=== PATIENT | female | born 1960 | race Caucasian/White ===

== ENCOUNTER 2017-04-29 20:01 | Emergency (ER) | payer OTHER ==
[~2017-04-29 20:01] MED LIST: GLYB5TAB3 PO; METO25 PO; TRIA37.512 PO
[2017-04-29 20:02] VITALS: BP 159/72; PULSE 79; RESP 16; TEMP 98.7; O2SAT 96
[2017-04-29] MEDS ORDERED: SODIUM CHLOR 0.9% 1000 ML INJ 1,000 ML IV SCH (20:25)
[2017-04-29] MEDS ORDERED: BRIM0.2S4 EACH EYE (20:26)
[2017-04-29] MEDS ORDERED: SODI650T PO (20:26)
[2017-04-29] MEDS ORDERED: METO25TA3 PO (20:26)
[2017-04-29] MEDS ORDERED: ATOR20TA15 PO (20:26)
[2017-04-29] MEDS ORDERED: ATRO1SOL11 SL (20:26)
[2017-04-29] MEDS ORDERED: PRED1SUS LEFT EYE (20:26)
[2017-04-29] MEDS ORDERED: AMLO5TAB2 PO (20:26)
[2017-04-29] MEDS ORDERED: GLYB2.5T3 PO (20:26)
[2017-04-29 20:27] VITALS: BP 139/67; PULSE 79; RESP 20; O2SAT 98
[2017-04-29] MEDS ORDERED: DEXTROSE 50% IN WATER 50 ML VIAL(D50) IV PRN (20:30)
[2017-04-29] MEDS ORDERED: SODIUM CHLORIDE 0.9% FLUSH 5 ML FLUSH IV FLUSH PRN (20:30)
--- NOTE | 2017-04-29 20:48 | PD ---
HPI Chief Complaint: Neuro Symptoms/ Deficits Time Seen by Provider: 20:16 Travel History International Travel<30 days: No Contact w/Intl Traveler<30days: No Traveled to known affect area: No History of Present Illness HPI The patient is a 57-year-old female, glyburide controlled diabetic, who complains of left-sided numbness today. Her blood sugar at home was 43 approximately 7 PM tonight and she was given sugar in the form of soda by mouth. The left-sided numbness resolved. Repeat blood sugar here on admission was 65. She states she does not have an appetite. She states she did eat today but has had a decreased appetite. There is been no nausea, vomiting or diarrhea. There's been no fever, dysuria, frequency or urgency. She denies any focal weakness, headache. She speaks only Ukrainian but her daughter interprets for her. She lives in [place] but states they do not take her insurance in [place] and has to come to [place]. The patient has chronic renal insufficiency and is being considered and being worked up for dialysis in [place]. [facility] Past Medical History Diabetes: Yes Hypertension: Yes Social History Alcohol Use: No Tobacco Use: No Substance Use: No Allergies-Medications (Allergen,Severity, Reaction): Coded Allergies: No Known Allergies (Unverified , 04/29/17) Reported Meds & Prescriptions Reported Meds & Active Scripts Active Reported Brimonidine Opth Drops (Brimonidine Tartrate) 0.2% Soln 1 Drop EACH EYE TID Pred Forte Opth 1% (Prednisolone Acetate Opth 1%) 1% Susp 1 Drop LEFT EYE QID Sodium Bicarbonate 650 Mg Tab 650 Mg PO BIDPC Atorvastatin (Atorvastatin Calcium) 20 Mg Tab 20 Mg PO HS Glyburide 2.5 Mg Tab 2.5 Mg PO DAILY Take with meals at the same time each day Amlodipine (Amlodipine Besylate) 5 Mg Tab 5 Mg PO DAILY Atropine Opth Drops 1% Soln 1 Drop SL TID PRN Metoprolol Tartrate 25 Mg Tab 25 Mg PO BID Review of Systems ROS Limitations: Language Barrier Except as stated in HPI: all other systems reviewed are Neg Physical Exam Narrative GENERAL: The patient is alert, oriented 3 and answers questions quickly and appropriately. Her vital signs show blood pressure 159/72 but are otherwise normal. SKIN: Focused skin assessment warm/dry. HEAD: Atraumatic. Normocephalic. EYES: Pupils equal and round. No scleral icterus. No injection or drainage. ENT: No nasal bleeding or discharge. Mucous membranes pink and moist. NECK: Trachea midline. No JVD. CARDIOVASCULAR: Regular rate and rhythm. No murmur appreciated. RESPIRATORY: No accessory muscle use. Clear to auscultation. Breath sounds equal bilaterally. GASTROINTESTINAL: Abdomen soft, non-tender, nondistended. Hepatic and splenic margins not palpable. No guarding or rebound is present. MUSCULOSKELETAL: No obvious deformities. No clubbing. No cyanosis. No edema. NEUROLOGICAL: Awake and alert. No obvious cranial nerve deficits. Motor grossly within normal limits. Normal speech. PSYCHIATRIC: Appropriate mood and affect; insight and judgment normal. Data Data Last Documented VS Vital Signs Date Time Temp Pulse Resp B/P Pulse Ox O2 Delivery O2 Flow Rate FiO2 04/29/17 22:50 82 18 160/85 98 Room Air 04/29/17 20:02 98.7 Orders Electrocardiogram (04/29/17 20:25) Complete Blood Count With Diff (04/29/17 20:25) Comprehensive Metabolic Panel (04/29/17 20:25) Thyroid Stimulating Hormone (04/29/17 20:25) Urinalysis - C+S If Indicated (04/29/17 20:25) Blood Glucose (04/29/17 20:25) Ecg Monitoring (04/29/17 20:25) Iv Access Insert/Monitor (04/29/17 20:25) Oximetry (04/29/17 20:25) Dextrose 50% In Rosa (Vial) Inj (D50w (Vi (04/29/17 20:30) Sodium Chloride 0.9% Flush (Ns Flush) (04/29/17 20:30) Sodium Chlor 0.9% 1000 Ml Inj (Ns 1000 M (04/29/17 20:25) Ct Brain W/O Iv Contrast(Rout) (04/29/17 20:27) Labs Laboratory Tests Test 04/29/17 20:30 White Blood Count 7.8 TH/MM3 Red Blood Count 3.54 MIL/MM3 Hemoglobin 9.9 GM/DL Hematocrit 30.2 % Mean Corpuscular Volume 85.4 FL Mean Corpuscular Hemoglobin 28.0 PG Mean Corpuscular Hemoglobin 32.8 % Concent Red Cell Distribution Width 14.7 % Platelet Count 206 TH/MM3 Mean Platelet Volume 10.0 FL Neutrophils (%) (Auto) 81.7 % Lymphocytes (%) (Auto) 12.1 % Monocytes (%) (Auto) 3.4 % Eosinophils (%) (Auto) 2.4 % Basophils (%) (Auto) 0.4 % Neutrophils # (Auto) 6.4 TH/MM3 Lymphocytes # (Auto) 1.0 TH/MM3 Monocytes # (Auto) 0.3 TH/MM3 Eosinophils # (Auto) 0.2 TH/MM3 Basophils # (Auto) 0.0 TH/MM3 CBC Comment DIFF FINAL Differential Comment Sodium Level 139 MEQ/L Potassium Level 4.2 MEQ/L Chloride Level 108 MEQ/L Carbon Dioxide Level 19.2 MEQ/L Anion Gap 12 MEQ/L Blood Urea Nitrogen 40 MG/DL Creatinine 3.68 MG/DL Estimat Glomerular Filtration 13 ML/MIN Rate Random Glucose 55 MG/DL Calcium Level 8.6 MG/DL Total Bilirubin 0.2 MG/DL Aspartate Amino Transf 20 U/L (AST/SGOT) Alanine Aminotransferase 16 U/L (ALT/SGPT) Alkaline Phosphatase 96 U/L Total Protein 7.7 GM/DL Albumin 2.8 GM/DL Thyroid Stimulating Hormone 4.990 uIU/ML [address] [place] [address] Medical Decision Making Medical Screen Exam Complete: Yes Emergency Medical Condition: Yes Medical Record Reviewed: Yes Interpretation(s) The CT brain shows no acute intracranial abnormality. Repeat Accu-Cheks were done at approximately 11 PM and 12 midnight and they show 141 and 185 respectively. The CBC is normal except for hemoglobin of 9.9 and hematocrit of 30.2. The complete metabolic profile with blood drawn at 8:30 shows bicarbonate of 19.2, BUN 40, creatinine 3.68 with GFR of 13 and glucose of 55 and TSH of 4,990. Differential Diagnosis Hypoglycemia, acute renal insufficiency, electrolyte disorder, other metabolic disorder, intracranial bleed Narrative Course The patient does have known renal insufficiency. She apparently does have hypothyroid according to the TSH. She is anemic but this is unlikely to cause her problem today. The patient appears to have had a hypoglycemic reaction. She had a similar reaction yesterday. This was treated completely with by mouth intake. Diagnosis Primary Impression: Hypoglycemia Additional Instructions: It is important that you follow-[place]. It is also important that she eat regular meals so that you do not get low blood sugar again. Med/Other Pt SpecificInfo: No Change to Meds Disposition: 01 DISCHARGE HOME Condition: Paul Beltran MD Apr 29, 2017 20:48
[2017-04-29 20:55] LABS: AUTOMATED NEUTROPHIL # 6.4 TH/MM3 (1.8-7.7); BASOPHIL % 0.4 % (0.0-2.0); EOSINOPHIL # 0.2 TH/MM3 (0-0.4); EOSINOPHIL % 2.4 % (0.0-4.0); HEMATOCRIT 30.2 % (35.0-46.0); HEMO FLAGS DIFF FINAL; LYMPH % 12.1 % (9.0-44.0); MEAN CELL VOLUME 85.4 FL (80.0-100.0); MEAN CORPUSCULAR HGB CONC 32.8 % (32.0-36.0); MONO % 3.4 % (0.0-8.0); NEUT % 81.7 % (16.0-70.0); PLATELET COUNT 206 TH/MM3 (150-450); RED BLOOD COUNT 3.54 MIL/MM3 (4.00-5.30); RED CELL DISTRIBUTION WIDTH 14.7 % (11.6-17.2); WHITE BLOOD COUNT 7.8 TH/MM3 (4.0-11.0)
[2017-04-29 21:11] LABS: ANION GAP 12 MEQ/L (5-15); AST (GOT) 20 U/L (15-37); BICARBONATE 19.2 MEQ/L (21.0-32.0); BLOOD UREA NITROGEN 40 MG/DL (7-18); CHLORIDE 108 MEQ/L (98-107); GLOMERULAR FILTRATION RATE 13 ML/MIN (>89); POTASSIUM 4.2 MEQ/L (3.5-5.1); SODIUM (NA) 139 MEQ/L (136-145)
[2017-04-29 21:12] LABS: ALT (GPT) 16 U/L (10-53)
[2017-04-29 21:22] LABS: ALKALINE PHOSPHATASE 96 U/L (45-117); TOTAL BILIRUBIN ADULT 0.2 MG/DL (0.2-1.0)
[2017-04-29 21:47] VITALS: BP 146/80; PULSE 77; RESP 18; O2SAT 99
[2017-04-29 22:50] VITALS: BP 160/85; PULSE 82; RESP 18; O2SAT 98
--- NOTE | 2017-04-29 22:56 | RADRPT ---
EXAM DATE/TIME: 04/29/2017 22:44 [facility] COMPARISON: No previous studies available for comparison. INDICATIONS : Altered mental status. RADIATION DOSE: 36.39 CTDIvol (mGy) MEDICAL HISTORY : Hypertension. Diabetes mellitus type 2. SURGICAL HISTORY : None. ENCOUNTER: Initial ACUITY: 1 day PAIN SCALE: 0/10 LOCATION: cranial TECHNIQUE: Multiple contiguous axial images were obtained of the head. Using automated exposure control and adj ustment of the mA and/or kV according to patient size, radiation dose was kept as low as reasonably a chievable to obtain optimal diagnostic quality images. FINDINGS: CEREBRUM: The ventricles are normal. No evidence of midline shift, mass lesion, hemorrhage or acute infarction . No extra-axial fluid collections are seen. POSTERIOR FOSSA: The cerebellum and brainstem demonstrate no acute finding. The 4th ventricle is midline. The cerebe llopontine angle is unremarkable. EXTRACRANIAL: Visualized sinuses are clear. SKULL: The calvaria is intact. No evidence of skull fracture. CONCLUSION: No acute intracranial abnormality is identified. Silvio Zee MD on April 29, 2017 at 22:53 Board Certified Radiologist. This report was verified electronically.
[2017-04-30 00:11] VITALS: BP 155/86
--- NOTE | 2017-04-30 14:25 | EKG ---
Date Performed: 04/29/2017 Time Performed: 20:41:29 PTAGE: 57 years EKG: Sinus rhythm Since previous tracing, no significant change noted NORMAL ECG PREVIOUS TRACING : 12/04/2014 10.22.56 DOCTOR: Boone Quinones Interpretating Date/Time 04/30/2017 14:21:12
== END 2017-04-30 00:42 | disposition home or self-care (01) ==
LOC: NEPC 20:01
DX: E11.649 Type 2 diabetes mellitus with hypoglycemia without coma (principal); N28.9 Disorder of kidney and ureter, unspecified; E03.9 Hypothyroidism, unspecified; D64.9 Anemia, unspecified; R20.0 Anesthesia of skin; I10 Essential (primary) hypertension; Z79.899 Other long term (current) drug therapy
CPT/HCPCS: 70450; 80053; 84443; 85025; 93005; 96374; 99285; J7030

== ENCOUNTER 2017-06-08 10:11 | Inpatient (IN) | payer OTHER ==
[~2017-06-08] VITALS: Ht 157.5 cm; Wt 71.7 kg
[2017-06-08] VITALS (8 sets, daily range): BP systolic 158–185; BP diastolic 79–90; PULSE 66–75; RESP 18–28; TEMP 96.1–98.5; O2SAT 81–93
[~2017-06-08 10:11] MED LIST changes: +AMLO5TAB2 PO; +ATOR20TA15 PO; +ATRO1SOL11 EACH EYE; +BRIM0.2S4 EACH EYE; +GLYB2.5T3 PO; -GLYB5TAB3 PO; -METO25 PO; +METO25TA3 PO; +PRED1SUS LEFT EYE; +SODI650T PO; -TRIA37.512 PO
[2017-06-08] MEDS ORDERED: SODIUM CHLORIDE 0.9% FLUSH 10 ML FLUSH IVF PRN (10:30)
[2017-06-08] MEDS ORDERED: FUROSEMIDE 40 MG/4 ML VIAL IVP ONE (10:30)
--- NOTE | 2017-06-08 10:35 | PD ---
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 This is a 57-year-old female with a history of diabetes mellitus, hypertension, hyperlipidemia, who presents here at the request of her primary care doctor for possible CHF exacerbation. The patient last 2 weeks has had progressive shortness of breath. She's also had lower extremity edema. She was seen by her primary care doctor 2 weeks ago and started on Lasix however she is still having symptoms of shortness of breath. Daughter states that she can only walk 20 feet before becoming winded. She denies any chest pain or chest pressure. She denies a previous history of congestive heart failure. The patient does have coronary artery disease daughter states that she was told that she almost had a heart attack. PFSH Past Medical History Cardiovascular Problems: Yes High Cholesterol: Yes Diabetes: Yes Patient Takes Glucophage: No Diminished Hearing: No Hypertension: Yes Menopausal: Yes : 6 Para: 6 Past Surgical History Eye Surgery: Yes Other Surgery: Yes (LEFT FOOT SURGERY) Social History Alcohol Use: No Tobacco Use: No Substance Use: No Allergies-Medications (Allergen,Severity, Reaction): Coded Allergies: No Known Allergies (Unverified , 06/08/17) Reported Meds & Prescriptions Reported Meds & Active Scripts Active Reported Furosemide 20 Mg Tab 20 Mg PO DAILY Pred Forte Opth 1% (Prednisolone Acetate Opth 1%) 1% Susp 1 Drop LEFT EYE QID Sodium Bicarbonate 650 Mg Tab 650 Mg PO BIDPC Atorvastatin (Atorvastatin Calcium) 20 Mg Tab 20 Mg PO HS Amlodipine (Amlodipine Besylate) 5 Mg Tab 5 Mg PO DAILY Atropine Opth Drops 1% Soln 1 Drop EACH EYE BID Metoprolol Tartrate 25 Mg Tab 25 Mg PO BID Review of Systems Except as stated in HPI: all other systems reviewed are Neg General / Constitutional: No: Fever, Chills HENT: No: Headaches, Lightheadedness Cardiovascular: No: Chest Pain or Discomfort, Palpitations, Irregular Rhythm Respiratory: Positive: Shortness of Breath, No: Cough Gastrointestinal: No: Nausea, Vomiting, Abdominal Pain Genitourinary: No: Dysuria, Decreased Urinary Output Musculoskeletal: Positive: Weakness, Edema (generalized worsening lower extremity edema), No: Pain Neurologic: Positive: Weakness, No: Syncope, Headache, Change in Mentation Endocrine: No: Polyuria, Polydipsia Physical Exam Narrative GENERAL: Well-developed well-nourished female in mild respiratory discomfort. SKIN: Focused skin assessment warm/dry. HEAD: Atraumatic. Normocephalic. EYES: No scleral icterus. No injection or drainage. Patient is legally blind secondary to her diabetes. ENT: No nasal bleeding or discharge. Mucous membranes pink and moist. NECK: Trachea midline. Supple. CARDIOVASCULAR: Regular rate and rhythm. No murmur appreciated. RESPIRATORY: No accessory muscle use. Bilateral Rales heard in all 4 lung ruiz. GASTROINTESTINAL: Abdomen soft, non-tender, nondistended. MUSCULOSKELETAL: No obvious deformities. No clubbing. No cyanosis. 2+ pretibial edema. NEUROLOGICAL: Awake and alert. No obvious cranial nerve deficits. Motor grossly within normal limits. Normal speech. Data Data Last Documented VS Vital Signs Date Time Temp Pulse Resp B/P Pulse Ox O2 Delivery O2 Flow Rate FiO2 06/08/17 12:00 68 28 185/88 93 Nasal Cannula 3.0 06/08/17 10:13 98.5 Orders Complete Blood Count With Diff (06/08/17 10:28) Comprehensive Metabolic Panel (06/08/17 10:28) B-Type Natriuretic Peptide (06/08/17 10:28) Act Partial Throm Time (Ptt) (06/08/17 10:28) Prothrombin Time / Inr (Pt) (06/08/17 10:28) Ckmb (Isoenzyme) Profile (06/08/17 10:28) Troponin I (06/08/17 10:28) Arterial Blood Gas (Abg) (06/08/17 10:28) Iv Access Insert/Monitor (06/08/17 10:28) Ecg Monitoring (06/08/17 10:28) Oximetry (06/08/17 10:28) Oxygen Administration (06/08/17 10:28) Chest, Single Ap (06/08/17 10:28) Sodium Chloride 0.9% Flush (Ns Flush) (06/08/17 10:30) Furosemide Inj (Lasix Inj) (06/08/17 10:30) Electrocardiogram (06/08/17 10:27) CKMB (06/08/17 10:35) CKMB% (06/08/17 10:35) Urinary Catheter Management REESE.Q8H (06/08/17 12:52) Admit To Inpatient (06/08/17 ) Vital Signs (Adult) Q4H (06/08/17 12:52) Activity Oob With Assistance (06/08/17 12:52) Associate Data Scientist / Telemetry .CONTINUOUS (06/08/17 12:52) Diet Heart Healthy (06/08/17 Lunch) Sodium Chloride 0.9% Flush (Ns Flush) (06/08/17 13:00) Sodium Chloride 0.9% Flush (Ns Flush) (06/08/17 21:00) Acetaminophen (Tylenol) (06/08/17 13:00) Ondansetron Inj (Zofran Inj) (06/08/17 13:00) Basic Metabolic Panel (Bmp) (06/09/17 06:00) Complete Blood Count With Diff (06/09/17 06:00) Creatine Kinase (Cpk) (06/08/17 16:30) Creatine Kinase (Cpk) (06/08/17 22:30) Troponin I (06/08/17 16:30) Troponin I (06/08/17 22:30) Electrocardiogram (06/08/17 16:30) Electrocardiogram (06/08/17 22:30) Resp Oxygen Kip C Titrat 1-4 L (06/08/17 ) Scd Bilateral/Knee High REESE.BID (06/08/17 12:52) Александр Bilateral/Knee High REESE.QSHIFT (06/08/17 12:52) Naloxone Inj (Narcan Inj) (06/08/17 13:00) Docusate Sodium-Senna (Aimee-Colace) (06/08/17 21:00) Magnesium Hydroxide Liq (Milk Of Magnesi (06/08/17 13:00) Sennosides (Senokot) (06/08/17 13:00) Bisacodyl Supp (Dulcolax Supp) (06/08/17 13:00) Lactulose Liq (Lactulose Liq) (06/08/17 13:00) Inpatient Certification (06/08/17 ) Bumetanide Inj (Bumex Inj) (06/08/17 18:00) Echo 2d Comp With Doppler (06/08/17 ) Bedside Glucose REESE.AC&HS (06/08/17 12:52) Blood Glucose Goal (Criteria) (06/08/17 12:52) Hypoglycemia 70 Mg/Dl Or < (06/08/17 12:52) Notify Dr: Other (06/08/17 12:52) Dextrose 50% In Rosa (Vial) Inj (D50w (Vi (06/08/17 13:00) Glucagon Inj (Glucagon Inj) (06/08/17 13:00) Insulin Aspart Supplemtl Scale (Novolog (06/08/17 16:00) Admit Order (Ed Use Only) (06/08/17 13:00) Labs Laboratory Tests Test 06/08/17 06/08/17 10:35 11:29 White Blood Count 7.2 TH/MM3 Red Blood Count 3.29 MIL/MM3 Hemoglobin 9.2 GM/DL Hematocrit 28.6 % Mean Corpuscular Volume 86.9 FL Mean Corpuscular Hemoglobin 27.9 PG Mean Corpuscular Hemoglobin 32.1 % Concent Red Cell Distribution Width 15.8 % Platelet Count 204 TH/MM3 Mean Platelet Volume 8.8 FL Neutrophils (%) (Auto) 74.4 % Lymphocytes (%) (Auto) 18.1 % Monocytes (%) (Auto) 3.7 % Eosinophils (%) (Auto) 3.4 % Basophils (%) (Auto) 0.4 % Neutrophils # (Auto) 5.4 TH/MM3 Lymphocytes # (Auto) 1.3 TH/MM3 Monocytes # (Auto) 0.3 TH/MM3 Eosinophils # (Auto) 0.2 TH/MM3 Basophils # (Auto) 0.0 TH/MM3 CBC Comment DIFF FINAL Differential Comment Prothrombin Time 10.6 SEC Prothromb Time International 1.0 RATIO Ratio Activated Partial 28.5 SEC Thromboplast Time Sodium Level 137 MEQ/L Potassium Level 4.7 MEQ/L Chloride Level 105 MEQ/L Carbon Dioxide Level 23.3 MEQ/L Anion Gap 9 MEQ/L Blood Urea Nitrogen 46 MG/DL Creatinine 4.37 MG/DL Estimat Glomerular Filtration 10 ML/MIN Rate Random Glucose 94 MG/DL Calcium Level 8.4 MG/DL Total Bilirubin 0.3 MG/DL Aspartate Amino Transf 16 U/L (AST/SGOT) Alanine Aminotransferase 17 U/L (ALT/SGPT) Alkaline Phosphatase 112 U/L Total Creatine Kinase 101 U/L Creatine Kinase MB 2.3 NG/ML Troponin I LESS THAN 0.02 NG/ML B-Type Natriuretic Peptide 437 PG/ML Total Protein 7.4 GM/DL Albumin 2.7 GM/DL Blood Gas Puncture Site LT BRACHIAL Blood Gas Patient Temperature 98.6 Blood Gas HCO3 22 mmol/L Blood Gas Base Excess -2.1 mmol/L Blood Gas Oxygen Saturation 90 % Arterial Blood pH 7.39 Arterial Blood Partial 37 mmHg Pressure CO2 Arterial Blood Partial 60 mmHG Pressure O2 Arterial Blood Oxygen Content 10.9 Vol % Arterial Blood 1.7 % Carboxyhemoglobin Arterial Blood Methemoglobin 0.5 % Blood Gas Hemoglobin 8.6 G/DL Oxygen Delivery Device NASAL CANNULA Blood Gas Liter Flow 3 L/M MDM Medical Decision Making Medical Screen Exam Complete: Yes Emergency Medical Condition: Yes Differential Diagnosis CHF versus ACS versus metabolic derangement versus pulmonary fibrosis Narrative Course 57-year-old female with history of hypertension, diabetes mellitus, hyperlipidemia, who presents at the request for doctor for evaluation for congestive heart failure. The patient's had progressive shortness of breath 2 weeks. She's also had progressive swelling of her lower extremity is. She was started on Lasix however the symptoms have progressed and have not gotten any better. She denies a chest pain with chest pressure. Chest x-ray shows congestive heart failure. The patient's renal function is also worse than previous. She has a creatinine above 4. Previously her creatinine were in the 3 range. She been given Lasix, 40 mg I V times one dose. Her O2 sat was in the 90s on 3 L via nasal cannula. The case was discussed with Dr. Abner Smyth, [facility], who is gracious enough to admit the patient to his service. Diagnosis Primary Impression: CHF exacerbation Additional Impressions: [id number] kidney injury Hypertension Diabetes mellitus Hyperlipidemia Admitting Information Admitting Physician Requests: Admit Danny Parr MD Jun 08, 2017 10:35
[2017-06-08] MEDS ORDERED: FURO20TA PO (10:36)
[2017-06-08 11:01] LABS: AUTOMATED NEUTROPHIL # 5.4 TH/MM3 (1.8-7.7); BASOPHIL % 0.4 % (0.0-2.0); EOSINOPHIL # 0.2 TH/MM3 (0-0.4); EOSINOPHIL % 3.4 % (0.0-4.0); HEMATOCRIT 28.6 % (35.0-46.0); HEMO FLAGS DIFF FINAL; LYMPH % 18.1 % (9.0-44.0); LYMPHOCYTE # 1.3 TH/MM3 (1.0-4.8); MEAN CELL VOLUME 86.9 FL (80.0-100.0); MEAN CORPUSCULAR HEMOGLOBIN 27.9 PG (27.0-34.0); MEAN CORPUSCULAR HGB CONC 32.1 % (32.0-36.0); MONO % 3.7 % (0.0-8.0); NEUT % 74.4 % (16.0-70.0); PLATELET COUNT 204 TH/MM3 (150-450); RED BLOOD COUNT 3.29 MIL/MM3 (4.00-5.30); RED CELL DISTRIBUTION WIDTH 15.8 % (11.6-17.2); WHITE BLOOD COUNT 7.2 TH/MM3 (4.0-11.0)
--- NOTE | 2017-06-08 11:03 | RADRPT ---
EXAM DATE/TIME: 06/08/2017 10:43 [facility] COMPARISON: No previous studies available for comparison. INDICATIONS : Shortness of breath. MEDICAL HISTORY : Hypertension. SURGICAL HISTORY : None. ENCOUNTER: Initial ACUITY: 1 week PAIN SCORE: Non-responsive. LOCATION: Bilateral chest FINDINGS: Moderate congestive failure is evident with cardiomegaly and bilateral pleural effusions. There is n o pneumothorax. The portion of the bony skeleton visualized is unremarkable. CONCLUSION: Moderate congestive failure with bilateral pleural effusions. Dangelo Merida MD FACR on June 08, 2017 at 11:01 Board Certified Radiologist. This report was verified electronically.
[2017-06-08 11:23] LABS: ALT (GPT) 17 U/L (10-53); ANION GAP 9 MEQ/L (5-15); APTT (PATIENT) 28.5 SEC (24.3-30.1); AST (GOT) 16 U/L (15-37); BICARBONATE 23.3 MEQ/L (21.0-32.0); BLOOD UREA NITROGEN 46 MG/DL (7-18); CHLORIDE 105 MEQ/L (98-107); GLOMERULAR FILTRATION RATE 10 ML/MIN (>89); POTASSIUM 4.7 MEQ/L (3.5-5.1); PROTHROMBIN TIME - PATIENT 10.6 SEC (9.8-11.6); SODIUM (NA) 137 MEQ/L (136-145)
[2017-06-08 11:27] LABS: ALKALINE PHOSPHATASE 112 U/L (45-117); CREATINE KINASE 101 U/L (26-192); TOTAL BILIRUBIN ADULT 0.3 MG/DL (0.2-1.0)
[2017-06-08 11:39] LABS: CKMB 2.3 NG/ML (0.5-3.6)
[2017-06-08 11:40] LABS: BLOOD GAS BASE EXCESS -2.1 mmol/L (-2-2); BLOOD GAS CARBOXYHEMOGLOBIN 1.7 % (0-4); BLOOD GAS HCO3 22 mmol/L (22-26); BLOOD GAS METHEMOGLOBIN 0.5 % (0-2); BLOOD GAS O2 HGB SATURATION 90 % (90-100); BLOOD GAS OXYGEN CONTENT 10.9 Vol % (12.0-20.0); BLOOD GAS PCO2 37 mmHg (38-42); BLOOD GAS PO2 60 mmHG (61-120); BLOOD GAS TOTAL HGB 8.6 G/DL (12.0-16.0); TEMP CORR TO 98.6
[2017-06-08 11:41] LABS: CRITICAL VALUE NO; DRAW SITE LT BRACHIAL; LITER FLOW 3 L/M; NUMBER OF ARTERIAL PUNCTURES 1; OXYGEN DEVICE NASAL CANNULA; STAT YES; ULNAR PULSE PRESENT
[2017-06-08] MEDS ORDERED: GLUCAGON 1 MG/ML VIAL OTHER PRN (13:00)
[2017-06-08] MEDS ORDERED: NALOXONE HCL 0.4 MG/ML AMP IV PRN (13:00)
[2017-06-08] MEDS ORDERED: ONDANSETRON HCL 4 MG/2 ML VIAL IVP PRN (13:00)
[2017-06-08] MEDS ORDERED: SODIUM CHLORIDE 0.9% FLUSH 10 ML FLUSH IV FLUSH PRN (13:00)
[2017-06-08] MEDS ORDERED: MAGNESIUM HYDROXIDE SUSP 30 ML CUP PO PRN (13:00)
[2017-06-08] MEDS ORDERED: DEXTROSE 50% IN WATER 50 ML VIAL(D50) IV PRN (13:00)
[2017-06-08] MEDS ORDERED: BISACODYL 10 MG SUPP RECTAL PRN (13:00)
[2017-06-08] MEDS ORDERED: SENNOSIDES 8.6 MG TAB PO PRN (13:00)
--- NOTE | 2017-06-08 13:14 | EKG ---
Date Performed: 06/08/2017 Time Performed: 10:27:23 PTAGE: 57 years EKG: Baseline artifact present Sinus rhythm probable NORMAL ECG NO PREVIOUS TRACING DOCTOR: Srikanth Edwards Interpretating Date/Time 06/08/2017 13:13:29
--- NOTE | 2017-06-08 13:44 | HHI.HP ---
[facility] Service [facility] Primary Care Physician Unknown Admission Diagnosis chf exacerbation, acute on chronic kidney injury, DM, HTN, Diagnoses: (1) Acute renal failure (2) Diabetes mellitus (3) Hyperlipidemia (4) Hypertension (5) Fluid overload Chief Complaint: Dyspnea Travel History International Travel<30 Days: No Contact w/Intl Traveler <30 Da: No Traveled to Known Affected Are: No History of Present Illness The patient is a 57-year-old Latvian-speaking female who presented to the emergency department with complaint of shortness of breath. She was offered a content curator, but requested that her daughter translate for her. She had an episode of chest pain coupled days ago, but none currently. Shortness of breath has been progressively worsening over the past week. She has had increasing lower extremity edema as well. She has been producing urine, but less than normal. She has been seeing a ophthalmology surgical technician in [place], and reportedly is being scheduled for a renal biopsy. Review of Systems Constitutional: DENIES: Fever, Chills, Night Sweats Eyes: DENIES: Blurred vision, Vision loss Ears, nose, mouth, throat: DENIES: Hearing loss Respiratory: COMPLAINS OF: Shortness of breath, DENIES: Cough, Wheezing, Sputum production Cardiovascular: COMPLAINS OF: Chest pain (as discussed in history of present illness), Lower Extremity Edema, DENIES: Palpitations, Dyspnea on Exertion Gastrointestinal: DENIES: Abdominal pain, Constipation, Diarrhea, Nausea, Vomiting Genitourinary: DENIES: Urinary frequency, Urinary incontinence, Urgency, Hematuria, Dysuria, Nocturia Musculoskeletal: DENIES: Joint pain, Muscle aches Integumentary: DENIES: Pruritus, Rash Hematologic/lymphatic: DENIES: Bruising Neurologic: DENIES: Headache Past Family Social History Past Medical History Diabetes mellitus Renal failure Hypertension Hyperlipidemia Past Surgical History Eye surgery Left foot surgery Reported Medications Furosemide 20 Mg Tab 20 Mg PO DAILY Pred Forte Opth 1% (Prednisolone Acetate Opth 1%) 1% Susp 1 Drop LEFT EYE QID Sodium Bicarbonate 650 Mg Tab 650 Mg PO BIDPC Atorvastatin (Atorvastatin Calcium) 20 Mg Tab 20 Mg PO HS Amlodipine (Amlodipine Besylate) 5 Mg Tab 5 Mg PO DAILY Atropine Opth Drops 1% Soln 1 Drop EACH EYE BID Metoprolol Tartrate 25 Mg Tab 25 Mg PO BID Allergies: Coded Allergies: No Known Allergies (Unverified , 06/08/17) Family History Father of a heart attack. Social History Denies alcohol, tobacco, or illicit drug use. Physical Exam Vital Signs Vital Signs Date Time Temp Pulse Resp B/P Pulse Ox O2 Delivery O2 Flow Rate FiO2 06/08/17 12:00 68 28 185/88 93 Nasal Cannula 3.0 06/08/17 11:00 66 26 184/84 93 Nasal Cannula 3.0 06/08/17 10:31 93 Nasal Cannula 2.0 06/08/17 10:31 Nasal Cannula 2.0 06/08/17 10:24 28 91 Nasal Cannula 2.0 06/08/17 10:19 69 28 185/87 83 06/08/17 10:13 98.5 69 24 178/86 81 Room Air Physical Exam GENERAL: Latvian-speaking female in no acute distress. HEENT: Normocephalic, atraumatic. Pupils equal, round and reactive. Extraocular movements intact. No scleral icterus. No injection or drainage. Oropharynx is clear. Mucous membranes are somewhat dry. CARDIOVASCULAR: Regular rate and rhythm without murmurs, gallops, or rubs. RESPIRATORY: Bilateral crackles, right greater than left. Breathing is non- labored. GASTROINTESTINAL: Abdomen soft, non-tender, nondistended. EXTREMITIES: 2+ bilateral lower extremity pitting edema. No calf tenderness. PSYCH: Alert and oriented x 3. Laboratory Laboratory Tests Test 06/08/17 06/08/17 10:35 11:29 White Blood Count 7.2 Red Blood Count 3.29 Hemoglobin 9.2 Hematocrit 28.6 Mean Corpuscular Volume 86.9 Mean Corpuscular Hemoglobin 27.9 Mean Corpuscular Hemoglobin 32.1 Concent Red Cell Distribution Width 15.8 Platelet Count 204 Mean Platelet Volume 8.8 Neutrophils (%) (Auto) 74.4 Lymphocytes (%) (Auto) 18.1 Monocytes (%) (Auto) 3.7 Eosinophils (%) (Auto) 3.4 Basophils (%) (Auto) 0.4 Neutrophils # (Auto) 5.4 Lymphocytes # (Auto) 1.3 Monocytes # (Auto) 0.3 Eosinophils # (Auto) 0.2 Basophils # (Auto) 0.0 CBC Comment DIFF FINAL Differential Comment Prothrombin Time 10.6 Prothromb Time International 1.0 Ratio Activated Partial 28.5 Thromboplast Time Sodium Level 137 Potassium Level 4.7 Chloride Level 105 Carbon Dioxide Level 23.3 Anion Gap 9 Blood Urea Nitrogen 46 Creatinine 4.37 Estimat Glomerular Filtration 10 Rate Random Glucose 94 Calcium Level 8.4 Total Bilirubin 0.3 Aspartate Amino Transf 16 (AST/SGOT) Alanine Aminotransferase 17 (ALT/SGPT) Alkaline Phosphatase 112 Total Creatine Kinase 101 Creatine Kinase MB 2.3 Troponin I LESS THAN 0.02 B-Type Natriuretic Peptide 437 Total Protein 7.4 Albumin 2.7 Blood Gas Puncture Site LT BRACHIAL Blood Gas Patient Temperature 98.6 Blood Gas HCO3 22 Blood Gas Base Excess -2.1 Blood Gas Oxygen Saturation 90 Arterial Blood pH 7.39 Arterial Blood Partial 37 Pressure CO2 Arterial Blood Partial 60 Pressure O2 Arterial Blood Oxygen Content 10.9 Arterial Blood 1.7 Carboxyhemoglobin Arterial Blood Methemoglobin 0.5 Blood Gas Hemoglobin 8.6 Oxygen Delivery Device NASAL CANNULA Blood Gas Liter Flow 3 Result Diagram: 06/08/17 1035 06/08/17 1035 Imaging Last Impressions Chest X-Ray 06/08/17 1028 Signed Impressions: Service Date/Time: Thursday, June 08, 2017 10:43 - CONCLUSION: Moderate congestive failure with bilateral pleural effusions. Dangelo Merida MD FACR Assessment and Plan Assessment and Plan 1. Acute renal failure: Patient's creatinine is increased compared to labs a few weeks ago. Apparently she has been evaluated by a ophthalmology surgical technician in [place] and reportedly had a normal renal ultrasound. Her daughter states that the patient is scheduled for a renal biopsy soon. Consult nephrology. Monitor labs. Check renal ultrasound. 2. Fluid overload: Suspect congestive heart failure, but patient without history of CHF diagnosis. Check 2-D echocardiogram. Continue diuresis with Bumex. 3. Hypertension: Stop amlodipine. Monitor blood pressure. 4. Hyperlipidemia: Continue statin. 5. DVT prophylaxis: RICK Brunner. Heparin. Abner Smyth MD Jun 08, 2017 13:44
--- NOTE | 2017-06-08 15:50 | RADRPT ---
EXAM DATE/TIME: 06/08/2017 14:10 [place] COMPARISON: No previous studies available for comparison. INDICATIONS : Increased BUN/Creatinine. MEDICAL HISTORY : Hypercholesterolemia. Hypertension. . Diabetes. Blindness. SURGICAL HISTORY : Left foot surgery. ENCOUNTER: Initial ACUITY: 1 day PAIN SCORE: 4/10 LOCATION: Bilateral flank MEASUREMENTS: RIGHT KIDNEY: 10.6 x 5.5 x 4.8 cm LEFT KIDNEY: 10.9 x 4.7 x 5.8 cm FINDINGS: RIGHT KIDNEY: Renal cortex is normal in thickness but mildly echogenic cortex.. No hydronephrosis, stone, or mass. LEFT KIDNEY: Renal cortex is normal in thickness with mild increased echotexture. No hydronephrosis, stone, or ma ss. BLADDER: Within normal limits given the degree of distension. Bilateral pleural effusions. CONCLUSION: Echogenic but normal-size kidneys Bilateral pleural effusions. Dangelo Merida MD FACR on June 08, 2017 at 15:47 Board Certified Radiologist. This report was verified electronically.
[2017-06-08] MEDS: INSULIN ASPART SUPPLEMENTAL SCALE SQ SCH ×2 (16:20→21:02)
--- NOTE | 2017-06-08 17:21 | MB ---
cc: ABRIL WATSON MD DATE OF CONSULTATION: 06/08/2017 REASON FOR CONSULTATION: Elevated BUN and creatinine for evaluation. HISTORY OF PRESENT ILLNESS This is a 57-year-old female with past medical history of hypertension, diabetes mellitus, chronic kidney disease, ischemic heart disease, congestive heart failure, came to the hospital with complaint of worsening shortness of breath. I was called to see the patient because of elevated BUN and creatinine patient has creatinine of 4.3 on admission and she had reviously creatinine of 3.6 last month the patient has known history of chronic kidney disease and she has been following by her epic radiant analyst in [place] and according to daughter she was told that she will need dialysis and also she was told that she possibly will need kidney biopsy. The patient has this worsening shortness of breath with cough and sputum. She has history of low grade fever, here she has T-max of 99.3. The patient was found to have fluid overload and she was given Lasix and currently she is on Bumex. The patient is also found to have bilateral pleural effusion. She does not have any chest pain. No palpitation. She has some nausea and vomiting last week but there is no nausea, vomiting now. PAST MEDICAL HISTORY Hypertension Diabetes mellitus Chronic kidney disease Hyperlipidemia Ischemic heart disease Possible congestive heart failure PAST SURGICAL HISTORY: prior surgical history, history of eye surgery left foot surgery. REVIEW OF SYSTEMS The patient has a history of low grade fever at home. There is no history of chest pain, palpitation. She has this worsening shortness of breath and cough which is mainly dry. Sometimes she has whitish sputum. She had some nausea or vomiting last week but it is improved now. Her appetite is also improving. There is no history of diarrhea. No dysuria, hematuria. Currently she has Godwin catheter. She has history of decreased vision and she is legally blind possibly related to diabetic retinopathy. SOCIAL HISTORY There is no history of smoking or alcoholism in family the patient lives in [place]. FAMILY HISTORY The patient her father of for heart disease. ALLERGIES NO KNOWN DRUG ALLERGIES. MEDICATIONS Currently he is on 1. Aimee-Colace 1 tablet b.i.d. 2. Bumex 1 mg IV b.i.d. 3. NovoLog Insulin sliding scale. 4. Narcan as needed. PHYSICAL EXAMINATION: IN GENERAL: The patient is awake, alert. She is not in acute distress. VITAL SIGNS: The last blood pressure is 158/90 temperature 96.5, oxygen saturation on 3 liters of 91%. HEAD, EYES, EARS, NOSE, AND THROAT: Pupil mid constricted. Nonicteric sclera, conjunctiva pale. NECK: Supple. JVD slightly elevated. LUNGS: The patient has bilateral decreased air entry with basilar rales and scattered wheezing. HEART: S1, S2, regular rhythm. ABDOMEN: Abdomen is distended, soft lax. There is no tenderness. EXTREMITIES: She has bilateral 2+ edema LABORATORY INVESTIGATION: WBC count is 7.2, hemoglobin 9.2, platelet count of 204, neutrophils 74.4%, sodium 137, potassium 4.7, chloride 105, bicarb 23.3, BUN 46, creatinine 4.37, AST, ALT normal, BNP is 437. Troponin-I less than 0.02, albumin is 2.7, total protein 7.4, INR is 1.0. IMAGING STUDIES The patient has chest x-ray done which shows bilateral pleural effusion with increased vascular marking. Ultrasound of the kidneys done which shows both kidneys are normal in size with echogenic and has bilateral pleural effusion. CT scan of the brain was done without IV contrast and it shows that there is no abnormalities. This was done last month. ASSESSMENT: 1. Chronic kidney disease, advanced renal failure 2. Fluid overload status with pleural effusion. 3. Hypertension 4. Diabetes mellitus 5. Anemia. PLAN: The patient has advanced renal disease on most likely this is because of diabetic nephropathy. She has been following with [facility] outside. And he has workup done and was told that she possibly will need kidney biopsy. I will not do more workup for the renal failure because she already has this done by her epic radiant analyst as outpatient at present we will continue the Bumex her blood pressure is elevated. I will put her on labetalol. She was on amlodipine which is on hold because of the edema in the legs. Follow the urine output and the BUN and creatinine. If her renal function gets worse or she becomes uremic she probably will need to start dialysis sooner then later about the kidney biopsy. I will defer this to her primary epic radiant analyst was seen into the workup including kidney biopsy. as outpatient if needed. Most likely she has all of renal failure is a hypertensive or diabetic nephropathy. Thank you for the consultation and I will follow the patient while she is in the hospital. MD LONNY Aguillon/jacque /4:21 PM /5:06 PM
[2017-06-08] MEDS: BUMETANIDE INJ 1 MG/4 ML VIAL IV PUSH SCH (17:39)
[2017-06-08 19:21] LABS: CREATINE KINASE 88 U/L (26-192)
[2017-06-08 19:36] LABS: BACTERIA, URINE MOD /hpf; BLOOD, URINE SMALL (NEG); COMMENT (UR) CULTURE INDICATED; CULTURE IF INDICATED CULTURE INDICATED; GLUCOSE,URINE 70 mg/dL (NEG); HYALINE CAST, URINE 6 /lpf (RARE); KETONE, URINE NEG (NEG); NITRITE,URINE NEG (NEG); TRANSITIONAL EPI CELLS, URINE 1 /hpf; URINE COLOR LIGHT-YELLOW (YELLW/STRAW)
[2017-06-08] MEDS: LABETALOL HCL 100 MG TAB PO SCH (21:04)
[2017-06-08] MEDS: DOCUSATE SODIUM 50 MG/SENNA 8.6 MG TAB PO SCH (21:04)
[2017-06-08] MEDS: HEPARIN SODIUM - SQ 10,000 UNITS/ML VIAL SQ SCH (21:05)
[2017-06-08] MEDS: SODIUM CHLORIDE 0.9% FLUSH 10 ML FLUSH IV FLUSH SCH (21:05)
--- NOTE | 2017-06-08 22:45 | ECHRPT ---
Indication: Heart failure, unspecified CONCLUSIONS Normal left ventricular size. Wall thickness is measured at the upper limits of normal. The left ventricular systolic function is normal with an estimated ejection fraction in the range of 55-60%. The left atrial size is upper limits of normal. Mitral annular calcification is present. Moderate mitral annular calcification. Mitral valve mean gradient is 6 mmHg. Restricted mobility of the posterior mitral valve leaflet. A moderate left sided pleural effusion is noted. There is a trivial pericardial effusion present. BP: / HR: Rhythm: Sinus MEASUREMENTS (Male / Female) Normal Values Technical Quality:Good 2D ECHO LV Diastolic Diameter PLAX 4.8 cm 4.2 - 5.9 / 3.9 - 5.3 cm LV Systolic Diameter PLAX 3.5 cm IVS Diastolic Thickness 1.2 cm 0.6 - 1.0 / 0.6 - 0.9 cm LVPW Diastolic Thickness 0.8 cm 0.6 - 1.0 / 0.6 - 0.9 cm LV Relative Wall Thickness 0.4 LA Systolic Diameter LX 3.6 cm 3.0 - 4.0 / 2.7 - 3.8 cm M-MODE Aortic Root Diameter MM 2.9 cm AV Cusp Separation MM 1.9 cm DOPPLER MV Peak Velocity 210.0 cm/s MV Peak Gradient 17.6 mmHg MV Mean Velocity 115.0 cm/s MV Mean Gradient 6.0 mmHg MV Area PHT 3.1 cm Mitral E Point Velocity 154.0 cm/s Mitral A Point Velocity 150.0 cm/s Mitral E to A Ratio 1.0 TR Peak Velocity 295.0 cm/s TR Peak Gradient 34.8 mmHg FINDINGS LEFT VENTRICLE Normal left ventricular size. Wall thickness is measured at the upper limits of normal. The left ventricular systolic function is normal with an estimated ejection fraction in the range of 55-60%. RIGHT VENTRICLE Normal right ventricular size and systolic function. LEFT ATRIUM The left atrial size is upper limits of normal. RIGHT ATRIUM The right atrial size is normal. ATRIAL SEPTUM Normal atrial septal thickness without atrial level shunting by limited color doppler interrogation. AORTA The aortic root and proximal ascending aorta are normal in size on limited imaging. MITRAL VALVE Mitral annular calcification is present. Moderate mitral annular calcification. Mitral valve mean gradient is 6 mmHg. Restricted mobility of the posterior mitral valve leaflet. AORTIC VALVE Trileaflet aortic valve. No aortic valve stenosis or regurgitation. TRICUSPID VALVE Structurally normal tricuspid valve. No tricuspid valve stenosis or regurgitation. PULMONARY VALVE The pulmonary valve is not well visualized. VESSELS The inferior vena cava is normal in size. PERICARDIUM A moderate left sided pleural effusion is noted. There is a trivial pericardial effusion present. Manolo Levin MD (Electronically Signed) Final Date:08 June 2017 22:44
[2017-06-09] VITALS (9 sets, daily range): BP systolic 144–167; BP diastolic 67–78; PULSE 65–75; RESP 19–20; TEMP 96.8–97.8; O2SAT 91–95
[2017-06-09 04:14] LABS: AUTOMATED NEUTROPHIL # 4.9 TH/MM3 (1.8-7.7); BASOPHIL % 0.6 % (0.0-2.0); EOSINOPHIL # 0.2 TH/MM3 (0-0.4); EOSINOPHIL % 3.1 % (0.0-4.0); HEMATOCRIT 26.2 % (35.0-46.0); HEMO FLAGS DIFF FINAL; LYMPH % 16.8 % (9.0-44.0); LYMPHOCYTE # 1.1 TH/MM3 (1.0-4.8); MEAN CELL VOLUME 85.9 FL (80.0-100.0); MEAN CORPUSCULAR HEMOGLOBIN 28.4 PG (27.0-34.0); MEAN CORPUSCULAR HGB CONC 33.1 % (32.0-36.0); MONO % 5.5 % (0.0-8.0); PLATELET COUNT 170 TH/MM3 (150-450); RED BLOOD COUNT 3.05 MIL/MM3 (4.00-5.30); WHITE BLOOD COUNT 6.7 TH/MM3 (4.0-11.0)
[2017-06-09 04:22] LABS: POTASSIUM 4.4 MEQ/L (3.5-5.1)
[2017-06-09 04:27] LABS: CREATINE KINASE 80 U/L (26-192)
[2017-06-09] MEDS: INSULIN ASPART SUPPLEMENTAL SCALE SQ SCH ×4 (06:30→21:00)
[2017-06-09] MEDS: BUMETANIDE INJ 1 MG/4 ML VIAL IV PUSH SCH ×2 (09:33→17:06)
[2017-06-09] MEDS: HEPARIN SODIUM - SQ 10,000 UNITS/ML VIAL SQ SCH ×2 (09:34→21:46)
[2017-06-09] MEDS: LABETALOL HCL 100 MG TAB PO SCH ×2 (09:34→21:46)
[2017-06-09] MEDS: DOCUSATE SODIUM 50 MG/SENNA 8.6 MG TAB PO SCH ×2 (09:34→21:00)
[2017-06-09] MEDS: SODIUM CHLORIDE 0.9% FLUSH 10 ML FLUSH IV FLUSH SCH ×2 (09:40→21:48)
[2017-06-09] MEDS ORDERED: PNEUMOCOCCAL POLYVALENT INJ 25 MCG/0.5 ML SYR IM ONE (10:00)
--- NOTE | 2017-06-09 10:16 | HHI.PR ---
Subjective Remarks Follow up renal failure, fluid overload. Patient requests that her daughter translate. She states that she feels better today. No pain. Dyspnea is improving. Objective Vitals Vital Signs Date Time Temp Pulse Resp B/P Pulse Ox O2 Delivery O2 Flow Rate FiO2 06/09/17 07:50 97.3 74 20 167/78 92 06/09/17 04:00 97.2 75 20 158/75 92 06/09/17 00:00 97.8 75 20 144/67 91 06/08/17 20:00 96.1 75 19 172/79 91 06/08/17 16:00 96.5 71 18 158/90 91 06/08/17 13:00 70 28 184/90 91 Nasal Cannula 3.0 06/08/17 12:00 68 28 185/88 93 Nasal Cannula 3.0 06/08/17 11:00 66 26 184/84 93 Nasal Cannula 3.0 06/08/17 10:31 93 Nasal Cannula 2.0 06/08/17 10:31 Nasal Cannula 2.0 06/08/17 10:24 28 91 Nasal Cannula 2.0 06/08/17 10:19 69 28 185/87 83 06/08/17 10:13 98.5 69 24 178/86 81 Room Air I/O 06/08/17 06/08/17 06/08/17 06/09/17 06/09/17 06/09/17 07:00 15:00 23:00 07:00 15:00 23:00 Intake Total 720 ml 240 ml Output Total 400 ml 850 ml 250 ml Balance -400 ml -130 ml -10 ml Intake Oral 720 ml 240 ml Output Urine Total 400 ml 850 ml 250 ml # Voids 0 # Bowel Movements 2 Result Diagram: 06/09/17 0349 06/09/17 0349 Imaging Last Impressions Chest X-Ray 06/08/17 1028 Signed Impressions: Service Date/Time: Thursday, June 08, 2017 10:43 - CONCLUSION: Moderate congestive failure with bilateral pleural effusions. Dangelo Merida MD FACR Renal Ultrasound 06/08/17 0000 Signed Impressions: Service Date/Time: Thursday, June 08, 2017 14:10 - CONCLUSION: Echogenic but normal-size kidneys Bilateral pleural effusions. Dangelo Merida MD FACR Objective Remarks General: No acute distress. Heart: Regular rate and rhythm. No murmur. Lungs: Decreased breath sounds in the bases, left greater than right. Breathing is nonlabored. Abdomen: Soft, nontender, nondistended. Extremities: 2+ bilateral lower extremity edema, slightly better than yesterday. Psych: Alert and oriented. Urinary Catheter: Yes Assessment to: Continue Godwin insert reason: Measure Accurate Output Vascular Central Line Catheter: No A/P Problem List: (1) Acute renal failure ICD Code: N17.9 Status: Acute (2) Diabetes mellitus ICD Code: E11.9 Status: Acute (3) Hyperlipidemia ICD Code: E78.5 Status: Acute (4) Hypertension ICD Code: I10 Status: Acute (5) Fluid overload ICD Code: E87.70 Status: Acute Assessment and Plan 1. Acute renal failure: Patient's creatinine is increased compared to labs a few weeks ago. Monitor labs. Renal ultrasound noted. Appreciate nephrology recommendations. Further workup deferred to patient's outpatient corporate trust officer unless there is acute worsening. 2. Fluid overload, pleural effusion: Likely secondary to renal failure. 2-D echocardiogram shows normal systolic function with ejection fraction of 55-60%. Continue diuresis with Bumex. 3. Hypertension: Stop amlodipine secondary to lower extremity edema. Monitor blood pressure. Labetalol added by nephrology. 4. Hyperlipidemia: Continue statin. 5. Diabetes mellitus: Monitor Accu-Cheks and cover with sliding scale insulin. 6. DVT prophylaxis: RICK Brunner. Heparin. Abner Smyth MD Jun 09, 2017 10:16
--- NOTE | 2017-06-09 13:47 | HHI.NPPN ---
Subjective History of Present Illness 57 year old with CKD Stage 5, Diabetic nephropathy Review of Systems General Constitutional: Fatigue Cardiovascular Cardiac: Edema, ISSA Objective Data Data 06/08/17 06/09/17 19:00 07:00 Intake Total 240 ml 720 ml Output Total 400 ml 1100 ml Balance -160 ml -380 ml Intake Oral 240 ml 720 ml Output Urine Total 400 ml 1100 ml # Voids 0 # Bowel Movements 2 Vital Signs Date Time Temp Pulse Resp B/P Pulse Ox O2 Delivery O2 Flow Rate FiO2 06/09/17 11:30 97.3 65 20 148/69 95 06/09/17 07:50 97.3 74 20 167/78 92 06/09/17 04:00 97.2 75 20 158/75 92 06/09/17 00:00 97.8 75 20 144/67 91 06/08/17 20:00 96.1 75 19 172/79 91 06/08/17 16:00 96.5 71 18 158/90 91 -: 06/09/17 0349 06/09/17 0349 Microbiology 06/08/17 Urine Culture, Received Pending Physical Exam General Appearance: Well Developed, Well Nourished Pulmonary Resp Exam: Breath Sounds Equal Cardiology CV Exam: Regular Gastrointestinal/Abdomen GI Exam: Soft, Non-Tender, Bowel Sounds Present Extremeties Extremities Exam: Moderate Edema Assessment/Plan Problem List: (1) Isxco-bt-[id number] kidney injury Plan: low GFR approaching ESRD Continue to observe Dr. Howell to follow (2) CHF exacerbation Plan: Bumex (3) Diabetes mellitus Davonte Singleton MD Jun 09, 2017 13:47
--- NOTE | 2017-06-09 16:27 | EKG ---
Date Performed: 06/08/2017 Time Performed: 17:37:34 PTAGE: 57 years EKG: Sinus rhythm NORMAL ECG PREVIOUS TRACING : 06/08/2017 10.27 Since previous tracing, no significant change. DOCTOR: Noel Mccarty Interpretating Date/Time 06/09/2017 16:25:46
--- NOTE | 2017-06-09 16:27 | EKG ---
Date Performed: 06/08/2017 Time Performed: 22:33:55 PTAGE: 57 years EKG: Sinus rhythm NORMAL ECG PREVIOUS TRACING : 06/08/2017 17.37 Since previous tracing, no significant change. DOCTOR: Noel Mccarty Interpretating Date/Time 06/09/2017 16:26:05
[2017-06-10] VITALS (11 sets, daily range): BP systolic 139–176; BP diastolic 65–80; PULSE 72–94; RESP 18–20; TEMP 96–97.7; O2SAT 92–98
[2017-06-10] MEDS: INSULIN ASPART SUPPLEMENTAL SCALE SQ SCH ×4 (05:52→20:06)
[2017-06-10] MEDS: DOCUSATE SODIUM 50 MG/SENNA 8.6 MG TAB PO SCH ×2 (09:00→19:54)
[2017-06-10] MEDS: BUMETANIDE INJ 1 MG/4 ML VIAL IV PUSH SCH ×2 (09:06→17:12)
[2017-06-10] MEDS: HEPARIN SODIUM - SQ 10,000 UNITS/ML VIAL SQ SCH ×2 (09:07→19:54)
[2017-06-10] MEDS: SODIUM CHLORIDE 0.9% FLUSH 10 ML FLUSH IV FLUSH SCH ×2 (09:07→19:57)
[2017-06-10] MEDS: LABETALOL HCL 100 MG TAB PO SCH ×2 (09:07→19:54)
[2017-06-10] MEDS ORDERED: METOPROLOL TARTRATE 25 MG TAB PO SCH (09:30)
--- NOTE | 2017-06-10 09:39 | HHI.PR ---
Subjective Remarks Follow-up renal failure, UTI. Patient's daughter is at bedside and translates at the patient's request. Patient reporting diarrhea. No other complaints at this time. Objective Vitals Vital Signs Date Time Temp Pulse Resp B/P Pulse Ox O2 Delivery O2 Flow Rate FiO2 06/10/17 07:55 96.0 81 20 145/72 92 06/10/17 04:00 97.2 94 18 139/65 92 06/10/17 00:00 97.3 73 18 176/79 95 06/09/17 21:54 3.00 06/09/17 20:00 97.1 69 19 160/73 93 06/09/17 20:00 69 06/09/17 17:15 94 Nasal Cannula 3.00 06/09/17 15:50 96.8 67 20 156/72 94 06/09/17 12:10 65 06/09/17 11:30 97.3 65 20 148/69 95 I/O 06/09/17 06/09/17 06/09/17 06/10/17 06/10/17 06/10/17 07:00 15:00 23:00 07:00 15:00 23:00 Intake Total 240 ml 240 ml 360 ml 100 ml Output Total 250 ml 400 ml 350 ml 350 ml Balance -10 ml -160 ml 10 ml -250 ml Intake Oral 240 ml 240 ml 360 ml 100 ml Output Urine Total 250 ml 400 ml 350 ml 350 ml # Bowel Movements 2 1 1 1 Result Diagram: 06/09/17 0349 06/09/17 0349 Imaging Last Impressions Chest X-Ray 06/08/17 1028 Signed Impressions: Service Date/Time: Thursday, June 08, 2017 10:43 - CONCLUSION: Moderate congestive failure with bilateral pleural effusions. Dangelo Merida MD FACR Renal Ultrasound 06/08/17 0000 Signed Impressions: Service Date/Time: Thursday, June 08, 2017 14:10 - CONCLUSION: Echogenic but normal-size kidneys Bilateral pleural effusions. Dangelo Merida MD FACR Objective Remarks General: No acute distress. Heart: Regular rate and rhythm. No murmur. Lungs: Decreased breath sounds in the bases, left greater than right. Breathing is nonlabored. Abdomen: Soft, nontender, nondistended. Extremities: 2+ bilateral lower extremity edema. Psych: Alert and oriented. Procedures None Urinary Catheter: Yes Assessment to: Continue Godwin insert reason: Measure Accurate Output Vascular Central Line Catheter: No A/P Problem List: (1) Acute renal failure ICD Code: N17.9 Status: Acute (2) Diabetes mellitus ICD Code: E11.9 Status: Chronic (3) Hyperlipidemia ICD Code: E78.5 Status: Chronic (4) Hypertension ICD Code: I10 Status: Chronic (5) Fluid overload ICD Code: E87.70 Status: Acute Assessment and Plan 1. Acute renal failure: Patient's creatinine is increased compared to labs a few weeks ago. Monitor labs. Renal ultrasound noted. Appreciate nephrology recommendations. Further workup deferred to patient's outpatient filter changing technician unless there is acute worsening. 2. Fluid overload, pleural effusion: Likely secondary to renal failure. 2-D echocardiogram shows normal systolic function with ejection fraction of 55-60%. Continue diuresis with Bumex. 3. Hypertension: Stop amlodipine secondary to lower extremity edema. Monitor blood pressure. Labetalol added by nephrology. 4. Hyperlipidemia: Continue statin. 5. Diabetes mellitus: Monitor Accu-Cheks and cover with sliding scale insulin. 6. UTI: Rocephin. Urine culture growing mixed 7. DVT prophylaxis: SCDsRICK. Heparin. Abner Smyth MD Jun 10, 2017 09:39
[2017-06-10] MEDS ORDERED: amLODIPine BESYLATE 5 MG TAB PO SCH (10:00)
[2017-06-10] MEDS ORDERED: ATROPINE SULFATE 1% OPHT SOLN 2 ML BTL EACH EYE SCH (10:00)
[2017-06-10 11:16] LABS: AUTOMATED NEUTROPHIL # 3.6 TH/MM3 (1.8-7.7); BASOPHIL % 0.7 % (0.0-2.0); EOSINOPHIL # 0.2 TH/MM3 (0-0.4); EOSINOPHIL % 4.8 % (0.0-4.0); HEMATOCRIT 25.3 % (35.0-46.0); HEMO FLAGS DIFF FINAL; LYMPH % 16.1 % (9.0-44.0); LYMPHOCYTE # 0.8 TH/MM3 (1.0-4.8); MEAN CELL VOLUME 87.2 FL (80.0-100.0); MEAN CORPUSCULAR HEMOGLOBIN 28.1 PG (27.0-34.0); MEAN CORPUSCULAR HGB CONC 32.2 % (32.0-36.0); MONO % 4.7 % (0.0-8.0); NEUT % 73.7 % (16.0-70.0); PLATELET COUNT 166 TH/MM3 (150-450); RED CELL DISTRIBUTION WIDTH 15.9 % (11.6-17.2); WHITE BLOOD COUNT 4.9 TH/MM3 (4.0-11.0)
[2017-06-10 11:42] LABS: BICARBONATE 23.4 MEQ/L (21.0-32.0); MAGNESIUM 2.8 MG/DL (1.5-2.5); POTASSIUM 4.2 MEQ/L (3.5-5.1)
[2017-06-10] MEDS: cefTRIAXone INJ 1,000 MG in SODIUM CHLORIDE 0.9% INJ 100 ML IV SCH (12:27)
[2017-06-10] MEDS: ATROPINE SULFATE 1% OPHT SOLN 5 ML BTL EACH EYE SCH ×2 (12:27→19:56)
[2017-06-10] MEDS: prednisoLONE ACETATE 1% OPHT SUSP 5 ML BTL LEFT EYE SCH ×3 (12:39→19:54)
--- NOTE | 2017-06-10 13:07 | HHI.NPPN ---
Subjective History of Present Illness 57 year old with CKD Stage 5, Diabetic nephropathy Review of Systems General Constitutional: Fatigue Cardiovascular Cardiac: Edema, ISSA Objective Data Data 06/09/17 06/10/17 19:00 07:00 Intake Total 240 ml 460 ml Output Total 400 ml 700 ml Balance -160 ml -240 ml Intake Oral 240 ml 460 ml Output Urine Total 400 ml 700 ml # Bowel Movements 1 2 Vital Signs Date Time Temp Pulse Resp B/P Pulse Ox O2 Delivery O2 Flow Rate FiO2 06/10/17 09:38 92 Nasal Cannula 4.00 06/10/17 08:36 93 Nasal Cannula 4.00 06/10/17 07:55 96.0 81 20 145/72 92 06/10/17 04:00 97.2 94 18 139/65 92 06/10/17 00:00 97.3 73 18 176/79 95 06/09/17 21:54 3.00 06/09/17 20:00 97.1 69 19 160/73 93 06/09/17 20:00 69 06/09/17 17:15 94 Nasal Cannula 3.00 06/09/17 15:50 96.8 67 20 156/72 94 -: 06/10/17 1053 06/10/17 1053 Physical Exam General Appearance: Well Developed, Well Nourished Pulmonary Resp Exam: Breath Sounds Equal Cardiology CV Exam: Regular Gastrointestinal/Abdomen GI Exam: Soft, Non-Tender, Bowel Sounds Present Extremeties Extremities Exam: Moderate Edema Assessment/Plan Problem List: (1) Cxius-lt-mkldaft kidney injury Plan: low GFR at 10 unchanged Cr worse approaching ESRD Continue to observe Dr. Howell to follow (2) CHF exacerbation Plan: Bumex (3) Diabetes mellitus Davonte Singleton MD Jun 10, 2017 13:07
[2017-06-10] MEDS: SODIUM BICARBONATE 650 MG TAB PO SCH (17:12)
[2017-06-10] MEDS: ATORVASTATIN 20 MG TAB PO SCH (19:54)
[2017-06-11] VITALS (10 sets, daily range): BP systolic 138–185; BP diastolic 63–85; PULSE 70–88; RESP 18–20; TEMP 96–98.9; O2SAT 92–95
[2017-06-11] MEDS: INSULIN ASPART SUPPLEMENTAL SCALE SQ SCH ×4 (06:11→20:40)
[2017-06-11 07:07] LABS: BASOPHIL % 0.7 % (0.0-2.0); EOSINOPHIL # 0.3 TH/MM3 (0-0.4); EOSINOPHIL % 5.6 % (0.0-4.0); HEMATOCRIT 24.5 % (35.0-46.0); HEMO FLAGS DIFF FINAL; LYMPH % 18.9 % (9.0-44.0); LYMPHOCYTE # 1.1 TH/MM3 (1.0-4.8); MEAN CELL VOLUME 86.6 FL (80.0-100.0); MEAN CORPUSCULAR HEMOGLOBIN 28.8 PG (27.0-34.0); MEAN CORPUSCULAR HGB CONC 33.2 % (32.0-36.0); MONO % 5.7 % (0.0-8.0); NEUT % 69.1 % (16.0-70.0); PLATELET COUNT 162 TH/MM3 (150-450); RED BLOOD COUNT 2.84 MIL/MM3 (4.00-5.30); RED CELL DISTRIBUTION WIDTH 16.4 % (11.6-17.2); WHITE BLOOD COUNT 5.7 TH/MM3 (4.0-11.0)
[2017-06-11 07:29] LABS: BICARBONATE 24.4 MEQ/L (21.0-32.0); POTASSIUM 4.4 MEQ/L (3.5-5.1)
[2017-06-11] MEDS: BUMETANIDE INJ 1 MG/4 ML VIAL IV PUSH SCH ×2 (09:20→18:50)
[2017-06-11] MEDS: HEPARIN SODIUM - SQ 10,000 UNITS/ML VIAL SQ SCH ×2 (09:20→20:40)
[2017-06-11] MEDS: LABETALOL HCL 100 MG TAB PO SCH ×2 (09:21→20:40)
[2017-06-11] MEDS: DOCUSATE SODIUM 50 MG/SENNA 8.6 MG TAB PO SCH ×2 (09:21→20:40)
[2017-06-11] MEDS: SODIUM BICARBONATE 650 MG TAB PO SCH ×2 (09:21→18:51)
[2017-06-11] MEDS: ATROPINE SULFATE 1% OPHT SOLN 5 ML BTL EACH EYE SCH ×2 (09:22→20:39)
[2017-06-11] MEDS: prednisoLONE ACETATE 1% OPHT SUSP 5 ML BTL LEFT EYE SCH ×4 (09:22→20:39)
[2017-06-11] MEDS: SODIUM CHLORIDE 0.9% FLUSH 10 ML FLUSH IV FLUSH SCH ×2 (09:23→20:47)
[2017-06-11] MEDS: cefTRIAXone INJ 1,000 MG in SODIUM CHLORIDE 0.9% INJ 100 ML IV SCH (09:45)
--- NOTE | 2017-06-11 12:13 | HHI.PR ---
Subjective Remarks Written by Brigette Yancey PA-C acting as scribe for Dr. Smyth on 06/11/17 at 12:00. Follow-up on patient with renal failure and UTI. Patient is Thai-speaking refuses translation services and is requesting instead use the patient's daughter as the feather separator. Patient states she feels good. Denies any complaints of pain. Denies any cough, shortness of breath or chest pain. Denies any nausea, vomiting or abdominal pain. Objective Vitals Vital Signs Date Time Temp Pulse Resp B/P Pulse Ox O2 Delivery O2 Flow Rate FiO2 06/11/17 10:00 91 Nasal Cannula 5.00 06/11/17 08:16 92 Nasal Cannula 5.00 06/11/17 08:00 96.1 73 20 149/70 92 06/11/17 04:00 96.4 75 19 165/75 93 06/11/17 04:00 75 06/11/17 00:00 73 06/11/17 00:00 96.0 74 20 142/69 94 06/10/17 22:17 92 Nasal Cannula 4.00 06/10/17 20:00 74 06/10/17 20:00 97.7 80 19 148/76 92 06/10/17 20:00 92 Nasal Cannula 4.00 06/10/17 16:04 77 06/10/17 15:45 97.0 77 20 147/80 97 06/10/17 12:27 72 I/O 06/10/17 06/10/17 06/10/17 06/11/17 06/11/17 06/11/17 06:59 14:59 22:59 06:59 14:59 22:59 Intake Total 100 ml 595 ml 240 ml Output Total 350 ml 350 ml 400 ml 300 ml Balance -250 ml -350 ml 195 ml -60 ml Intake Oral 100 ml 480 ml 240 ml IV Total 115 ml Output Urine Total 350 ml 350 ml 400 ml 300 ml # Bowel Movements 1 0 Result Diagram: 06/11/17 0647 06/11/17 0604 Imaging Last Impressions Chest X-Ray 06/08/17 1028 Signed Impressions: Service Date/Time: Thursday, June 08, 2017 10:43 - CONCLUSION: Moderate congestive failure with bilateral pleural effusions. Dangelo Merida MD FACR Renal Ultrasound 06/08/17 0000 Signed Impressions: Service Date/Time: Thursday, June 08, 2017 14:10 - CONCLUSION: Echogenic but normal-size kidneys Bilateral pleural effusions. Dangelo Merida MD FACR Objective Remarks GENERAL: Well-nourished, well-developed patient in NAD. Awake and alert. Lying in the hospital bed. Daughters at the bedside. SKIN: Warm and dry. No rash. HEAD: Normocephalic. Atraumatic. EYES: Pupils equal and round. No scleral icterus. No injection or drainage. ENT: No nasal bleeding or discharge. Mucous membranes pink and moist. NECK: Supple. Trachea midline. CARDIOVASCULAR: Regular rate and rhythm. S1, S2 noted. No murmur appreciated. RESPIRATORY: No accessory muscle use. Clear to auscultation. Breath sounds equal bilaterally. Decreased breath sounds in the bases left greater than right. GASTROINTESTINAL: Abdomen soft, non-tender, nondistended. Normoactive bowel sounds x4. MUSCULOSKELETAL: No obvious deformities. Extremities without clubbing or cyanosis. Trace edema noted in the LLE. NEUROLOGICAL: Awake and alert. Able to move all extremities. Normal speech. PSYCHIATRIC: Appropriate mood and affect; insight and judgment normal. Procedures None Medications and IVs Current Medications Medications (Trade) Dose Ordered Sig/Deena Route Start Time Stop Time Status Last Admin (NS Flush) 2 ml UNSCH PRN IV FLUSH 06/08/17 13:00 (NS Flush) 2 ml BID IV FLUSH 06/08/17 21:00 06/11/17 09:23 (Tylenol) 650 mg Q4H PRN PO 06/08/17 13:00 (Zofran Inj) 4 mg Q6H PRN IVP 06/08/17 13:00 (Narcan Inj) 0.4 mg UNSCH PRN IV 06/08/17 13:00 (Aimee-Colace) 1 tab BID PO 06/08/17 21:00 06/11/17 09:21 (Milk Of Magnesia Liq) 30 ml Q12H PRN PO 06/08/17 13:00 (Senokot) 17.2 mg Q12H PRN PO 06/08/17 13:00 (Dulcolax Supp) 10 mg DAILY PRN RECTAL 06/08/17 13:00 (Lactulose Liq) 30 ml DAILY PRN PO 06/08/17 13:00 (Bumex Inj) 1 mg BID@09,18 IV PUSH 06/08/17 18:00 06/11/17 09:20 (D50w (Vial) Inj) 50 ml UNSCH PRN IV 06/08/17 13:00 (Glucagon Inj) 1 mg UNSCH PRN OTHER 06/08/17 13:00 (Heparin Inj) 5,000 units Q12HR SQ 06/08/17 21:00 06/11/17 09:20 Labetalol HCl 100 mg 100 mg Q12HR PO 06/08/17 21:00 06/11/17 09:21 (Rocephin Inj/NS Inj) 100 ml @ 200 mls/hr Q24H IV 06/10/17 10:00 06/11/17 09:45 (Lipitor) 20 mg HS PO 06/10/17 21:00 06/10/17 19:54 (Pred Forte 1% Opth Susp) 1 drop QID LEFT EYE 06/10/17 13:00 06/11/17 09:22 (Sodium Bicarbonate) 650 mg BIDPC PO 06/10/17 18:00 06/11/17 09:21 (Isopto Atropine 1% Opth Soln) 1 drop BID EACH EYE 06/10/17 21:00 06/11/17 09:22 A/P Problem List: (1) Acute renal failure ICD Code: N17.9 Status: Acute (2) Diabetes mellitus ICD Code: E11.9 Status: Chronic (3) Hyperlipidemia ICD Code: E78.5 Status: Chronic (4) Hypertension ICD Code: I10 Status: Chronic (5) Fluid overload ICD Code: E87.70 Status: Acute Assessment and Plan 1. Acute on chronic, stage V renal failure: Patient's creatinine is increased compared to labs a few weeks ago. Continue to monitor labs, creatinine with modest improvement. Renal ultrasound noted. Appreciate nephrology recommendations. Per their note, approaching end-stage renal disease. Further workup deferred to patient's outpatient touch up painter hand unless there is acute worsening. 2. Fluid overload, pleural effusion: Improving. Likely secondary to renal failure. 2-D echocardiogram shows normal systolic function with ejection fraction of 55-60%. Continue diuresis with Bumex. Continue to monitor intake and output. DC larsen catheter. 3. Hypertension: Stop amlodipine secondary to lower extremity edema. Monitor blood pressure, fairly well controlled presently. Labetalol added by nephrology. 4. Hyperlipidemia: Continue statin. 5. Diabetes mellitus: Monitor Accu-Cheks and cover with sliding scale insulin. Blood sugars well controlled. 6. UTI: Urine culture growing mixed gram-positive griselda. Probable contaminants. D/C Rocephin. 7. Anemia, normocytic normochromic. Likely anemia of chronic disease. Appears stable. Monitor is indicated. 8. DVT prophylaxis: RICK [place]. Heparin. Discharge Planning Pending clinical course and nephrology clearance Attending Statement This note was transcribed by francine Yancey PA-C. I, Dr. Abner Smyth personally performed the history, physical exam, and medical decision making; and confirmed the accuracy of the information in the transcribed note. Authenticated by Dr. Abner Smyth on 06/11/17 at 13:02. Brigette Yancey Jun 11, 2017 12:13 Abner Smyth MD Jun 11, 2017 13:03
--- NOTE | 2017-06-11 18:33 | HHI.NPPN ---
Subjective History of Present Illness 57-year-old female with past medical history of hypertension, diabetes mellitus, chronic kidney disease, ischemic heart disease, congestive heart failure, came to the hospital with complaint of worsening shortness of breath. I was called to see the patient because of elevated BUN and creatinine patient has creatinine of 4.3 on admission and she had reviously creatinine of 3.6 last month the patient has known history of chronic kidney disease and she has been following by her insurance defense attorney in [place] and according to daughter she was told that she will need dialysis and also she was told that she possibly will need kidney biopsy. Additional Remarks Patient is alert, breathing is better, no Nausea, eating better. Review of Systems General Constitutional: Fatigue Cardiovascular Cardiac: Edema, ISSA Objective Data Data 06/10/17 06/11/17 18:59 06:59 Intake Total 115 ml 720 ml Output Total 350 ml 700 ml Balance -235 ml 20 ml Intake Oral 720 ml IV Total 115 ml Output Urine Total 350 ml 700 ml # Bowel Movements 0 Vital Signs Date Time Temp Pulse Resp B/P Pulse Ox O2 Delivery O2 Flow Rate FiO2 06/11/17 16:11 73 06/11/17 16:00 96.0 70 18 167/68 92 06/11/17 12:05 73 06/11/17 12:00 98.9 70 153/82 95 06/11/17 10:00 91 Nasal Cannula 5.00 06/11/17 08:16 92 Nasal Cannula 5.00 06/11/17 08:00 73 06/11/17 08:00 96.1 73 20 149/70 92 06/11/17 04:00 96.4 75 19 165/75 93 06/11/17 04:00 75 06/11/17 00:00 73 06/11/17 00:00 96.0 74 20 142/69 94 06/10/17 22:17 92 Nasal Cannula 4.00 06/10/17 20:00 74 06/10/17 20:00 97.7 80 19 148/76 92 06/10/17 20:00 92 Nasal Cannula 4.00 -: 06/11/17 0647 06/11/17 0604 Physical Exam General Appearance: Well Developed, Well Nourished, No Acute Distress, Comfortable Pulmonary Resp Exam: Breath Sounds Equal Cardiology CV Exam: Regular Gastrointestinal/Abdomen GI Exam: Soft, Non-Tender, Bowel Sounds Present Extremeties Extremities Exam: Moderate Edema, Pitting Edema Neurologic Neuro Exam: Alert, Awake, Oriented Psychiatric Psych Exam: Appropriate Responses Assessment/Plan Problem List: (1) Nxshd-[id number] kidney injury (2) CHF exacerbation Plan: Bumex (3) Diabetes mellitus Plan Patient has advance renal disease, now the GFR is 10 ml/min. Possibly has an element of some Acute kidney injury also. Not uremic. No urgent need for Dialysis. D/W the patient and son about possible HD in future. They want her to follow with her Ground Crew Lines Person and possible renal Biopsy. Will follow closely. Problem Qualifiers (1) Diabetes mellitus: José Howell MD Jun 11, 2017 18:33
[2017-06-11] MEDS: ATORVASTATIN 20 MG TAB PO SCH (20:40)
[2017-06-12] VITALS (14 sets, daily range): BP systolic 112–180; BP diastolic 65–84; PULSE 72–96; RESP 18–28; TEMP 96.3–98.3; O2SAT 92–100
[2017-06-12] MEDS: INSULIN ASPART SUPPLEMENTAL SCALE SQ SCH ×4 (06:04→20:35)
[2017-06-12] MEDS: prednisoLONE ACETATE 1% OPHT SUSP 5 ML BTL LEFT EYE SCH ×4 (08:54→20:21)
[2017-06-12] MEDS: ATROPINE SULFATE 1% OPHT SOLN 5 ML BTL EACH EYE SCH ×2 (08:54→20:21)
[2017-06-12] MEDS: LABETALOL HCL 100 MG TAB PO SCH ×2 (08:55→20:21)
[2017-06-12] MEDS: HEPARIN SODIUM - SQ 10,000 UNITS/ML VIAL SQ SCH ×2 (08:55→20:21)
[2017-06-12] MEDS: SODIUM BICARBONATE 650 MG TAB PO SCH ×2 (08:55→17:00)
[2017-06-12] MEDS: DOCUSATE SODIUM 50 MG/SENNA 8.6 MG TAB PO SCH ×2 (08:55→20:21)
[2017-06-12] MEDS: BUMETANIDE INJ 1 MG/4 ML VIAL IV PUSH SCH ×2 (08:55→17:00)
[2017-06-12] MEDS: SODIUM CHLORIDE 0.9% FLUSH 10 ML FLUSH IV FLUSH SCH ×2 (08:55→21:00)
[2017-06-12] MEDS ORDERED: RESP: ALBUTEROL 2.5 MG/3 ML NEB (PRN) NEB (09:15)
--- NOTE | 2017-06-12 09:21 | HHI.PR ---
Subjective Remarks Follow up renal failure. Daughter at bedside translates at the patient's request. Patient is more short of breath this morning. Denies chest pain. No nausea/vomiting. Objective Vitals Vital Signs Date Time Temp Pulse Resp B/P Pulse Ox O2 Delivery O2 Flow Rate FiO2 06/12/17 04:00 75 06/12/17 04:00 96.3 75 20 157/72 94 06/12/17 00:00 76 06/12/17 00:00 96.4 96 18 138/65 93 06/12/17 00:00 82 06/11/17 21:56 93 Nasal Cannula 5.00 06/11/17 20:33 93 Nasal Cannula 5.00 06/11/17 20:00 80 06/11/17 20:00 96.1 83 20 185/85 93 06/11/17 16:11 73 06/11/17 16:00 96.0 70 18 167/68 92 06/11/17 12:05 73 06/11/17 12:00 98.9 70 153/82 95 06/11/17 10:00 91 Nasal Cannula 5.00 I/O 06/11/17 06/11/17 06/11/17 06/12/17 06/12/17 06/12/17 06:59 14:59 22:59 06:59 14:59 22:59 Intake Total 240 ml 115 ml 720 ml 440 ml Output Total 300 ml 400 ml 0 ml 0 ml 560 ml Balance -60 ml -285 ml 720 ml 440 ml -560 ml Intake Oral 240 ml 720 ml 440 ml IV Total 115 ml Output Urine Total 300 ml 400 ml 0 ml 0 ml 560 ml Bladder Scan Volume Amount 291 ml 507 ml # Voids 0 # Bowel Movements 0 Result Diagram: 06/11/17 0647 06/11/17 0604 Imaging Last Impressions Chest X-Ray 06/08/17 1028 Signed Impressions: Service Date/Time: Thursday, June 08, 2017 10:43 - CONCLUSION: Moderate congestive failure with bilateral pleural effusions. Dangelo Merida MD FACR Renal Ultrasound 06/08/17 0000 Signed Impressions: Service Date/Time: Thursday, June 08, 2017 14:10 - CONCLUSION: Echogenic but normal-size kidneys Bilateral pleural effusions. Dangelo Merida MD FACR Objective Remarks General: No acute distress. Heart: Regular rate and rhythm. No murmur. Lungs: Decreased breath sounds in the bases, left greater than right. Breathing is somewhat labored. Abdomen: Soft, nontender, nondistended. Extremities: 1+ bilateral lower extremity edema. Psych: Alert and oriented. Procedures None Urinary Catheter: No Vascular Central Line Catheter: No A/P Problem List: (1) Acute renal failure ICD Code: N17.9 Status: Acute (2) Diabetes mellitus ICD Code: E11.9 Status: Chronic (3) Hyperlipidemia ICD Code: E78.5 Status: Chronic (4) Hypertension ICD Code: I10 Status: Chronic (5) Fluid overload ICD Code: E87.70 Status: Acute Assessment and Plan 1. Acute renal failure: Patient's creatinine is increased compared to labs a few weeks ago. Monitor labs. Renal ultrasound noted. Appreciate nephrology recommendations. Further workup deferred to patient's outpatient claims assistant unless there is acute worsening. Labs are pending today. 2. Fluid overload, pleural effusion: Likely secondary to renal failure. 2-D echocardiogram shows normal systolic function with ejection fraction of 55-60%. Continue diuresis with Bumex. 3. Hypertension: Amlodipine discontinued secondary to lower extremity edema. Monitor blood pressure. Labetalol added by nephrology. 4. Hyperlipidemia: Continue statin. 5. Diabetes mellitus: Monitor Accu-Cheks and cover with sliding scale insulin. 6. UTI: Rocephin. Urine culture growing mixed gram positive griselda. 7. DVT prophylaxis: SCDs, RICK hose. Heparin. 8. Dyspnea/hypoxia: Requiring increased supplemental oxygen. Check STAT CXR and ABG. Continue diuresis, antibiotics. Add bronchodilators. 9. Urinary retention: Patient has been requiring straight cath due to inability to void. Place Godwin catheter. Consult Urology. Problem Qualifiers (1) Diabetes mellitus: Abner Smyth MD Jun 12, 2017 09:21
--- NOTE | 2017-06-12 09:49 | RADRPT ---
EXAM DATE/TIME: 06/12/2017 09:16 [facility] COMPARISON: CHEST SINGLE AP, June 08, 2017, 10:43. INDICATIONS : Dyspnea. MEDICAL HISTORY : Hypertension. Diabetes mellitus type II. Hypercholesterolemia. Blindness. SURGICAL HISTORY : Left foot surgery. ENCOUNTER: Subsequent ACUITY: 4 - 6 days PAIN SCORE: 0/10 LOCATION: Bilateral chest FINDINGS: Low lung volumes with moderate bilateral pleural effusions and associated lower lobe airspace disease . Cardiomediastinal contours are stable. Remainder of the exam is unchanged. CONCLUSION: 1. Moderate bilateral pleural effusions with associated lower lobe compressive atelectasis. Azam Cruz MD on June 12, 2017 at 9:44 Board Certified Radiologist. This report was verified electronically.
[2017-06-12 09:51] LABS: BLOOD GAS BASE EXCESS -3.2 mmol/L (-2-2); BLOOD GAS CARBOXYHEMOGLOBIN 1.5 % (0-4); BLOOD GAS HCO3 22 mmol/L (22-26); BLOOD GAS O2 HGB SATURATION 90 % (90-100); BLOOD GAS OXYGEN CONTENT 10.3 Vol % (12.0-20.0); BLOOD GAS PCO2 41 mmHg (38-42); BLOOD GAS PO2 64 mmHg (61-120); BLOOD GAS TOTAL HGB 8.1 G/DL (12.0-16.0); CRITICAL VALUE NO; DRAW SITE RT RADIAL; LITER FLOW 5 L/M; NUMBER OF ARTERIAL PUNCTURES 1; OXYGEN DEVICE NASAL CANNULA; STAT YES; TEMP CORR TO 98.6; ULNAR PULSE PRESENT
[2017-06-12] MEDS: cefTRIAXone INJ 1,000 MG in SODIUM CHLORIDE 0.9% INJ 100 ML IV SCH (10:16)
[2017-06-12] MEDS: RESP: ALBUTEROL 2.5 MG/IPRATROPIUM 0.5 MG NEB (SCH) NEB ×3 (12:57→19:33)
[2017-06-12 13:37] LABS: AUTOMATED NEUTROPHIL # 3.9 TH/MM3 (1.8-7.7); BASOPHIL % 0.7 % (0.0-2.0); EOSINOPHIL # 0.2 TH/MM3 (0-0.4); HEMATOCRIT 24.5 % (35.0-46.0); HEMO FLAGS DIFF FINAL; LYMPH % 13.6 % (9.0-44.0); LYMPHOCYTE # 0.7 TH/MM3 (1.0-4.8); MEAN CORPUSCULAR HEMOGLOBIN 28.2 PG (27.0-34.0); MEAN CORPUSCULAR HGB CONC 32.4 % (32.0-36.0); MONO % 4.4 % (0.0-8.0); NEUT % 77.3 % (16.0-70.0); PLATELET COUNT 140 TH/MM3 (150-450); RED BLOOD COUNT 2.81 MIL/MM3 (4.00-5.30)
[2017-06-12 14:00] LABS: BICARBONATE 25.3 MEQ/L (21.0-32.0); POTASSIUM 4.7 MEQ/L (3.5-5.1)
--- NOTE | 2017-06-12 17:12 | PD.CONS ---
HPI Service Urology Consult Requested By Primary Care Physician Unknown Diagnosis: (1) Acute renal failure ICD Code: N17.9 (2) Diabetes mellitus ICD Code: E11.9 (3) Hyperlipidemia ICD Code: E78.5 (4) Hypertension ICD Code: I10 (5) Fluid overload ICD Code: E87.70 History of Present Illness Came by to see patient but patient was off floor and in transit to ICU. Will try again tomorrow In interim, Start Flomax and continue larsen catheter Past Family Social History Allergies: Coded Allergies: No Known Allergies (Unverified , 06/08/17) Physical Exam Vital Signs Date Time Temp Pulse Resp B/P Pulse Ox O2 Delivery O2 Flow Rate FiO2 06/12/17 17:04 164/75 06/12/17 15:30 96.4 75 28 180/81 97 06/12/17 13:07 94 Partial Rebreather 12.00 06/12/17 12:21 77 06/12/17 12:00 97.4 78 18 152/77 92 06/12/17 10:28 90 Nasal Cannula 5.00 06/12/17 08:00 76 06/12/17 08:00 97.6 77 18 165/84 92 06/12/17 04:00 75 06/12/17 04:00 96.3 75 20 157/72 94 06/12/17 00:00 76 06/12/17 00:00 96.4 96 18 138/65 93 06/12/17 00:00 82 06/11/17 21:56 93 Nasal Cannula 5.00 06/11/17 20:33 93 Nasal Cannula 5.00 06/11/17 20:00 80 06/11/17 20:00 96.1 83 20 185/85 93 Physical Exam GENERAL: This is a well-nourished, well-developed patient, in no apparent distress. SKIN: No rashes, ecchymoses or lesions. Cool and dry. HEAD: Atraumatic. Normocephalic. No temporal or scalp tenderness. EYES: Pupils equal round and reactive. Extraocular motions intact. No scleral icterus. No injection or drainage. ENT: Nose without bleeding, purulent drainage or septal hematoma. Throat without erythema, tonsillar hypertrophy or exudate. Uvula midline. Airway patent. NECK: Trachea midline. No JVD or lymphadenopathy. Supple, nontender, no meningeal signs. CARDIOVASCULAR: Regular rate and rhythm without murmurs, gallops, or rubs. RESPIRATORY: Clear to auscultation. Breath sounds equal bilaterally. No wheezes , rales, or rhonchi. GASTROINTESTINAL: Abdomen soft, non-tender, nondistended. No hepato-splenomegaly , or palpable masses. No guarding. GENITOURINARY: MUSCULOSKELETAL: Extremities without clubbing, cyanosis, or edema. No joint tenderness, effusion, or edema noted. No calf tenderness. Negative Homans sign bilaterally. NEUROLOGICAL: Awake and alert. Cranial nerves II through XII intact. Motor and sensory grossly within normal limits. Five out of 5 muscle strength in all muscle groups. Normal speech. Laboratory Tests Test 06/12/17 06/12/17 09:30 12:48 Blood Gas Puncture Site RT RADIAL Blood Gas Patient Temperature 98.6 Blood Gas HCO3 22 Blood Gas Base Excess -3.2 Blood Gas Oxygen Saturation 90 Arterial Blood pH 7.34 Arterial Blood Partial 41 Pressure CO2 Arterial Blood Partial 64 Pressure O2 Arterial Blood Oxygen Content 10.3 Arterial Blood 1.5 Carboxyhemoglobin Arterial Blood Methemoglobin 1.0 Blood Gas Hemoglobin 8.1 Oxygen Delivery Device NASAL CANNULA Blood Gas Liter Flow 5 White Blood Count 5.0 Red Blood Count 2.81 Hemoglobin 7.9 Hematocrit 24.5 Mean Corpuscular Volume 87.0 Mean Corpuscular Hemoglobin 28.2 Mean Corpuscular Hemoglobin 32.4 Concent Red Cell Distribution Width 16.0 Platelet Count 140 Mean Platelet Volume 9.3 Neutrophils (%) (Auto) 77.3 Lymphocytes (%) (Auto) 13.6 Monocytes (%) (Auto) 4.4 Eosinophils (%) (Auto) 4.0 Basophils (%) (Auto) 0.7 Neutrophils # (Auto) 3.9 Lymphocytes # (Auto) 0.7 Monocytes # (Auto) 0.2 Eosinophils # (Auto) 0.2 Basophils # (Auto) 0.0 CBC Comment DIFF FINAL Differential Comment Sodium Level 133 Potassium Level 4.7 Chloride Level 100 Carbon Dioxide Level 25.3 Anion Gap 8 Blood Urea Nitrogen 43 Creatinine 4.35 Estimat Glomerular Filtration 10 Rate Random Glucose 165 Calcium Level 8.1 Date/Time Procedure Status Source Growth 06/08/17 17:45 Urine Culture - Final Complete Urine Clean Catch 10-50,000 CFU/ML MIXED GRAM POSITIVE ... Result Diagram: 06/12/17 1248 06/12/17 1248 Imaging Last Impressions Chest X-Ray 06/12/17 0000 Signed Impressions: Service Date/Time: Monday, June 12, 2017 09:16 - CONCLUSION: 1. Moderate bilateral pleural effusions with associated lower lobe compressive atelectasis. Azam Cruz MD Renal Ultrasound 06/08/17 0000 Signed Impressions: Service Date/Time: Thursday, June 08, 2017 14:10 - CONCLUSION: Echogenic but normal-size kidneys Bilateral pleural effusions. Dangelo Merida MD FACR Problem Qualifiers (1) Diabetes mellitus: Jose Juan Jarquin MD Jun 12, 2017 17:12
[2017-06-12] MEDS: TAMSULOSIN HCL 0.4 MG CAP PO SCH (17:44)
--- NOTE | 2017-06-12 17:46 | MB ---
cc: INDIRA JACOBSON DATE OF CONSULTATION 06/12/17 REASON FOR CONSULTATION Respiratory failure, congestive heart failure. HISTORY OF PRESENT ILLNESS Mrs. Gómez is a 57-year-old [place] female who speaks only Kazakh. History obtained from her daughter at bedside and from her records. The patient was admitted with shortness of breath which has been becoming progressively worse over several days prior to her hospitalization, felt related to fluid overload due to underlying renal insufficiency. The patient does have history of hypertension and hyperlipidemia and she is legally blind. She denies history of fever, chills, cough, expectoration. Today had increasing shortness of breath, was given diuretic therapy, presently on nonrebreathing mask with improvement. The patient is on the process of transfer to intensive care at this time in view of her worsening respiratory distress. PAST MEDICAL HISTORY Diabetes mellitus, chronic renal insufficiency, hypertension, hyperlipidemia, previous cataract surgery as well as foot surgery, legally blind. MEDICATIONS Include: 1. Lasix. 2. Atorvastatin. 3. Amlodipine. 4. Atropine. 5. Metoprolol. ALLERGIES None known to medication. FAMILY HISTORY Positive for heart disease. SOCIAL HISTORY Does not smoke, does not drink. No TB or industrial exposure. REVIEW OF SYSTEMS 12-point review of systems as per HPI and past history, otherwise, negative. PHYSICAL EXAMINATION VITAL SIGNS: Temperature 96.5, pulse 86, respirations 18, blood pressure 150/70, oxygen saturation 94% on nonrebreathing mask. HEENT: Exam unremarkable. Eyes without icterus. NECK: Without adenopathy or thyroid enlargement. Central trachea. CHEST: Without dullness to percussion. Few rhonchi at bases. Decrease breath sounds at basis as well. CARDIAC EXAMINATION: PMI distant. S1-S2 audible. No murmur, no rub. ABDOMEN: Lax, bowel sounds audible. EXTREMITIES: No clubbing, cyanosis or edema. LABORATORY DATA White count 5000, hemoglobin 7.9, hematocrit 24, platelets at 140,000, sodium 133, potassium 4.7, BUN 43, creatinine 4.3, INR 1.0. Arterial blood gas pH 7.34, pCO2 41, pO2 64 on 5 liters O2 by nasal cannula. IMAGING STUDIES Chest x-ray with bilateral pleural effusions, associated atelectatic change. IMPRESSION 1. Respiratory failure. 2. Fluid overload. 3. Question congestive heart failure. 4. Diabetes mellitus. 5. Hypertension. 6. Hyperlipidemia. 7. Anemia. PLAN The patient is responding to diuretic therapy. She continues to need a higher inspired oxygen fraction, would place her on BiPap therapy as needed, intubation, mechanical ventilation should it become necessary. However, the patient seems responsive to current regimen. Echocardiogram to assess cardiac performance would be appropriate to assess component of cardiac decompensation if any. Her fluid overload seems related to underlying renal insufficiency. I do thank you for asking me to partake in Mrs. Gómez's care. Indira Jacobson MD WWW/CRESCENCIO /4:33 PM /5:26 PM
--- NOTE | 2017-06-12 18:26 | HHI.NPPN ---
Subjective History of Present Illness 57-year-old female with past medical history of hypertension, diabetes mellitus, chronic kidney disease, ischemic heart disease, congestive heart failure, came to the hospital with complaint of worsening shortness of breath. I was called to see the patient because of elevated BUN and creatinine patient has creatinine of 4.3 on admission and she had reviously creatinine of 3.6 last month the patient has known history of chronic kidney disease and she has been following by her vamp marker in [place] and according to daughter she was told that she will need dialysis and also she was told that she possibly will need kidney biopsy. Additional Remarks Patient is alert, transferred to [facility] [place] after SOB and now on NRM. Review of Systems General Constitutional: Fatigue Cardiovascular Cardiac: Edema, ISSA Objective Data Data 06/11/17 06/12/17 19:00 07:00 Intake Total 835 ml 440 ml Output Total 400 ml 560 ml Balance 435 ml -120 ml Intake Oral 720 ml 440 ml IV Total 115 ml Output Urine Total 400 ml 560 ml Bladder Scan Volume Amount 291 ml 507 ml # Voids 0 # Bowel Movements 0 Vital Signs Date Time Temp Pulse Resp B/P Pulse Ox O2 Delivery O2 Flow Rate FiO2 06/12/17 18:00 79 06/12/17 17:33 97 Partial Non-Rebreather 13.00 06/12/17 17:31 98.0 78 28 166/78 97 06/12/17 17:31 78 06/12/17 17:04 164/75 06/12/17 16:00 97.3 75 161/77 93 06/12/17 15:30 96.4 75 28 180/81 97 06/12/17 13:07 94 Partial Rebreather 12.00 06/12/17 12:21 77 06/12/17 12:00 97.4 78 18 152/77 92 06/12/17 10:28 90 Nasal Cannula 5.00 06/12/17 08:00 76 06/12/17 08:00 97.6 77 18 165/84 92 06/12/17 04:00 75 06/12/17 04:00 96.3 75 20 157/72 94 06/12/17 00:00 76 06/12/17 00:00 96.4 96 18 138/65 93 06/12/17 00:00 82 06/11/17 21:56 93 Nasal Cannula 5.00 06/11/17 20:33 93 Nasal Cannula 5.00 06/11/17 20:00 80 06/11/17 20:00 96.1 83 20 185/85 93 -: 06/12/17 1248 06/12/17 1248 Physical Exam General Appearance: No Acute Distress, Comfortable, Anxious Pulmonary Resp Exam: Breath Sounds Equal Cardiology CV Exam: Regular Gastrointestinal/Abdomen GI Exam: Soft, Non-Tender, Bowel Sounds Present Extremeties Extremities Exam: Moderate Edema, Pitting Edema, Dependent Edema Neurologic Neuro Exam: Alert, Awake, Oriented Psychiatric Psych Exam: Appropriate Responses Assessment/Plan Problem List: (1) Ditjy-sy-bpjvibf kidney injury (2) CHF exacerbation Plan: Bumex (3) Diabetes mellitus Plan Patient has advance renal disease, now the GFR is 10 ml/min. Patient has advance renal disease. Most likely has Diabetic or Hypertensive renal disease. Will need to start HD. D/W the son at bed side. Will get VasCath in AM. Continue Bumex for now. Problem Qualifiers (1) Nwtsb-to-ghnpazu kidney injury: (2) Diabetes mellitus: José Howell MD Jun 12, 2017 18:26
[2017-06-12] MEDS: cloNIDine HCL 0.1 MG TAB PO PRN (18:32)
[2017-06-12] MEDS: ATORVASTATIN 20 MG TAB PO SCH (20:21)
[2017-06-13] VITALS (23 sets, daily range): BP systolic 138–184; BP diastolic 66–84; PULSE 73–85; RESP 19–36; TEMP 97.6–99.6; O2SAT 89–100
[2017-06-13] MEDS: cloNIDine HCL 0.1 MG TAB PO PRN ×3 (02:20→16:17)
[2017-06-13 06:32] LABS: AUTOMATED NEUTROPHIL # 3.8 TH/MM3 (1.8-7.7); BASOPHIL % 0.6 % (0.0-2.0); EOSINOPHIL # 0.2 TH/MM3 (0-0.4); EOSINOPHIL % 4.4 % (0.0-4.0); HEMATOCRIT 24.5 % (35.0-46.0); HEMO FLAGS DIFF FINAL; LYMPH % 20.5 % (9.0-44.0); LYMPHOCYTE # 1.1 TH/MM3 (1.0-4.8); MEAN CELL VOLUME 87.4 FL (80.0-100.0); MEAN CORPUSCULAR HEMOGLOBIN 28.1 PG (27.0-34.0); MEAN CORPUSCULAR HGB CONC 32.2 % (32.0-36.0); MONO % 5.9 % (0.0-8.0); NEUT % 68.6 % (16.0-70.0); PLATELET COUNT 158 TH/MM3 (150-450); RED CELL DISTRIBUTION WIDTH 15.7 % (11.6-17.2); WHITE BLOOD COUNT 5.6 TH/MM3 (4.0-11.0)
[2017-06-13 06:53] LABS: POTASSIUM 4.8 MEQ/L (3.5-5.1)
[2017-06-13] MEDS: INSULIN ASPART SUPPLEMENTAL SCALE SQ SCH ×4 (07:00→21:00)
[2017-06-13] MEDS: TAMSULOSIN HCL 0.4 MG CAP PO SCH (07:48)
[2017-06-13] MEDS: prednisoLONE ACETATE 1% OPHT SUSP 5 ML BTL LEFT EYE SCH ×4 (07:48→20:44)
[2017-06-13] MEDS: ATROPINE SULFATE 1% OPHT SOLN 5 ML BTL EACH EYE SCH ×2 (07:48→20:44)
[2017-06-13] MEDS: BUMETANIDE INJ 1 MG/4 ML VIAL IV PUSH SCH ×2 (07:48→17:25)
[2017-06-13] MEDS: SODIUM CHLORIDE 0.9% FLUSH 10 ML FLUSH IV FLUSH SCH ×2 (07:48→20:43)
[2017-06-13] MEDS: LABETALOL HCL 100 MG TAB PO SCH (07:49)
[2017-06-13] MEDS: SODIUM BICARBONATE 650 MG TAB PO SCH ×2 (07:49→17:25)
[2017-06-13] MEDS: DOCUSATE SODIUM 50 MG/SENNA 8.6 MG TAB PO SCH ×2 (07:49→20:43)
[2017-06-13] MEDS ORDERED: HEPARIN-NS/PF INJ 500 ML ONE (08:40)
[2017-06-13] MEDS: HEPARIN SODIUM - SQ 10,000 UNITS/ML VIAL SQ SCH ×2 (09:00→20:43)
[2017-06-13] MEDS ORDERED: SODIUM CHLORIDE 0.9% FLUSH 10 ML FLUSH IVF PRN (09:45)
--- NOTE | 2017-06-13 09:45 | PD.RAD ---
Post Procedure Progress Note Pre Procedure Diagnosis: (1) Acute renal failure Post Procedure Diagnosis: (1) Acute renal failure Procedure Date: Jun 13, 2017 Supervising Radiologist: Azam Cruz Proceduralist/Assist: Jaylin Dozier RT(R), RT Rebecca(R)() Anesthesia: Local Plan of Activity Patient to Unit: Nursing Unit Patient Condition: Good Additional Comments: Placed right IJ temp HD cath See PACS Report for procedural detail/treatment Azam Cruz MD Jun 13, 2017 09:45
[2017-06-13] MEDS ORDERED: SODIUM CHLOR 0.9% 1000 ML INJ 1,000 ML IV PRN ×2 (10:23)
[2017-06-13] MEDS: RESP: ALBUTEROL 2.5 MG/IPRATROPIUM 0.5 MG NEB (SCH) NEB ×4 (10:24→19:56)
[2017-06-13] MEDS ORDERED: diphenhydrAMINE HCL 25 MG CAP PO PRN (10:30)
[2017-06-13] MEDS ORDERED: HEPARIN SODIUM - IV 10,000 UNITS/10 ML VIAL IVF PRN (10:30)
[2017-06-13] MEDS ORDERED: ACETAMINOPHEN 325 MG TAB PO PRN (10:30)
[2017-06-13] MEDS ORDERED: GELATIN 12 MM/7 MM FOAM TOP PRN (10:30)
[2017-06-13] MEDS ORDERED: NITROGLYCERIN 0.4 MG SL 25 TABS/BTL SL PRN (10:30)
[2017-06-13] MEDS ORDERED: MANNITOL 12.5 GM/50 ML VIAL IV PRN (10:30)
[2017-06-13] MEDS ORDERED: ALBUMIN HUMAN 25% 25 GM/100 ML BAGP IV PRN (10:30)
[2017-06-13] MEDS ORDERED: SODIUM CHLORIDE 0.9% FLUSH 10 ML FLUSH IV FLUSH PRN (10:30)
[2017-06-13] MEDS: cefTRIAXone INJ 1,000 MG in SODIUM CHLORIDE 0.9% INJ 100 ML IV SCH (10:32)
[2017-06-13] MEDS ORDERED: CHLORHEXIDINE GLUCONATE 2 % 1 PACK (2 CLOTHS)(extra cloths) TOPICAL PRN (11:00)
[2017-06-13] MEDS: GENTAMICIN SULFATE (DIALYSIS USE ONLY) 20 MG/2 ML VIAL IV PRN (14:44)
[2017-06-13] MEDS: SODIUM CHLOR 0.9% 1000 ML INJ 1,000 ML IV PRN (14:44)
[2017-06-13] MEDS: HEPARIN SODIUM - IV 10,000 UNITS/10 ML VIAL PRN (14:44)
--- NOTE | 2017-06-13 15:13 | HHI.PR ---
Subjective Remarks The patient is seen with her nurse. Follow-up renal failure, fluid overload, respiratory distress. Patient now requiring high flow oxygen. Currently receiving dialysis. She denies pain. States that she feels a little better today. Objective Vitals Vital Signs Date Time Temp Pulse Resp B/P Pulse Ox O2 Delivery O2 Flow Rate FiO2 06/13/17 14:00 74 06/13/17 12:00 78 06/13/17 12:00 98.2 78 23 169/76 96 06/13/17 11:00 80 20 148/72 94 06/13/17 10:15 94 Senior Credit Analyst 60 06/13/17 10:15 91 High Flow Nasal Cannula 25.00 60 06/13/17 10:00 79 06/13/17 10:00 79 31 138/66 89 06/13/17 09:27 79 26 157/72 93 06/13/17 08:00 80 06/13/17 08:00 98.2 80 26 174/81 95 06/13/17 07:00 78 22 164/79 99 06/13/17 07:00 95 Partial Non-Rebreather 8.00 06/13/17 06:00 77 06/13/17 04:00 97.6 73 36 163/77 99 06/13/17 04:00 73 06/13/17 02:00 75 06/13/17 00:00 75 06/13/17 00:00 98.1 79 22 178/80 100 06/12/17 22:00 72 06/12/17 20:12 100 Partial Rebreather 12.00 06/12/17 20:00 98.3 79 22 178/80 100 06/12/17 20:00 79 06/12/17 19:00 99 Partial Non-Rebreather 12.00 06/12/17 18:00 79 06/12/17 17:33 97 Partial Non-Rebreather 13.00 06/12/17 17:31 98.0 78 28 166/78 97 06/12/17 17:31 78 06/12/17 17:04 164/75 06/12/17 16:00 97.3 75 161/77 93 06/12/17 15:30 96.4 75 28 180/81 97 I/O 06/12/17 06/12/17 06/12/17 06/13/17 06/13/172/17 07:00 15:00 23:00 07:00 15:00 23:00 Intake Total 440 ml 120 ml 120 ml 988 ml Output Total 560 ml 600 ml 400 ml 600 ml Balance -120 ml -480 ml -280 ml 388 ml Intake Oral 440 ml 120 ml 120 ml 888 ml IV Total 100 ml Output Urine Total 560 ml 600 ml 400 ml 600 ml Stool Total 0 ml Bladder Scan Volume Amount 507 ml # Voids 0 # Bowel Movements 0 0 Result Diagram: 06/13/17 0602 06/13/17 0602 Imaging Last Impressions Chest X-Ray 06/12/17 0000 Signed Impressions: Service Date/Time: Monday, June 12, 2017 09:16 - CONCLUSION: 1. Moderate bilateral pleural effusions with associated lower lobe compressive atelectasis. Azam Cruz MD Renal Ultrasound 06/08/17 0000 Signed Impressions: Service Date/Time: Thursday, June 08, 2017 14:10 - CONCLUSION: Echogenic but normal-size kidneys Bilateral pleural effusions. Dangelo Merida MD FACR Objective Remarks General: No acute distress. Heart: Regular rate and rhythm. No murmur. Lungs: Decreased breath sounds in the bases, left greater than right. Breathing is nonlabored. Abdomen: Soft, nontender, nondistended. Extremities: 1+ bilateral lower extremity edema. Psych: Alert and oriented. Procedures 06/13/17 Vas-Cath placement Urinary Catheter: No Vascular Central Line Catheter: No A/P Problem List: (1) Acute renal failure ICD Code: N17.9 Status: Acute (2) Diabetes mellitus ICD Code: E11.9 Status: Chronic (3) Hyperlipidemia ICD Code: E78.5 Status: Chronic (4) Hypertension ICD Code: I10 Status: Chronic (5) Fluid overload ICD Code: E87.70 Status: Acute Assessment and Plan 1. Acute renal failure: Patient's creatinine is remaining elevated. Renal ultrasound noted. Appreciate nephrology recommendations. Patient receiving dialysis today. 2. Fluid overload, pleural effusion: Likely secondary to renal failure. 2-D echocardiogram shows normal systolic function with ejection fraction of 55-60%. Continue diuresis with Bumex. 3. Hypertension: Amlodipine discontinued secondary to lower extremity edema. Monitor blood pressure. Labetalol added by nephrology. 4. Hyperlipidemia: Continue statin. 5. Diabetes mellitus: Monitor Accu-Cheks and cover with sliding scale insulin. 6. UTI: Rocephin. Urine culture growing mixed gram positive griselda. 7. DVT prophylaxis: RICK Brunner. Heparin. 8. Dyspnea/hypoxia: Now on high flow oxygen. Appreciate pulmonology recommendations. Continue bronchodilators. 9. Urinary retention: Godwin catheter in place. Appreciate urology recommendations. Continue Flomax. Problem Qualifiers (1) Diabetes mellitus: Abner Smyth MD Jun 13, 2017 15:13
--- NOTE | 2017-06-13 17:05 | HHI.PR ---
Subjective Remarks ALERT NO SOB AT REST O2 SAT 95% 0.5 FIO2 Objective Vital Signs Date Time Temp Pulse Resp B/P Pulse Ox O2 Delivery O2 Flow Rate FiO2 06/13/17 16:24 95 High Flow Nasal Cannula 25.00 55 06/13/17 16:00 79 06/13/17 16:00 99.6 79 25 184/81 96 06/13/17 15:00 75 06/13/17 15:00 75 22 163/79 98 06/13/17 14:00 74 19 153/72 98 06/13/17 14:00 74 06/13/17 13:00 76 29 171/77 94 06/13/17 12:00 78 06/13/17 12:00 98.2 78 23 169/76 96 06/13/17 11:00 80 20 148/72 94 06/13/17 10:15 94 Facialist 60 06/13/17 10:15 91 High Flow Nasal Cannula 25.00 60 06/13/17 10:00 79 06/13/17 10:00 79 31 138/66 89 06/13/17 09:27 79 26 157/72 93 06/13/17 08:00 80 06/13/17 08:00 98.2 80 26 174/81 95 06/13/17 07:00 78 22 164/79 99 06/13/17 07:00 95 Partial Non-Rebreather 8.00 06/13/17 06:00 77 06/13/17 04:00 97.6 73 36 163/77 99 06/13/17 04:00 73 06/13/17 02:00 75 06/13/17 00:00 75 06/13/17 00:00 98.1 79 22 178/80 100 06/12/17 22:00 72 06/12/17 20:12 100 Partial Rebreather 12.00 06/12/17 20:00 98.3 79 22 178/80 100 06/12/17 20:00 79 06/12/17 19:00 99 Partial Non-Rebreather 12.00 06/12/17 18:00 79 06/12/17 17:33 97 Partial Non-Rebreather 13.00 06/12/17 17:31 98.0 78 28 166/78 97 06/12/17 17:31 78 06/12/17 17:04 164/75 I/O 06/12/17 06/12/17 06/12/17 06/13/17 06/13/17 06/13/17 07:00 15:00 23:00 07:00 15:00 23:00 Intake Total 440 ml 120 ml 120 ml 988 ml Output Total 560 ml 600 ml 400 ml 600 ml Balance -120 ml -480 ml -280 ml 388 ml Intake Oral 440 ml 120 ml 120 ml 888 ml IV Total 100 ml Output Urine Total 560 ml 600 ml 400 ml 600 ml Stool Total 0 ml Bladder Scan Volume Amount 507 ml # Voids 0 # Bowel Movements 0 0 Result Diagram: 06/13/17 0602 06/13/17 06 Objective Remarks GENERAL: SKIN: Warm and dry. HEAD: Atraumatic. Normocephalic. EYES: Pupils equal and round. No scleral icterus. No injection or drainage. ENT: No nasal bleeding or discharge. Mucous membranes pink and moist. NECK: Trachea midline. No JVD. CARDIOVASCULAR: Regular rate and rhythm. RESPIRATORY: No accessory muscle use. DECREASE BREATH SOUNDS AT BASIS. GASTROINTESTINAL: Abdomen soft, non-tender, nondistended. Hepatic and splenic margins not palpable. MUSCULOSKELETAL: Extremities without clubbing, cyanosis, or edema. No obvious deformities. NEUROLOGICAL: Awake and alert. No obvious cranial nerve deficits. Motor grossly within normal limits. Five out of 5 muscle strength in the arms and legs. Normal speech. PSYCHIATRIC: Appropriate mood and affect; insight and judgment normal. Assessment and Plan Assessment and Plan ASS: RESPIRATORY FAILURE FLUID OVERLOAD DUE TO RENAL FAILURE BILATERAL EFFUSIONS PLAN O2 NEEDED DIURESIS F/U CXRAY Indira Jacobson MD Jun 13, 2017 17:05
[2017-06-13] MEDS ORDERED: hydrALAZINE HCL 20 MG/ML VIAL IV PUSH ONE (17:30)
--- NOTE | 2017-06-13 17:37 | RADRPT ---
EXAM DATE/TIME: 06/13/2017 17:04 [facility] COMPARISON: CHEST SINGLE AP, June 12, 2017, 9:16. INDICATIONS : Shortness of breath MEDICAL HISTORY : Hypertension. Diabetes mellitus type II. Hypercholesterolemia. Blindness SURGICAL HISTORY : None. ENCOUNTER: Subsequent ACUITY: 1 week PAIN SCORE: Non-responsive. LOCATION: Bilateral chest FINDINGS: A single portable frontal view of the chest shows interval placement of a dialysis catheter on the ri ght. Tip is at the mid right atrial level. No pneumothorax. Low lung volumes. Small bilateral pleural effusions with bibasilar intra-alveolar infiltrates. Heart normal in size. Pulmonary vascular engorg ement. Degenerative thoracic spine. CONCLUSION: 1. Pulmonary vascular engorgement with bilateral pleural effusions and bibasilar intra-alveolar infil trates. Edgardo Elizabeth Jr., MD on June 13, 2017 at 17:34 Board Certified Radiologist. This report was verified electronically.
--- NOTE | 2017-06-13 18:29 | HHI.NPPN ---
Subjective History of Present Illness 57-year-old female with past medical history of hypertension, diabetes mellitus, chronic kidney disease, ischemic heart disease, congestive heart failure, came to the hospital with complaint of worsening shortness of breath. I was called to see the patient because of elevated BUN and creatinine patient has creatinine of 4.3 on admission and she had reviously creatinine of 3.6 last month the patient has known history of chronic kidney disease and she has been following by her data center architect in [place] and according to daughter she was told that she will need dialysis and also she was told that she possibly will need kidney biopsy. Additional Remarks Patient is alert, breathing is much better, with nasal cannula. Review of Systems General Constitutional: Fatigue Cardiovascular Cardiac: Edema, ISSA Objective Data Data 06/12/17 06/13/17 19:00 07:00 Intake Total 240 ml Output Total 1000 ml Balance -760 ml Intake Oral 240 ml Output Urine Total 1000 ml Vital Signs Date Time Temp Pulse Resp B/P Pulse Ox O2 Delivery O2 Flow Rate FiO2 06/13/17 18:00 85 06/13/17 16:24 95 High Flow Nasal Cannula 25.00 55 06/13/17 16:00 79 06/13/17 16:00 99.6 79 25 184/81 96 06/13/17 15:00 75 06/13/17 15:00 75 22 163/79 98 06/13/17 14:00 74 19 153/72 98 06/13/17 14:00 74 06/13/17 13:00 76 29 171/77 94 06/13/17 12:00 78 06/13/17 12:00 98.2 78 23 169/76 96 06/13/17 11:00 80 20 148/72 94 06/13/17 10:15 94 Rocket Test Fire Worker 60 06/13/17 10:15 91 High Flow Nasal Cannula 25.00 60 06/13/17 10:00 79 06/13/17 10:00 79 31 138/66 89 06/13/17 09:27 79 26 157/72 93 06/13/17 08:00 80 06/13/17 08:00 98.2 80 26 174/81 95 06/13/17 07:00 78 22 164/79 99 06/13/17 07:00 95 Partial Non-Rebreather 8.00 06/13/17 06:00 77 06/13/17 04:00 97.6 73 36 163/77 99 06/13/17 04:00 73 06/13/17 02:00 75 06/13/17 00:00 75 06/13/17 00:00 98.1 79 22 178/80 100 06/12/17 22:00 72 06/12/17 20:12 100 Partial Rebreather 12.00 06/12/17 20:00 98.3 79 22 178/80 100 06/12/17 20:00 79 06/12/17 19:00 99 Partial Non-Rebreather 12.00 -: 06/13/17 0602 06/13/17 0602 Physical Exam General Appearance: No Acute Distress, Comfortable, Anxious Pulmonary Resp Exam: Breath Sounds Equal Cardiology CV Exam: Regular Gastrointestinal/Abdomen GI Exam: Soft, Non-Tender, Bowel Sounds Present Extremeties Extremities Exam: Moderate Edema, Pitting Edema, Dependent Edema Neurologic Neuro Exam: Alert, Awake, Oriented Psychiatric Psych Exam: Appropriate Responses Assessment/Plan Problem List: (1) Wsvyu-ew-bxicxia kidney injury (2) CHF exacerbation Plan: Bumex (3) Diabetes mellitus Plan Patient has advance renal disease, now the GFR is 10 ml/min. Patient has advance renal disease. Most likely has Diabetic or Hypertensive renal disease. Started on HD and first treatment today. 2 Liters removed. D/W the son and daughter about HD and PD. Problem Qualifiers (1) Vpkbs-[id number] kidney injury: (2) Diabetes mellitus: José Howell MD Jun 13, 2017 18:29
[2017-06-13] MEDS: VITAMIN B CMPLX/VITC/FOLIC AC CAP PO SCH (18:48)
[2017-06-13] MEDS: LABETALOL HCL 200 MG TAB PO SCH (20:43)
[2017-06-13] MEDS: ATORVASTATIN 20 MG TAB PO SCH (20:43)
[2017-06-14] VITALS (16 sets, daily range): BP systolic 151–192; BP diastolic 69–86; PULSE 74–98; RESP 19–35; TEMP 97.8–99.2; O2SAT 93–99
[2017-06-14] MEDS: CHLORHEXIDINE GLUCONATE 2 % 1 PACK (2 CLOTHS)(taper/protocol) TOPICAL SCH (04:00)
[2017-06-14 04:19] LABS: TRANSFERRIN IRON PROFILE 165 MG/DL (200-360)
[2017-06-14 04:22] LABS: FERRITIN 83 NG/ML (8-252)
[2017-06-14] MEDS: INSULIN ASPART SUPPLEMENTAL SCALE SQ SCH ×4 (06:25→20:39)
[2017-06-14] MEDS: prednisoLONE ACETATE 1% OPHT SUSP 5 ML BTL LEFT EYE SCH ×4 (07:59→20:40)
[2017-06-14] MEDS: ATROPINE SULFATE 1% OPHT SOLN 5 ML BTL EACH EYE SCH ×2 (07:59→20:40)
[2017-06-14] MEDS: DOCUSATE SODIUM 50 MG/SENNA 8.6 MG TAB PO SCH ×2 (08:00→20:39)
[2017-06-14] MEDS: TAMSULOSIN HCL 0.4 MG CAP PO SCH (08:00)
[2017-06-14] MEDS: HEPARIN SODIUM - SQ 10,000 UNITS/ML VIAL SQ SCH ×2 (08:00→20:38)
[2017-06-14] MEDS: SODIUM BICARBONATE 650 MG TAB PO SCH ×2 (08:00→16:12)
[2017-06-14] MEDS: VITAMIN B CMPLX/VITC/FOLIC AC CAP PO SCH (08:00)
[2017-06-14] MEDS: SODIUM CHLORIDE 0.9% FLUSH 10 ML FLUSH IVF SCH (08:01)
[2017-06-14] MEDS: SODIUM CHLORIDE 0.9% FLUSH 10 ML FLUSH IV FLUSH SCH ×2 (08:02→20:39)
[2017-06-14] MEDS: RESP: ALBUTEROL 2.5 MG/IPRATROPIUM 0.5 MG NEB (SCH) NEB ×4 (08:14→21:01)
--- NOTE | 2017-06-14 11:24 | HHI.PR ---
Subjective Remarks Follow up renal failure, fluid overload. Patient having dialysis. Seen with ICU nurse, who provides translation. Patient states that she feels good today. Denies pain, dyspnea. Objective Vitals Vital Signs Date Time Temp Pulse Resp B/P Pulse Ox O2 Delivery O2 Flow Rate FiO2 06/14/17 10:00 74 06/14/17 08:16 96 High Flow Nasal Cannula 25.00 55 06/14/17 08:00 99.0 79 26 172/77 95 06/14/17 08:00 79 06/14/17 07:00 96 06/14/17 06:00 79 06/14/17 04:00 97.8 80 35 151/69 93 06/14/17 04:00 80 06/14/17 03:50 95 High Flow Nasal Cannula 25.00 06/14/17 02:00 80 06/14/17 00:00 98.1 82 34 159/69 94 06/14/17 00:00 98 06/13/17 23:36 95 High Flow Nasal Cannula 06/13/17 22:00 83 06/13/17 21:00 97.6 83 22 179/79 94 06/13/17 20:00 82 06/13/17 19:58 96 High Flow Nasal Cannula 25.00 06/13/17 19:00 95 Publisher Assistant 55 06/13/17 18:00 85 06/13/17 18:00 85 33 162/74 93 06/13/17 17:00 79 30 182/84 96 06/13/17 16:45 94 Publisher Assistant 55 06/13/17 16:24 95 High Flow Nasal Cannula 25.00 55 06/13/17 16:00 79 06/13/17 16:00 99.6 79 25 184/81 96 06/13/17 15:00 75 06/13/17 15:00 75 22 163/79 98 06/13/17 14:00 74 19 153/72 98 06/13/17 14:00 74 06/13/17 13:00 76 29 171/77 94 06/13/17 12:00 78 06/13/17 12:00 98.2 78 23 169/76 96 I/O 06/13/17 06/13/17 06/13/17 06/14/17 06/14/17 06/14/17 07:00 15:00 23:00 07:00 15:00 23:00 Intake Total 120 ml 988 ml 452 ml 120 ml Output Total 400 ml 600 ml 2700 ml 600 ml Balance -280 ml 388 ml -2248 ml -480 ml Intake Oral 120 ml 888 ml 240 ml 120 ml IV Total 100 ml 212 ml 0 ml Output Urine Total 400 ml 600 ml 700 ml 600 ml Stool Total 0 ml 0 ml 0 ml Hemodialysis 2000 ml # Bowel Movements 0 Result Diagram: 06/13/17 0602 06/13/17 0602 Imaging Last Impressions Chest X-Ray 06/13/17 0000 Signed Impressions: Service Date/Time: Tuesday, June 13, 2017 17:04 - CONCLUSION: 1. Pulmonary vascular engorgement with bilateral pleural effusions and bibasilar intra-alveolar infiltrates. Edgardo Elizabeth Jr., MD Renal Ultrasound 06/08/17 0000 Signed Impressions: Service Date/Time: Thursday, June 08, 2017 14:10 - CONCLUSION: Echogenic but normal-size kidneys Bilateral pleural effusions. Dangelo Merida MD FACR Objective Remarks General: No acute distress. Heart: Regular rate and rhythm. No murmur. Lungs: Decreased breath sounds in the bases, left greater than right. Breathing is nonlabored. Abdomen: Soft, nontender, nondistended. Extremities: 1+ bilateral lower extremity edema. Psych: Alert and oriented. Procedures 06/13/17 Vas-Cath placement Urinary Catheter: No Vascular Central Line Catheter: No A/P Problem List: (1) Acute renal failure ICD Code: N17.9 Status: Acute (2) Diabetes mellitus ICD Code: E11.9 Status: Chronic (3) Hyperlipidemia ICD Code: E78.5 Status: Chronic (4) Hypertension ICD Code: I10 Status: Chronic (5) Fluid overload ICD Code: E87.70 Status: Acute Assessment and Plan 1. Acute renal failure: Patient's creatinine is remaining elevated. Renal ultrasound noted. Appreciate nephrology recommendations. Patient receiving dialysis again today. May need long-term dialysis. 2. Fluid overload, pleural effusion: Likely secondary to renal failure. 2-D echocardiogram shows normal systolic function with ejection fraction of 55-60%. Continue diuresis with Bumex. 3. Hypertension: Amlodipine discontinued secondary to lower extremity edema. Monitor blood pressure. Labetalol added by nephrology. 4. Hyperlipidemia: Continue statin. 5. Diabetes mellitus: Monitor Accu-Cheks and cover with sliding scale insulin. 6. UTI: Rocephin. Urine culture growing mixed gram positive griselda. 7. DVT prophylaxis: SCDs, RICK sandy. Heparin. 8. Acute hypoxic respiratory failure: Now on high flow oxygen. Appreciate pulmonology recommendations. Continue bronchodilators. 9. Urinary retention: Godwin catheter in place. Appreciate urology recommendations. Continue Flomax. Problem Qualifiers (1) Diabetes mellitus: Abner Smyth MD Jun 14, 2017 11:24
[2017-06-14] MEDS: GENTAMICIN SULFATE (DIALYSIS USE ONLY) 20 MG/2 ML VIAL IV PRN (11:31)
[2017-06-14] MEDS: HEPARIN SODIUM - IV 10,000 UNITS/10 ML VIAL PRN (11:31)
[2017-06-14] MEDS: EPOETIN ALFA 10,000 UNITS/ML VIAL IV PRN (11:32)
[2017-06-14] MEDS: SODIUM CHLOR 0.9% 1000 ML INJ 1,000 ML IV PRN (11:32)
[2017-06-14 12:38] LABS: BICARBONATE 26.8 MEQ/L (21.0-32.0); POTASSIUM 4.4 MEQ/L (3.5-5.1)
--- NOTE | 2017-06-14 13:01 | HHI.NPPN ---
Subjective History of Present Illness 57-year-old female with past medical history of hypertension, diabetes mellitus, chronic kidney disease, ischemic heart disease, congestive heart failure, came to the hospital with complaint of worsening shortness of breath. I was called to see the patient because of elevated BUN and creatinine patient has creatinine of 4.3 on admission and she had reviously creatinine of 3.6 last month the patient has known history of chronic kidney disease and she has been following by her blood bank worker in [place] and according to daughter she was told that she will need dialysis and also she was told that she possibly will need kidney biopsy. Additional Remarks Patient is alert, breathing is better, no chest pain. Review of Systems General Constitutional: Fatigue Cardiovascular Cardiac: Edema, ISSA Objective Data Data 06/13/17 06/14/17 19:00 07:00 Intake Total 988 ml 572 ml Output Total 2600 ml 1300 ml Balance -1612 ml -728 ml Intake Oral 888 ml 360 ml IV Total 100 ml 212 ml Output Urine Total 600 ml 1300 ml Stool Total 0 ml 0 ml Hemodialysis 2000 ml # Bowel Movements 0 Vital Signs Date Time Temp Pulse Resp B/P Pulse Ox O2 Delivery O2 Flow Rate FiO2 06/14/17 12:00 98.9 74 19 163/79 99 06/14/17 12:00 74 06/14/17 10:00 74 06/14/17 08:16 96 High Flow Nasal Cannula 25.00 55 06/14/17 08:00 99.0 79 26 172/77 95 06/14/17 08:00 79 06/14/17 07:00 96 06/14/17 06:00 79 06/14/17 04:00 97.8 80 35 151/69 93 06/14/17 04:00 80 06/14/17 03:50 95 High Flow Nasal Cannula 25.00 06/14/17 02:00 80 06/14/17 00:00 98.1 82 34 159/69 94 06/14/17 00:00 98 06/13/17 23:36 95 High Flow Nasal Cannula 06/13/17 22:00 83 06/13/17 21:00 97.6 83 22 179/79 94 06/13/17 20:00 82 06/13/17 19:58 96 High Flow Nasal Cannula 25.00 06/13/17 19:00 95 Copy Technician 55 06/13/17 18:00 85 06/13/17 18:00 85 33 162/74 93 06/13/17 17:00 79 30 182/84 96 06/13/17 16:45 94 Copy Technician 55 06/13/17 16:24 95 High Flow Nasal Cannula 25.00 55 06/13/17 16:00 79 06/13/17 16:00 99.6 79 25 184/81 96 06/13/17 15:00 75 06/13/17 15:00 75 22 163/79 98 06/13/17 14:00 74 19 153/72 98 06/13/17 14:00 74 -: 06/13/17 0602 06/14/17 0332 Physical Exam General Appearance: No Acute Distress, Comfortable, Anxious Pulmonary Resp Exam: Breath Sounds Equal Cardiology CV Exam: Regular Gastrointestinal/Abdomen GI Exam: Soft, Non-Tender, Bowel Sounds Present Extremeties Extremities Exam: Moderate Edema, Pitting Edema, Dependent Edema Neurologic Neuro Exam: Alert, Awake, Oriented Psychiatric Psych Exam: Appropriate Responses Assessment/Plan Problem List: (1) Erzfq-oe-qidlsnw kidney injury (2) CHF exacerbation Plan: Bumex (3) Diabetes mellitus Plan Patient has advance renal disease, now the GFR is 10 ml/min. Patient has advance renal disease. Most likely has Diabetic or Hypertensive renal disease. Started on HD on treatment today, remove fluid as tolerated. D/W the daughter about marine oil terminal superintendent Dialysis, will need PermCath and AVF once stable. Problem Qualifiers (1) Nhcdj-bb-fbluykw kidney injury: (2) Diabetes mellitus: José Howell MD Jun 14, 2017 13:01
[2017-06-14] MEDS: cefTRIAXone INJ 1,000 MG in SODIUM CHLORIDE 0.9% INJ 100 ML IV SCH (13:12)
[2017-06-14] MEDS: LABETALOL HCL 200 MG TAB PO SCH ×2 (13:12→20:39)
[2017-06-14] MEDS: BUMETANIDE INJ 1 MG/4 ML VIAL IV PUSH SCH ×2 (13:13→16:12)
[2017-06-14] MEDS: cloNIDine HCL 0.1 MG TAB PO PRN ×2 (15:19→21:49)
[2017-06-14 16:28] LABS: AUTOMATED NEUTROPHIL # 5.6 TH/MM3 (1.8-7.7); BASOPHIL % 0.3 % (0.0-2.0); EOSINOPHIL # 0.2 TH/MM3 (0-0.4); EOSINOPHIL % 3.4 % (0.0-4.0); HEMATOCRIT 26.4 % (35.0-46.0); HEMO FLAGS DIFF FINAL; LYMPH % 10.3 % (9.0-44.0); LYMPHOCYTE # 0.7 TH/MM3 (1.0-4.8); MEAN CELL VOLUME 85.7 FL (80.0-100.0); MEAN CORPUSCULAR HEMOGLOBIN 28.5 PG (27.0-34.0); MEAN CORPUSCULAR HGB CONC 33.3 % (32.0-36.0); MONO % 5.8 % (0.0-8.0); NEUT % 80.2 % (16.0-70.0); PLATELET COUNT 153 TH/MM3 (150-450); RED BLOOD COUNT 3.09 MIL/MM3 (4.00-5.30); RED CELL DISTRIBUTION WIDTH 15.6 % (11.6-17.2)
--- NOTE | 2017-06-14 17:10 | HHI.PR ---
Subjective Remarks ALERT NO SOB AT REST O2 SAT 95% 0.5 FIO2 RECIEVED DIALYSIS TODAY Objective Vital Signs Date Time Temp Pulse Resp B/P Pulse Ox O2 Delivery O2 Flow Rate FiO2 06/14/17 16:00 83 06/14/17 16:00 99.2 83 22 172/81 95 06/14/17 14:00 81 06/14/17 12:00 98.9 74 19 163/79 99 06/14/17 12:00 74 06/14/17 10:00 74 06/14/17 08:16 96 High Flow Nasal Cannula 25.00 55 06/14/17 08:00 99.0 79 26 172/77 95 06/14/17 08:00 79 06/14/17 07:00 96 06/14/17 06:00 79 06/14/17 04:00 97.8 80 35 151/69 93 06/14/17 04:00 80 06/14/17 03:50 95 High Flow Nasal Cannula 25.00 06/14/17 02:00 80 06/14/17 00:00 98.1 82 34 159/69 94 06/14/17 00:00 98 06/13/17 23:36 95 High Flow Nasal Cannula 06/13/17 22:00 83 06/13/17 21:00 97.6 83 22 179/79 94 06/13/17 20:00 82 06/13/17 19:58 96 High Flow Nasal Cannula 25.00 06/13/17 19:00 95 Automobile Mechanic Helper 55 06/13/17 18:00 85 06/13/17 18:00 85 33 162/74 93 I/O 06/13/17 06/13/17 06/13/17 06/14/17 06/14/17 06/14/17 07:00 15:00 23:00 07:00 15:00 23:00 Intake Total 120 ml 988 ml 452 ml 120 ml 530 ml Output Total 400 ml 600 ml 2700 ml 600 ml 3375 ml Balance -280 ml 388 ml -2248 ml -480 ml -2845 ml Intake Oral 120 ml 888 ml 240 ml 120 ml 420 ml IV Total 100 ml 212 ml 0 ml 110 ml Output Urine Total 400 ml 600 ml 700 ml 600 ml 375 ml Stool Total 0 ml 0 ml 0 ml Hemodialysis 2000 ml 3000 ml # Bowel Movements 0 0 Result Diagram: 06/14/17 1350 06/14/17 0332 Objective Remarks GENERAL: SKIN: Warm and dry. HEAD: Atraumatic. Normocephalic. EYES: Pupils equal and round. No scleral icterus. No injection or drainage. ENT: No nasal bleeding or discharge. Mucous membranes pink and moist. NECK: Trachea midline. No JVD. CARDIOVASCULAR: Regular rate and rhythm. RESPIRATORY: No accessory muscle use. DECREASE BREATH SOUNDS AT BASIS. GASTROINTESTINAL: Abdomen soft, non-tender, nondistended. Hepatic and splenic margins not palpable. MUSCULOSKELETAL: Extremities without clubbing, cyanosis, or edema. No obvious deformities. NEUROLOGICAL: Awake and alert. No obvious cranial nerve deficits. Motor grossly within normal limits. Five out of 5 muscle strength in the arms and legs. Normal speech. PSYCHIATRIC: Appropriate mood and affect; insight and judgment normal. Assessment and Plan Assessment and Plan ASS: RESPIRATORY FAILURE FLUID OVERLOAD DUE TO RENAL FAILURE BILATERAL EFFUSIONS PLAN O2 NEEDED DIURESIS F/U CXRAY Indira Jacobson MD Jun 14, 2017 17:10
[2017-06-14] MEDS: ATORVASTATIN 20 MG TAB PO SCH (20:39)
[2017-06-15] VITALS (20 sets, daily range): BP systolic 145–185; BP diastolic 64–84; PULSE 73–85; RESP 20–30; TEMP 98.8–99.9; O2SAT 92–96
[2017-06-15] MEDS: CHLORHEXIDINE GLUCONATE 2 % 1 PACK (2 CLOTHS)(taper/protocol) TOPICAL SCH (02:48)
[2017-06-15] MEDS: INSULIN ASPART SUPPLEMENTAL SCALE SQ SCH ×4 (06:22→21:00)
[2017-06-15 07:02] LABS: AUTOMATED NEUTROPHIL # 5.2 TH/MM3 (1.8-7.7); BASOPHIL % 0.5 % (0.0-2.0); EOSINOPHIL # 0.3 TH/MM3 (0-0.4); EOSINOPHIL % 4.1 % (0.0-4.0); HEMATOCRIT 25.7 % (35.0-46.0); HEMO FLAGS DIFF FINAL; LYMPH % 16.7 % (9.0-44.0); LYMPHOCYTE # 1.2 TH/MM3 (1.0-4.8); MEAN CORPUSCULAR HEMOGLOBIN 28.7 PG (27.0-34.0); MEAN CORPUSCULAR HGB CONC 33.4 % (32.0-36.0); MONO % 7.4 % (0.0-8.0); NEUT % 71.3 % (16.0-70.0); PLATELET COUNT 145 TH/MM3 (150-450); RED BLOOD COUNT 2.98 MIL/MM3 (4.00-5.30); RED CELL DISTRIBUTION WIDTH 15.6 % (11.6-17.2); WHITE BLOOD COUNT 7.3 TH/MM3 (4.0-11.0)
[2017-06-15 07:20] LABS: BICARBONATE 31.9 MEQ/L (21.0-32.0)
[2017-06-15] MEDS: prednisoLONE ACETATE 1% OPHT SUSP 5 ML BTL LEFT EYE SCH ×4 (07:58→22:16)
[2017-06-15] MEDS: ATROPINE SULFATE 1% OPHT SOLN 5 ML BTL EACH EYE SCH ×2 (07:58→22:16)
[2017-06-15] MEDS: cefTRIAXone INJ 1,000 MG in SODIUM CHLORIDE 0.9% INJ 100 ML IV SCH (07:59)
[2017-06-15] MEDS: LABETALOL HCL 200 MG TAB PO SCH ×2 (08:00→22:15)
[2017-06-15] MEDS: TAMSULOSIN HCL 0.4 MG CAP PO SCH (08:00)
[2017-06-15] MEDS: VITAMIN B CMPLX/VITC/FOLIC AC CAP PO SCH (08:00)
[2017-06-15] MEDS: SODIUM BICARBONATE 650 MG TAB PO SCH ×2 (08:00→16:55)
[2017-06-15] MEDS: BUMETANIDE INJ 1 MG/4 ML VIAL IV PUSH SCH ×2 (08:00→16:58)
[2017-06-15] MEDS: HEPARIN SODIUM - SQ 10,000 UNITS/ML VIAL SQ SCH ×2 (08:00→22:16)
[2017-06-15] MEDS: DOCUSATE SODIUM 50 MG/SENNA 8.6 MG TAB PO SCH ×2 (08:00→22:15)
[2017-06-15] MEDS: SODIUM CHLORIDE 0.9% FLUSH 10 ML FLUSH IV FLUSH SCH ×2 (08:01→22:16)
[2017-06-15] MEDS: SODIUM CHLORIDE 0.9% FLUSH 10 ML FLUSH IVF SCH (08:01)
[2017-06-15] MEDS: RESP: ALBUTEROL 2.5 MG/IPRATROPIUM 0.5 MG NEB (SCH) NEB ×4 (08:56→20:08)
--- NOTE | 2017-06-15 09:00 | HHI.PR ---
Subjective Remarks ALERT NO SOB AT REST O2 SAT 95% 0.5 FIO2 Objective Vital Signs Date Time Temp Pulse Resp B/P Pulse Ox O2 Delivery O2 Flow Rate FiO2 06/15/17 06:00 80 06/15/17 06:00 80 29 145/64 94 06/15/17 05:00 80 22 178/78 94 06/15/17 04:59 96 High Flow Nasal Cannula 25.00 55 06/15/17 04:00 99.9 82 25 178/81 95 06/15/17 04:00 82 06/15/17 03:00 83 24 180/83 95 06/15/17 02:00 84 06/15/17 02:00 84 26 180/83 96 06/15/17 01:00 85 25 185/84 95 06/15/17 00:30 85 23 183/84 96 06/15/17 00:26 96 High Flow Nasal Cannula 25.00 55 06/15/17 00:00 84 06/15/17 00:00 99.1 84 22 179/83 94 06/14/17 22:00 84 06/14/17 22:00 97 Front Office Help 55 06/14/17 21:20 85 06/14/17 21:03 98 High Flow Nasal Cannula 25.00 55 06/14/17 20:00 99.0 83 26 192/86 96 06/14/17 20:00 83 06/14/17 18:00 85 06/14/17 16:00 83 06/14/17 16:00 99.2 83 22 172/81 95 06/14/17 14:00 81 06/14/17 12:00 98.9 74 19 163/79 99 06/14/17 12:00 74 06/14/17 10:00 74 I/O 06/14/17 06/14/17 06/14/17 06/15/17 06/15/17 06/15/17 07:00 15:00 23:00 07:00 15:00 23:00 Intake Total 120 ml 530 ml 120 ml 60 ml Output Total 600 ml 3375 ml 1000 ml 600 ml Balance -480 ml -2845 ml -880 ml -540 ml Intake Oral 120 ml 420 ml 120 ml 60 ml IV Total 0 ml 110 ml Output Urine Total 600 ml 375 ml 1000 ml 600 ml Stool Total 0 ml Hemodialysis 3000 ml # Bowel Movements 0 0 0 Result Diagram: 06/15/1751706/15/17517 Objective Remarks GENERAL: SKIN: Warm and dry. HEAD: Atraumatic. Normocephalic. EYES: Pupils equal and round. No scleral icterus. No injection or drainage. ENT: No nasal bleeding or discharge. Mucous membranes pink and moist. NECK: Trachea midline. No JVD. CARDIOVASCULAR: Regular rate and rhythm. RESPIRATORY: No accessory muscle use. DECREASE BREATH SOUNDS AT BASIS. GASTROINTESTINAL: Abdomen soft, non-tender, nondistended. Hepatic and splenic margins not palpable. MUSCULOSKELETAL: Extremities without clubbing, cyanosis, or edema. No obvious deformities. NEUROLOGICAL: Awake and alert. No obvious cranial nerve deficits. Motor grossly within normal limits. Five out of 5 muscle strength in the arms and legs. Normal speech. PSYCHIATRIC: Appropriate mood and affect; insight and judgment normal. Assessment and Plan Assessment and Plan ASS: RESPIRATORY FAILURE FLUID OVERLOAD DUE TO RENAL FAILURE BILATERAL EFFUSIONS PLAN O2 NEEDED DIURESIS F/U CXRAY Indira Jacobson MD Jun 15, 2017 09:00
--- NOTE | 2017-06-15 11:21 | HHI.NPPN ---
Subjective History of Present Illness 57-year-old female with past medical history of hypertension, diabetes mellitus, chronic kidney disease, ischemic heart disease, congestive heart failure, came to the hospital with complaint of worsening shortness of breath. I was called to see the patient because of elevated BUN and creatinine patient has creatinine of 4.3 on admission and she had reviously creatinine of 3.6 last month the patient has known history of chronic kidney disease and she has been following by her vocal performer in [place] and according to daughter she was told that she will need dialysis and also she was told that she possibly will need kidney biopsy. Additional Remarks Patient is alert, breathing is better, no chest pain, still with high flow O2. Review of Systems General Constitutional: Fatigue Cardiovascular Cardiac: Edema, ISSA Objective Data Data 06/14/17 06/15/17 19:00 07:00 Intake Total 530 ml 180 ml Output Total 3375 ml 1600 ml Balance -2845 ml -1420 ml Intake Oral 420 ml 180 ml IV Total 110 ml Output Urine Total 375 ml 1600 ml Hemodialysis 3000 ml # Bowel Movements 0 0 Vital Signs Date Time Temp Pulse Resp B/P Pulse Ox O2 Delivery O2 Flow Rate FiO2 06/15/17 08:56 93 High Flow Nasal Cannula 25.00 55 06/15/17 08:00 99.1 79 24 145/69 94 06/15/17 08:00 79 06/15/17 07:00 93 06/15/17 06:00 80 06/15/17 06:00 80 29 145/64 94 06/15/17 05:00 80 22 178/78 94 06/15/17 04:59 96 High Flow Nasal Cannula 25.00 55 06/15/17 04:00 99.9 82 25 178/81 95 06/15/17 04:00 82 06/15/17 03:00 83 24 180/83 95 06/15/17 02:00 84 06/15/17 02:00 84 26 180/83 96 06/15/17 01:00 85 25 185/84 95 06/15/17 00:30 85 23 183/84 96 06/15/17 00:26 96 High Flow Nasal Cannula 25.00 55 06/15/17 00:00 84 06/15/17 00:00 99.1 84 22 179/83 94 06/14/17 22:00 84 06/14/17 22:00 97 Lumber Tying Machine Operator 55 8/3/17 21:20 85 06/14/17 21:03 98 High Flow Nasal Cannula 25.00 55 06/14/17 20:00 99.0 83 26 192/86 96 06/14/17 20:00 83 06/14/17 18:00 85 06/14/17 16:00 83 06/14/17 16:00 99.2 83 22 172/81 95 06/14/17 14:00 81 06/14/17 12:00 98.9 74 19 163/79 99 06/14/17 12:00 74 -: 06/15/17 0518 06/15/17 0518 Physical Exam General Appearance: No Acute Distress, Comfortable, Anxious Pulmonary Resp Exam: Breath Sounds Equal Cardiology CV Exam: Regular Gastrointestinal/Abdomen GI Exam: Soft, Non-Tender, Bowel Sounds Present Extremeties Extremities Exam: Moderate Edema, Pitting Edema, Dependent Edema Neurologic Neuro Exam: Alert, Awake, Oriented Psychiatric Psych Exam: Appropriate Responses Assessment/Plan Problem List: (1) Eaenp-zy-eedowjg kidney injury (2) CHF exacerbation Plan: Bumex (3) Diabetes mellitus Plan Patient has advance renal disease, now the GFR is 10 ml/min. Patient has advance renal disease. Most likely has Diabetic or Hypertensive renal disease. Started on HD on 06/13. 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 will need PermCath and AVF once stable. HD done yesterday and 3 liters removed. Problem Qualifiers (1) Wehkd-pn-xhmbhie kidney injury: (2) Diabetes mellitus: José Howell MD Jun 15, 2017 11:21
[2017-06-15] MEDS: ATORVASTATIN 20 MG TAB PO SCH (22:15)
--- NOTE | 2017-06-15 22:45 | HHI.PR ---
Subjective Remarks Patient seen this afternoon around 1 PM. Says she's feeling well. Denies any chest pain or shortness of breath. Objective Vital Signs Date Time Temp Pulse Resp B/P Pulse Ox O2 Delivery O2 Flow Rate FiO2 06/15/17 18:00 73 06/15/17 16:00 99.0 82 20 173/80 93 06/15/17 16:00 83 06/15/17 14:00 82 06/15/17 12:00 81 06/15/17 12:00 98.8 81 22 171/78 95 06/15/17 10:00 78 06/15/17 08:56 93 High Flow Nasal Cannula 25.00 55 06/15/17 08:00 99.1 79 24 145/69 94 06/15/17 08:00 79 06/15/17 07:00 93 06/15/17 06:00 80 06/15/17 06:00 80 29 145/64 94 06/15/17 05:00 80 22 178/78 94 06/15/17 04:59 96 High Flow Nasal Cannula 25.00 55 06/15/17 04:00 99.9 82 25 178/81 95 06/15/17 04:00 82 06/15/17 03:00 83 24 180/83 95 06/15/17 02:00 84 06/15/17 02:00 84 26 180/83 96 06/15/17 01:00 85 25 185/84 95 06/15/17 00:30 85 23 183/84 96 06/15/17 00:26 96 High Flow Nasal Cannula 25.00 55 06/15/17 00:00 84 06/15/17 00:00 99.1 84 22 179/83 94 I/O 06/14/17 06/14/17 06/14/17 06/15/17 06/15/17 06/15/17 07:00 15:00 23:00 07:00 15:00 23:00 Intake Total 120 ml 530 ml 120 ml 60 ml 480 ml Output Total 600 ml 3375 ml 1000 ml 600 ml 550 ml Balance -480 ml -2845 ml -880 ml -540 ml -70 ml Intake Oral 120 ml 420 ml 120 ml 60 ml 480 ml IV Total 0 ml 110 ml Output Urine Total 600 ml 375 ml 1000 ml 600 ml 550 ml Stool Total 0 ml Hemodialysis 3000 ml # Bowel Movements 0 0 0 Result Diagram: 06/15/17 0518 06/15/17 0518 Objective Remarks GENERAL: patient sitting up in bed. Appears comfortable. SKIN: Warm and dry. HEAD: Normocephalic. EYES: No scleral icterus. No injection or drainage. NECK: Supple, trachea midline. No JVD or lymphadenopathy. CARDIOVASCULAR: Regular rate and rhythm without murmurs, gallops, or rubs. RESPIRATORY: Breath sounds equal bilaterally. No accessory muscle use. GASTROINTESTINAL: Abdomen soft, non-tender, nondistended. MUSCULOSKELETAL: No cyanosis. +1 bilateral lower extremity edema. BACK: Nontender without obvious deformity. No CVA tenderness. A/P Assessment and Plan 06/15. renal failure. Creatinine 3.0. Improving. Heart rate controlled. Continue to monitor. //Acute renal failure: Patient's creatinine is slowly improving.. Renal ultrasound noted. Appreciate nephrology recommendations. Patient receiving dialysis again today. May need long-term dialysis. // Fluid overload, pleural effusion: Likely secondary to renal failure. 2-D echocardiogram shows normal systolic function with ejection fraction of 55-60%. Continue diuresis with Bumex. //Hypertension: Amlodipine discontinued secondary to lower extremity edema. Monitor blood pressure. Labetalol added by nephrology. //Hyperlipidemia: Continue statin. //Diabetes mellitus: Monitor Accu-Cheks and cover with sliding scale insulin. //UTI: Rocephin. Urine culture growing mixed gram positive griselda. //DVT prophylaxis: SCDs, RICK hose. Heparin. //Acute hypoxic respiratory failure: Now on high flow oxygen. Appreciate pulmonology recommendations. Continue bronchodilators. //Urinary retention: Godwin catheter in place. Appreciate urology recommendations. Continue Flomax. Javier Nava MD Jun 15, 2017 22:45
[2017-06-16] VITALS (41 sets, daily range): BP systolic 124–186; BP diastolic 57–115; PULSE 71–83; RESP 15–42; TEMP 97.9–100; O2SAT 88–96
[2017-06-16] MEDS: CHLORHEXIDINE GLUCONATE 2 % 1 PACK (2 CLOTHS)(taper/protocol) TOPICAL SCH (04:00)
[2017-06-16] MEDS: INSULIN ASPART SUPPLEMENTAL SCALE SQ SCH ×4 (06:38→21:00)
[2017-06-16] MEDS: RESP: ALBUTEROL 2.5 MG/IPRATROPIUM 0.5 MG NEB (SCH) NEB ×2 (08:12→11:21)
[2017-06-16] MEDS: LABETALOL HCL 200 MG TAB PO SCH ×2 (08:49→21:25)
[2017-06-16] MEDS: BUMETANIDE INJ 1 MG/4 ML VIAL IV PUSH SCH ×2 (08:49→18:00)
[2017-06-16] MEDS: SODIUM BICARBONATE 650 MG TAB PO SCH ×2 (08:55→18:00)
[2017-06-16] MEDS: DOCUSATE SODIUM 50 MG/SENNA 8.6 MG TAB PO SCH ×2 (08:55→21:24)
[2017-06-16] MEDS: TAMSULOSIN HCL 0.4 MG CAP PO SCH (08:55)
[2017-06-16] MEDS: ATROPINE SULFATE 1% OPHT SOLN 5 ML BTL EACH EYE SCH ×2 (08:55→21:26)
[2017-06-16] MEDS: VITAMIN B CMPLX/VITC/FOLIC AC CAP PO SCH (08:55)
[2017-06-16] MEDS: prednisoLONE ACETATE 1% OPHT SUSP 5 ML BTL LEFT EYE SCH ×4 (08:55→21:27)
[2017-06-16] MEDS: SODIUM CHLORIDE 0.9% FLUSH 10 ML FLUSH IVF SCH (09:00)
[2017-06-16] MEDS: SODIUM CHLORIDE 0.9% FLUSH 10 ML FLUSH IV FLUSH SCH ×2 (09:00→21:26)
[2017-06-16] MEDS: HEPARIN SODIUM - SQ 10,000 UNITS/ML VIAL SQ SCH ×2 (09:00→21:25)
--- NOTE | 2017-06-16 09:41 | HHI.NPPN ---
Subjective History of Present Illness 57-year-old female with past medical history of hypertension, diabetes mellitus, chronic kidney disease, ischemic heart disease, congestive heart failure, came to the hospital with complaint of worsening shortness of breath. I was called to see the patient because of elevated BUN and creatinine patient has creatinine of 4.3 on admission and she had reviously creatinine of 3.6 last month the patient has known history of chronic kidney disease and she has been following by her auto design detailer in [place] and according to daughter she was told that she will need dialysis and also she was told that she possibly will need kidney biopsy. Additional Remarks she is non oliguric, scheduled for dialysis today. Review of Systems General Constitutional: Fatigue Cardiovascular Cardiac: Edema, ISSA Objective Data Data 06/15/17 06/16/17 19:00 07:00 Intake Total 480 ml 480 ml Output Total 550 ml 950 ml Balance -70 ml -470 ml Intake Oral 480 ml 480 ml Output Urine Total 550 ml 950 ml Vital Signs Date Time Temp Pulse Resp B/P Pulse Ox O2 Delivery O2 Flow Rate FiO2 06/16/17 08:12 93 Nasal Cannula 4.00 06/16/17 08:00 79 06/16/17 08:00 98.6 74 24 172/76 93 06/16/17 06:00 78 06/16/17 04:30 79 23 146/67 94 06/16/17 04:15 79 21 93 06/16/17 04:00 98.7 79 22 168/77 92 06/16/17 04:00 79 22 168/77 92 06/16/17 04:00 79 06/16/17 03:45 81 23 90 06/16/17 03:30 79 17 186/81 91 06/16/17 03:15 80 25 91 06/16/17 03:00 80 22 167/78 90 06/16/17 02:45 80 26 91 06/16/17 02:30 80 24 174/82 91 06/16/17 02:15 80 23 93 06/16/17 02:00 82 31 162/76 88 06/16/17 02:00 82 06/16/17 01:45 82 19 93 06/16/17 01:30 82 22 170/76 93 06/16/17 01:15 81 30 94 06/16/17 01:00 81 21 172/80 94 06/16/17 00:45 80 20 95 06/16/17 00:30 81 35 165/115 93 06/16/17 00:15 80 19 94 06/16/17 00:00 81 06/16/17 00:00 81 20 171/78 94 06/16/17 00:00 100.0 81 20 171/78 94 06/15/17 22:00 77 06/15/17 20:07 94 Nasal Cannula 4.00 06/15/17 20:00 99.4 74 30 174/79 93 06/15/17 20:00 74 06/15/17 18:00 73 06/15/17 16:00 99.0 82 20 173/80 93 06/15/17 16:00 83 06/15/17 14:00 82 06/15/17 12:00 81 06/15/17 12:00 98.8 81 22 171/78 95 06/15/17 10:00 78 -: 06/15/17 0518 06/15/17 0518 Physical Exam General Appearance: No Acute Distress, Comfortable Pulmonary Resp Exam: Breath Sounds Equal Cardiology CV Exam: Regular Gastrointestinal/Abdomen GI Exam: Soft, Non-Tender, Bowel Sounds Present Extremeties Extremities Exam: Moderate Edema, Pitting Edema, Dependent Edema Neurologic Neuro Exam: Alert, Awake, Oriented Psychiatric Psych Exam: Appropriate Responses Assessment/Plan Problem List: (1) Wdrhn-gi-otzspxu kidney injury (2) CHF exacerbation Plan: Bumex (3) Diabetes mellitus Plan Patient has advance renal disease, now the GFR is 10 ml/min. Patient has advance renal disease. Likely has diabetic nephropathy, has proteinuria. Started on HD on 06/13. Dialysis is scheduled for later today. Problem Qualifiers (1) Lskmu-sk-zjtdueg kidney injury: (2) Diabetes mellitus: Сергей Power MD Jun 16, 2017 09:41
[2017-06-16] MEDS: cefTRIAXone INJ 1,000 MG in SODIUM CHLORIDE 0.9% INJ 100 ML IV SCH (10:00)
--- NOTE | 2017-06-16 13:36 | HHI.PR ---
Subjective Remarks ALERT NO SOB AT REST O2 SAT 95% 0.5 FIO2 Objective Vital Signs Date Time Temp Pulse Resp B/P Pulse Ox O2 Delivery O2 Flow Rate FiO2 06/16/17 08:12 93 Nasal Cannula 4.00 06/16/17 08:00 79 06/16/17 08:00 98.6 74 24 172/76 93 06/16/17 06:00 78 06/16/17 04:30 79 23 146/67 94 06/16/17 04:15 79 21 93 06/16/17 04:00 98.7 79 22 168/77 92 06/16/17 04:00 79 22 168/77 92 06/16/17 04:00 79 06/16/17 03:45 81 23 90 06/16/17 03:30 79 17 186/81 91 06/16/17 03:15 80 25 91 06/16/17 03:00 80 22 167/78 90 06/16/17 02:45 80 26 91 06/16/17 02:30 80 24 174/82 91 06/16/17 02:15 80 23 93 06/16/17 02:00 82 31 162/76 88 06/16/17 02:00 82 06/16/17 01:45 82 19 93 06/16/17 01:30 82 22 170/76 93 06/16/17 01:15 81 30 94 06/16/17 01:00 81 21 172/80 94 06/16/17 00:45 80 20 95 06/16/17 00:30 81 35 165/115 93 06/16/17 00:15 80 19 94 06/16/17 00:00 81 06/16/17 00:00 81 20 171/78 94 06/16/17 00:00 100.0 81 20 171/78 94 06/15/17 22:00 77 06/15/17 20:07 94 Nasal Cannula 4.00 06/15/17 20:00 99.4 74 30 174/79 93 06/15/17 20:00 74 06/15/17 18:00 73 06/15/17 16:00 99.0 82 20 173/80 93 06/15/17 16:00 83 06/15/17 14:00 82 I/O 06/15/17 06/15/17 06/15/17 06/16/17 06/16/1717 06:59 14:59 22:59 06:59 14:59 22:59 Intake Total 60 ml 480 ml 480 ml Output Total 600 ml 550 ml 500 ml 450 ml Balance -540 ml -70 ml -500 ml 30 ml Intake Oral 60 ml 480 ml 480 ml Output Urine Total 600 ml 550 ml 500 ml 450 ml # Bowel Movements 0 Result Diagram: 06/15/1751706/15/17517 Objective Remarks GENERAL: SKIN: Warm and dry. HEAD: Atraumatic. Normocephalic. EYES: Pupils equal and round. No scleral icterus. No injection or drainage. ENT: No nasal bleeding or discharge. Mucous membranes pink and moist. NECK: Trachea midline. No JVD. CARDIOVASCULAR: Regular rate and rhythm. RESPIRATORY: No accessory muscle use. DECREASE BREATH SOUNDS AT BASIS. GASTROINTESTINAL: Abdomen soft, non-tender, nondistended. Hepatic and splenic margins not palpable. MUSCULOSKELETAL: Extremities without clubbing, cyanosis, or edema. No obvious deformities. NEUROLOGICAL: Awake and alert. No obvious cranial nerve deficits. Motor grossly within normal limits. Five out of 5 muscle strength in the arms and legs. Normal speech. PSYCHIATRIC: Appropriate mood and affect; insight and judgment normal. Assessment and Plan Assessment and Plan ASS: RESPIRATORY FAILURE FLUID OVERLOAD DUE TO RENAL FAILURE BILATERAL EFFUSIONS PLAN O2 NEEDED DIURESIS F/U CXRAY Indira Tejeda MD Jun 16, 2017 13:36
--- NOTE | 2017-06-16 15:41 | HHI.PR ---
Subjective Remarks Follow-up on hypoxia and shortness of breath Objective Vital Signs Date Time Temp Pulse Resp B/P Pulse Ox O2 Delivery O2 Flow Rate FiO2 06/16/17 08:12 93 Nasal Cannula 4.00 06/16/17 08:00 79 06/16/17 08:00 98.6 74 24 172/76 93 06/16/17 06:00 78 06/16/17 04:30 79 23 146/67 94 06/16/17 04:15 79 21 93 06/16/17 04:00 98.7 79 22 168/77 92 06/16/17 04:00 79 22 168/77 92 06/16/17 04:00 79 06/16/17 03:45 81 23 90 06/16/17 03:30 79 17 186/81 91 06/16/17 03:15 80 25 91 06/16/17 03:00 80 22 167/78 90 06/16/17 02:45 80 26 91 06/16/17 02:30 80 24 174/82 91 06/16/17 02:15 80 23 93 06/16/17 02:00 82 31 162/76 88 06/16/17 02:00 82 06/16/17 01:45 82 19 93 06/16/17 01:30 82 22 170/76 93 06/16/17 01:15 81 30 94 06/16/17 01:00 81 21 172/80 94 06/16/17 00:45 80 20 95 06/16/17 00:30 81 35 165/115 93 06/16/17 00:15 80 19 94 06/16/17 00:00 81 06/16/17 00:00 81 20 171/78 94 06/16/17 00:00 100.0 81 20 171/78 94 06/15/17 22:00 77 06/15/17 20:07 94 Nasal Cannula 4.00 06/15/17 20:00 99.4 74 30 174/79 93 06/15/17 20:00 74 06/15/17 18:00 73 06/15/17 16:00 99.0 82 20 173/80 93 06/15/17 16:00 83 I/O 06/15/17 06/15/17 06/15/17 06/16/17 06/16/17 06/16/17 07:00 15:00 23:00 07:00 15:00 23:00 Intake Total 60 ml 480 ml 480 ml Output Total 600 ml 550 ml 500 ml 450 ml Balance -540 ml -70 ml -500 ml 30 ml Intake Oral 60 ml 480 ml 480 ml Output Urine Total 600 ml 550 ml 500 ml 450 ml # Bowel Movements 0 Result Diagram: 06/15/17 0518 06/15/17 0518 Imaging Last Impressions Chest X-Ray 06/13/17 0000 Signed Impressions: Service Date/Time: Tuesday, June 13, 2017 17:04 - CONCLUSION: 1. Pulmonary vascular engorgement with bilateral pleural effusions and bibasilar intra-alveolar infiltrates. Edgardo Elizabeth Jr., MD Renal Ultrasound 06/08/17 0000 Signed Impressions: Service Date/Time: Thursday, June 08, 2017 14:10 - CONCLUSION: Echogenic but normal-size kidneys Bilateral pleural effusions. Dangelo Merida MD FACR Objective Remarks GENERAL: Mild respiratory distress, on nasal cannula, mild conversive dyspnea, being spoonfed by her daughter EYES: No scleral icterus. No injection or drainage. CARDIOVASCULAR: Regular rate and rhythm without murmurs, gallops, or rubs. RESPIRATORY: Rales heard throughout bilaterally, mild belly breathing GASTROINTESTINAL: Abdomen soft, non-tender, nondistended. MUSCULOSKELETAL: No cyanosis, or edema. A/P Assessment and Plan 1. Acute renal failure: Patient's creatinine is remaining elevated. Appreciate nephrology recommendations. Patient receiving dialysis . May need long-term dialysis. 2. Fluid overload, pleural effusion: Likely secondary to renal failure. 2-D echocardiogram shows normal systolic function with ejection fraction of 55-60%. Continue diuresis with Bumex. 3. Hypertension: Monitor blood pressure. Labetalol added by nephrology. 4. Hyperlipidemia: Continue statin. 5. Diabetes mellitus: Monitor Accu-Cheks and cover with sliding scale insulin. 6. UTI: Rocephin. Urine culture growing mixed gram positive griselda. 7. DVT prophylaxis: SCDs, RICK hose. Heparin. 8. Acute hypoxic respiratory failure: Improving, titrated down to 4 L nasal cannula today, suspect this to be due to fluid, no signs of infection etiology. Appreciate pulmonology recommendations. Continue bronchodilators. 9. Urinary retention: Godwin catheter in place. Appreciate urology recommendations. Continue Flomax. Aleks Griffin MD Jun 16, 2017 15:41
[2017-06-16] MEDS: EPOETIN ALFA 10,000 UNITS/ML VIAL IV PRN (20:19)
[2017-06-16] MEDS: ATORVASTATIN 20 MG TAB PO SCH (21:24)
[2017-06-17] VITALS (11 sets, daily range): BP systolic 154–178; BP diastolic 72–80; PULSE 73–84; RESP 18–20; TEMP 98.8–99.1; O2SAT 91–95
[2017-06-17] MEDS: CHLORHEXIDINE GLUCONATE 2 % 1 PACK (2 CLOTHS)(taper/protocol) TOPICAL SCH ×2 (02:27→22:47)
--- NOTE | 2017-06-17 04:47 | RADRPT ---
EXAM DATE/TIME: 06/17/2017 03:32 [facility] COMPARISON: CHEST SINGLE AP, June 13, 2017, 17:04. INDICATIONS : Evaluate for pnuemonia MEDICAL HISTORY : Diabetes mellitus type II. Hypertension Hypercholesterolemia. Blindness SURGICAL HISTORY : None. ENCOUNTER: Subsequent ACUITY: 1 week PAIN SCORE: 7/10 LOCATION: Bilateral chest FINDINGS: The cardiac silhouette is enlarged in transverse diameter. There are findings of congestive heart tyesha lure with interstitial and alveolar opacity bilaterally. A Vas-Cath is in place via right internal ju gular approach with its tip in the superior vena cava. CONCLUSION: 1. Cardiomegaly and findings of congestive heart failure. There has been no significant change when c ompared to the prior exam. 2. Large bilateral effusions Ge Munoz MD on June 17, 2017 at 4:45 Board Certified Radiologist. This report was verified electronically.
[2017-06-17] MEDS: INSULIN ASPART SUPPLEMENTAL SCALE SQ SCH ×2 (06:00→21:22)
[2017-06-17] MEDS: VITAMIN B CMPLX/VITC/FOLIC AC CAP PO SCH (09:00)
[2017-06-17] MEDS: ATROPINE SULFATE 1% OPHT SOLN 5 ML BTL EACH EYE SCH ×2 (09:00→21:12)
[2017-06-17] MEDS: SODIUM CHLORIDE 0.9% FLUSH 10 ML FLUSH IVF SCH (09:00)
[2017-06-17] MEDS: SODIUM CHLORIDE 0.9% FLUSH 10 ML FLUSH IV FLUSH SCH ×2 (09:00→21:00)
[2017-06-17] MEDS: TAMSULOSIN HCL 0.4 MG CAP PO SCH (09:11)
[2017-06-17] MEDS: SODIUM BICARBONATE 650 MG TAB PO SCH (09:11)
[2017-06-17] MEDS: LABETALOL HCL 200 MG TAB PO SCH ×2 (09:11→21:08)
[2017-06-17] MEDS: BUMETANIDE INJ 1 MG/4 ML VIAL IV PUSH SCH (09:11)
[2017-06-17] MEDS: DOCUSATE SODIUM 50 MG/SENNA 8.6 MG TAB PO SCH ×2 (09:11→21:08)
--- NOTE | 2017-06-17 10:02 | HHI.NPPN ---
Subjective History of Present Illness 57-year-old female with past medical history of hypertension, diabetes mellitus, chronic kidney disease, ischemic heart disease, congestive heart failure, came to the hospital with complaint of worsening shortness of breath. I was called to see the patient because of elevated BUN and creatinine patient has creatinine of 4.3 on admission and she had reviously creatinine of 3.6 last month the patient has known history of chronic kidney disease and she has been following by her animal rehabilitator in [place] and according to daughter she was told that she will need dialysis and also she was told that she possibly will need kidney biopsy. Additional Remarks Had dialysis yesterday. 2 liters removed. She is nonoliguric. Review of Systems General Constitutional: Fatigue Cardiovascular Cardiac: Edema, ISSA Objective Data Data 06/16/17 06/17/17 18:59 06:59 Intake Total 380 ml 100 ml Output Total 450 ml 2950 ml Balance -70 ml -2850 ml Intake Oral 380 ml 100 ml IV Total 0 ml Output Urine Total 450 ml 950 ml Hemodialysis 2000 ml # Bowel Movements 1 0 Vital Signs Date Time Temp Pulse Resp B/P Pulse Ox O2 Delivery O2 Flow Rate FiO2 06/17/17 08:27 92 Nasal Cannula 4.00 06/17/17 08:00 73 06/17/17 08:00 98.8 82 20 154/72 91 06/17/17 07:00 92 Nasal Cannula 4.00 06/17/17 06:00 82 06/17/17 04:00 99.1 84 20 154/72 93 06/17/17 04:00 84 06/17/17 02:00 81 06/17/17 00:00 98.9 84 18 178/80 95 06/17/17 00:00 84 06/16/17 22:00 83 06/16/17 20:43 92 Nasal Cannula 4.00 06/16/17 20:00 73 06/16/17 20:00 97.9 73 20 157/71 93 06/16/17 19:00 93 Nasal Cannula 4.00 06/16/17 16:00 71 06/16/17 16:00 98.5 73 24 159/70 93 06/16/17 16:00 72 20 159/70 91 06/16/17 16:00 74 06/16/17 15:30 71 30 130/60 93 06/16/17 15:30 71 06/16/17 15:01 72 25 124/57 90 06/16/17 15:01 72 06/16/17 15:00 74 06/16/17 15:00 72 28 93 06/16/17 14:30 76 06/16/17 14:30 76 42 165/74 93 06/16/17 14:00 76 06/16/17 14:00 76 30 153/67 93 06/16/17 14:00 74 06/16/17 13:30 74 06/16/17 13:30 74 31 157/73 93 06/16/17 13:00 73 26 157/71 93 06/16/17 13:00 73 06/16/17 12:30 72 06/16/17 12:30 72 15 159/70 92 06/16/17 12:00 98.4 73 24 153/70 93 06/16/17 12:00 73 06/16/17 12:00 73 19 173/74 93 06/16/17 12:00 79 06/16/17 11:30 74 32 173/77 96 06/16/17 11:00 75 20 175/80 93 06/16/17 10:30 76 23 174/78 93 -: 06/15/17 0518 06/15/17 0518 Physical Exam General Appearance: No Acute Distress, Comfortable Pulmonary Resp Exam: Breath Sounds Equal Cardiology CV Exam: Regular Gastrointestinal/Abdomen GI Exam: Soft, Non-Tender, Bowel Sounds Present Extremeties Extremities Exam: Dependent Edema Neurologic Neuro Exam: Alert, Awake, Oriented Psychiatric Psych Exam: Appropriate Responses Assessment/Plan Problem List: (1) Dycqh-eq-sepuzvg kidney injury (2) CHF exacerbation Plan: Bumex (3) Diabetes mellitus Plan Dialysis started on 06/13, underwent dialysis on the . Monitor for signs of renal recovery, she is non oliguric. Avoid nephrotoxic agents. Dialysis as needed. Problem Qualifiers (1) Diabetes mellitus: Сергей Power MD Jun 17, 2017 10:02
--- NOTE | 2017-06-17 10:25 | HHI.PR ---
Subjective Remarks Follow-up on hypoxia and shortness of breath Patient does not note any substantial improvement since yesterday, is tolerating by mouth intake well nonetheless. Objective Vital Signs Date Time Temp Pulse Resp B/P Pulse Ox O2 Delivery O2 Flow Rate FiO2 06/17/17 08:27 92 Nasal Cannula 4.00 06/17/17 08:00 73 06/17/17 08:00 98.8 82 20 154/72 91 06/17/17 07:00 92 Nasal Cannula 4.00 06/17/17 06:00 82 06/17/17 04:00 99.1 84 20 154/72 93 06/17/17 04:00 84 06/17/17 02:00 81 06/17/17 00:00 98.9 84 18 178/80 95 06/17/17 00:00 84 06/16/17 22:00 83 06/16/17 20:43 92 Nasal Cannula 4.00 06/16/17 20:00 73 06/16/17 20:00 97.9 73 20 157/71 93 06/16/17 19:00 93 Nasal Cannula 4.00 06/16/17 16:00 71 06/16/17 16:00 98.5 73 24 159/70 93 06/16/17 16:00 72 20 159/70 91 06/16/17 16:00 74 06/16/17 15:30 71 30 130/60 93 06/16/17 15:30 71 06/16/17 15:01 72 25 124/57 90 06/16/17 15:01 72 06/16/17 15:00 74 06/16/17 15:00 72 28 93 06/16/17 14:30 76 06/16/17 14:30 76 42 165/74 93 06/16/17 14:00 76 06/16/17 14:00 76 30 153/67 93 06/16/17 14:00 74 06/16/17 13:30 74 06/16/17 13:30 74 31 157/73 93 06/16/17 13:00 73 26 157/71 93 06/16/17 13:00 73 06/16/17 12:30 72 06/16/17 12:30 72 15 159/70 92 06/16/17 12:00 98.4 73 24 153/70 93 06/16/17 12:00 73 06/16/17 12:00 73 19 173/74 93 06/16/17 12:00 79 06/16/17 11:30 74 32 173/77 96 06/16/17 11:00 75 20 175/80 93 06/16/17 10:30 76 23 174/78 93 I/O 06/16/17 06/16/17 06/16/17 06/17/17 06/17/17 06/17/17 06:59 14:59 22:59 06:59 14:59 22:59 Intake Total 480 ml 380 ml 100 ml 0 ml Output Total 450 ml 450 ml 2650 ml 300 ml Balance 30 ml -70 ml -2550 ml -300 ml Intake Oral 480 ml 380 ml 100 ml 0 ml IV Total 0 ml 0 ml Output Urine Total 450 ml 450 ml 650 ml 300 ml Hemodialysis 2000 ml # Bowel Movements 1 0 0 Result Diagram: 06/15/1751706/15/17517 Objective Remarks GENERAL: Mild respiratory distress, on nasal cannula, mild conversive dyspnea EYES: No scleral icterus. No injection or drainage. CARDIOVASCULAR: Regular rate and rhythm without murmurs, gallops, or rubs. RESPIRATORY: Rales heard throughout bilaterally, mild belly breathing GASTROINTESTINAL: Abdomen soft, non-tender, nondistended. MUSCULOSKELETAL: No cyanosis, or edema. A/P Assessment and Plan 1. Acute renal failure: Some improvement since admission Was recently dialyzed yesterday, nephrology following, renal function panel ordered for today. 2. Fluid overload, pleural effusion: Likely secondary to renal failure. 2-D echocardiogram shows normal systolic function with ejection fraction of 55-60%. Continue diuresis with Bumex. 3. Hypertension: Monitor blood pressure. Labetalol added by nephrology. 4. Hyperlipidemia: Continue statin. 5. Diabetes mellitus: Monitor Accu-Cheks and cover with sliding scale insulin. 6. UTI: Rocephin. Urine culture growing mixed gram positive griselda. 7. DVT prophylaxis: SCDs, RICK hose. Heparin. 8. Acute hypoxic respiratory failure: Stagnant progress at 4 L nasal cannula today, patient with no underlying history of lung disease, suspect that this is all secondary to renal impairment. Appreciate pulmonology recommendations. Continue bronchodilators. 9. Urinary retention: Godwin catheter in place. Continue Flomax. Aleks Griffin MD Jun 17, 2017 10:25
[2017-06-17 16:15] LABS: BICARBONATE 33.5 MEQ/L (21.0-32.0); POTASSIUM 4.2 MEQ/L (3.5-5.1)
[2017-06-17] MEDS: ATORVASTATIN 20 MG TAB PO SCH (21:08)
[2017-06-17] MEDS: HEPARIN SODIUM - SQ 10,000 UNITS/ML VIAL SQ SCH (21:10)
[2017-06-17] MEDS: prednisoLONE ACETATE 1% OPHT SUSP 5 ML BTL LEFT EYE SCH (21:12)
[2017-06-18] VITALS (13 sets, daily range): BP systolic 111–159; BP diastolic 60–93; PULSE 75–81; RESP 18–22; TEMP 98.2–99; O2SAT 90–94
[2017-06-18] MEDS: INSULIN ASPART SUPPLEMENTAL SCALE SQ SCH ×4 (07:00→21:00)
[2017-06-18] MEDS: TAMSULOSIN HCL 0.4 MG CAP PO SCH ×2 (09:00→09:12)
[2017-06-18] MEDS: prednisoLONE ACETATE 1% OPHT SUSP 5 ML BTL LEFT EYE SCH ×4 (09:10→21:58)
[2017-06-18] MEDS: BUMETANIDE INJ 1 MG/4 ML VIAL IV PUSH SCH ×2 (09:10→16:41)
[2017-06-18] MEDS: SODIUM CHLORIDE 0.9% FLUSH 10 ML FLUSH IV FLUSH SCH ×2 (09:11→21:59)
[2017-06-18] MEDS: ATROPINE SULFATE 1% OPHT SOLN 5 ML BTL EACH EYE SCH ×2 (09:11→21:59)
[2017-06-18] MEDS: DOCUSATE SODIUM 50 MG/SENNA 8.6 MG TAB PO SCH ×2 (09:12→21:58)
[2017-06-18] MEDS: VITAMIN B CMPLX/VITC/FOLIC AC CAP PO SCH (09:12)
[2017-06-18] MEDS: SODIUM CHLORIDE 0.9% FLUSH 10 ML FLUSH IVF SCH (09:12)
[2017-06-18] MEDS: SODIUM BICARBONATE 650 MG TAB PO SCH ×2 (09:12→16:41)
[2017-06-18] MEDS: LABETALOL HCL 200 MG TAB PO SCH ×2 (09:12→22:40)
[2017-06-18] MEDS: HEPARIN SODIUM - SQ 10,000 UNITS/ML VIAL SQ SCH ×2 (09:13→21:58)
[2017-06-18] MEDS: cefTRIAXone INJ 1,000 MG in SODIUM CHLORIDE 0.9% INJ 100 ML IV SCH (09:38)
--- NOTE | 2017-06-18 11:24 | HHI.PR ---
Subjective Remarks Follow-up on hypoxia and shortness of breath Patient says she feels good, same as yesterday. Objective Vital Signs Date Time Temp Pulse Resp B/P Pulse Ox O2 Delivery O2 Flow Rate FiO2 06/18/17 08:00 Nasal Cannula 4.00 06/18/17 06:00 78 06/18/17 04:00 98.9 80 20 159/60 90 06/18/17 04:00 80 06/18/17 02:00 77 06/18/17 00:00 99.0 77 18 130/69 93 06/18/17 00:00 77 06/17/17 22:00 75 06/17/17 20:00 99.1 76 18 164/74 91 06/17/17 20:00 76 06/17/17 19:00 91 Nasal Cannula 4.00 06/17/17 14:00 73 06/17/17 14:00 98.8 82 20 154/72 91 06/17/17 12:00 73 06/17/17 12:00 98.8 82 20 154/72 91 I/O 06/17/17 06/17/17 06/17/17 06/18/17 06/18/17 06/18/17 07:00 15:00 23:00 07:00 15:00 23:00 Intake Total 0 ml 100 ml 100 ml Output Total 300 ml 550 ml 250 ml Balance -300 ml -450 ml -150 ml Intake Oral 0 ml 100 ml 100 ml IV Total 0 ml 0 ml 0 ml Output Urine Total 300 ml 550 ml 250 ml # Bowel Movements 0 0 0 Result Diagram: 06/15/17 0518 06/17/17 1512 Objective Remarks GENERAL: minimal respiratory distress, on nasal cannula CARDIOVASCULAR: Regular rate and rhythm without murmurs, gallops, or rubs. RESPIRATORY: no rales heard today but mildly decreased BS posterior GASTROINTESTINAL: Abdomen soft, non-tender, nondistended. MUSCULOSKELETAL: No cyanosis, or edema. A/P Assessment and Plan 1. Acute renal failure: Likely due to uncontrolled diabetes, and now has become chronic per nephrology will most likely need permanent dialysis. Spoke with ribbon sweatband operator today, are not an opposition to obtaining an AV fistula during this hospitalization for long-term dialysis once patient is more stable. 2. Hypoxia: Pulmonology was originally consult, and agree that the patient is likely hypoxic secondary to fluid overload from renal failure. 2-D echocardiogram shows normal systolic function with ejection fraction of 55-60%. Continue diuresis with Bumex. Repeat pain film today shows substantial fluid accumulation, we'll proceed with right side today thoracentesis and assess for improvement 3. Hypertension: Treated with antihypertensives, difficult to control secondary to see renal failure 4. Hyperlipidemia: Continue statin. 5. Diabetes mellitus: Monitor Accu-Cheks and cover with sliding scale insulin. 6. UTI: Rocephin. Urine culture growing mixed gram positive griselda. 7. DVT prophylaxis: SCDs, RICK hose. Heparin. 8. Urinary retention: Continue Flomax. We'll transfer patient out of the intensive care unit. Aleks Griffin MD Jun 18, 2017 11:23
--- NOTE | 2017-06-18 11:43 | RADRPT ---
EXAM DATE/TIME: 06/18/2017 10:53 [facility] COMPARISON: No previous studies available for comparison. INDICATIONS : Shortness of breath. MEDICAL HISTORY : Diabetes mellitus type II. Hypertension Hypercholesterolemia. Blindness SURGICAL HISTORY : None. ENCOUNTER: Subsequent ACUITY: 1 week PAIN SCORE: 0/10 LOCATION: Bilateral chest FINDINGS: Dialysis catheter in good position. There is moderate interstitial edema with bilateral pleural effu sions occupying approximately 1/3 of the right and left hemithorax. The heart is enlarged. CONCLUSION: Bilateral moderate-sized pleural effusions. Dangelo Merida MD FACR on June 18, 2017 at 11:40 Board Certified Radiologist. This report was verified electronically.
--- NOTE | 2017-06-18 16:02 | HHI.PR ---
Subjective Remarks ALERT NO SOB AT REST O2 SAT 95% 0.5 FIO2 Objective Vital Signs Date Time Temp Pulse Resp B/P Pulse Ox O2 Delivery O2 Flow Rate FiO2 06/18/17 14:00 77 06/18/17 12:00 75 06/18/17 12:00 98.2 75 22 127/67 91 06/18/17 10:00 78 06/18/17 08:00 Nasal Cannula 4.00 06/18/17 08:00 98.8 75 18 111/93 93 06/18/17 08:00 75 06/18/17 06:00 78 06/18/17 04:00 98.9 80 20 159/60 90 06/18/17 04:00 80 06/18/17 02:00 77 06/18/17 00:00 99.0 77 18 130/69 93 06/18/17 00:00 77 06/17/17 22:00 75 06/17/17 20:00 99.1 76 18 164/74 91 06/17/17 20:00 76 06/17/17 19:00 91 Nasal Cannula 4.00 I/O 06/17/17 06/17/17 06/17/17 06/18/17 06/18/17 06/18/17 07:00 15:00 23:00 07:00 15:00 23:00 Intake Total 0 ml 100 ml 100 ml 580 ml Output Total 300 ml 550 ml 250 ml 500 ml Balance -300 ml -450 ml -150 ml 80 ml Intake Oral 0 ml 100 ml 100 ml 480 ml IV Total 0 ml 0 ml 0 ml 100 ml Output Urine Total 300 ml 550 ml 250 ml 500 ml # Bowel Movements 0 0 0 0 Result Diagram: 06/15/17 0518 06/17/17 1512 Objective Remarks GENERAL: SKIN: Warm and dry. HEAD: Atraumatic. Normocephalic. EYES: Pupils equal and round. No scleral icterus. No injection or drainage. ENT: No nasal bleeding or discharge. Mucous membranes pink and moist. NECK: Trachea midline. No JVD. CARDIOVASCULAR: Regular rate and rhythm. RESPIRATORY: No accessory muscle use. DECREASE BREATH SOUNDS AT BASIS. GASTROINTESTINAL: Abdomen soft, non-tender, nondistended. Hepatic and splenic margins not palpable. MUSCULOSKELETAL: Extremities without clubbing, cyanosis, or edema. No obvious deformities. NEUROLOGICAL: Awake and alert. No obvious cranial nerve deficits. Motor grossly within normal limits. Five out of 5 muscle strength in the arms and legs. Normal speech. PSYCHIATRIC: Appropriate mood and affect; insight and judgment normal. Assessment and Plan Assessment and Plan ASS: RESPIRATORY FAILURE FLUID OVERLOAD DUE TO RENAL FAILURE BILATERAL EFFUSIONS PLAN O2 NEEDED DIURESIS F/U CXRAY am FOR THORACENTESIS Indira Jacobson MD Jun 18, 2017 16:02
--- NOTE | 2017-06-18 18:19 | HHI.NPPN ---
Subjective History of Present Illness 57-year-old female with past medical history of hypertension, diabetes mellitus, chronic kidney disease, ischemic heart disease, congestive heart failure, came to the hospital with complaint of worsening shortness of breath. I was called to see the patient because of elevated BUN and creatinine patient has creatinine of 4.3 on admission and she had reviously creatinine of 3.6 last month the patient has known history of chronic kidney disease and she has been following by her compotype operator in [place] and according to daughter she was told that she will need dialysis and also she was told that she possibly will need kidney biopsy. Additional Remarks Patient is alert, breathing is better, not in distress. Review of Systems General Constitutional: Fatigue Cardiovascular Cardiac: Edema, ISSA Objective Data Data 06/17/17 06/18/17 19:00 07:00 Intake Total 200 ml Output Total 800 ml Balance -600 ml Intake Oral 200 ml IV Total 0 ml Output Urine Total 800 ml # Bowel Movements 0 Vital Signs Date Time Temp Pulse Resp B/P Pulse Ox O2 Delivery O2 Flow Rate FiO2 06/18/17 16:00 80 06/18/17 16:00 98.7 80 22 159/78 94 06/18/17 14:00 77 06/18/17 12:00 75 06/18/17 12:00 98.2 75 22 127/67 91 06/18/17 10:00 78 06/18/17 08:00 Nasal Cannula 4.00 06/18/17 08:00 98.8 75 18 111/93 93 06/18/17 08:00 75 06/18/17 06:00 78 06/18/17 04:00 98.9 80 20 159/60 90 06/18/17 04:00 80 06/18/17 02:00 77 06/18/17 00:00 99.0 77 18 130/69 93 06/18/17 00:00 77 06/17/17 22:00 75 06/17/17 20:00 99.1 76 18 164/74 91 06/17/17 20:00 76 06/17/17 19:00 91 Nasal Cannula 4.00 -: 06/15/17 0518 06/17/17 1512 Physical Exam General Appearance: No Acute Distress, Comfortable Pulmonary Resp Exam: Breath Sounds Equal Cardiology CV Exam: Regular Gastrointestinal/Abdomen GI Exam: Soft, Non-Tender, Bowel Sounds Present Extremeties Extremities Exam: Dependent Edema Neurologic Neuro Exam: Alert, Awake, Oriented Psychiatric Psych Exam: Appropriate Responses Assessment/Plan Problem List: (1) Plalp-gr-alpqtsl kidney injury (2) CHF exacerbation Plan: Bumex (3) Diabetes mellitus Plan Dialysis started on 06/13, Patient most likely has End stage renal disease. Check BMP in AM. Possible PermCath and AVF once stable. Problem Qualifiers (1) Diabetes mellitus: José Howell MD Jun 18, 2017 18:19
[2017-06-18] MEDS: ATORVASTATIN 20 MG TAB PO SCH (22:40)
[2017-06-19] VITALS (17 sets, daily range): BP systolic 140–196; BP diastolic 67–87; PULSE 73–90; RESP 15–23; TEMP 97.5–99.2; O2SAT 92–99
[2017-06-19] MEDS: INSULIN ASPART SUPPLEMENTAL SCALE SQ SCH ×4 (05:48→21:00)
[2017-06-19] MEDS: HEPARIN SODIUM - SQ 10,000 UNITS/ML VIAL SQ SCH ×2 (07:25→21:02)
[2017-06-19 07:45] LABS: BICARBONATE 30.3 MEQ/L (21.0-32.0); POTASSIUM 3.9 MEQ/L (3.5-5.1)
[2017-06-19] MEDS: prednisoLONE ACETATE 1% OPHT SUSP 5 ML BTL LEFT EYE SCH ×4 (08:36→21:02)
[2017-06-19] MEDS: VITAMIN B CMPLX/VITC/FOLIC AC CAP PO SCH (08:36)
[2017-06-19] MEDS: DOCUSATE SODIUM 50 MG/SENNA 8.6 MG TAB PO SCH ×2 (08:36→21:02)
[2017-06-19] MEDS: ATROPINE SULFATE 1% OPHT SOLN 5 ML BTL EACH EYE SCH ×2 (08:36→21:03)
[2017-06-19] MEDS: LABETALOL HCL 200 MG TAB PO SCH ×2 (08:36→21:02)
[2017-06-19] MEDS: TAMSULOSIN HCL 0.4 MG CAP PO SCH (08:36)
[2017-06-19] MEDS: SODIUM CHLORIDE 0.9% FLUSH 10 ML FLUSH IVF SCH (08:37)
[2017-06-19] MEDS: BUMETANIDE INJ 1 MG/4 ML VIAL IV PUSH SCH ×2 (08:37→16:52)
[2017-06-19] MEDS: SODIUM CHLORIDE 0.9% FLUSH 10 ML FLUSH IV FLUSH SCH ×2 (08:37→21:01)
[2017-06-19] MEDS ORDERED: LIDOCAINE HCL 1% 30 ML VIAL SQ ONE (09:35)
--- NOTE | 2017-06-19 09:46 | PD.RAD ---
Post US Procedure Prog Note Pre Procedure Diagnosis: (1) Pleural effusion Post Procedure Diagnosis: (1) Pleural effusion Procedure Date: Jun 19, 2017 Supervising Radiologist: Fercho Guamna Proceduralist/Assist: Chio Clark RDMS, Kia Pedraza RDMS Anesthesia: Local Plan of Activity Patient to Unit: Critical Care Patient Condition: Fair See PACS Report for procedural detail/treatment Drainage Procedure Procedure 1 Imaging Guidance: Ultrasound Side: Right Procedure Type: Thoracentesis Procedure: Removal Drainage: Suction Fluid Description: Clear, Yellow Fercho Guaman MD Jun 19, 2017 09:46
--- NOTE | 2017-06-19 10:16 | RADRPT ---
EXAM DATE/TIME: 06/19/2017 09:41 [facility] COMPARISON: CHEST PA & LAT, June 18, 2017, 10:53. INDICATIONS : Post thoracentesis MEDICAL HISTORY : Diabetes mellitus type II. Hypertension Hypercholesterolemia. Blindness SURGICAL HISTORY : None. ENCOUNTER: Subsequent ACUITY: 1 week PAIN SCORE: 0/10 LOCATION: Bilateral chest FINDINGS: A single frontal expiratory view of the chest was performed. The right lung remains well expanded. R ight pleural effusion has been normal completely evacuated. No evidence of pneumothorax. Moderate lef t pleural effusion remains evident. Mediastinal structures are in the midline. The cardio-mediastinal contours and bronchopulmonary markings are unremarkable for an expiratory exam . Osseous structures are intact. CONCLUSION: 1. Near-total evacuation of right pleural effusion following thoracentesis. 2. No evidence of pneumothorax. 3. Persistent moderate left pleural effusion 4. Cardiomegaly with resolving pulmonary congestive changes. Fercho Guaman MD on June 19, 2017 at 10:12 Board Certified Radiologist. This report was verified electronically.
--- NOTE | 2017-06-19 10:29 | RADRPT ---
EXAM DATE/TIME: 06/19/2017 09:12 [facility] COMPARISON: No previous studies available for comparison. INDICATIONS : Right pleural effusion. MEDICAL HISTORY : Hypertension. Hypercholesterol. Kidney stones. Diabetes. SURGICAL HISTORY : None. ENCOUNTER: Initial ACUITY: 1 day PAIN SCORE: 3/10 LOCATION: Right chest FLUID: Total volume of 1500 cc of clear, yellow fluid was removed. Fluid was discarded. Thoracentesis was therapeutic only. TECHNIQUE: 1. Ultrasound guidance for thoracentesis. 2. Thoracentesis. The risks, benefits, and alternatives to ultrasound guided thoracentesis were explained to the patien t in lay simple terms, including the risk of bleeding and infection. Written and verbal informed con sent was obtained. Appropriate area for thoracentesis was marked under ultrasound guidance with the patient in the uprig ht position. Overlying skin was prepped and draped in the usual sterile fashion and with local anest hetic, a dermatotomy was made with an 11 blade scalpel. A 6 Pashto thoracentesis catheter was placed in the pleural space and fluid was removed. Catheter was then removed and a sterile dressing applie d. There were no immediate complications. The patient tolerated the procedure well and the left the ultrasound suite in stable condition. Chest radiograph is to be obtained. CONCLUSION: Uncomplicated ultrasound guided thoracentesis. Fercho Guaman MD on June 19, 2017 at 10:27 Board Certified Radiologist. This report was verified electronically.
[2017-06-19] MEDS: cefTRIAXone INJ 1,000 MG in SODIUM CHLORIDE 0.9% INJ 100 ML IV SCH (11:13)
--- NOTE | 2017-06-19 11:34 | HHI.PR ---
Subjective Remarks Follow-up on hypoxia and shortness of breath Patient appears slightly drowsy, easily awoken, says she has some mild chest pain on her right,, recently just came back from right-sided thoracentesis apparently 1500 cc were drained. Objective Vital Signs Date Time Temp Pulse Resp B/P Pulse Ox O2 Delivery O2 Flow Rate FiO2 06/19/17 11:01 97.9 74 15 159/75 96 06/19/17 10:40 97.6 74 23 162/77 99 06/19/17 10:30 74 06/19/17 09:03 98.6 79 18 166/80 97 06/19/17 08:20 96 Nasal Cannula 3.00 06/19/17 08:00 98.6 77 21 183/86 92 06/19/17 08:00 92 Nasal Cannula 4.00 06/19/17 08:00 77 06/19/17 06:00 77 06/19/17 04:00 79 06/19/17 04:00 98.5 79 20 150/69 97 06/19/17 02:00 73 06/19/17 00:00 98.5 80 20 161/86 95 06/19/17 00:00 78 06/18/17 22:00 78 06/18/17 21:10 92 4.00 06/18/17 20:00 98.5 78 22 129/70 92 06/18/17 20:00 78 06/18/17 20:00 94 Nasal Cannula 4.00 06/18/17 18:00 81 06/18/17 16:00 80 06/18/17 16:00 98.7 80 22 159/78 94 06/18/17 14:00 77 06/18/17 12:00 75 06/18/17 12:00 98.2 75 22 127/67 91 I/O 06/18/17 06/18/17 06/18/17 06/19/17 06/19/17 06/19/17 07:00 15:00 23:00 07:00 15:00 23:00 Intake Total 100 ml 580 ml 200 ml 120 ml Output Total 250 ml 500 ml 1200 ml Balance -150 ml 80 ml 200 ml -1080 ml Intake Oral 100 ml 480 ml 200 ml 120 ml IV Total 0 ml 100 ml 0 ml Output Urine Total 250 ml 500 ml 1200 ml # Bowel Movements 0 0 0 0 Result Diagram: 06/15/17 0518 06/19/17 0445 Objective Remarks GENERAL: minimal respiratory distress, on nasal cannula CARDIOVASCULAR: Regular rate and rhythm without murmurs, gallops, or rubs. RESPIRATORY: Clear to auscultation bilaterally anteriorly, slightly diminished, not coughing, no gross dyspnea A/P Assessment and Plan 1. Acute renal failure: Likely due to uncontrolled diabetes, and now has become chronic per nephrology will most likely need permanent dialysis. Spoke with cementer hand, are not in opposition to obtaining an AV fistula during this hospitalization for long-term dialysis once patient is more stable. 2. Hypoxia: Pulmonology was originally consult, and agree that the patient is likely hypoxic secondary to fluid overload from renal failure. 2-D echocardiogram shows normal systolic function with ejection fraction of 55-60%. Continue diuresis with Bumex. Patient still hovering between 3-4 L on oxygen which is a trace improvement, we'll plan for left-sided thoracentesis tomorrow. 3. Hypertension: Treated with antihypertensives, difficult to control secondary to see renal failure 4. Hyperlipidemia: Continue statin. 5. Diabetes mellitus: Monitor Accu-Cheks and cover with sliding scale insulin. 6. UTI: Rocephin. Urine culture growing mixed gram positive griselda. 7. DVT prophylaxis: SCDs, RICK hose. Heparin. 8. Urinary retention: Continue Flomax. We'll touch base with nephrology and see if discontinuing Godwin catheter is an option since CAUTI is a risk in this pt. ordered to be transferred to [facility] since yesterday. Aleks Griffin MD Jun 19, 2017 11:34
[2017-06-19] MEDS: HEPARIN SODIUM - IV 10,000 UNITS/10 ML VIAL PRN (15:14)
[2017-06-19] MEDS: EPOETIN ALFA 10,000 UNITS/ML VIAL IV PRN (15:14)
[2017-06-19] MEDS: GENTAMICIN SULFATE (DIALYSIS USE ONLY) 20 MG/2 ML VIAL IV PRN (15:15)
--- NOTE | 2017-06-19 16:24 | HHI.PR ---
Subjective Remarks ALERT NO SOB AT REST O2 SAT 95% 0.5 FIO2 right sided thoracentesis done , well tolerated now on dialysis Objective Vital Signs Date Time Temp Pulse Resp B/P Pulse Ox O2 Delivery O2 Flow Rate FiO2 06/19/17 12:00 79 06/19/17 12:00 97.5 79 19 140/67 94 06/19/17 11:01 97.9 74 15 159/75 96 06/19/17 10:40 97.6 74 23 162/77 99 06/19/17 10:30 74 06/19/17 09:03 98.6 79 18 166/80 97 06/19/17 08:20 96 Nasal Cannula 3.00 06/19/17 08:00 98.6 77 21 183/86 92 06/19/17 08:00 92 Nasal Cannula 4.00 06/19/17 08:00 77 06/19/17 06:00 77 06/19/17 04:00 79 06/19/17 04:00 98.5 79 20 150/69 97 06/19/17 02:00 73 06/19/17 00:00 98.5 80 20 161/86 95 06/19/17 00:00 78 06/18/17 22:00 78 06/18/17 21:10 92 4.00 06/18/17 20:00 98.5 78 22 129/70 92 06/18/17 20:00 78 06/18/17 20:00 94 Nasal Cannula 4.00 06/18/17 18:00 81 I/O 06/18/17 06/18/17 06/18/17 06/19/17 06/19/17 06/19/17 07:00 15:00 23:00 07:00 15:00 23:00 Intake Total 100 ml 580 ml 200 ml 120 ml Output Total 250 ml 500 ml 1200 ml Balance -150 ml 80 ml 200 ml -1080 ml Intake Oral 100 ml 480 ml 200 ml 120 ml IV Total 0 ml 100 ml 0 ml Output Urine Total 250 ml 500 ml 1200 ml # Bowel Movements 0 0 0 0 Result Diagram: 06/15/17 0518 06/19/17 0445 Objective Remarks GENERAL: SKIN: Warm and dry. HEAD: Atraumatic. Normocephalic. EYES: Pupils equal and round. No scleral icterus. No injection or drainage. ENT: No nasal bleeding or discharge. Mucous membranes pink and moist. NECK: Trachea midline. No JVD. CARDIOVASCULAR: Regular rate and rhythm. RESPIRATORY: No accessory muscle use. DECREASE BREATH SOUNDS AT BASIS. GASTROINTESTINAL: Abdomen soft, non-tender, nondistended. Hepatic and splenic margins not palpable. MUSCULOSKELETAL: Extremities without clubbing, cyanosis, or edema. No obvious deformities. NEUROLOGICAL: Awake and alert. No obvious cranial nerve deficits. Motor grossly within normal limits. Five out of 5 muscle strength in the arms and legs. Normal speech. PSYCHIATRIC: Appropriate mood and affect; insight and judgment normal. Assessment and Plan Assessment and Plan ASS: RESPIRATORY FAILURE FLUID OVERLOAD DUE TO RENAL FAILURE BILATERAL EFFUSIONS PLAN O2 NEEDED dialysis Indira Jacobson MD Jun 19, 2017 16:24
--- NOTE | 2017-06-19 16:57 | HHI.NPPN ---
Subjective History of Present Illness 57-year-old female with past medical history of hypertension, diabetes mellitus, chronic kidney disease, ischemic heart disease, congestive heart failure, came to the hospital with complaint of worsening shortness of breath. I was called to see the patient because of elevated BUN and creatinine patient has creatinine of 4.3 on admission and she had reviously creatinine of 3.6 last month the patient has known history of chronic kidney disease and she has been following by her rolled glass crosscutter in [place] and according to daughter she was told that she will need dialysis and also she was told that she possibly will need kidney biopsy. Additional Remarks Patient is alert, seen during HD, breathing is much better. Review of Systems General Constitutional: Fatigue Cardiovascular Cardiac: Edema, ISSA Objective Data Data 06/18/17 06/19/17 19:00 07:00 Intake Total 580 ml 320 ml Output Total 500 ml 1200 ml Balance 80 ml -880 ml Intake Oral 480 ml 320 ml IV Total 100 ml 0 ml Output Urine Total 500 ml 1200 ml # Bowel Movements 0 0 Vital Signs Date Time Temp Pulse Resp B/P Pulse Ox O2 Delivery O2 Flow Rate FiO2 06/19/17 16:44 84 06/19/17 16:39 98.3 84 20 181/81 95 06/19/17 12:00 79 06/19/17 12:00 97.5 79 19 140/67 94 06/19/17 11:01 97.9 74 15 159/75 96 06/19/17 10:40 97.6 74 23 162/77 99 06/19/17 10:30 74 06/19/17 09:03 98.6 79 18 166/80 97 06/19/17 08:20 96 Nasal Cannula 3.00 06/19/17 08:00 98.6 77 21 183/86 92 06/19/17 08:00 92 Nasal Cannula 4.00 06/19/17 08:00 77 06/19/17 06:00 77 06/19/17 04:00 79 06/19/17 04:00 98.5 79 20 150/69 97 06/19/17 02:00 73 06/19/17 00:00 98.5 80 20 161/86 95 06/19/17 00:00 78 06/18/17 22:00 78 06/18/17 21:10 92 4.00 06/18/17 20:00 98.5 78 22 129/70 92 06/18/17 20:00 78 06/18/17 20:00 94 Nasal Cannula 4.00 06/18/17 18:00 81 -: 06/15/17 0518 06/19/17 0445 Physical Exam General Appearance: No Acute Distress, Comfortable Pulmonary Resp Exam: Breath Sounds Equal Cardiology CV Exam: Regular Gastrointestinal/Abdomen GI Exam: Soft, Non-Tender, Bowel Sounds Present Extremeties Extremities Exam: Dependent Edema Neurologic Neuro Exam: Alert, Awake, Oriented Psychiatric Psych Exam: Appropriate Responses Assessment/Plan Problem List: (1) Tioxm-[id number] kidney injury (2) CHF exacerbation Plan: Bumex (3) Diabetes mellitus Plan Dialysis started on 06/13, Patient most likely has End stage renal disease. HD done now, tolerated well. Will get PermCath. AVF can be done as out patient. Problem Qualifiers (1) Diabetes mellitus: José Howell MD Jun 19, 2017 16:57
[2017-06-19] MEDS: ATORVASTATIN 20 MG TAB PO SCH (21:02)
[2017-06-19] MEDS: cloNIDine HCL 0.1 MG TAB PO PRN (22:06)
[2017-06-20] VITALS (17 sets, daily range): BP systolic 118–192; BP diastolic 58–88; PULSE 79–86; RESP 13–25; TEMP 98.8–100.1; O2SAT 94–100
[2017-06-20] MEDS: hydrALAZINE HCL 20 MG/ML VIAL IV PUSH PRN ×2 (02:17→06:28)
[2017-06-20] MEDS: INSULIN ASPART SUPPLEMENTAL SCALE SQ SCH ×5 (06:30→20:48)
[2017-06-20] MEDS: VITAMIN B CMPLX/VITC/FOLIC AC CAP PO SCH (08:03)
[2017-06-20] MEDS: DOCUSATE SODIUM 50 MG/SENNA 8.6 MG TAB PO SCH ×2 (08:03→20:46)
[2017-06-20] MEDS: TAMSULOSIN HCL 0.4 MG CAP PO SCH (08:03)
[2017-06-20] MEDS: LABETALOL HCL 200 MG TAB PO SCH ×2 (08:03→20:46)
[2017-06-20] MEDS: SODIUM CHLORIDE 0.9% FLUSH 10 ML FLUSH IV FLUSH SCH ×2 (08:04→20:48)
[2017-06-20] MEDS: BUMETANIDE INJ 1 MG/4 ML VIAL IV PUSH SCH ×2 (08:04→17:33)
[2017-06-20] MEDS: ATROPINE SULFATE 1% OPHT SOLN 5 ML BTL EACH EYE SCH ×2 (08:06→20:48)
[2017-06-20] MEDS: prednisoLONE ACETATE 1% OPHT SUSP 5 ML BTL LEFT EYE SCH ×4 (08:06→20:48)
--- NOTE | 2017-06-20 08:24 | HHI.PR ---
Subjective Remarks ALERT NO SOB AT REST O2 SAT 95% 0.5 FIO2 Objective Vital Signs Date Time Temp Pulse Resp B/P Pulse Ox O2 Delivery O2 Flow Rate FiO2 06/20/17 08:06 97 Nasal Cannula 4.00 06/20/17 06:00 85 06/20/17 04:00 85 06/20/17 04:00 98.8 85 20 135/63 99 06/20/17 02:00 84 06/20/17 00:00 99.0 86 20 192/88 100 06/20/17 00:00 86 06/19/17 20:19 97 Nasal Cannula 4.00 06/19/17 20:00 99.2 90 20 196/87 98 06/19/17 20:00 90 06/19/17 20:00 98 Nasal Cannula 4.00 06/19/17 18:00 90 06/19/17 17:46 165/75 06/19/17 16:44 84 06/19/17 16:39 98.3 84 20 181/81 95 06/19/17 12:00 79 06/19/17 12:00 97.5 79 19 140/67 94 06/19/17 11:01 97.9 74 15 159/75 96 06/19/17 10:40 97.6 74 23 162/77 99 06/19/17 10:30 74 06/19/17 09:03 98.6 79 18 166/80 97 I/O 06/19/17 06/19/17 06/19/17 06/20/17 06/20/17 06/20/17 07:00 15:00 23:00 07:00 15:00 23:00 Intake Total 120 ml 1300 ml 0 ml Output Total 1200 ml 2325 ml 250 ml Balance -1080 ml -1025 ml -250 ml Intake Oral 120 ml 1200 ml 0 ml IV Total 0 ml 100 ml Output Urine Total 1200 ml 825 ml 250 ml Hemodialysis 1500 ml # Bowel Movements 0 1 0 Result Diagram: 06/19/17 0445 Objective Remarks GENERAL: SKIN: Warm and dry. HEAD: Atraumatic. Normocephalic. EYES: Pupils equal and round. No scleral icterus. No injection or drainage. ENT: No nasal bleeding or discharge. Mucous membranes pink and moist. NECK: Trachea midline. No JVD. CARDIOVASCULAR: Regular rate and rhythm. RESPIRATORY: No accessory muscle use. DECREASE BREATH SOUNDS AT BASIS. GASTROINTESTINAL: Abdomen soft, non-tender, nondistended. Hepatic and splenic margins not palpable. MUSCULOSKELETAL: Extremities without clubbing, cyanosis, or edema. No obvious deformities. NEUROLOGICAL: Awake and alert. No obvious cranial nerve deficits. Motor grossly within normal limits. Five out of 5 muscle strength in the arms and legs. Normal speech. PSYCHIATRIC: Appropriate mood and affect; insight and judgment normal. Assessment and Plan Assessment and Plan ASS: RESPIRATORY FAILURE FLUID OVERLOAD DUE TO RENAL FAILURE BILATERAL EFFUSIONS PLAN O2 NEEDED dialysis Indira Jacobson MD Jun 20, 2017 08:24
[2017-06-20] MEDS: SODIUM CHLORIDE 0.9% FLUSH 10 ML FLUSH IVF SCH (09:00)
[2017-06-20] MEDS: HEPARIN SODIUM - SQ 10,000 UNITS/ML VIAL SQ SCH ×2 (09:00→20:48)
[2017-06-20] MEDS: cefTRIAXone INJ 1,000 MG in SODIUM CHLORIDE 0.9% INJ 100 ML IV SCH (10:00)
[2017-06-20] MEDS ORDERED: LIDOCAINE HCL 1% 30 ML VIAL SQ ONE (12:25)
--- NOTE | 2017-06-20 12:29 | RADRPT ---
EXAM DATE/TIME: 06/20/2017 12:07 [facility] COMPARISON: CHEST EXPIRATION ONLY, June 19, 2017, 9:41. INDICATIONS : Post thoracentesis. MEDICAL HISTORY : Diabetes mellitus type II. Hypertension Hypercholesterolemia. Blindness SURGICAL HISTORY : None. ENCOUNTER: Subsequent ACUITY: 4 - 6 days PAIN SCORE: 0/10 LOCATION: Bilateral chest FINDINGS: A single frontal expiratory view of the chest was performed. The left pleural effusion has been almos t completely evacuated following thoracentesis. There is loss of pneumothorax. Right basilar airspace disease is noted. The cardio-mediastinal contours and bronchopulmonary markings are unremarkable for an expiratory exam . Osseous structures are intact. CONCLUSION: 1. Status post thoracentesis with near total evacuation of left pleural effusion. 2. No evidence of pneumothorax. 3. Right basilar airspace disease Fercho Guaman MD on June 20, 2017 at 12:25 Board Certified Radiologist. This report was verified electronically.
--- NOTE | 2017-06-20 12:59 | RADRPT ---
EXAM DATE/TIME: 06/20/2017 11:07 [facility] COMPARISON: No previous studies available for comparison. INDICATIONS : Left pleural effusion. MEDICAL HISTORY : Hypertension. Hypercholesterol. Kidney stones. Diabetes. SURGICAL HISTORY : Thoracentesis. ENCOUNTER: Subsequent ACUITY: 2 days PAIN SCORE: 0/10 LOCATION: Left chest FLUID: Total volume of 1000 cc of clear, yellow fluid was removed. Fluid was discarded. Thoracentesis was therapeutic only. TECHNIQUE: 1. Ultrasound guidance for thoracentesis. 2. Thoracentesis. The risks, benefits, and alternatives to ultrasound guided thoracentesis were explained to the patien t in lay simple terms, including the risk of bleeding and infection. Written and verbal informed con sent was obtained. Appropriate area for thoracentesis was marked under ultrasound guidance with the patient in the uprig ht position. Overlying skin was prepped and draped in the usual sterile fashion and with local anest hetic, a dermatotomy was made with an 11 blade scalpel. A 6 Mongolian thoracentesis catheter was placed in the pleural space and fluid was removed. Catheter was then removed and a sterile dressing applie d. There were no immediate complications. The patient tolerated the procedure well and the left the ultrasound suite in stable condition. Chest radiograph is to be obtained. CONCLUSION: Uncomplicated ultrasound guided thoracentesis. Dangelo Merida MD FACR on June 20, 2017 at 12:58 Board Certified Radiologist. This report was verified electronically.
[2017-06-20] MEDS ORDERED: VANCOMYCIN INJ 1,000 MG in SODIUM CHLOR 0.9% 250 ML INJ 250 ML IV SCH (13:15)
[2017-06-20] MEDS ORDERED: ceFAZolin 2 GM PREMIX 50 ML IV SCH (13:15)
--- NOTE | 2017-06-20 13:28 | HHI.PR ---
Subjective Remarks Follow-up on hypoxia and shortness of breath. Patient examined immediately post-thoracentesis (left side) - drained ~ 1 L. told the nursing staff downstairs she feels better. Objective Vital Signs Date Time Temp Pulse Resp B/P Pulse Ox O2 Delivery O2 Flow Rate FiO2 06/20/17 11:12 99.3 83 16 134/66 94 06/20/17 10:00 82 06/20/17 10:00 82 13 118/58 100 06/20/17 09:00 80 21 134/63 100 06/20/17 09:00 80 06/20/17 08:06 97 Nasal Cannula 4.00 06/20/17 08:00 85 06/20/17 08:00 85 25 125/58 98 06/20/17 07:00 98 Nasal Cannula 4.00 06/20/17 06:00 85 06/20/17 04:00 85 06/20/17 04:00 98.8 85 20 135/63 99 06/20/17 02:00 84 06/20/17 00:00 99.0 86 20 192/88 100 06/20/17 00:00 86 06/19/17 20:19 97 Nasal Cannula 4.00 06/19/17 20:00 99.2 90 20 196/87 98 06/19/17 20:00 90 06/19/17 20:00 98 Nasal Cannula 4.00 06/19/17 18:00 90 06/19/17 17:46 165/75 06/19/17 16:44 84 06/19/17 16:39 98.3 84 20 181/81 95 I/O 06/19/17 06/19/17 06/19/17 06/20/17 06/20/17 06/20/17 07:00 15:00 23:00 07:00 15:00 23:00 Intake Total 120 ml 1300 ml 0 ml Output Total 1200 ml 2325 ml 250 ml Balance -1080 ml -1025 ml -250 ml Intake Oral 120 ml 1200 ml 0 ml IV Total 0 ml 100 ml Output Urine Total 1200 ml 825 ml 250 ml Hemodialysis 1500 ml # Bowel Movements 0 1 0 Result Diagram: 06/19/17 0445 Objective Remarks GENERAL: minimal respiratory distress, on nasal cannula 4 L CARDIOVASCULAR: Regular rate and rhythm without murmurs, gallops, or rubs. RESPIRATORY: Clear to auscultation bilaterally posteriorly, unlabored breathing otherwise A/P Assessment and Plan 57-year-old female admitted for acute respiratory and acute renal failure secondary to worsening chronic kidney disease. Has been dialyzed by nephrology regularly, pulmonology consulted, concluded that her hypoxia likely coming from fluid overload, patient has no history of underlying lung disease. 1. Acute on chronic renal failure: Likely due to uncontrolled diabetes, and now has become chronic per nephrology will most likely need permanent dialysis. Nephrology ordering permcath, plan for AV outpt after discharge. 2. Hypoxia: 2-D echo is unremarkable with EF 55-60%, pulmonology was consulted, likely due to fluid overload, will will most likely need home O2, to perform walk test within next 24-48 hours. s/p right and left Thoracenteses 3. Hypertension: Treated with antihypertensives, difficult to control secondary to see renal failure 4. Hyperlipidemia: Continue statin. 5. Diabetes mellitus: Monitor Accu-Cheks and cover with sliding scale insulin. 6. UTI: Rocephin. Urine culture growing mixed gram positive griselda. 7. DVT prophylaxis: SCDs, RICK hose. Heparin. 8. Urinary retention: Continue Flomax. Will discontinue larsen. Disposition: will seek OT and PT re-assessments for pt's disposition. D/C anticipated in next 24-48 hrs ideally. Aleks Griffin MD Jun 20, 2017 13:28
[2017-06-20] MEDS ORDERED: MIDAZOLAM HCL 2 MG/2 ML VIAL ONE (15:15)
[2017-06-20] MEDS ORDERED: fentaNYL CITRATE 250 MCG/5 ML AMP ONE (15:15)
[2017-06-20] MEDS ORDERED: LIDOCAINE 1%/EPINEPHrine 1:100,000 SOLN 20 ML VIAL ONE (15:38)
[2017-06-20] MEDS ORDERED: HEPARIN SODIUM - IV 2,000 UNITS/2 ML VIAL IV FLUSH PRN (16:30)
[2017-06-20] MEDS ORDERED: SODIUM CHLORIDE 0.9% FLUSH 10 ML FLUSH IVF PRN (16:30)
--- NOTE | 2017-06-20 16:58 | PD.RAD ---
Post Procedure Progress Note Pre Procedure Diagnosis: (1) Xykrx-eu-owcmnhm kidney injury Post Procedure Diagnosis: (1) Wwfth-ws-nuvtkta kidney injury Procedure Date: Jun 20, 2017 Supervising Radiologist: Dean Shields Proceduralist/Assist: Jaylin Dozier, RT(R), Cyndi Camejo RT(R)() Anesthesia: Local, Analgesia, Conscious Sedation Plan of Activity Patient to Unit: ROPU Patient Condition: Good See PACS Report for procedural detail/treatment Central Venous Access Device Procedure 1 Right Internal Jugular Hemodialysis Catheter Tunneled Conversion (Had VasCath) Marshallese: 15 PICC Line Length (cm): 23 Dean Shields MD Jun 20, 2017 16:58
--- NOTE | 2017-06-20 17:18 | HHI.NPPN ---
Subjective History of Present Illness 57-year-old female with past medical history of hypertension, diabetes mellitus, chronic kidney disease, ischemic heart disease, congestive heart failure, came to the hospital with complaint of worsening shortness of breath. I was called to see the patient because of elevated BUN and creatinine patient has creatinine of 4.3 on admission and she had reviously creatinine of 3.6 last month the patient has known history of chronic kidney disease and she has been following by her securities vault supervisor in [place] and according to daughter she was told that she will need dialysis and also she was told that she possibly will need kidney biopsy. Additional Remarks Patient is alert, feeling better after Thoracentesis. Review of Systems General Constitutional: Fatigue Cardiovascular Cardiac: Edema, ISSA Objective Data Data 06/19/17 06/20/17 19:00 07:00 Intake Total 1060 ml 240 ml Output Total 1900 ml 675 ml Balance -840 ml -435 ml Intake Oral 960 ml 240 ml IV Total 100 ml 0 ml Output Urine Total 400 ml 675 ml Hemodialysis 1500 ml # Bowel Movements 1 0 Vital Signs Date Time Temp Pulse Resp B/P Pulse Ox O2 Delivery O2 Flow Rate FiO2 06/20/17 15:00 99.1 06/20/17 14:00 84 23 100 06/20/17 14:00 84 06/20/17 12:52 79 16 153/70 100 06/20/17 12:52 79 16 153/70 100 06/20/17 12:52 79 06/20/17 11:12 99.3 83 16 134/66 94 06/20/17 10:00 82 06/20/17 10:00 82 13 118/58 100 06/20/17 09:00 80 21 134/63 100 06/20/17 09:00 80 06/20/17 08:06 97 Nasal Cannula 4.00 06/20/17 08:00 85 06/20/17 08:00 85 25 125/58 98 06/20/17 07:00 98 Nasal Cannula 4.00 06/20/17 06:00 85 06/20/17 04:00 85 06/20/17 04:00 98.8 85 20 135/63 99 06/20/17 02:00 84 06/20/17 00:00 99.0 86 20 192/88 100 06/20/17 00:00 86 06/19/17 20:19 97 Nasal Cannula 4.00 06/19/17 20:00 99.2 90 20 196/87 98 06/19/17 20:00 90 06/19/17 20:00 98 Nasal Cannula 4.00 06/19/17 18:00 90 06/19/17 17:46 165/75 -: 06/19/17 0445 Physical Exam General Appearance: No Acute Distress, Comfortable Pulmonary Resp Exam: Breath Sounds Equal Cardiology CV Exam: Regular Gastrointestinal/Abdomen GI Exam: Soft, Non-Tender, Bowel Sounds Present Extremeties Extremities Exam: Dependent Edema Neurologic Neuro Exam: Alert, Awake, Oriented Psychiatric Psych Exam: Appropriate Responses Assessment/Plan Problem List: (1) Wncqq-es-yxbimen kidney injury (2) CHF exacerbation Plan: Bumex (3) Diabetes mellitus Plan Dialysis started on 06/13, Patient most likely has End stage renal disease. HD done yesterday. Now has PermCath. Thoracentesis done and 1 liter removed. Patient tolerated well. D/W the daughter, she want her HD to set up in [place]. AVF can be done once her breathing is better. Problem Qualifiers (1) Diabetes mellitus: José Howell MD Jun 20, 2017 17:18
[2017-06-20] MEDS: ATORVASTATIN 20 MG TAB PO SCH (20:46)
[2017-06-20] MEDS: ACETAMINOPHEN 325 MG TAB PO PRN (20:47)
[2017-06-21] VITALS (16 sets, daily range): BP systolic 88–179; BP diastolic 48–81; PULSE 69–90; RESP 17–33; TEMP 97.2–99.3; O2SAT 96–100
[2017-06-21] MEDS: INSULIN ASPART SUPPLEMENTAL SCALE SQ SCH ×4 (06:14→21:00)
[2017-06-21] MEDS: ATROPINE SULFATE 1% OPHT SOLN 5 ML BTL EACH EYE SCH ×2 (08:18→20:45)
[2017-06-21] MEDS: DOCUSATE SODIUM 50 MG/SENNA 8.6 MG TAB PO SCH ×2 (08:19→20:44)
[2017-06-21] MEDS: VITAMIN B CMPLX/VITC/FOLIC AC CAP PO SCH (08:19)
[2017-06-21] MEDS: TAMSULOSIN HCL 0.4 MG CAP PO SCH (08:19)
[2017-06-21] MEDS: BUMETANIDE INJ 1 MG/4 ML VIAL IV PUSH SCH ×2 (08:19→18:21)
[2017-06-21] MEDS: prednisoLONE ACETATE 1% OPHT SUSP 5 ML BTL LEFT EYE SCH ×4 (08:19→20:45)
[2017-06-21] MEDS: SODIUM CHLORIDE 0.9% FLUSH 10 ML FLUSH IV FLUSH SCH ×2 (08:19→20:45)
[2017-06-21] MEDS: HEPARIN SODIUM - SQ 10,000 UNITS/ML VIAL SQ SCH ×2 (08:20→20:44)
[2017-06-21] MEDS: LABETALOL HCL 200 MG TAB PO SCH ×2 (08:28→20:44)
[2017-06-21] MEDS: SODIUM CHLORIDE 0.9% FLUSH 10 ML FLUSH IVF SCH (09:00)
--- NOTE | 2017-06-21 10:49 | HHI.NPPN ---
Subjective History of Present Illness 57-year-old female with past medical history of hypertension, diabetes mellitus, chronic kidney disease, ischemic heart disease, congestive heart failure, came to the hospital with complaint of worsening shortness of breath. I was called to see the patient because of elevated BUN and creatinine patient has creatinine of 4.3 on admission and she had reviously creatinine of 3.6 last month the patient has known history of chronic kidney disease and she has been following by her cobol programmer in [place] and according to daughter she was told that she will need dialysis and also she was told that she possibly will need kidney biopsy. Additional Remarks Patient is alert, now on HD, has mild SOB, with nasal cannula. Review of Systems General Constitutional: Fatigue Cardiovascular Cardiac: Edema, ISSA Objective Data Data 06/20/17 06/21/17 19:00 07:00 Intake Total 742 ml 740 ml Output Total 300 ml Balance 442 ml 740 ml Intake Oral 510 ml 740 ml IV Total 232 ml 0 ml Output Urine Total 300 ml # Voids 2 # Bowel Movements 0 Vital Signs Date Time Temp Pulse Resp B/P Pulse Ox O2 Delivery O2 Flow Rate FiO2 06/21/17 08:30 99 Nasal Cannula 2.00 06/21/17 08:00 99.0 79 18 176/81 100 06/21/17 08:00 95 Nasal Cannula 3.00 Humidified 06/21/17 08:00 78 06/21/17 07:00 79 21 151/68 96 06/21/17 06:04 Nasal Cannula 3.00 Humidified 06/21/17 06:00 75 20 154/69 98 06/21/17 05:07 69 30 110/56 99 06/21/17 05:01 70 19 88/48 06/21/17 05:00 70 23 06/21/17 04:00 75 06/21/17 04:00 99.3 74 20 168/77 100 06/21/17 00:00 98.3 80 23 137/63 100 06/21/17 00:00 78 06/20/17 22:18 96 Nasal Cannula 2.00 06/20/17 20:00 100.1 82 23 154/71 98 06/20/17 20:00 83 06/20/17 20:00 Nasal Cannula 4.00 Humidified 06/20/17 17:00 84 21 139/66 97 06/20/17 17:00 84 21 139/66 97 06/20/17 17:00 84 21 139/66 97 06/20/17 17:00 84 21 139/66 97 06/20/17 17:00 84 06/20/17 17:00 84 21 139/66 97 06/20/17 17:00 84 21 139/66 97 06/20/17 16:37 85 06/20/17 16:37 85 22 157/70 97 06/20/17 16:37 85 22 157/70 97 06/20/17 16:33 86 21 153/73 97 06/20/17 16:33 86 06/20/17 16:33 86 21 153/73 97 06/20/17 15:00 99.1 06/20/17 14:00 84 23 100 06/20/17 14:00 84 06/20/17 12:52 79 16 153/70 100 06/20/17 12:52 79 16 153/70 100 06/20/17 12:52 79 06/20/17 11:12 99.3 83 16 134/66 94 -: 06/19/17 0445 Physical Exam General Appearance: No Acute Distress, Comfortable Pulmonary Resp Exam: Breath Sounds Equal Cardiology CV Exam: Regular Gastrointestinal/Abdomen GI Exam: Soft, Non-Tender, Bowel Sounds Present Extremeties Extremities Exam: Dependent Edema Neurologic Neuro Exam: Alert, Awake, Oriented Psychiatric Psych Exam: Appropriate Responses Assessment/Plan Problem List: (1) Qqvja-hy-jnbmmny kidney injury (2) CHF exacerbation Plan: Bumex (3) Diabetes mellitus Plan Dialysis started on 06/13, Patient most likely has End stage renal disease. Has PermCath. Thoracentesis done and 1 liter removed on 06/20. Patient tolerated well. D/W the daughter, she want her HD to set up in [place]. AVF can be done once her breathing is better as out patient. HD now, remove fluid as tolerated. Problem Qualifiers (1) Diabetes mellitus: José Howell MD Jun 21, 2017 10:49
[2017-06-21] MEDS: EPOETIN ALFA 10,000 UNITS/ML VIAL IV PRN (11:40)
[2017-06-21] MEDS: GENTAMICIN SULFATE (DIALYSIS USE ONLY) 20 MG/2 ML VIAL IV PRN (11:40)
[2017-06-21] MEDS: HEPARIN SODIUM - IV 10,000 UNITS/10 ML VIAL PRN (11:40)
[2017-06-21] MEDS: cefTRIAXone INJ 1,000 MG in SODIUM CHLORIDE 0.9% INJ 100 ML IV SCH (12:39)
--- NOTE | 2017-06-21 15:58 | RADRPT ---
EXAM DATE/TIME: 06/20/2017 15:18 This report includes an Addendum and supersedes previous reports for this exam. [facility] COMPARISON: No previous studies available for comparison. INDICATIONS : MEDICAL HISTORY : History of lupus, DM, HTN, HLD, CHF, ischemic heart disease, eye blindness, acute renal failure, acut e respiratory failure, bilateral pleural effusions. SURGICAL HISTORY : History of left foot surgery, eye surgery, thoracentesis. ENCOUNTER: Subsequent ACUITY: 1 week PAIN SCORE: 0/10 FLUORO TIME: 0.5 minutes IMAGE SERIES: 1 SEDATION TIME: 30 minutes ACCESS: Right internal jugular vein SEDATION: 1.) 1 mg midazolam (Versed) IV 2.) 50 mcg fentanyl (Sublimaze) IV Prophylactic antibiotics were administered with appropriate pre-procedure timing. Vancomycin within 2 hours of procedure, Ancef (or alternative) within 1 hour of procedure. DEVICE: 1. 15 Amharic dual lumen 23 cm Gavin II Plus catheter PROCEDURE : Existing catheter was appropriately prepped and draped. The existing dermatotomy was anesthetized wit h approximately 5 cc 1% lidocaine. Utilizing the Vas-Cath catheter as a length marker, an appropriate site on the chest wall was anesthetized with an additional 2 cc of 1% Xylocaine. The tract between t he 2 dermatotomies was again anesthetized with an additional 3 cc of 1% Xylocaine. Vas-Cath catheter was removed over a wire. A cutaneous tunnel was created from the chest wall the cer vical dermatotomy with the included tunneler. The PermCath catheter was weaved over the wire and into the central venous system. The cuff was then pulled through the subcutaneous tunnel with the metalli c tunneler and the hub assembled. Each port was aspirated and flushed with an appropriate volume and concentration of heparin. Position was confirmed fluoroscopically. The site was prepped in sterile fa shion. Full sterile technique was used, including cap, mask, sterile gloves and gown and a large ster ile sheet. Hand hygiene and 2% chlorhexidine prep was utilized per protocol for cutaneous antisepsis with the appropriate dry time for the site. CONCLUSION: Successful conversion of the right IJ Vas-Cath to a PermCath catheter as above. Dean Shields MD on June 21, 2017 at 15:49 Board Certified Radiologist. This report was verified electronically. ADDENDUM: COMPARISON: TEMP DIALYSIS CATHETER PLCMO W/US, RIGHT, June 13, 2017, 8:42. The risks, benefits and alternatives to the procedure were explained and verbal and written consent w as obtained. The site was prepped in sterile fashion. Full sterile technique was used, including cap , mask, sterile gloves and gown and a large sterile sheet. Hand hygiene and 2% chlorhexidine prep was utilized per protocol for cutaneous antisepsis with appropriate dry time for site. Dean Shields MD on July 17, 2017 at 16:02 Board Certified Radiologist. This report was verified electronically.
--- NOTE | 2017-06-21 16:12 | HHI.PR ---
Subjective Remarks ALERT NO SOB AT REST O2 SAT 95% 0.5 FIO2 Objective Vital Signs Date Time Temp Pulse Resp B/P Pulse Ox O2 Delivery O2 Flow Rate FiO2 06/21/17 12:30 97.3 80 17 153/70 99 06/21/17 12:30 83 06/21/17 08:30 99 Nasal Cannula 2.00 06/21/17 08:00 99.0 79 18 176/81 100 06/21/17 08:00 95 Nasal Cannula 3.00 Humidified 06/21/17 08:00 78 06/21/17 07:00 79 21 151/68 96 06/21/17 06:04 Nasal Cannula 3.00 Humidified 06/21/17 06:00 75 20 154/69 98 06/21/17 05:07 69 30 110/56 99 06/21/17 05:01 70 19 88/48 06/21/17 05:00 70 23 06/21/17 04:00 75 06/21/17 04:00 99.3 74 20 168/77 100 06/21/17 00:00 98.3 80 23 137/63 100 06/21/17 00:00 78 06/20/17 22:18 96 Nasal Cannula 2.00 06/20/17 20:00 100.1 82 23 154/71 98 06/20/17 20:00 83 06/20/17 20:00 Nasal Cannula 4.00 Humidified 06/20/17 17:00 84 21 139/66 97 06/20/17 17:00 84 21 139/66 97 06/20/17 17:00 84 21 139/66 97 06/20/17 17:00 84 21 139/66 97 06/20/17 17:00 84 06/20/17 17:00 84 21 139/66 97 06/20/17 17:00 84 21 139/66 97 06/20/17 16:37 85 06/20/17 16:37 85 22 157/70 97 06/20/17 16:37 85 22 157/70 97 06/20/17 16:33 86 21 153/73 97 06/20/17 16:33 86 06/20/17 16:33 86 21 153/73 97 I/O 06/20/17 06/20/17 06/20/17 06/21/17 06/21/17 06/21/17 07:00 15:00 23:00 07:00 15:00 23:00 Intake Total 0 ml 742 ml 620 ml 120 ml 106 ml Output Total 250 ml 300 ml 1500 ml Balance -250 ml 442 ml 620 ml 120 ml -1394 ml Intake Oral 0 ml 510 ml 620 ml 120 ml IV Total 232 ml 0 ml 0 ml 106 ml Output Urine Total 250 ml 300 ml Hemodialysis 1500 ml # Voids 1 1 # Bowel Movements 0 0 0 Result Diagram: 06/19/17 0445 Objective Remarks GENERAL: SKIN: Warm and dry. HEAD: Atraumatic. Normocephalic. EYES: Pupils equal and round. No scleral icterus. No injection or drainage. ENT: No nasal bleeding or discharge. Mucous membranes pink and moist. NECK: Trachea midline. No JVD. CARDIOVASCULAR: Regular rate and rhythm. RESPIRATORY: No accessory muscle use. DECREASE BREATH SOUNDS AT BASIS. GASTROINTESTINAL: Abdomen soft, non-tender, nondistended. Hepatic and splenic margins not palpable. MUSCULOSKELETAL: Extremities without clubbing, cyanosis, or edema. No obvious deformities. NEUROLOGICAL: Awake and alert. No obvious cranial nerve deficits. Motor grossly within normal limits. Five out of 5 muscle strength in the arms and legs. Normal speech. PSYCHIATRIC: Appropriate mood and affect; insight and judgment normal. Medications and IVs Laboratory Tests Test 06/19/17 04:45 Chloride Level 96 MEQ/L (98-107) Blood Urea Nitrogen 21 MG/DL (7-18) Creatinine 3.99 MG/DL (0.50-1.00) Estimat Glomerular Filtration 11 ML/MIN (>89) Rate Calcium Level 8.2 MG/DL (8.5-10.1) Assessment and Plan Assessment and Plan ASS: RESPIRATORY FAILURE FLUID OVERLOAD DUE TO RENAL FAILURE BILATERAL EFFUSIONS post bilateral thoracentesis PLAN O2 NEEDED dialysis Indira Jacobson MD Jun 21, 2017 16:11
[2017-06-21] MEDS ORDERED: POLYETHYLENE GLYCOL 17 GM PKG PO ONE (16:15)
--- NOTE | 2017-06-21 16:19 | HHI.PR ---
Subjective Remarks The patient was resting comfortably in bed. Her daughter was at the bedside. They had no acute complaints at this time. Discussed with nursing. No acute concerns. Objective Vitals Vital Signs Date Time Temp Pulse Resp B/P Pulse Ox O2 Delivery O2 Flow Rate FiO2 06/21/17 12:30 97.3 80 17 153/70 99 06/21/17 12:30 83 06/21/17 08:30 99 Nasal Cannula 2.00 06/21/17 08:00 99.0 79 18 176/81 100 06/21/17 08:00 95 Nasal Cannula 3.00 Humidified 06/21/17 08:00 78 06/21/17 07:00 79 21 151/68 96 06/21/17 06:04 Nasal Cannula 3.00 Humidified 06/21/17 06:00 75 20 154/69 98 06/21/17 05:07 69 30 110/56 99 06/21/17 05:01 70 19 88/48 06/21/17 05:00 70 23 06/21/17 04:00 75 06/21/17 04:00 99.3 74 20 168/77 100 06/21/17 00:00 98.3 80 23 137/63 100 06/21/17 00:00 78 06/20/17 22:18 96 Nasal Cannula 2.00 06/20/17 20:00 100.1 82 23 154/71 98 06/20/17 20:00 83 06/20/17 20:00 Nasal Cannula 4.00 Humidified 06/20/17 17:00 84 21 139/66 97 06/20/17 17:00 84 21 139/66 97 06/20/17 17:00 84 21 139/66 97 06/20/17 17:00 84 21 139/66 97 06/20/17 17:00 84 06/20/17 17:00 84 21 139/66 97 06/20/17 17:00 84 21 139/66 97 06/20/17 16:37 85 06/20/17 16:37 85 22 157/70 97 06/20/17 16:37 85 22 157/70 97 06/20/17 16:33 86 21 153/73 97 06/20/17 16:33 86 06/20/17 16:33 86 21 153/73 97 I/O 8/9/17 806/20/17 06/21/17 06/21/17 06/21/17 07:00 15:00 23:00 07:00 15:00 23:00 Intake Total 0 ml 742 ml 620 ml 120 ml 106 ml Output Total 250 ml 300 ml 1500 ml Balance -250 ml 442 ml 620 ml 120 ml -1394 ml Intake Oral 0 ml 510 ml 620 ml 120 ml IV Total 232 ml 0 ml 0 ml 106 ml Output Urine Total 250 ml 300 ml Hemodialysis 1500 ml # Voids 1 1 # Bowel Movements 0 0 0 Result Diagram: 06/19/17 0445 Imaging Last Impressions Thoracentesis Ultrasound 06/20/17 0000 Signed Impressions: Service Date/Time: Tuesday, June 20, 2017 11:07 - CONCLUSION: Uncomplicated ultrasound guided thoracentesis. Dangelo Merida MD FACR Chest X-Ray 06/20/17 0000 Signed Impressions: Service Date/Time: Tuesday, June 20, 2017 12:07 - CONCLUSION: 1. Status post thoracentesis with near total evacuation of left pleural effusion. 2. No evidence of pneumothorax. 3. Right basilar airspace disease Fercho Guaman MD Catheter Placement X-Ray 06/20/17 0000 Signed Impressions: Service Date/Time: Tuesday, June 20, 2017 15:18 - CONCLUSION: Successful conversion of the right IJ Vas-Cath to a PermCath catheter as above. Dean Shields MD Renal Ultrasound 06/08/17 0000 Signed Impressions: Service Date/Time: Thursday, June 08, 2017 14:10 - CONCLUSION: Echogenic but normal-size kidneys Bilateral pleural effusions. Dangelo Merida MD FACR Objective Remarks GENERAL: Syriac-speaking female in no acute distress. HEENT: Normocephalic, atraumatic. Pupils equal, round and reactive. Extraocular movements intact. No scleral icterus. No injection or drainage. Oropharynx is clear. CARDIOVASCULAR: Regular rate and rhythm without murmurs, gallops, or rubs. RESPIRATORY: Clear to auscultation bilaterally. GASTROINTESTINAL: Abdomen soft, non-tender, nondistended. EXTREMITIES: No edema appreciated. NEURO: No gross deficits. PSYCH: Mood and affect appropriate. Procedures 06/13/17 Vas-Cath placement Medications and IVs Current Medications Medications (Trade) Dose Ordered Sig/Deena Route Start Time Stop Time Status Last Admin (NS Flush) 2 ml UNSCH PRN IV FLUSH 06/08/17 13:00 (NS Flush) 2 ml BID IV FLUSH 06/08/17 21:00 06/21/17 08:19 (Tylenol) 650 mg Q4H PRN PO 06/08/17 13:00 06/20/17 20:47 (Zofran Inj) 4 mg Q6H PRN IVP 06/08/17 13:00 (Narcan Inj) 0.4 mg UNSCH PRN IV 06/08/17 13:00 (Aimee-Colace) 1 tab BID PO 06/08/17 21:00 06/21/17 08:19 (Milk Of Magnesia Liq) 30 ml Q12H PRN PO 06/08/17 13:00 (Senokot) 17.2 mg Q12H PRN PO 06/08/17 13:00 (Dulcolax Supp) 10 mg DAILY PRN RECTAL 06/08/17 13:00 (Lactulose Liq) 30 ml DAILY PRN PO 06/08/17 13:00 (Bumex Inj) 1 mg BID@09,18 IV PUSH 06/08/17 18:00 06/21/17 08:19 (D50w (Vial) Inj) 50 ml UNSCH PRN IV 06/08/17 13:00 (Glucagon Inj) 1 mg UNSCH PRN OTHER 06/08/17 13:00 Heparin Sodium (Porcine) 5000 units 5,000 units Q12HR SQ 06/08/17 21:00 06/21/17 08:20 (Rocephin Inj/NS Inj) 100 ml @ 200 mls/hr Q24H IV 06/10/17 10:00 06/21/17 12:39 (Lipitor) 20 mg HS PO 06/10/17 21:00 06/20/17 20:46 (Pred Forte 1% Opth Susp) 1 drop QID LEFT EYE 06/10/17 13:00 06/21/17 12:40 (Isopto Atropine 1% Opth Soln) 1 drop BID EACH EYE 06/10/17 21:00 06/21/17 08:18 (Flomax) 0.4 mg DAILY PO 06/12/17 18:00 06/21/17 08:19 (Catapres) 0.1 mg Q6H PRN PO 06/12/17 18:30 06/14/17 21:49 (NS Flush) DAILY IVF 06/14/17 09:00 06/19/17 08:37 (Heparin Central Flush) DAILY IV FLUSH 06/14/17 09:00 06/16/17 09:00 (NS Flush) UNSCH PRN IVF 06/13/17 09:45 Heparin Sodium (Porcine) UNSCH PRN IV FLUSH 06/13/17 09:45 (NS 1000 ml Inj) 1,000 ml @ 0 mls/hr Q0M PRN IV 06/13/17 10:23 06/14/17 11:32 Heparin Sodium (Porcine) 8000 units 8,000 units UNSCH PRN IVF 06/13/17 10:30 Sodium Chloride 1,000 ml @ 200 mls/hr Q5H PRN IV 06/13/17 10:23 (NS 1000 ml Inj) 1,000 ml @ 0 mls/hr Q0M PRN IV 06/13/17 10:23 (Mannitol Inj) 12.5 gm UNSCH PRN IV 06/13/17 10:30 (Albumin 25% Inj) 25 gm UNSCH PRN IV 06/13/17 10:30 (NS Flush) 5 ml UNSCH PRN IV FLUSH 06/13/17 10:30 (Heparin Inj) UNSCH PRN .XX 06/13/17 10:30 06/21/17 11:40 (Gentamicin (Dialysis) Inj) 20 mg UNSCH PRN IV 06/13/17 10:30 06/21/17 11:40 (Zofran Inj) 4 mg UNSCH PRN IV 06/13/17 10:30 (Tylenol) 650 mg UNSCH PRN PO 06/13/17 10:30 (Benadryl) 25 mg UNSCH PRN PO 06/13/17 10:30 (Nitrostat Sl) 0.4 mg UNSCH PRN SL 06/13/17 10:30 (Catapres) 0.1 mg UNSCH PRN PO 06/13/17 10:30 06/19/17 22:06 (Epogen Inj) 10,000 units UNSCH PRN IV 06/13/17 10:30 06/21/17 11:40 (Gelfoam 12 Mm/7 Mm Top) 1 foam UNSCH PRN TOP 06/13/17 10:30 Miscellaneous Information Patient in critical care unit? Ass... Q361D .XX 06/13/17 11:00 (Trandate) 200 mg Q12HR PO 06/13/17 21:00 06/21/17 08:28 (Nephrocaps) 1 cap DAILY PO 06/13/17 18:30 06/21/17 08:19 (Apresoline Inj) 10 mg Q30M PRN IV PUSH 06/20/17 01:15 06/20/17 06:28 (NS Flush) UNSCH PRN IVF 06/20/17 16:30 (Heparin Inj) UNSCH PRN IV FLUSH 06/20/17 16:30 (Miralax) 17 gm ONCE ONCE PO 06/21/17 16:15 06/21/17 16:16 UNV A/P Problem List: (1) Acute renal failure ICD Code: N17.9 Status: Acute (2) Diabetes mellitus ICD Code: E11.9 Status: Chronic (3) Hyperlipidemia ICD Code: E78.5 Status: Chronic (4) Hypertension ICD Code: I10 Status: Chronic (5) Fluid overload ICD Code: E87.70 Status: Acute Assessment and Plan Acute on chronic renal failure Likely due to uncontrolled diabetes, and now has become chronic per nephrology. Will most likely need permanent dialysis. - Nephrology ordering PermCath, plan for AV outpt after discharge. Continue with dialysis. Hypoxemia 2-D echo is unremarkable with EF 55-60%. Pulmonology was consulted, likely due to fluid overload. S/p right and left thoracenteses. - walk test requested. - follow up with pulmonology. - oxygen, nebs, IS as needed. - encourage ambulation. Hypertension Difficult to control secondary to renal failure. - continue current regimen. - clonidine as needed. Diabetes mellitus Glucose very well controlled. - Monitor Accu-Cheks and cover with sliding scale insulin. - check an A1c. UTI Urine culture growing mixed gram positive griselda. - d/c ceftriaxone. Urinary retention Was evaluated by urology. Godwin has been ordered to be d/c. - continue Flomax and monitor. PPx: Heparin Discharge Planning Transfer to the floor. Anticipate discharge with home health care in 1-2 days Problem Qualifiers (1) Diabetes mellitus: Jesus Cox DO Jun 21, 2017 16:18
[2017-06-21] MEDS: ATORVASTATIN 20 MG TAB PO SCH (20:44)
[2017-06-22] VITALS (9 sets, daily range): BP systolic 141–176; BP diastolic 66–81; PULSE 78–94; RESP 18–27; TEMP 97.2–99.3; O2SAT 94–100
[2017-06-22] MEDS: LACTULOSE SYRUP 20 GM/30 ML CUP PO PRN ×2 (00:52→09:47)
[2017-06-22] MEDS: hydrALAZINE HCL 20 MG/ML VIAL IV PUSH PRN (00:53)
[2017-06-22 08:28] LABS: HEMATOCRIT 28.3 % (35.0-46.0); MEAN CELL VOLUME 86.5 FL (80.0-100.0); MEAN CORPUSCULAR HEMOGLOBIN 27.9 PG (27.0-34.0); MEAN CORPUSCULAR HGB CONC 32.3 % (32.0-36.0); PLATELET COUNT 186 TH/MM3 (150-450); RED BLOOD COUNT 3.27 MIL/MM3 (4.00-5.30); RED CELL DISTRIBUTION WIDTH 15.5 % (11.6-17.2); REVIEW FLAG FINAL; WHITE BLOOD COUNT 9.4 TH/MM3 (4.0-11.0)
[2017-06-22] MEDS: LABETALOL HCL 200 MG TAB PO SCH ×2 (08:32→19:55)
[2017-06-22] MEDS: TAMSULOSIN HCL 0.4 MG CAP PO SCH (08:32)
[2017-06-22] MEDS: ATROPINE SULFATE 1% OPHT SOLN 5 ML BTL EACH EYE SCH ×2 (08:32→20:00)
[2017-06-22] MEDS: DOCUSATE SODIUM 50 MG/SENNA 8.6 MG TAB PO SCH ×2 (08:32→19:55)
[2017-06-22] MEDS: BUMETANIDE INJ 1 MG/4 ML VIAL IV PUSH SCH ×2 (08:32→18:01)
[2017-06-22] MEDS: prednisoLONE ACETATE 1% OPHT SUSP 5 ML BTL LEFT EYE SCH ×4 (08:32→20:00)
[2017-06-22] MEDS: HEPARIN SODIUM - SQ 10,000 UNITS/ML VIAL SQ SCH ×2 (08:32→19:56)
[2017-06-22] MEDS: VITAMIN B CMPLX/VITC/FOLIC AC CAP PO SCH (08:32)
[2017-06-22] MEDS: SODIUM CHLORIDE 0.9% FLUSH 10 ML FLUSH IV FLUSH SCH ×2 (08:33→20:00)
[2017-06-22] MEDS: SODIUM CHLORIDE 0.9% FLUSH 10 ML FLUSH IVF SCH (09:00)
[2017-06-22 09:01] LABS: ANION GAP 7 MEQ/L (5-15); BICARBONATE 29.2 MEQ/L (21.0-32.0); BLOOD UREA NITROGEN 14 MG/DL (7-18); CHLORIDE 98 MEQ/L (98-107); GLOMERULAR FILTRATION RATE 17 ML/MIN (>89); MAGNESIUM 2.4 MG/DL (1.5-2.5); POTASSIUM 3.6 MEQ/L (3.5-5.1); SODIUM (NA) 134 MEQ/L (136-145)
[2017-06-22] MEDS: INSULIN ASPART SUPPLEMENTAL SCALE SQ SCH ×3 (11:00→19:59)
--- NOTE | 2017-06-22 14:36 | HHI.PR ---
Subjective Remarks The patient appeared uncomfortable. She denied any pain. She did say she was cold. She denied nausea. Discussed with nursing. Objective Vitals Vital Signs Date Time Temp Pulse Resp B/P Pulse Ox O2 Delivery O2 Flow Rate FiO2 06/22/17 12:00 78 19 141/66 100 06/22/17 12:00 78 06/22/17 08:38 98 21 06/22/17 08:00 94 06/22/17 08:00 97 06/22/17 08:00 94 23 153/72 97 06/22/17 07:00 98 Nasal Cannula 3.00 55 Humidified 06/22/17 04:00 97.6 80 21 100 06/22/17 04:00 80 06/22/17 00:00 97.2 81 27 100 06/22/17 00:00 81 06/21/17 20:14 97 Nasal Cannula 2.00 06/21/17 20:00 82 06/21/17 20:00 97.2 82 29 98 06/21/17 19:00 97 Nasal Cannula 3.00 Humidified 06/21/17 16:00 90 06/21/17 16:00 98.5 89 27 179/79 99 06/21/17 15:00 85 21 98 I/O 06/21/17 06/21/17 06/21/17 06/22/17 06/22/17 06/22/17 06:59 14:59 22:59 06:59 14:59 22:59 Intake Total 120 ml 106 ml 120 ml 240 ml 200 ml Output Total 1500 ml 100 ml 200 ml 900 ml Balance 120 ml -1394 ml 20 ml 40 ml -700 ml Intake Oral 120 ml 120 ml 240 ml 200 ml IV Total 0 ml 106 ml 0 ml 0 ml Output Urine Total 100 ml 200 ml 900 ml Hemodialysis 1500 ml # Voids 1 # Bowel Movements 0 1 2 Result Diagram: 06/22/17 0552 06/22/17 0552 Imaging Last Impressions Thoracentesis Ultrasound 06/20/17 0000 Signed Impressions: Service Date/Time: Tuesday, June 20, 2017 11:07 - CONCLUSION: Uncomplicated ultrasound guided thoracentesis. Dangelo Merida MD FACR Chest X-Ray 06/20/17 0000 Signed Impressions: Service Date/Time: Tuesday, June 20, 2017 12:07 - CONCLUSION: 1. Status post thoracentesis with near total evacuation of left pleural effusion. 2. No evidence of pneumothorax. 3. Right basilar airspace disease Fercho Guaman MD Catheter Placement X-Ray 06/20/17 0000 Signed Impressions: Service Date/Time: Tuesday, June 20, 2017 15:18 - CONCLUSION: Successful conversion of the right IJ Vas-Cath to a PermCath catheter as above. Dean Shields MD Renal Ultrasound 06/08/17 0000 Signed Impressions: Service Date/Time: Thursday, June 08, 2017 14:10 - CONCLUSION: Echogenic but normal-size kidneys Bilateral pleural effusions. Dangelo Merida MD FACR Objective Remarks GENERAL: [place]-speaking female in no acute distress. HEENT: Normocephalic, atraumatic. Pupils equal, round and reactive. Extraocular movements intact. No scleral icterus. No injection or drainage. Oropharynx is clear. CARDIOVASCULAR: Regular rate and rhythm without murmurs, gallops, or rubs. RESPIRATORY: Clear to auscultation bilaterally. GASTROINTESTINAL: Abdomen soft, non-tender, nondistended. : Godwin in place with yellow urine. EXTREMITIES: No edema appreciated. NEURO: No gross deficits. PSYCH: Mood and affect appropriate. Procedures 06/13/17 Vas-Cath placement Medications and IVs Current Medications Medications (Trade) Dose Ordered Sig/Deena Route Start Time Stop Time Status Last Admin (NS Flush) 2 ml UNSCH PRN IV FLUSH 06/08/17 13:00 (NS Flush) 2 ml BID IV FLUSH 06/08/17 21:00 06/22/17 08:33 (Tylenol) 650 mg Q4H PRN PO 06/08/17 13:00 06/20/17 20:47 (Zofran Inj) 4 mg Q6H PRN IVP 06/08/17 13:00 (Narcan Inj) 0.4 mg UNSCH PRN IV 06/08/17 13:00 (Aimee-Colace) 1 tab BID PO 06/08/17 21:00 06/22/17 08:32 (Milk Of Magnesia Liq) 30 ml Q12H PRN PO 06/08/17 13:00 06/22/17 00:52 (Senokot) 17.2 mg Q12H PRN PO 06/08/17 13:00 8/11/17 09:47 (Dulcolax Supp) 10 mg DAILY PRN RECTAL 06/08/17 13:00 (Lactulose Liq) 30 ml DAILY PRN PO 06/08/17 13:00 06/22/17 09:47 (Bumex Inj) 1 mg BID@09,18 IV PUSH 06/08/17 18:00 06/22/17 08:32 (D50w (Vial) Inj) 50 ml UNSCH PRN IV 06/08/17 13:00 (Glucagon Inj) 1 mg UNSCH PRN OTHER 06/08/17 13:00 (Heparin Inj) 5,000 units Q12HR SQ 06/08/17 21:00 06/22/17 08:32 (Lipitor) 20 mg HS PO 06/10/17 21:00 06/21/17 20:44 (Pred Forte 1% Opth Susp) 1 drop QID LEFT EYE 06/10/17 13:00 06/22/17 08:32 (Isopto Atropine 1% Opth Soln) 1 drop BID EACH EYE 06/10/17 21:00 06/22/17 08:32 (Flomax) 0.4 mg DAILY PO 06/12/17 18:00 06/22/17 08:32 (Catapres) 0.1 mg Q6H PRN PO 06/12/17 18:30 06/14/17 21:49 (NS Flush) DAILY IVF 06/14/17 09:00 06/19/17 08:37 (Heparin Central Flush) DAILY IV FLUSH 06/14/17 09:00 06/16/17 09:00 (NS Flush) UNSCH PRN IVF 06/13/17 09:45 Heparin Sodium (Porcine) UNSCH PRN IV FLUSH 06/13/17 09:45 (NS 1000 ml Inj) 1,000 ml @ 0 mls/hr Q0M PRN IV 06/13/17 10:23 06/14/17 11:32 Heparin Sodium (Porcine) 8000 units 8,000 units UNSCH PRN IVF 06/13/17 10:30 Sodium Chloride 1,000 ml @ 200 mls/hr Q5H PRN IV 06/13/17 10:23 (NS 1000 ml Inj) 1,000 ml @ 0 mls/hr Q0M PRN IV 06/13/17 10:23 (Mannitol Inj) 12.5 gm UNSCH PRN IV 06/13/17 10:30 (Albumin 25% Inj) 25 gm UNSCH PRN IV 06/13/17 10:30 (NS Flush) 5 ml UNSCH PRN IV FLUSH 06/13/17 10:30 (Heparin Inj) UNSCH PRN .XX 06/13/17 10:30 06/21/17 11:40 (Gentamicin (Dialysis) Inj) 20 mg UNSCH PRN IV 06/13/17 10:30 06/21/17 11:40 (Zofran Inj) 4 mg UNSCH PRN IV 06/13/17 10:30 (Tylenol) 650 mg UNSCH PRN PO 06/13/17 10:30 (Benadryl) 25 mg UNSCH PRN PO 06/13/17 10:30 (Nitrostat Sl) 0.4 mg UNSCH PRN SL 06/13/17 10:30 (Catapres) 0.1 mg UNSCH PRN PO 06/13/17 10:30 06/19/17 22:06 (Epogen Inj) 10,000 units UNSCH PRN IV 06/13/17 10:30 06/21/17 11:40 (Gelfoam 12 Mm/7 Mm Top) 1 foam UNSCH PRN TOP 06/13/17 10:30 Miscellaneous Information Patient in critical care unit? Ass... Q361D .XX 06/13/17 11:00 (Trandate) 200 mg Q12HR PO 06/13/17 21:00 06/22/17 08:32 (Nephrocaps) 1 cap DAILY PO 06/13/17 18:30 06/22/17 08:32 (Apresoline Inj) 10 mg Q30M PRN IV PUSH 06/20/17 01:15 06/22/17 00:53 (NS Flush) UNSCH PRN IVF 06/20/17 16:30 (Heparin Inj) UNSCH PRN IV FLUSH 06/20/17 16:30 A/P Problem List: (1) Acute renal failure ICD Code: N17.9 Status: Acute (2) Diabetes mellitus ICD Code: E11.9 Status: Chronic (3) Hyperlipidemia ICD Code: E78.5 Status: Chronic (4) Hypertension ICD Code: I10 Status: Chronic (5) Fluid overload ICD Code: E87.70 Status: Acute Assessment and Plan Acute on chronic renal failure Likely due to uncontrolled diabetes, and now has become chronic per nephrology. Will most likely need permanent dialysis. - Nephrology ordered PermCath, plan for AV outpt after discharge. Continue with dialysis. Hypoxemia 2-D echo is unremarkable with EF 55-60%. Pulmonology was consulted, likely due to fluid overload. S/p right and left thoracenteses. Walk test done, the pt will not need home oxygen. - follow up with pulmonology. - oxygen, nebs, IS as needed. - encourage ambulation. Hypertension Difficult to control secondary to renal failure. - continue current regimen. - clonidine as needed. Diabetes mellitus Glucose very well controlled. - Monitor Accu-Cheks and cover with sliding scale insulin. - check an A1c. Urinary retention The pt required Godwin reinsertion 06/22. Apparently urology never saw the pt, even though they were consulted on 06/12. - continue Flomax. - continue Godwin. - urology reconsulted. PPx: Heparin Discharge Planning Transfer to the floor. Anticipate discharge with home health care in 1-2 days Problem Qualifiers (1) Diabetes mellitus: Jesus Cox DO Jun 22, 2017 14:36
--- NOTE | 2017-06-22 14:58 | HHI.PR ---
Subjective Remarks ALERT NO SOB AT REST O2 SAT 96% on 02 N/C Objective Vital Signs Date Time Temp Pulse Resp B/P Pulse Ox O2 Delivery O2 Flow Rate FiO2 06/22/17 12:00 78 19 141/66 100 06/22/17 12:00 78 06/22/17 08:38 98 21 06/22/17 08:00 94 06/22/17 08:00 97 06/22/17 08:00 94 23 153/72 97 06/22/17 07:00 98 Nasal Cannula 3.00 55 Humidified 06/22/17 04:00 97.6 80 21 100 06/22/17 04:00 80 06/22/17 00:00 97.2 81 27 100 06/22/17 00:00 81 06/21/17 20:14 97 Nasal Cannula 2.00 06/21/17 20:00 82 06/21/17 20:00 97.2 82 29 98 06/21/17 19:00 97 Nasal Cannula 3.00 Humidified 06/21/17 16:00 90 06/21/17 16:00 98.5 89 27 179/79 99 06/21/17 15:00 85 21 98 I/O 06/21/17 06/21/17 06/21/17 06/22/17 06/22/17 06/22/17 07:00 15:00 23:00 07:00 15:00 23:00 Intake Total 120 ml 106 ml 120 ml 240 ml 200 ml Output Total 1500 ml 100 ml 200 ml 900 ml Balance 120 ml -1394 ml 20 ml 40 ml -700 ml Intake Oral 120 ml 120 ml 240 ml 200 ml IV Total 0 ml 106 ml 0 ml 0 ml Output Urine Total 100 ml 200 ml 900 ml Hemodialysis 1500 ml # Voids 1 # Bowel Movements 0 1 2 Result Diagram: 06/22/17 0552 06/22/17 0552 Objective Remarks GENERAL: SKIN: Warm and dry. HEAD: Atraumatic. Normocephalic. EYES: Pupils equal and round. No scleral icterus. No injection or drainage. ENT: No nasal bleeding or discharge. Mucous membranes pink and moist. NECK: Trachea midline. No JVD. CARDIOVASCULAR: Regular rate and rhythm. RESPIRATORY: No accessory muscle use. DECREASE BREATH SOUNDS AT BASIS. GASTROINTESTINAL: Abdomen soft, non-tender, nondistended. Hepatic and splenic margins not palpable. MUSCULOSKELETAL: Extremities without clubbing, cyanosis, or edema. No obvious deformities. NEUROLOGICAL: Awake and alert. No obvious cranial nerve deficits. Motor grossly within normal limits. Five out of 5 muscle strength in the arms and legs. Normal speech. PSYCHIATRIC: Appropriate mood and affect; insight and judgment normal. Assessment and Plan Assessment and Plan ASS: RESPIRATORY FAILURE FLUID OVERLOAD DUE TO RENAL FAILURE BILATERAL EFFUSIONS post bilateral thoracentesis PLAN O2 NEEDED dialysis Indira Jacobson MD Jun 22, 2017 14:58
[2017-06-22 16:28] LABS: HEMOGLOBIN A1a 0.8 %; HEMOGLOBIN A1b 1.6 %; HEMOGLOBIN F 0.2 %; HEMOGLOBIN LA1C 2.3 %
--- NOTE | 2017-06-22 17:09 | HHI.NPPN ---
Subjective History of Present Illness 57-year-old female with past medical history of hypertension, diabetes mellitus, chronic kidney disease, ischemic heart disease, congestive heart failure, came to the hospital with complaint of worsening shortness of breath. 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 Additional Remarks Patient is alert, breathing is better and off O2. Review of Systems General Constitutional: Fatigue Cardiovascular Cardiac: Edema, ISSA Objective Data Data 06/21/17 06/22/17 19:00 07:00 Intake Total 106 ml 360 ml Output Total 1500 ml 300 ml Balance -1394 ml 60 ml Intake Oral 360 ml IV Total 106 ml 0 ml Output Urine Total 300 ml Hemodialysis 1500 ml # Bowel Movements 1 Vital Signs Date Time Temp Pulse Resp B/P Pulse Ox O2 Delivery O2 Flow Rate FiO2 06/22/17 16:00 91 18 158/68 97 06/22/17 16:00 91 06/22/17 16:00 91 06/22/17 14:00 83 06/22/17 12:00 78 19 141/66 100 06/22/17 12:00 78 06/22/17 08:38 98 21 06/22/17 08:00 94 06/22/17 08:00 97 06/22/17 08:00 94 23 153/72 97 06/22/17 07:00 98 Nasal Cannula 3.00 55 Humidified 06/22/17 04:00 97.6 80 21 100 06/22/17 04:00 80 06/22/17 00:00 97.2 81 27 100 06/22/17 00:00 81 06/21/17 20:14 97 Nasal Cannula 2.00 06/21/17 20:00 82 06/21/17 20:00 97.2 82 29 98 06/21/17 19:00 97 Nasal Cannula 3.00 Humidified -: 06/22/17 0552 06/22/17 0552 Physical Exam General Appearance: No Acute Distress, Comfortable Pulmonary Resp Exam: Breath Sounds Equal Cardiology CV Exam: Regular Gastrointestinal/Abdomen GI Exam: Soft, Non-Tender, Bowel Sounds Present Extremeties Extremities Exam: Dependent Edema Neurologic Neuro Exam: Alert, Awake, Oriented Psychiatric Psych Exam: Appropriate Responses Assessment/Plan Problem List: (1) Rnyuf-qb-zijygny kidney injury (2) CHF exacerbation Plan: Bumex (3) Diabetes mellitus Plan Dialysis started on 06/13, Patient most likely has End stage renal disease. Has PermCath. Thoracentesis done and 1 liter removed on 06/20. Patient tolerated well. D/W the daughter, she want her HD to set up in [place]. I called Dr. Davis , and left message on his cell phone and answering service. No answer so far. HD will be in AM. Problem Qualifiers (1) Diabetes mellitus: José Howell MD Jun 22, 2017 17:09
[2017-06-22] MEDS: ATORVASTATIN 20 MG TAB PO SCH (19:56)
[2017-06-23] VITALS (11 sets, daily range): BP systolic 166–194; BP diastolic 75–89; PULSE 83–89; RESP 16–19; TEMP 97.5–98.8; O2SAT 91–96
[2017-06-23] MEDS: INSULIN ASPART SUPPLEMENTAL SCALE SQ SCH ×4 (06:00→20:04)
[2017-06-23] MEDS: SODIUM CHLORIDE 0.9% FLUSH 10 ML FLUSH IV FLUSH SCH ×2 (07:57→20:00)
[2017-06-23] MEDS: ATROPINE SULFATE 1% OPHT SOLN 5 ML BTL EACH EYE SCH ×2 (07:57→19:59)
[2017-06-23] MEDS: SODIUM CHLORIDE 0.9% FLUSH 10 ML FLUSH IVF SCH (07:57)
[2017-06-23] MEDS: HEPARIN SODIUM - SQ 10,000 UNITS/ML VIAL SQ SCH ×2 (07:59→19:58)
[2017-06-23] MEDS: VITAMIN B CMPLX/VITC/FOLIC AC CAP PO SCH (08:03)
[2017-06-23] MEDS: prednisoLONE ACETATE 1% OPHT SUSP 5 ML BTL LEFT EYE SCH ×4 (08:06→19:59)
[2017-06-23] MEDS: BUMETANIDE INJ 1 MG/4 ML VIAL IV PUSH SCH ×2 (08:06→18:39)
[2017-06-23] MEDS: TAMSULOSIN HCL 0.4 MG CAP PO SCH (08:06)
[2017-06-23] MEDS: DOCUSATE SODIUM 50 MG/SENNA 8.6 MG TAB PO SCH ×2 (08:06→19:59)
[2017-06-23 08:50] LABS: BICARBONATE 29.5 MEQ/L (21.0-32.0); MAGNESIUM 2.4 MG/DL (1.5-2.5); POTASSIUM 3.5 MEQ/L (3.5-5.1)
[2017-06-23] MEDS: EPOETIN ALFA 10,000 UNITS/ML VIAL IV PRN (10:35)
[2017-06-23] MEDS: HEPARIN SODIUM - IV 10,000 UNITS/10 ML VIAL PRN (10:35)
[2017-06-23] MEDS: GENTAMICIN SULFATE (DIALYSIS USE ONLY) 20 MG/2 ML VIAL IV PRN (10:35)
[2017-06-23] MEDS: SODIUM CHLOR 0.9% 1000 ML INJ 1,000 ML IV PRN (11:14)
--- NOTE | 2017-06-23 11:15 | HHI.NPPN ---
Subjective History of Present Illness 57-year-old female with past medical history of hypertension, diabetes mellitus, chronic kidney disease, ischemic heart disease, congestive heart failure, came to the hospital with complaint of worsening shortness of breath. 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 Additional Remarks Patient is alert, now on HD, on room air. Review of Systems General Constitutional: Fatigue Cardiovascular Cardiac: Edema, ISSA Objective Data Data 06/22/17 06/23/17 19:00 07:00 Intake Total 200 ml Output Total 900 ml Balance -700 ml Intake Oral 200 ml Output Urine Total 900 ml # Bowel Movements 2 Vital Signs Date Time Temp Pulse Resp B/P Pulse Ox O2 Delivery O2 Flow Rate FiO2 06/23/17 10:10 85 06/23/17 08:13 98.3 84 16 172/81 93 06/23/17 06:07 94 06/23/17 04:00 97.5 86 18 170/76 91 06/23/17 03:15 86 06/23/17 00:00 98.6 89 18 166/75 93 06/22/17 20:00 98.6 87 18 176/81 94 06/22/17 17:23 99.3 88 18 160/73 96 06/22/17 16:00 91 18 158/68 97 06/22/17 16:00 91 06/22/17 16:00 91 06/22/17 14:00 83 06/22/17 12:00 78 19 141/66 100 06/22/17 12:00 78 -: 06/22/17 0552 06/23/17 0721 Physical Exam General Appearance: No Acute Distress, Comfortable Pulmonary Resp Exam: Breath Sounds Equal Cardiology CV Exam: Regular Gastrointestinal/Abdomen GI Exam: Soft, Non-Tender, Bowel Sounds Present Extremeties Extremities Exam: Dependent Edema Neurologic Neuro Exam: Alert, Awake, Oriented Psychiatric Psych Exam: Appropriate Responses Assessment/Plan Problem List: (1) Mehpv-vm-yeftoql kidney injury (2) CHF exacerbation Plan: Bumex (3) Diabetes mellitus Plan Dialysis started on 8/2, Patient most likely has End stage renal disease. Has PermCath. Thoracentesis done and 1 liter removed on 06/20. Patient tolerated well. D/W the daughter, she want her HD to set up in [place]. I called Dr. Davis , and left message on his cell phone and answering service on 06/22. Replace iron IV as sat. was low. Calcium low, add Rocaltrol, Po4 was normal. Will need AVF, will get venous mapping and call vascular. Problem Qualifiers (1) Diabetes mellitus: José Howell MD Jun 23, 2017 11:15
[2017-06-23] MEDS: CALCITRIOL 0.25 MCG CAP PO SCH (12:08)
[2017-06-23] MEDS: LABETALOL HCL 200 MG TAB PO SCH ×2 (12:08→21:58)
[2017-06-23] MEDS: IRON SUCROSE INJ 200 MG in SODIUM CHLORIDE 0.9% INJ 100 ML IV SCH (13:16)
[2017-06-23] MEDS: cloNIDine HCL 0.1 MG TAB PO PRN (15:19)
--- NOTE | 2017-06-23 16:44 | HHI.PR ---
Subjective Remarks ALERT NO SOB AT REST O2 SAT 96% on 02 N/C Objective Vital Signs Date Time Temp Pulse Resp B/P Pulse Ox O2 Delivery O2 Flow Rate FiO2 06/23/17 16:00 98.4 85 18 194/84 96 06/23/17 12:14 98.2 86 18 194/89 96 06/23/17 10:10 85 06/23/17 08:13 98.3 84 16 172/81 93 06/23/17 06:07 94 06/23/17 04:00 97.5 86 18 170/76 91 06/23/17 03:15 86 06/23/17 00:00 98.6 89 18 166/75 93 06/22/17 20:00 98.6 87 18 176/81 94 06/22/17 17:23 99.3 88 18 160/73 96 I/O 06/22/17 06/22/17 06/22/17 06/23/17 06/23/17 06/23/17 07:00 15:00 23:00 07:00 15:00 23:00 Intake Total 240 ml 200 ml 480 ml Output Total 200 ml 900 ml 2350 ml Balance 40 ml -700 ml -1870 ml Intake Oral 240 ml 200 ml 480 ml IV Total 0 ml Output Urine Total 200 ml 900 ml 350 ml Hemodialysis 2000 ml # Bowel Movements 1 2 2 Result Diagram: 06/22/17 0552 06/23/17 0721 Objective Remarks GENERAL: SKIN: Warm and dry. HEAD: Atraumatic. Normocephalic. EYES: Pupils equal and round. No scleral icterus. No injection or drainage. ENT: No nasal bleeding or discharge. Mucous membranes pink and moist. NECK: Trachea midline. No JVD. CARDIOVASCULAR: Regular rate and rhythm. RESPIRATORY: No accessory muscle use. DECREASE BREATH SOUNDS AT BASIS. GASTROINTESTINAL: Abdomen soft, non-tender, nondistended. Hepatic and splenic margins not palpable. MUSCULOSKELETAL: Extremities without clubbing, cyanosis, or edema. No obvious deformities. NEUROLOGICAL: Awake and alert. No obvious cranial nerve deficits. Motor grossly within normal limits. Five out of 5 muscle strength in the arms and legs. Normal speech. PSYCHIATRIC: Appropriate mood and affect; insight and judgment normal. Assessment and Plan Assessment and Plan ASS: RESPIRATORY FAILURE FLUID OVERLOAD DUE TO RENAL FAILURE BILATERAL EFFUSIONS post bilateral thoracentesis PLAN O2 NEEDED dialysis Indira Jacobson MD Jun 23, 2017 16:44
--- NOTE | 2017-06-23 18:13 | HHI.PR ---
Subjective Remarks fu ESRD, uncontrolled htn, anemia patient c/o abdominal pain and diarrhea denies nausea or vomiting denies fevers/chills BP very elevated Objective Vitals Vital Signs Date Time Temp Pulse Resp B/P Pulse Ox O2 Delivery O2 Flow Rate FiO2 06/23/17 16:00 98.4 85 18 194/84 96 06/23/17 12:14 98.2 86 18 194/89 96 06/23/17 10:10 85 06/23/17 08:13 98.3 84 16 172/81 93 06/23/17 06:07 94 06/23/17 04:00 97.5 86 18 170/76 91 06/23/17 03:15 86 06/23/17 00:00 98.6 89 18 166/75 93 06/22/17 20:00 98.6 87 18 176/81 94 I/O 06/22/17 06/22/17 06/22/17 06/23/17 06/23/17 06/23/17 06:59 14:59 22:59 06:59 14:59 22:59 Intake Total 240 ml 200 ml 480 ml Output Total 200 ml 900 ml 2350 ml Balance 40 ml -700 ml -1870 ml Intake Oral 240 ml 200 ml 480 ml IV Total 0 ml Output Urine Total 200 ml 900 ml 350 ml Hemodialysis 2000 ml # Bowel Movements 1 2 2 Result Diagram: 06/22/17 0552 06/23/17 0721 Imaging Last Impressions Thoracentesis Ultrasound 06/20/17 0000 Signed Impressions: Service Date/Time: Tuesday, June 20, 2017 11:07 - CONCLUSION: Uncomplicated ultrasound guided thoracentesis. Dangelo Merida MD FACR Chest X-Ray 06/20/17 0000 Signed Impressions: Service Date/Time: Tuesday, June 20, 2017 12:07 - CONCLUSION: 1. Status post thoracentesis with near total evacuation of left pleural effusion. 2. No evidence of pneumothorax. 3. Right basilar airspace disease Fercho Guaman MD Catheter Placement X-Ray 06/20/17 0000 Signed Impressions: Service Date/Time: Tuesday, June 20, 2017 15:18 - CONCLUSION: Successful conversion of the right IJ Vas-Cath to a PermCath catheter as above. Dean Shields MD Renal Ultrasound 06/08/17 0000 Signed Impressions: Service Date/Time: Thursday, June 08, 2017 14:10 - CONCLUSION: Echogenic but normal-size kidneys Bilateral pleural effusions. Dangelo Merida MD FACR Objective Remarks AAOX3 S1S2 (+) RRR, no MRG Clear lungs BL abdomen soft, non tender, non distended no edema in lwer extremities. Procedures 06/13/17 Vas-Cath placement Medications and IVs Current Medications Medications (Trade) Dose Ordered Sig/Deena Route Start Time Stop Time Status Last Admin (NS Flush) 2 ml UNSCH PRN IV FLUSH 06/08/17 13:00 (NS Flush) 2 ml BID IV FLUSH 06/08/17 21:00 06/23/17 07:57 (Tylenol) 650 mg Q4H PRN PO 06/08/17 13:00 06/20/17 20:47 (Zofran Inj) 4 mg Q6H PRN IVP 06/08/17 13:00 (Narcan Inj) 0.4 mg UNSCH PRN IV 06/08/17 13:00 (Aimee-Colace) 1 tab BID PO 06/08/17 21:00 06/22/17 19:55 (Milk Of Magnesia Liq) 30 ml Q12H PRN PO 06/08/17 13:00 06/22/17 00:52 (Senokot) 17.2 mg Q12H PRN PO 06/08/17 13:00 06/22/17 09:47 (Dulcolax Supp) 10 mg DAILY PRN RECTAL 06/08/17 13:00 (Lactulose Liq) 30 ml DAILY PRN PO 06/08/17 13:00 06/22/17 09:47 (Bumex Inj) 1 mg BID@09,18 IV PUSH 06/08/17 18:00 06/22/17 18:01 (D50w (Vial) Inj) 50 ml UNSCH PRN IV 06/08/17 13:00 (Glucagon Inj) 1 mg UNSCH PRN OTHER 06/08/17 13:00 (Heparin Inj) 5,000 units Q12HR SQ 06/08/17 21:00 06/23/17 07:59 (Lipitor) 20 mg HS PO 06/10/17 21:00 06/22/17 19:56 (Pred Forte 1% Opth Susp) 1 drop QID LEFT EYE 06/10/17 13:00 06/23/17 12:08 (Isopto Atropine 1% Opth Soln) 1 drop BID EACH EYE 06/10/17 21:00 06/23/17 07:57 (Flomax) 0.4 mg DAILY PO 06/12/17 18:00 06/22/17 08:32 (Catapres) 0.1 mg Q6H PRN PO 06/12/17 18:30 06/14/17 21:49 (NS Flush) DAILY IVF 06/14/17 09:00 06/23/17 07:57 (Heparin Central Flush) DAILY IV FLUSH 06/14/17 09:00 06/23/17 07:57 (NS Flush) UNSCH PRN IVF 06/13/17 09:45 Heparin Sodium (Porcine) UNSCH PRN IV FLUSH 06/13/17 09:45 (NS 1000 ml Inj) 1,000 ml @ 0 mls/hr Q0M PRN IV 06/13/17 10:23 06/23/17 11:14 Heparin Sodium (Porcine) 8000 units 8,000 units UNSCH PRN IVF 06/13/17 10:30 Sodium Chloride 1,000 ml @ 200 mls/hr Q5H PRN IV 06/13/17 10:23 (NS 1000 ml Inj) 1,000 ml @ 0 mls/hr Q0M PRN IV 06/13/17 10:23 (Mannitol Inj) 12.5 gm UNSCH PRN IV 06/13/17 10:30 (Albumin 25% Inj) 25 gm UNSCH PRN IV 06/13/17 10:30 (NS Flush) 5 ml UNSCH PRN IV FLUSH 06/13/17 10:30 (Heparin Inj) UNSCH PRN .XX 06/13/17 10:30 06/23/17 10:35 (Gentamicin (Dialysis) Inj) 20 mg UNSCH PRN IV 06/13/17 10:30 06/23/17 10:35 (Zofran Inj) 4 mg UNSCH PRN IV 06/13/17 10:30 (Tylenol) 650 mg UNSCH PRN PO 06/13/17 10:30 (Benadryl) 25 mg UNSCH PRN PO 06/13/17 10:30 (Nitrostat Sl) 0.4 mg UNSCH PRN SL 06/13/17 10:30 (Catapres) 0.1 mg UNSCH PRN PO 06/13/17 10:30 06/23/17 15:19 (Epogen Inj) 10,000 units UNSCH PRN IV 06/13/17 10:30 06/23/17 10:35 (Gelfoam 12 Mm/7 Mm Top) 1 foam UNSCH PRN TOP 06/13/17 10:30 Miscellaneous Information Patient in critical care unit? Ass... Q361D .XX 06/13/17 11:00 (Nephrocaps) 1 cap DAILY PO 06/13/17 18:30 06/22/17 08:32 (Apresoline Inj) 10 mg Q30M PRN IV PUSH 06/20/17 01:15 06/22/17 00:53 (NS Flush) UNSCH PRN IVF 06/20/17 16:30 (Heparin Inj) UNSCH PRN IV FLUSH 06/20/17 16:30 (Trandate) 200 mg Q8H PO 06/23/17 13:00 06/23/17 12:08 Calcitriol 0.25 mcg 0.25 mcg DAILY PO 06/23/17 12:00 06/23/17 12:08 (Venofer Inj/NS Inj) 110 ml @ 110 mls/hr DAILY IV 06/23/17 14:00 06/25/17 09:59 06/23/17 13:16 (Cardura) 4 mg DAILY PO 06/23/17 18:15 UNV Urinary Catheter: No Vascular Central Line Catheter: Yes Side: Right Location: Internal Reason for Continuation ESRD on HD A/P Problem List: (1) Acute renal failure ICD Code: N17.9 Status: Acute (2) Diabetes mellitus ICD Code: E11.9 Status: Chronic (3) Hyperlipidemia ICD Code: E78.5 Status: Chronic (4) Hypertension ICD Code: I10 Status: Chronic (5) Fluid overload ICD Code: E87.70 Status: Resolved Assessment and Plan ESRD on HD Likely due to uncontrolled diabetes, and now has become chronic per nephrology. Will most likely need permanent dialysis. -06/23 patient had a PermCath placed. plan for AV outpt after discharge. Continue with dialysis. Right pleural effusion/hypoxemia - resolved Due to R pleural effusion sp Thoracentesis US. 2-D echo is unremarkable with EF 55-60%. Pulmonology was consulted, likely due to fluid overload. S/p right and left thoracenteses. Walk test done, the pt will not need home oxygen. - follow up with pulmonology. - oxygen, nebs, IS as needed. - encourage ambulation. Hypertension Difficult to control secondary to renal failure. - clonidine as needed. 06/23 patient with severely uncontrolled blood pressure with systolic blood pressure into the high 90s. I will increase labetalol to 200 mg by mouth every 8 hours. I will also start the patient on doxazosin 4 mg by mouth daily. Diabetes mellitus Glucose very well controlled. - Monitor Accu-Cheks and cover with sliding scale insulin. - check an A1c. Urinary retention The pt required Godwin reinsertion 06/22. Apparently urology never saw the pt, even though they were consulted on 06/12. - continue Flomax. - continue Godwin. - urology reconsulted. Anemia Normal MCV anemia. Likely secondary to chronic disease. Iron studies show low iron, low percent saturation and normal ferritin. Patient is being administered IV iron as per nephrology recommendations. Continue continue to monitor CBC. Diarrhea Patient complains of abdominal pain and diarrhea. I will check a stool for C. difficile PCR and place on contact isolation until stool C. difficile is ruled out. PPx: Heparin Discharge Planning Continue to monitor in the medical floor. Discharge pending blood pressure control, C. difficile PCR, nephrology clearance. Problem Qualifiers (1) Diabetes mellitus: Ben Rivera MD Jun 23, 2017 18:13
--- NOTE | 2017-06-23 19:16 | RADRPT ---
EXAM DATE/TIME: 06/23/2017 17:29 [facility] COMPARISON: No previous studies available for comparison. INDICATIONS : Pre op AV fistula. MEDICAL HISTORY : Hypercholesterolemia. Hypertension. Congestive heart failure. Blindness. Syncope. Kidney stones. Preg christiana. Chronic kidney disease. Diabetes. SURGICAL HISTORY : Left foot surgery. ENCOUNTER: Initial ACUITY: 1 day PAIN SCORE: 0/10 LOCATION: Bilateral arms. FINDINGS: RIGHT UPPER EXTREMITY: There is spontaneous flow documented in the brachial, basilic,, axillary, and subclavian veins. The vessels are compressible and augmentation response is documented. No filling defects are seen. The flow is phasic with respiration. Direction of flow in the jugular vein is caudal. LEFT UPPER EXTREMITY: There is spontaneous flow documented in the brachial, basilic, cephalic, axillary, and subclavian vei ns. The vessels are compressible and augmentation response is documented. No filling defects are se en. The flow is phasic with respiration. Direction of flow in the jugular vein is caudal. CONCLUSION: 1. No evidence of upper extremity DVT on the right or left. 2. Superficial vein thrombus of the right cephalic vein in the antecubital fossa region. Guevara Frost MD on June 23, 2017 at 19:13 Board Certified Radiologist. This report was verified electronically.
[2017-06-23] MEDS: DOXAZOSIN MESYLATE 4 MG TAB PO SCH (19:52)
[2017-06-23] MEDS: ATORVASTATIN 20 MG TAB PO SCH (19:57)
[2017-06-24 00:40] VITALS: BP 140/68; PULSE 77; RESP 18; TEMP 97.1; O2SAT 94
[2017-06-24 04:00] VITALS: BP 145/70; PULSE 69; RESP 19; TEMP 98.7; O2SAT 95
[2017-06-24] MEDS: LABETALOL HCL 200 MG TAB PO SCH ×3 (05:33→22:01)
[2017-06-24] MEDS: INSULIN ASPART SUPPLEMENTAL SCALE SQ SCH ×4 (07:00→21:00)
--- NOTE | 2017-06-24 07:22 | RADRPT ---
EXAM DATE/TIME: 06/23/2017 17:45 [facility] COMPARISON: No previous studies available for comparison. INDICATIONS : Pre op AV fistula. MEDICAL HISTORY : Hypercholesterolemia. Hypertension. Congestive heart failure. Blindness. Syncope. Kidney stones. Preg christiana. Chronic kidney disease. Diabetes. SURGICAL HISTORY : Left foot surgery. ENCOUNTER: Initial ACUITY: 1 day PAIN SCORE: 0/10 LOCATION: Bilateral arms. CEPHALIC: ORIGIN: Right 4 mm Left 3 mm MID-ARM: Right 4 mm Left 3 mm ELBOW: Right 5 mm Left 4 mm FOREARM: Right Thrombosed Left 3 mm WRIST: Right 3 mm Left 2 mm BASILIC: ORIGIN: Right 4 mm Left 4 mm MID-ARM: Right 5 mm Left 4 mm ELBOW: Right 4 mm Left 4 mm ARTERIES: BRACHIAL: Right 4 mm Left 3 mm ULNAR: Right 3 mm Left 2 mm RADIAL: Right 2 mm Left 2 mm VEINS: RADIAL: Right Non-visualized Left 1 mm ULNAR: Right 1 mm Left 1 mm FINDINGS: Venous mapping study as described. The venous system of the upper extremities are patent by color Doppler imaging. Measurements of the arm veins (in mm) are listed above. CONCLUSION: Venous mapping study as described. Jesus Franks MD on June 24, 2017 at 7:19 Board Certified Radiologist. This report was verified electronically.
[2017-06-24 08:00] VITALS: BP 174/79; PULSE 77; RESP 18; TEMP 98.3; O2SAT 97
[2017-06-24] MEDS: VITAMIN B CMPLX/VITC/FOLIC AC CAP PO SCH (09:00)
[2017-06-24] MEDS: ATROPINE SULFATE 1% OPHT SOLN 5 ML BTL EACH EYE SCH ×2 (09:00→22:08)
[2017-06-24] MEDS: DOXAZOSIN MESYLATE 4 MG TAB PO SCH (09:00)
[2017-06-24] MEDS: SODIUM CHLORIDE 0.9% FLUSH 10 ML FLUSH IVF SCH (09:00)
[2017-06-24] MEDS: prednisoLONE ACETATE 1% OPHT SUSP 5 ML BTL LEFT EYE SCH ×4 (09:00→22:08)
[2017-06-24] MEDS: IRON SUCROSE INJ 200 MG in SODIUM CHLORIDE 0.9% INJ 100 ML IV SCH (09:04)
[2017-06-24] MEDS: BUMETANIDE INJ 1 MG/4 ML VIAL IV PUSH SCH ×2 (09:04→17:13)
[2017-06-24] MEDS: SODIUM CHLORIDE 0.9% FLUSH 10 ML FLUSH IV FLUSH SCH ×2 (09:04→22:05)
[2017-06-24] MEDS: TAMSULOSIN HCL 0.4 MG CAP PO SCH (09:05)
[2017-06-24] MEDS: HEPARIN SODIUM - SQ 10,000 UNITS/ML VIAL SQ SCH ×2 (09:06→22:01)
[2017-06-24] MEDS: CALCITRIOL 0.25 MCG CAP PO SCH (09:06)
[2017-06-24] MEDS: DOCUSATE SODIUM 50 MG/SENNA 8.6 MG TAB PO SCH ×2 (09:06→22:02)
--- NOTE | 2017-06-24 10:33 | HHI.PR ---
Subjective Patient symptoms today Pt seen by Dr. Jarquin on 06/12/17. Called for AUR. Godwin in place draining clear urine. Objective Vital Signs Vital Signs Date Time Temp Pulse Resp B/P Pulse Ox O2 Delivery O2 Flow Rate FiO2 06/24/17 08:00 98.3 77 18 174/79 97 06/24/17 04:00 98.7 69 19 145/70 95 06/24/17 00:40 97.1 77 18 140/68 94 06/23/17 21:45 98.8 83 19 182/80 93 06/23/17 19:00 87 06/23/17 18:30 184/86 06/23/17 16:00 98.4 85 18 194/84 96 06/23/17 12:14 98.2 86 18 194/89 96 Intake & Output 06/24/17 06/24/17 06:59 18:59 Intake Total 100 ml Output Total 500 ml Balance -400 ml Intake Oral 100 ml Output Urine Total 500 ml # Bowel Movements 0 Result Diagram: 06/22/17 0552 06/23/17 0721 Objective Remarks Abd:soft,nt,nd Godwin with clear urine. Medications and IVs Current Medications Medications (Trade) Dose Ordered Sig/Deena Route Start Time Stop Time Status Last Admin (NS Flush) 2 ml UNSCH PRN IV FLUSH 06/08/17 13:00 (NS Flush) 2 ml BID IV FLUSH 06/08/17 21:00 06/24/17 09:04 (Tylenol) 650 mg Q4H PRN PO 06/08/17 13:00 06/20/17 20:47 (Zofran Inj) 4 mg Q6H PRN IVP 06/08/17 13:00 (Narcan Inj) 0.4 mg UNSCH PRN IV 06/08/17 13:00 (Aimee-Colace) 1 tab BID PO 06/08/17 21:00 06/24/17 09:06 (Milk Of Magnesia Liq) 30 ml Q12H PRN PO 06/08/17 13:00 06/22/17 00:52 (Senokot) 17.2 mg Q12H PRN PO 06/08/17 13:00 06/22/17 09:47 (Dulcolax Supp) 10 mg DAILY PRN RECTAL 06/08/17 13:00 (Lactulose Liq) 30 ml DAILY PRN PO 06/08/17 13:00 06/22/17 09:47 (Bumex Inj) 1 mg BID@09,18 IV PUSH 06/08/17 18:00 06/24/17 09:04 (D50w (Vial) Inj) 50 ml UNSCH PRN IV 06/08/17 13:00 (Glucagon Inj) 1 mg UNSCH PRN OTHER 06/08/17 13:00 (Heparin Inj) 5,000 units Q12HR SQ 06/08/17 21:00 06/24/17 09:06 (Lipitor) 20 mg HS PO 06/10/17 21:00 06/23/17 19:57 (Pred Forte 1% Opth Susp) 1 drop QID LEFT EYE 06/10/17 13:00 06/24/17 09:00 (Isopto Atropine 1% Opth Soln) 1 drop BID EACH EYE 06/10/17 21:00 06/24/17 09:00 (Flomax) 0.4 mg DAILY PO 06/12/17 18:00 06/24/17 09:05 (Catapres) 0.1 mg Q6H PRN PO 06/12/17 18:30 06/14/17 21:49 (NS Flush) DAILY IVF 06/14/17 09:00 06/24/17 09:00 (Heparin Central Flush) DAILY IV FLUSH 06/14/17 09:00 06/24/17 09:05 (NS Flush) UNSCH PRN IVF 06/13/17 09:45 Heparin Sodium (Porcine) UNSCH PRN IV FLUSH 06/13/17 09:45 (NS 1000 ml Inj) 1,000 ml @ 0 mls/hr Q0M PRN IV 06/13/17 10:23 06/23/17 11:14 Heparin Sodium (Porcine) 8000 units 8,000 units UNSCH PRN IVF 06/13/17 10:30 Sodium Chloride 1,000 ml @ 200 mls/hr Q5H PRN IV 06/13/17 10:23 (NS 1000 ml Inj) 1,000 ml @ 0 mls/hr Q0M PRN IV 06/13/17 10:23 (Mannitol Inj) 12.5 gm UNSCH PRN IV 06/13/17 10:30 (Albumin 25% Inj) 25 gm UNSCH PRN IV 06/13/17 10:30 (NS Flush) 5 ml UNSCH PRN IV FLUSH 06/13/17 10:30 (Heparin Inj) UNSCH PRN .XX 06/13/17 10:30 06/23/17 10:35 (Gentamicin (Dialysis) Inj) 20 mg UNSCH PRN IV 06/13/17 10:30 06/23/17 10:35 (Zofran Inj) 4 mg UNSCH PRN IV 06/13/17 10:30 (Tylenol) 650 mg UNSCH PRN PO 06/13/17 10:30 (Benadryl) 25 mg UNSCH PRN PO 06/13/17 10:30 (Nitrostat Sl) 0.4 mg UNSCH PRN SL 06/13/17 10:30 (Catapres) 0.1 mg UNSCH PRN PO 06/13/17 10:30 06/23/17 15:19 (Epogen Inj) 10,000 units UNSCH PRN IV 06/13/17 10:30 06/23/17 10:35 (Gelfoam 12 Mm/7 Mm Top) 1 foam UNSCH PRN TOP 06/13/17 10:30 Miscellaneous Information Patient in critical care unit? Ass... Q361D .XX 06/13/17 11:00 (Nephrocaps) 1 cap DAILY PO 06/13/17 18:30 06/24/17 09:00 (Apresoline Inj) 10 mg Q30M PRN IV PUSH 06/20/17 01:15 06/22/17 00:53 (NS Flush) UNSCH PRN IVF 06/20/17 16:30 (Heparin Inj) UNSCH PRN IV FLUSH 06/20/17 16:30 (Trandate) 200 mg Q8H PO 06/23/17 13:00 06/24/17 05:33 Calcitriol 0.25 mcg 0.25 mcg DAILY PO 06/23/17 12:00 06/24/17 09:06 (Venofer Inj/NS Inj) 110 ml @ 110 mls/hr DAILY IV 06/23/17 14:00 06/25/17 09:59 06/24/17 09:04 (Cardura) 4 mg DAILY PO 06/23/17 18:15 8/13/17 09:00 Assessment and Plan Assessment and Plan 57 y.o female with CHF, CRF with AUR. Recommend: OOB and ambulation Rx constipation Hold Benadryl Void trial after pt is OOB and ambulating more and stools become softer Berto Reynoso DO Jun 24, 2017 10:33
--- NOTE | 2017-06-24 11:03 | HHI.NPPN ---
Subjective History of Present Illness 57-year-old female with past medical history of hypertension, diabetes mellitus, chronic kidney disease, ischemic heart disease, congestive heart failure, came to the hospital with complaint of worsening shortness of breath. I was called to see the patient because of elevated BUN and creatinine patient has creatinine of 4.3 on admission and she had reviously creatinine of 3.6 last month the patient has known history of chronic kidney disease and she has been following by her counselor aid in [place] and according to daughter she was told that she will need dialysis and also she was told that she possibly will need kidney biopsy. Additional Remarks Patient is alert, breathing is better, not in distress. Review of Systems General Constitutional: Fatigue Cardiovascular Cardiac: Edema, ISSA Objective Data Data 06/23/17 06/24/17 19:00 07:00 Intake Total 480 ml 100 ml Output Total 2350 ml 500 ml Balance -1870 ml -400 ml Intake Oral 480 ml 100 ml Output Urine Total 350 ml 500 ml Hemodialysis 2000 ml # Bowel Movements 2 0 Vital Signs Date Time Temp Pulse Resp B/P Pulse Ox O2 Delivery O2 Flow Rate FiO2 06/24/17 08:00 98.3 77 18 174/79 97 06/24/17 04:00 98.7 69 19 145/70 95 06/24/17 00:40 97.1 77 18 140/68 94 06/23/17 21:45 98.8 83 19 182/80 93 06/23/17 19:00 87 06/23/17 18:30 184/86 06/23/17 16:00 98.4 85 18 194/84 96 06/23/17 12:14 98.2 86 18 194/89 96 -: 06/22/17 0552 06/23/17 0721 Physical Exam General Appearance: No Acute Distress, Comfortable Pulmonary Resp Exam: Breath Sounds Equal Cardiology CV Exam: Regular Gastrointestinal/Abdomen GI Exam: Soft, Non-Tender, Bowel Sounds Present Extremeties Extremities Exam: Dependent Edema Neurologic Neuro Exam: Alert, Awake, Oriented Psychiatric Psych Exam: Appropriate Responses Assessment/Plan Problem List: (1) [id number] kidney injury (2) CHF exacerbation Plan: Bumex (3) Diabetes mellitus Plan Dialysis started on 06/13, Patient most likely has End stage renal disease. Has PermCath. Thoracentesis done and 1 liter removed on 06/20. Patient tolerated well. D/W the daughter, she want her HD to set up in [place]. I called Dr. Davis , and left message on his cell phone and answering service on 06/22. Replace iron IV as sat. was low. Calcium low, add Rocaltrol, Po4 was normal. Will need AVF, vascular was consulted. HD to continue on schedule. Out patient HD arrangement. Problem Qualifiers (1) Diabetes mellitus: José Howell MD Jun 24, 2017 11:03
--- NOTE | 2017-06-24 11:47 | PD.CAR.PN ---
CVT Progress Note Subjective/Hospital Course: Patient seen and evaluated Venous ultrasound and mapping reveals fairly small veins and clearly the wrist AV fistula would be inappropriate however using basilic vein in the upper arm may be an option I won't know this until the actual surgery and exploration the vessels Patient scheduled for AV fistula on Sunday Objective: Vital Signs Date Time Temp Pulse Resp B/P Pulse Ox O2 Delivery O2 Flow Rate FiO2 06/24/17 08:00 98.3 77 18 174/79 97 06/24/17 04:00 98.7 69 19 145/70 95 06/24/17 00:40 97.1 77 18 140/68 94 06/23/17 21:45 98.8 83 19 182/80 93 06/23/17 19:00 87 06/23/17 18:30 184/86 06/23/17 16:00 98.4 85 18 194/84 96 06/23/17 12:14 98.2 86 18 194/89 96 Result Diagram: 06/22/17 0552 06/23/17 0721 Olga Lidia Armstrong MD Jun 24, 2017 11:47
[2017-06-24 12:00] VITALS: BP 152/69; PULSE 83; RESP 18; TEMP 97.9; O2SAT 96
--- NOTE | 2017-06-24 13:38 | MB ---
cc: MD RAFIA,OLGA LIDIA DATE OF CONSULTATION: 06/24/2017. REASON FOR CONSULTATION: Permanent access for dialysis. HISTORY OF PRESENT ILLNESS: This is a 58-year-old female with chronic renal failure and history of hypertension, diabetes mellitus, and coronary ischemia presented to the hospital with worsening shortness of breath. In the process of evaluation, she was found to have rising creatinine and BUN. She was followed by another international logistics coordinator on an outpatient basis and told already that she will need dialysis in the future. The patient has now been worked up for her initial problem of shortness of breath and congestive heart failure. The question arises now as to whether we should go ahead with permanent access for dialysis to preempt issues and have a ready fistula when needed. PAST MEDICAL HISTORY: 1. Congestive heart failure. 2. Diabetes mellitus. 3. Hypertension. 4. Coronary artery disease. 5. Progressive renal insufficiency. SOCIAL HISTORY: The patient does not smoke or drink. MEDICATIONS: Medications can be found on the record. PHYSICAL EXAMINATION: GENERAL: The physical examination reveals a 58-year-old female in no acute distress. The patient does not speak any Persian and discussion is carried out through her family. HEAD, EYES, EARS, NOSE, THROAT: Pupils equal and reactive. Extraocular muscles intact. NECK: The neck is supple. Bilateral carotid pulses. CHEST: Bilateral breath sounds. HEART: Regular rhythm. ABDOMEN: Soft. Slightly obese. Active bowel sounds. No rebound. No guarding. No masses. EXTREMITIES: The patient has palpable femoral, popliteal, dorsalis pedis and posterior tibial pulses. She has palpable brachial, radial and ulnar pulses. She has a significant degree of atrophy of the musculature in both arms. I reviewed the venous ultrasound performed. She has fairly small veins but until I see them, I will not know if these are suitable for an AV fistula or not. Clearly, an AV fistula cannot be performed at the wrist level because those veins are tiny; however, the basilic and cephalic veins higher up may be a little bigger, and with some dilatation, we may be able to use the basilic vein for the same. The patient will be scheduled for surgery on Sunday. Thank you very much for the referral. Olga Lidia LUO/JOSE ANTONIO /11:43 AM /1:29 PM
--- NOTE | 2017-06-24 14:24 | HHI.PR ---
Subjective Remarks bp better controlled denies cp/sob denies fevers/chills no diarrhea Objective Vitals Vital Signs Date Time Temp Pulse Resp B/P Pulse Ox O2 Delivery O2 Flow Rate FiO2 06/24/17 12:00 97.9 83 18 152/69 96 06/24/17 08:00 98.3 77 18 174/79 97 06/24/17 04:00 98.7 69 19 145/70 95 06/24/17 00:40 97.1 77 18 140/68 94 06/23/17 21:45 98.8 83 19 182/80 93 06/23/17 19:00 87 06/23/17 18:30 184/86 06/23/17 16:00 98.4 85 18 194/84 96 I/O 06/23/17 06/23/17 06/23/17 06/24/17 06/24/17 06/24/17 06:59 14:59 22:59 06:59 14:59 22:59 Intake Total 480 ml 0 ml 100 ml 840 ml Output Total 2350 ml 300 ml 200 ml Balance -1870 ml -300 ml -100 ml 840 ml Intake Oral 480 ml 0 ml 100 ml 840 ml Output Urine Total 350 ml 300 ml 200 ml Hemodialysis 2000 ml # Bowel Movements 2 0 0 1 Result Diagram: 06/22/17 0552 06/23/17 0721 Imaging Last Impressions Upper Extremity Ultrasound 06/23/17 0000 Signed Impressions: Service Date/Time: Friday, June 23, 2017 17:29 - CONCLUSION: 1. No evidence of upper extremity DVT on the right or left. 2. Superficial vein thrombus of the right cephalic vein in the antecubital fossa region. Guevara Frost MD Thoracentesis Ultrasound 06/20/17 0000 Signed Impressions: Service Date/Time: Tuesday, June 20, 2017 11:07 - CONCLUSION: Uncomplicated ultrasound guided thoracentesis. Dangelo Merida MD FACR Chest X-Ray 06/20/17 0000 Signed Impressions: Service Date/Time: Tuesday, June 20, 2017 12:07 - CONCLUSION: 1. Status post thoracentesis with near total evacuation of left pleural effusion. 2. No evidence of pneumothorax. 3. Right basilar airspace disease Fercho Guaman MD Catheter Placement X-Ray 06/20/17 0000 Signed Impressions: Service Date/Time: Tuesday, June 20, 2017 15:18 - CONCLUSION: Successful conversion of the right IJ Vas-Cath to a PermCath catheter as above. Dean Shields MD Renal Ultrasound 06/08/17 0000 Signed Impressions: Service Date/Time: Thursday, June 08, 2017 14:10 - CONCLUSION: Echogenic but normal-size kidneys Bilateral pleural effusions. Dangelo Merida MD FACR Objective Remarks AAOX3 S1S2 (+) RRR, no MRG Clear lungs BL abdomen soft, non tender, non distended no edema in lwer extremities. Procedures 06/13/17 Vas-Cath placement Medications and IVs Current Medications Medications (Trade) Dose Ordered Sig/Deena Route Start Time Stop Time Status Last Admin (NS Flush) 2 ml UNSCH PRN IV FLUSH 06/08/17 13:00 (NS Flush) 2 ml BID IV FLUSH 06/08/17 21:00 06/24/17 09:04 (Tylenol) 650 mg Q4H PRN PO 06/08/17 13:00 06/20/17 20:47 (Zofran Inj) 4 mg Q6H PRN IVP 06/08/17 13:00 (Narcan Inj) 0.4 mg UNSCH PRN IV 06/08/17 13:00 (Aimee-Colace) 1 tab BID PO 06/08/17 21:00 06/24/17 09:06 (Milk Of Magnesia Liq) 30 ml Q12H PRN PO 06/08/17 13:00 06/22/17 00:52 (Senokot) 17.2 mg Q12H PRN PO 06/08/17 13:00 06/22/17 09:47 (Dulcolax Supp) 10 mg DAILY PRN RECTAL 06/08/17 13:00 (Lactulose Liq) 30 ml DAILY PRN PO 06/08/17 13:00 06/22/17 09:47 (Bumex Inj) 1 mg BID@09,18 IV PUSH 06/08/17 18:00 06/24/17 09:04 (D50w (Vial) Inj) 50 ml UNSCH PRN IV 06/08/17 13:00 (Glucagon Inj) 1 mg UNSCH PRN OTHER 06/08/17 13:00 (Heparin Inj) 5,000 units Q12HR SQ 06/08/17 21:00 06/24/17 09:06 (Lipitor) 20 mg HS PO 06/10/17 21:00 06/23/17 19:57 (Pred Forte 1% Opth Susp) 1 drop QID LEFT EYE 06/10/17 13:00 06/24/17 12:36 (Isopto Atropine 1% Opth Soln) 1 drop BID EACH EYE 06/10/17 21:00 06/24/17 09:00 (Flomax) 0.4 mg DAILY PO 06/12/17 18:00 06/24/17 09:05 (Catapres) 0.1 mg Q6H PRN PO 06/12/17 18:30 06/14/17 21:49 (NS Flush) DAILY IVF 06/14/17 09:00 06/24/17 09:00 (Heparin Central Flush) DAILY IV FLUSH 06/14/17 09:00 06/24/17 09:05 (NS Flush) UNSCH PRN IVF 06/13/17 09:45 Heparin Sodium (Porcine) UNSCH PRN IV FLUSH 06/13/17 09:45 (NS 1000 ml Inj) 1,000 ml @ 0 mls/hr Q0M PRN IV 06/13/17 10:23 06/23/17 11:14 Heparin Sodium (Porcine) 8000 units 8,000 units UNSCH PRN IVF 06/13/17 10:30 Sodium Chloride 1,000 ml @ 200 mls/hr Q5H PRN IV 06/13/17 10:23 (NS 1000 ml Inj) 1,000 ml @ 0 mls/hr Q0M PRN IV 06/13/17 10:23 (Mannitol Inj) 12.5 gm UNSCH PRN IV 06/13/17 10:30 (Albumin 25% Inj) 25 gm UNSCH PRN IV 06/13/17 10:30 (NS Flush) 5 ml UNSCH PRN IV FLUSH 06/13/17 10:30 (Heparin Inj) UNSCH PRN .XX 06/13/17 10:30 06/23/17 10:35 (Gentamicin (Dialysis) Inj) 20 mg UNSCH PRN IV 06/13/17 10:30 06/23/17 10:35 (Zofran Inj) 4 mg UNSCH PRN IV 06/13/17 10:30 (Tylenol) 650 mg UNSCH PRN PO 06/13/17 10:30 (Nitrostat Sl) 0.4 mg UNSCH PRN SL 06/13/17 10:30 (Catapres) 0.1 mg UNSCH PRN PO 06/13/17 10:30 06/23/17 15:19 (Epogen Inj) 10,000 units UNSCH PRN IV 06/13/17 10:30 06/23/17 10:35 (Gelfoam 12 Mm/7 Mm Top) 1 foam UNSCH PRN TOP 06/13/17 10:30 Miscellaneous Information Patient in critical care unit? Ass... Q361D .XX 06/13/17 11:00 (Nephrocaps) 1 cap DAILY PO 06/13/17 18:30 06/24/17 09:00 (Apresoline Inj) 10 mg Q30M PRN IV PUSH 06/20/17 01:15 06/22/17 00:53 (NS Flush) UNSCH PRN IVF 06/20/17 16:30 (Heparin Inj) UNSCH PRN IV FLUSH 06/20/17 16:30 (Trandate) 200 mg Q8H PO 06/23/17 13:00 06/24/17 12:36 Calcitriol 0.25 mcg 0.25 mcg DAILY PO 06/23/17 12:00 06/24/17 09:06 (Venofer Inj/NS Inj) 110 ml @ 110 mls/hr DAILY IV 06/23/17 14:00 06/25/17 09:59 06/24/17 09:04 (Cardura) 4 mg DAILY PO 06/23/17 18:15 06/24/17 09:00 Urinary Catheter: Yes Assessment to: Continue Godwin insert reason: Obstruction/Retention Vascular Central Line Catheter: No Side: Right Location: Internal A/P Problem List: (1) Acute renal failure ICD Code: N17.9 Status: Acute (2) Diabetes mellitus ICD Code: E11.9 Status: Chronic (3) Hyperlipidemia ICD Code: E78.5 Status: Chronic (4) Hypertension ICD Code: I10 Status: Chronic (5) Fluid overload ICD Code: E87.70 Status: Resolved Assessment and Plan ESRD on HD Likely due to uncontrolled diabetes, and now has become chronic per nephrology. Will most likely need permanent dialysis. -06/23 patient had a PermCath placed. 06/24 Evaluated by Vascular surgery for AVF placement. Right pleural effusion/hypoxemia - resolved Due to R pleural effusion sp Thoracentesis US. 2-D echo is unremarkable with EF 55-60%. Pulmonology was consulted, likely due to fluid overload. S/p right and left thoracenteses. Walk test done, the pt will not need home oxygen. - follow up with pulmonology. - oxygen, nebs, IS as needed. - encourage ambulation. Hypertension Difficult to control secondary to renal failure. - clonidine as needed. 06/23 patient with severely uncontrolled blood pressure with systolic blood pressure into the high 90s. I will increase labetalol to 200 mg by mouth every 8 hours. I will also start the patient on doxazosin 4 mg by mouth daily. Diabetes mellitus Glucose very well controlled. - Monitor Accu-Cheks and cover with sliding scale insulin. - check an A1c. Urinary retention The pt required Godwin reinsertion 06/22. Apparently urology never saw the pt, even though they were consulted on 06/12. - continue Flomax. - continue Godwin. - Urology reconsulted. Anemia Normal MCV anemia. Likely secondary to chronic disease. Iron studies show low iron, low percent saturation and normal ferritin. Patient is being administered IV iron as per nephrology recommendations. Continue continue to monitor CBC. Diarrhea Patient complains of abdominal pain and diarrhea. I will check a stool for C. difficile PCR and place on contact isolation until stool C. difficile is ruled out. 06/24 Diarrhea is resolved. No further diarrhea or abdominal pain. PPx: Heparin Discharge Planning Continue to monitor in the medical floor. DC pending AVF placement, CV surgery and nephrology clearance. Problem Qualifiers (1) Diabetes mellitus: Ben Rivera MD Jun 24, 2017 14:24
[2017-06-24 16:00] VITALS: BP 184/84; PULSE 74; RESP 18; TEMP 98.2; O2SAT 94
[2017-06-24] MEDS: cloNIDine HCL 0.1 MG TAB PO PRN (17:13)
[2017-06-24 21:00] VITALS: BP 190/89; PULSE 73; RESP 19; TEMP 97.7; O2SAT 98
[2017-06-24] MEDS: ATORVASTATIN 20 MG TAB PO SCH (22:01)
[2017-06-25] VITALS (15 sets, daily range): BP systolic 165–208; BP diastolic 78–97; PULSE 18–80; RESP 14–20; TEMP 97–98.6; O2SAT 93–97
[2017-06-25] MEDS: cloNIDine HCL 0.1 MG TAB PO PRN ×2 (01:41→11:37)
[2017-06-25] MEDS: INSULIN ASPART SUPPLEMENTAL SCALE SQ SCH ×4 (06:05→21:00)
[2017-06-25] MEDS: LABETALOL HCL 200 MG TAB PO SCH ×3 (06:05→22:27)
--- NOTE | 2017-06-25 07:59 | RADRPT ---
EXAM DATE/TIME: 06/13/2017 08:42 [facility] COMPARISON: No previous studies available for comparison. INDICATIONS : Patient is in need of placement of a temporary dialysis catheter due to CKD. MEDICAL HISTORY : History of lupus, DM, HTN, HLD, CHF, ischemic heart disease, eye blindness. SURGICAL HISTORY : History of left foot surgery, eye surgery. ENCOUNTER: Initial ACUITY: 1 day PAIN SCORE: 0/10 FLUORO TIME: 0.2 minutes IMAGE SERIES: 0 ACCESS: Right internal jugular vein MEDICATION(S): 1.) 2200 units Heparin catheter lock DEVICE(S): 1.) 14 Maltese dual lumen 15 cm Schon catheter PROCEDURE : 1. Ultrasound guided venipuncture. 2. Fluoroscopic guidance. 3. Central line placement. The risks, benefits and alternatives to the procedure were explained and verbal and written consent w as obtained. The site was prepped in sterile fashion. Full sterile technique was used, including ca p, mask, sterile gloves and gown and a large sterile sheet. Hand hygiene and 2% chlorhexidine prep w as utilized per protocol for cutaneous antisepsis with appropriate dry time for site. The skin and subcutaneous tissues were infiltrated with local anesthetic solution. A suitable site a leanna the vein was selected with ultrasound and fluoroscopic guidance. A small incision was made. Th e vein was accessed under direct ultrasound visualization using the micropuncture technique. The zoe ropuncture set was exchanged for a 0.035 wire. The tract was dilated. The catheter was advanced int o position under direct fluoroscopic visualization. The catheter was fixed in place with suture and a sterile dressing was applied. The patient tolerated the procedure well and there were no complications. CONCLUSION: Uncomplicated line placement as above. Azam Cruz MD on June 25, 2017 at 7:57 Board Certified Radiologist. This report was verified electronically.
--- NOTE | 2017-06-25 09:25 | HHI.PR ---
Subjective Remarks No new complaints Monitor blood pressure am labs Physical therapy and occupational therapy Objective Vitals Vital Signs Date Time Temp Pulse Resp B/P Pulse Ox O2 Delivery O2 Flow Rate FiO2 06/25/17 08:51 97 21 06/25/17 08:15 98.3 79 20 195/88 93 06/25/17 05:00 97.0 68 20 170/90 96 06/25/17 01:56 74 06/25/17 01:45 179/78 06/25/17 00:31 94 06/25/17 00:00 97.9 75 19 189/91 95 06/24/17 21:00 97.7 73 19 190/89 98 06/24/17 16:00 98.2 74 18 184/84 94 06/24/17 15:07 21 06/24/17 12:00 97.9 83 18 152/69 96 I/O 06/24/17 06/24/17 06/24/17 06/25/17 06/25/17 06/25/17 07:00 15:00 23:00 07:00 15:00 23:00 Intake Total 100 ml 840 ml 100 ml 690 ml Output Total 200 ml 500 ml 600 ml Balance -100 ml 840 ml -400 ml 90 ml Intake Oral 100 ml 840 ml 100 ml 690 ml Output Urine Total 200 ml 500 ml 600 ml # Bowel Movements 0 1 0 0 Result Diagram: 06/22/17 0552 06/23/17 0721 Other Results Laboratory Tests Test 06/23/17 07:21 Sodium Level 140 MEQ/L Potassium Level 3.5 MEQ/L Chloride Level 101 MEQ/L Carbon Dioxide Level 29.5 MEQ/L Anion Gap 10 MEQ/L Blood Urea Nitrogen 18 MG/DL Creatinine 3.88 MG/DL Estimat Glomerular Filtration 12 ML/MIN Rate Random Glucose 104 MG/DL Calcium Level 8.2 MG/DL Magnesium Level 2.4 MG/DL Imaging Last Impressions Upper Extremity Ultrasound 06/23/17 0000 Signed Impressions: Service Date/Time: Friday, June 23, 2017 17:29 - CONCLUSION: 1. No evidence of upper extremity DVT on the right or left. 2. Superficial vein thrombus of the right cephalic vein in the antecubital fossa region. Guevara Frost MD Thoracentesis Ultrasound 06/20/17 0000 Signed Impressions: Service Date/Time: Tuesday, June 20, 2017 11:07 - CONCLUSION: Uncomplicated ultrasound guided thoracentesis. Dangelo Merida MD FACR Chest X-Ray 06/20/17 0000 Signed Impressions: Service Date/Time: Tuesday, June 20, 2017 12:07 - CONCLUSION: 1. Status post thoracentesis with near total evacuation of left pleural effusion. 2. No evidence of pneumothorax. 3. Right basilar airspace disease Fercho Guaman MD Catheter Placement X-Ray 06/20/17 0000 Signed Impressions: Service Date/Time: Tuesday, June 20, 2017 15:18 - CONCLUSION: Successful conversion of the right IJ Vas-Cath to a PermCath catheter as above. Dean Shields MD Renal Ultrasound 06/08/17 0000 Signed Impressions: Service Date/Time: Thursday, June 08, 2017 14:10 - CONCLUSION: Echogenic but normal-size kidneys Bilateral pleural effusions. Dangelo Merida MD FACR Objective Remarks GENERAL: Awake alert SKIN: Warm and dry. HEAD: Atraumatic. Normocephalic. EYES: Pupils equal and round. No scleral icterus. No injection or drainage. ENT: No nasal bleeding or discharge. Mucous membranes pink and moist. Tongue is midline NECK: Trachea midline. No JVD. CARDIOVASCULAR: Regular rate and rhythm. S1-S2 no S3 or S4 no heave or thrill or rub or gallop RESPIRATORY: No accessory muscle use. Clear to auscultation. Breath sounds equal bilaterally. GASTROINTESTINAL: Abdomen soft, non-tender, nondistended. Hepatic and splenic margins not palpable. Obese MUSCULOSKELETAL: Extremities without clubbing, cyanosis, or edema. No obvious deformities. NEUROLOGICAL: Awake and alert. No obvious cranial nerve deficits. Motor grossly within normal limits. Five out of 5 muscle strength in the arms and legs. Normal speech. Visually impaired PSYCHIATRIC: Appropriate mood and affect; insight and judgment normal. Procedures 06/13/17 Vas-Cath placement Medications and IVs Current Medications Sodium Chloride (NS Flush) 2 ml UNSCH PRN IVF FLUSH AFTER USING IV ACCESS Last administered on 06/08/17 10:56; Start 06/08/17 at 10:30; Stop 06/08/17 at 13:16 ; Status DC Furosemide (Lasix Inj) 40 mg ONCE ONCE IVP Last administered on 06/08/17 10: 56; Start 06/08/17 at 10:30; Stop 06/08/17 at 10:31; Status DC Sodium Chloride (NS Flush) 2 ml UNSCH PRN IV FLUSH FLUSH AFTER USING IV ACCESS ; Start 06/08/17 at 13:00 Sodium Chloride (NS Flush) 2 ml BID IV FLUSH Last administered on 06/24/17 22: 05; Start 06/08/17 at 21:00 Acetaminophen (Tylenol) 650 mg Q4H PRN PO TEMP > 100.4 Last administered on 06/20 20:47; Start 06/08/17 at 13:00 Ondansetron HCl (Zofran Inj) 4 mg Q6H PRN IVP NAUSEA OR VOMITING; Start at 13:00 Naloxone HCl (Narcan Inj) 0.4 mg UNSCH PRN IV SEE LABEL COMMENTS; Start at 13:00 Senna/Docusate Sodium (Aimee-Colace) 1 tab BID PO Last administered on 22:02; Start 06/08/17 at 21:00 Magnesium Hydroxide (Milk Of Magnesia Liq) 30 ml Q12H PRN PO MILD - MODERATE CONSTIPATION Last administered on 06/22/17 00:52; Start 06/08/17 at 13:00 Sennosides (Senokot) 17.2 mg Q12H PRN PO MODERATE - SEVERE CONSTIPATION Last administered on 06/22/17 09:47; Start 06/08/17 at 13:00 Bisacodyl (Dulcolax Supp) 10 mg DAILY PRN RECTAL SEVERE CONSITIPATION; Start at 13:00 Lactulose (Lactulose Liq) 30 ml DAILY PRN PO SEVERE CONSITIPATION Last administered on 06/22/17 09:47; Start 06/08/17 at 13:00 Bumetanide (Bumex Inj) 1 mg BID@,18 IV PUSH Last administered on 06/24/17 17 :13; Start 06/08/17 at 18:00 Dextrose (D50w (Vial) Inj) 50 ml UNSCH PRN IV HYPOGLYCEMIA-SEE COMMENTS; Start 06/08/17 at 13:00 Glucagon (Glucagon Inj) 1 mg UNSCH PRN OTHER HYPOGLYCEMIA-SEE COMMENTS; Start 06/08/17 at 13:00 Insulin Aspart (NovoLOG SUPPLEMENTAL SCALE) 1 ACHS SLIDING SCALE SQ Last administered on 06/17/17 21:22; Start 06/08/17 at 16:00 Heparin Sodium (Porcine) (Heparin Inj) 5,000 units Q12HR SQ Last administered on 06/24/17 22:01; Start 06/08/17 at 21:00 Labetalol HCl (Trandate) 100 mg Q12HR PO Last administered on 06/13/17 07:49; Start 06/08/17 at 21:00; Stop 06/13/17 at 18:27; Status DC Pneumococcal Polyvalent Vaccine 25 mcg 25 mcg ONCE ONCE IM ; Start 06/09/17 at 10:00; Stop 06/09/17 at 10:01; Status DC Ceftriaxone Sodium/Sodium Chloride (Rocephin Inj/NS Inj) 100 ml @ 200 mls/hr Q24H IV Last administered on 06/21/17 12:39; Start 06/10/17 at 10:00; Stop 08/28 at 16:20; Status DC Amlodipine Besylate (Norvasc) 5 mg DAILY PO ; Start 06/10/17 at 10:00; Stop at 10:00; Status DC Atorvastatin Calcium (Lipitor) 20 mg HS PO Last administered on 06/24/17 22:01 ; Start 06/10/17 at 21:00 Atropine Sulfate (Atropine 1% Opth Soln) 1 drop BID EACH EYE ; Start 06/10/17 at 10:00; Status Cancel Metoprolol Tartrate (Lopressor) 25 mg BID PO ; Start 06/10/17 at 09:30; Stop at 09:33; Status DC Prednisolone Acetate (Pred Forte 1% Opth Susp) 1 drop QID LEFT EYE Last administered on 06/24/17 22:08; Start 06/10/17 at 13:00 Sodium Bicarbonate (Sodium Bicarbonate) 650 mg BIDPC PO Last administered on 16:41; Start 06/10/17 at 18:00; Stop 06/18/17 at 18:18; Status DC Atropine Sulfate (Isopto Atropine 1% Opth Soln) 1 drop BID EACH EYE Last administered on 06/24/17 22:08; Start 06/10/17 at 21:00 Albuterol/ Ipratropium (Duoneb Neb) 1 ampule QID NEB NEB Last administered on 06/16/17 11:21; Start 06/12/17 at 12:00; Stop 06/16/17 at 12:00; Status DC Albuterol Sulfate (Albuterol Neb) 2.5 mg Q2HR NEB PRN NEB DYSPNEA; Start at 09:15 Tamsulosin HCl (Flomax) 0.4 mg DAILY PO Last administered on 06/24/17 09:05; Start 06/12/17 at 18:00 Clonidine 0.1 mg 0.1 mg Q6H PRN PO SYS BP GREATER THAN 160 MMHG Last administered on 06/25/17 01:41; Start 06/12/17 at 18:30 Heparin Sodium/ Sodium Chloride (Heparin-NS/Pf Inj) 500 ml @ As Directed STK- MED ONCE .ROUTE ; Start 06/13/17 at 08:40; Stop 06/13/17 at 08:41; Status DC Heparin Sodium (Porcine) (*HEPARIN INJ Periprocedural ONLY) 10,000 units STK- MED ONCE .ROUTE ; Start 06/13/17 at 08:41; Stop 06/13/17 at 08:42; Status DC Sodium Chloride (NS Flush) DAILY IVF Last administered on 06/24/17 09:00; Start 06/14/17 at 09:00 Heparin Sodium (Porcine) (Heparin Central Flush) DAILY IV FLUSH Last administered on 06/24/17 09:05; Start 06/14/17 at 09:00 Sodium Chloride (NS Flush) UNSCH PRN IVF SEE PROTOCOL; Start 06/13/17 at 09:45 Heparin Sodium (Porcine) UNSCH PRN IV FLUSH SEE PROTOCOL; Start 06/13/17 at 09: 45 Sodium Chloride (NS 1000 ml Inj) 1,000 ml @ 0 mls/hr Q0M PRN IV For Prime & Rinse Back Last administered on 06/23/17 11:14; Start 06/13/17 at 10:23 Heparin Sodium (Porcine) 8000 units 8,000 units UNSCH PRN IVF WITH DIALYSIS; Start 06/13/17 at 10:30 Sodium Chloride 1,000 ml @ 200 mls/hr Q5H PRN IV WITH DIALYSIS; Start 06/13/17 at 10:23 Sodium Chloride (NS 1000 ml Inj) 1,000 ml @ 0 mls/hr Q0M PRN IV WITH DIALYSIS; Start 06/13/17 at 10:23 Mannitol (Mannitol Inj) 12.5 gm UNSCH PRN IV WITH DIALYSIS; Start 06/13/17 at 10 :30 Albumin Human (Albumin 25% Inj) 25 gm UNSCH PRN IV WITH DIALYSIS; Start at 10:30 Sodium Chloride (NS Flush) 5 ml UNSCH PRN IV FLUSH WITH DIALYSIS; Start at 10:30 Heparin Sodium (Porcine) (Heparin Inj) UNSCH PRN .XX WITH DIALYSIS Last administered on 06/23/17 10:35; Start 06/13/17 at 10:30 Gentamicin Sulfate (Gentamicin (Dialysis) Inj) 20 mg UNSCH PRN IV WITH DIALYSIS Last administered on 06/23/17 10:35; Start 06/13/17 at 10:30 Ondansetron HCl (Zofran Inj) 4 mg UNSCH PRN IV WITH DIALYSIS; Start 06/13/17 at 10:30 Acetaminophen (Tylenol) 650 mg UNSCH PRN PO for headach, pain, temp > 101F; Start 06/13/17 at 10:30 Diphenhydramine HCl (Benadryl) 25 mg UNSCH PRN PO for hives/itching/anaphylaxis ; Start 06/13/17 at 10:30; Stop 06/24/17 at 10:32; Status DC Nitroglycerin (Nitrostat Sl) 0.4 mg UNSCH PRN SL CHEST PAIN; Start 06/13/17 at 10:30 Clonidine (Catapres) 0.1 mg UNSCH PRN PO for BP > 180/100 X 2 readings Last administered on 06/24/17 17:13; Start 06/13/17 at 10:30 Epoetin Jose Angel (Epogen Inj) 10,000 units UNSCH PRN IV WITH DIALYSIS Last administered on 06/23/17 10:35; Start 06/13/17 at 10:30 Gelatin (Gelfoam 12 Mm/7 Mm Top) 1 foam UNSCH PRN TOP SEE LABEL COMMENTS; Start 06/13/17 at 10:30 Miscellaneous Information Patient in critical care unit? Ass... [id number] .XX ; Start 06/13/17 at 11:00 Chlorhexidine Gluconate (Chlorhexidine 2% Cloth) 3 pack DAILY@04 TOPICAL Last administered on 06/17/17 22:47; Start 06/14/17 at 04:00; Stop 06/18/17 at 04:01; Status DC Chlorhexidine Gluconate (Chlorhexidine 2% Cloth) 3 pack UNSCH PRN TOPICAL HYGIENIC CARE; Start 06/13/17 at 11:00; Stop 06/18/17 at 10:47; Status DC Hydralazine HCl (Apresoline Inj) 10 mg NOW ONCE IV PUSH Last administered on 17:24; Start 06/13/17 at 17:30; Stop 06/13/17 at 17:31; Status DC Labetalol HCl (Trandate) 200 mg Q12HR PO Last administered on 06/22/17 19:55; Start 06/13/17 at 21:00; Stop 06/23/17 at 07:43; Status DC Vitamin B Complex/ Vit C/Folic Acid (Nephrocaps) 1 cap DAILY PO Last administered on 06/24/17 09:00; Start 06/13/17 at 18:30 Lidocaine HCl (Xylocaine 1% Inj) 9 ml STK-MED ONCE SQ Last administered on 09:35; Start 06/19/17 at 09:35; Stop 06/19/17 at 10:02; Status DC Hydralazine HCl (Apresoline Inj) 10 mg Q30M PRN IV PUSH bp>140/90 Last administered on 06/22/17 00:53; Start 06/20/17 at 01:15 Lidocaine HCl 10 ml 10 ml STK-MED ONCE SQ Last administered on 06/20/17 12:25; Start 06/20/17 at 12:25; Stop 06/20/17 at 12:26; Status DC Vancomycin HCl 1000 mg/Sodium Chloride 250 ml @ 250 mls/hr COMPUTER DESIGNER IV Last administered on 06/20/17 13:49; Start 06/20/17 at 13:15; Stop 06/24/17 at 13:14; Status DC Cefazolin Sodium/ Dextrose (Ancef 2 Gm Premix) 50 ml @ 100 mls/hr COMPUTER DESIGNER IV Last administered on 06/20/17 15:32; Start 06/20/17 at 13:15; Stop 06/24/17 at 13 :14; Status DC Midazolam HCl (Versed Inj) 4 mg STK-MED ONCE .ROUTE Last administered on 15:15; Start 06/20/17 at 15:15; Stop 06/20/17 at 15:16; Status DC Fentanyl Citrate (fentaNYL INJ) 250 mcg STK-MED ONCE .ROUTE Last administered on 06/20/17 15:15; Start 06/20/17 at 15:15; Stop 06/20/17 at 15:16; Status DC Heparin Sodium (Porcine) (*HEPARIN INJ Periprocedural ONLY) 10,000 units STK- MED ONCE .ROUTE Last administered on 06/20/17 15:38; Start 06/20/17 at 15:38; Stop 06/20/17 at 15:39; Status DC Lidocaine/ Epinephrine (Xylocaine-Epi 1%-1:100,000 Inj) 20 ml STK-MED ONCE .ROUTE Last administered on 06/20/17 15:38; Start 06/20/17 at 15:38; Stop at 15:39; Status DC Sodium Chloride (NS Flush) UNSCH PRN IVF SEE PROTOCOL; Start 06/20/17 at 16:30 Heparin Sodium (Porcine) (Heparin Inj) UNSCH PRN IV FLUSH SEE PROTOCOL; Start 06/20/17 at 16:30 Polyethylene Glycol (Miralax) 17 gm ONCE ONCE PO ; Start 06/21/17 at 16:15; Stop 06/21/17 at 16:18; Status DC Labetalol HCl (Trandate) 200 mg Q8H PO Last administered on 06/25/17 06:05; Start 06/23/17 at 13:00 Calcitriol 0.25 mcg 0.25 mcg DAILY PO Last administered on 06/24/17 09:06; Start 06/23/17 at 12:00 Iron Sucrose/ Sodium Chloride (Venofer Inj/NS Inj) 110 ml @ 110 mls/hr DAILY IV Last administered on 06/24/17 09:04; Start 06/23/17 at 14:00; Stop at 09:59 Doxazosin Mesylate (Cardura) 4 mg DAILY PO Last administered on 06/24/17t 09:00 ; Start 06/23/17 at 18:15 Side: Right Location: Internal A/P Problem List: (1) Acute renal failure ICD Code: N17.9 Status: Acute (2) Diabetes mellitus ICD Code: E11.9 Status: Chronic (3) Hyperlipidemia ICD Code: E78.5 Status: Chronic (4) Hypertension ICD Code: I10 Status: Chronic (5) Fluid overload ICD Code: E87.70 Status: Resolved Assessment and Plan ESRD on HD Likely due to uncontrolled diabetes, and now has become chronic per nephrology. Will most likely need permanent dialysis. -06/23 patient had a PermCath placed. 06/24 Evaluated by Vascular surgery for AVF placement. Right pleural effusion/hypoxemia - resolved Due to R pleural effusion sp Thoracentesis US. 2-D echo is unremarkable with EF 55-60%. Pulmonology was consulted, likely due to fluid overload. S/p right and left thoracenteses. Walk test done, the pt will not need home oxygen. - follow up with pulmonology. - oxygen, nebs, IS as needed. - encourage ambulation. Hypertension Difficult to control secondary to renal failure. - clonidine as needed. 06/23 patient with severely uncontrolled blood pressure with systolic blood pressure into the high 90s. I will increase labetalol to 200 mg by mouth every 8 hours. I will also start the patient on doxazosin 4 mg by mouth daily. Diabetes mellitus Glucose very well controlled. - Monitor Accu-Cheks and cover with sliding scale insulin. - check an A1c. Urinary retention The pt required Godwin reinsertion 06/22. Apparently urology never saw the pt, even though they were consulted on 06/12. - continue Flomax. - continue Godwin. - Urology reconsulted. Anemia Normal MCV anemia. Likely secondary to chronic disease. Iron studies show low iron, low percent saturation and normal ferritin. Patient is being administered IV iron as per nephrology recommendations. Continue continue to monitor CBC. Diarrhea Patient complains of abdominal pain and diarrhea. I will check a stool for C. difficile PCR and place on contact isolation until stool C. difficile is ruled out. 06/24 Diarrhea is resolved. No further diarrhea or abdominal pain. PPx: Heparin Discharge Planning Continue to monitor in the medical floor. DC pending AVF placement, CV surgery and nephrology clearance. Problem Qualifiers (1) Diabetes mellitus: Dangelo Torres DO Jun 25, 2017 09:25
[2017-06-25] MEDS: BUMETANIDE INJ 1 MG/4 ML VIAL IV PUSH SCH ×2 (09:53→18:35)
[2017-06-25] MEDS: HEPARIN SODIUM - SQ 10,000 UNITS/ML VIAL SQ SCH ×2 (09:53→22:28)
[2017-06-25] MEDS: CALCITRIOL 0.25 MCG CAP PO SCH (09:54)
[2017-06-25] MEDS: SODIUM CHLORIDE 0.9% FLUSH 10 ML FLUSH IVF SCH (09:54)
[2017-06-25] MEDS: TAMSULOSIN HCL 0.4 MG CAP PO SCH (09:54)
[2017-06-25] MEDS: DOCUSATE SODIUM 50 MG/SENNA 8.6 MG TAB PO SCH ×2 (09:54→22:28)
[2017-06-25] MEDS: VITAMIN B CMPLX/VITC/FOLIC AC CAP PO SCH (09:54)
[2017-06-25] MEDS: SODIUM CHLORIDE 0.9% FLUSH 10 ML FLUSH IV FLUSH SCH ×2 (09:55→22:29)
[2017-06-25] MEDS: IRON SUCROSE INJ 200 MG in SODIUM CHLORIDE 0.9% INJ 100 ML IV SCH (10:28)
[2017-06-25] MEDS: DOXAZOSIN MESYLATE 4 MG TAB PO SCH (10:29)
[2017-06-25] MEDS: prednisoLONE ACETATE 1% OPHT SUSP 5 ML BTL LEFT EYE SCH ×4 (14:21→22:29)
[2017-06-25] MEDS: ATROPINE SULFATE 1% OPHT SOLN 5 ML BTL EACH EYE SCH ×2 (14:21→22:28)
--- NOTE | 2017-06-25 14:33 | EKG ---
Date Performed: 06/25/2017 Time Performed: 14:16:25 PTAGE: 57 years EKG: Baseline artifact present Sinus rhythm NORMAL ECG Compared to prior tracing no significant change PREVIOUS TRACING : 06/08/2017 22.33 DOCTOR: Srikanth Edwards Interpretating Date/Time 06/25/2017 14:31:19
[2017-06-25] MEDS ORDERED: amLODIPine BESYLATE 5 MG TAB PO ONE (15:00)
--- NOTE | 2017-06-25 15:34 | HHI.NPPN ---
Subjective History of Present Illness 57-year-old female with past medical history of hypertension, diabetes mellitus, chronic kidney disease, ischemic heart disease, congestive heart failure, came to the hospital with complaint of worsening shortness of breath. I was called to see the patient because of elevated BUN and creatinine patient has creatinine of 4.3 on admission and she had reviously creatinine of 3.6 last month the patient has known history of chronic kidney disease and she has been following by her petroleum analyst in [place] and according to daughter she was told that she will need dialysis and also she was told that she possibly will need kidney biopsy. Additional Remarks Patient is alert, breathing is better, no SOB. Review of Systems General Constitutional: Fatigue Cardiovascular Cardiac: Edema, ISSA Objective Data Data 06/24/17 06/25/17 19:00 07:00 Intake Total 840 ml 790 ml Output Total 1100 ml Balance 840 ml -310 ml Intake Oral 840 ml 790 ml Output Urine Total 1100 ml # Bowel Movements 1 0 Vital Signs Date Time Temp Pulse Resp B/P Pulse Ox O2 Delivery O2 Flow Rate FiO2 06/25/17 14:09 79 14 183/89 94 06/25/17 14:05 79 14 208/97 95 06/25/17 12:10 97.5 75 20 202/96 97 06/25/17 10:10 80 06/25/17 08:51 97 21 06/25/17 08:15 98.3 79 20 195/88 93 06/25/17 05:00 97.0 68 20 170/90 96 06/25/17 01:56 74 06/25/17 01:45 179/78 06/25/17 00:31 94 06/25/17 00:00 97.9 75 19 189/91 95 06/24/17 21:00 97.7 73 19 190/89 98 06/24/17 16:00 98.2 74 18 184/84 94 -: 06/22/17 0552 06/23/17 0721 Physical Exam General Appearance: No Acute Distress, Comfortable Pulmonary Resp Exam: Breath Sounds Equal Cardiology CV Exam: Regular Gastrointestinal/Abdomen GI Exam: Soft, Non-Tender, Bowel Sounds Present Extremeties Extremities Exam: Dependent Edema Neurologic Neuro Exam: Alert, Awake, Oriented Psychiatric Psych Exam: Appropriate Responses Assessment/Plan Problem List: (1) Wcxlw-hd-xiwguke kidney injury (2) CHF exacerbation Plan: Bumex (3) Diabetes mellitus Plan Dialysis started on 06/13, Patient most likely has End stage renal disease. Has PermCath. Thoracentesis done and 1 liter removed on 06/20. Patient tolerated well. D/W the daughter, she want her HD to set up in [place]. I called Dr. Davis , and left message on his cell phone and answering service on 06/22. Replace iron IV as sat. was low. Calcium low, on Rocaltrol, Po4 was normal. Seen by vascular surgery, for AVF in AM. The BP is elevated, Amlodipine increased and started on Hydralazine. Problem Qualifiers (1) Amjxj-yy-sopcygy kidney injury: (2) Diabetes mellitus: José Howell MD Jun 25, 2017 15:34
--- NOTE | 2017-06-25 16:21 | HHI.PR ---
Subjective Remarks ALERT NO SOB AT REST O2 SAT 96% on 02 N/C Objective Vital Signs Date Time Temp Pulse Resp B/P Pulse Ox O2 Delivery O2 Flow Rate FiO2 06/25/17 14:09 79 14 183/89 94 06/25/17 14:05 79 14 208/97 95 06/25/17 12:10 97.5 75 20 202/96 97 06/25/17 10:10 80 06/25/17 08:51 97 21 06/25/17 08:15 98.3 79 20 195/88 93 06/25/17 05:00 97.0 68 20 170/90 96 06/25/17 01:56 74 06/25/17 01:45 179/78 06/25/17 00:31 94 06/25/17 00:00 97.9 75 19 189/91 95 06/24/17 21:00 97.7 73 19 190/89 98 I/O 06/24/17 06/24/17 06/24/17 06/25/17 06/25/17 06/25/17 07:00 15:00 23:00 07:00 15:00 23:00 Intake Total 100 ml 840 ml 100 ml 690 ml 108 ml Output Total 200 ml 500 ml 600 ml Balance -100 ml 840 ml -400 ml 90 ml 108 ml Intake Oral 100 ml 840 ml 100 ml 690 ml IV Total 108 ml Output Urine Total 200 ml 500 ml 600 ml # Bowel Movements 0 1 0 0 Result Diagram: 06/22/17 0552 06/23/17 0721 Objective Remarks GENERAL: SKIN: Warm and dry. HEAD: Atraumatic. Normocephalic. EYES: Pupils equal and round. No scleral icterus. No injection or drainage. ENT: No nasal bleeding or discharge. Mucous membranes pink and moist. NECK: Trachea midline. No JVD. CARDIOVASCULAR: Regular rate and rhythm. RESPIRATORY: No accessory muscle use. DECREASE BREATH SOUNDS AT BASIS. GASTROINTESTINAL: Abdomen soft, non-tender, nondistended. Hepatic and splenic margins not palpable. MUSCULOSKELETAL: Extremities without clubbing, cyanosis, or edema. No obvious deformities. NEUROLOGICAL: Awake and alert. No obvious cranial nerve deficits. Motor grossly within normal limits. Five out of 5 muscle strength in the arms and legs. Normal speech. PSYCHIATRIC: Appropriate mood and affect; insight and judgment normal. Assessment and Plan Assessment and Plan ASS: RESPIRATORY FAILURE FLUID OVERLOAD DUE TO RENAL FAILURE BILATERAL EFFUSIONS post bilateral thoracentesis PLAN O2 NEEDED dialysis F/U CXRAY Indira Jacobson MD Jun 25, 2017 16:21
--- NOTE | 2017-06-25 17:44 | RADRPT ---
EXAM DATE/TIME: 06/25/2017 16:57 [facility] COMPARISON: CHEST EXPIRATION ONLY, June 20, 2017, 12:07. INDICATIONS : Short of breath. MEDICAL HISTORY : Diabetes mellitus type II. Hypertension Hypercholesterolemia. Blindness SURGICAL HISTORY : None. ENCOUNTER: Initial ACUITY: 2 weeks PAIN SCORE: 0/10 LOCATION: Bilateral chest FINDINGS: The exam demonstrates a right internal jugular dialysis catheter. The catheter is in excellent positi on. The heart appears mildly enlarged. The examination demonstrates a very small right apical pneumothorax. This measures approximate 7 mm. Followup examination in 12 hours to ensure this remains stable would be warranted. The visualized bony structures are intact. CONCLUSION: 1. There is a small right apical pneumothorax. Followup examination in 12 hours to ensure this remain s stable would be warranted. Jose F Merida MD on June 25, 2017 at 17:35 Board Certified Radiologist. This report was verified electronically.
--- NOTE | 2017-06-25 18:14 | PD.CAR.PN ---
CVT Progress Note Subjective/Hospital Course: Patient seen and evaluated Venous ultrasound and mapping reveals fairly small veins and clearly the wrist AV fistula would be inappropriate however using basilic vein in the upper arm may be an option I won't know this until the actual surgery and exploration the vessels Patient scheduled for AV fistula on Sunday06/25/17 Patient scheduled for AV fistula left arm tomorrow I've explained to patient through the family the ins and outs of the procedure as well as the risks and benefits Objective: Vital Signs Date Time Temp Pulse Resp B/P Pulse Ox O2 Delivery O2 Flow Rate FiO2 06/25/17 16:24 97.9 77 20 183/89 97 06/25/17 14:09 79 14 183/89 94 06/25/17 14:05 79 14 208/97 95 06/25/17 12:10 97.5 75 20 202/96 97 06/25/17 10:10 80 06/25/17 08:51 97 21 06/25/17 08:15 98.3 79 20 195/88 93 06/25/17 05:00 97.0 68 20 170/90 96 06/25/17 01:56 74 06/25/17 01:45 179/78 06/25/17 00:31 94 06/25/17 00:00 97.9 75 19 189/91 95 06/24/17 21:00 97.7 73 19 190/89 98 Result Diagram: 06/22/17 0552 06/23/17 0721 Olga Lidia Armstrong MD Jun 25, 2017 18:14
[2017-06-25] MEDS: ATORVASTATIN 20 MG TAB PO SCH (22:27)
[2017-06-25] MEDS: amLODIPine BESYLATE 5 MG TAB PO SCH (22:27)
[2017-06-25] MEDS: hydrALAZINE HCL 25 MG TAB PO SCH (22:31)
[2017-06-26] MEDS: INSULIN ASPART SUPPLEMENTAL SCALE SQ SCH ×4 (05:37→21:00)
[2017-06-26] MEDS: LABETALOL HCL 200 MG TAB PO SCH ×3 (05:38→21:26)
[2017-06-26] MEDS: hydrALAZINE HCL 25 MG TAB PO SCH ×3 (05:38→21:26)
[2017-06-26 06:00] VITALS: BP 165/80; PULSE 80; RESP 20; TEMP 98.3; O2SAT 97
[2017-06-26 08:23] VITALS: BP 147/65; PULSE 75; RESP 20; TEMP 98.4; O2SAT 100
[2017-06-26] MEDS: DEXT 5%-NACL 0.45% 1000 ML INJ 1,000 ML IV SCH (08:32)
[2017-06-26] MEDS: HEPARIN SODIUM - SQ 10,000 UNITS/ML VIAL SQ SCH ×2 (09:00→21:00)
[2017-06-26] MEDS: DOXAZOSIN MESYLATE 4 MG TAB PO SCH (09:00)
[2017-06-26] MEDS: VITAMIN B CMPLX/VITC/FOLIC AC CAP PO SCH (09:00)
--- NOTE | 2017-06-26 09:12 | HHI.PR ---
Subjective Remarks TO HAVE AVF CREATED TODAY WITH VACULAR DW RN AND PT HAD SOME CHEST PAIN YESTERDAY MAY HAVE BEEN SOME ANXIETY Objective Vitals Vital Signs Date Time Temp Pulse Resp B/P Pulse Ox O2 Delivery O2 Flow Rate FiO2 06/26/17 08:23 98.4 75 20 147/65 100 06/26/17 06:00 98.3 80 20 165/80 97 06/25/17 23:35 98.6 18 18 182/84 95 06/25/17 21:00 75 06/25/17 18:58 97.7 73 17 165/81 94 06/25/17 16:24 97.9 77 20 183/89 97 06/25/17 14:09 79 14 183/89 94 06/25/17 14:05 79 14 208/97 95 06/25/17 12:10 97.5 75 20 202/96 97 06/25/17 10:10 80 I/O 06/25/17 06/25/17 06/25/17 06/26/17 06/26/17 06/26/17 06:59 14:59 22:59 06:59 14:59 22:59 Intake Total 690 ml 108 ml 660 ml 100 ml Output Total 600 ml 500 ml Balance 90 ml 108 ml 160 ml 100 ml Intake Oral 690 ml 660 ml 100 ml IV Total 108 ml Output Urine Total 600 ml 500 ml # Voids 3 2 # Bowel Movements 0 0 Result Diagram: 06/22/17 0552 06/23/17 0721 Other Results Laboratory Tests Test 06/25/17 22:45 Troponin I LESS THAN 0.02 NG/ML Imaging Last Impressions Chest X-Ray 06/25/17 0000 Signed Impressions: Service Date/Time: Sunday, June 25, 2017 16:57 - CONCLUSION: 1. There is a small right apical pneumothorax. Followup examination in 12 hours to ensure this remains stable would be warranted. Jose F Merida MD Upper Extremity Ultrasound 06/23/17 0000 Signed Impressions: Service Date/Time: Friday, June 23, 2017 17:29 - CONCLUSION: 1. No evidence of upper extremity DVT on the right or left. 2. Superficial vein thrombus of the right cephalic vein in the antecubital fossa region. Guevara Frost MD Thoracentesis Ultrasound 06/20/17 0000 Signed Impressions: Service Date/Time: Tuesday, June 20, 2017 11:07 - CONCLUSION: Uncomplicated ultrasound guided thoracentesis. Dangelo Merida MD FACR Catheter Placement X-Ray 06/20/17 0000 Signed Impressions: Service Date/Time: Tuesday, June 20, 2017 15:18 - CONCLUSION: Successful conversion of the right IJ Vas-Cath to a PermCath catheter as above. Dean Shields MD Renal Ultrasound 06/08/17 0000 Signed Impressions: Service Date/Time: Thursday, June 08, 2017 14:10 - CONCLUSION: Echogenic but normal-size kidneys Bilateral pleural effusions. Dangelo Merida MD FACR Objective Remarks GENERAL: Awake alert SKIN: Warm and dry. HEAD: Atraumatic. Normocephalic. EYES: Pupils equal and round. No scleral icterus. No injection or drainage. ENT: No nasal bleeding or discharge. Mucous membranes pink and moist. Tongue is midline NECK: Trachea midline. No JVD. CARDIOVASCULAR: Regular rate and rhythm. S1-S2 no S3 or S4 no heave or thrill or rub or gallop RESPIRATORY: No accessory muscle use. Clear to auscultation. Breath sounds equal bilaterally. GASTROINTESTINAL: Abdomen soft, non-tender, nondistended. Hepatic and splenic margins not palpable. Obese MUSCULOSKELETAL: Extremities without clubbing, cyanosis, or edema. No obvious deformities. NEUROLOGICAL: Awake and alert. No obvious cranial nerve deficits. Motor grossly within normal limits. Five out of 5 muscle strength in the arms and legs. Normal speech. Visually impaired PSYCHIATRIC: Appropriate mood and affect; insight and judgment normal. Procedures 06/13/17 Vas-Cath placement Medications and IVs Current Medications Sodium Chloride (NS Flush) 2 ml UNSCH PRN IVF FLUSH AFTER USING IV ACCESS Last administered on 06/08/17 10:56; Start 06/08/17 at 10:30; Stop 06/08/17 at 13:16 ; Status DC Furosemide (Lasix Inj) 40 mg ONCE ONCE IVP Last administered on 06/08/17 10: 56; Start 06/08/17 at 10:30; Stop 06/08/17 at 10:31; Status DC Sodium Chloride (NS Flush) 2 ml UNSCH PRN IV FLUSH FLUSH AFTER USING IV ACCESS Last administered on 06/25/17 11:38; Start 06/08/17 at 13:00 Sodium Chloride (NS Flush) 2 ml BID IV FLUSH Last administered on 06/25/17 22: 29; Start 06/08/17 at 21:00 Acetaminophen (Tylenol) 650 mg Q4H PRN PO TEMP > 100.4 Last administered on 06/20 20:47; Start 06/08/17 at 13:00 Ondansetron HCl (Zofran Inj) 4 mg Q6H PRN IVP NAUSEA OR VOMITING; Start at 13:00 Naloxone HCl (Narcan Inj) 0.4 mg UNSCH PRN IV SEE LABEL COMMENTS; Start at 13:00 Senna/Docusate Sodium (Aimee-Colace) 1 tab BID PO Last administered on 22:28; Start 06/08/17 at 21:00 Magnesium Hydroxide (Milk Of Magnesia Liq) 30 ml Q12H PRN PO MILD - MODERATE CONSTIPATION Last administered on 06/22/17 00:52; Start 06/08/17 at 13:00 Sennosides (Senokot) 17.2 mg Q12H PRN PO MODERATE - SEVERE CONSTIPATION Last administered on 06/22/17 09:47; Start 06/08/17 at 13:00 Bisacodyl (Dulcolax Supp) 10 mg DAILY PRN RECTAL SEVERE CONSITIPATION; Start at 13:00 Lactulose (Lactulose Liq) 30 ml DAILY PRN PO SEVERE CONSITIPATION Last administered on 06/22/17 09:47; Start 06/08/17 at 13:00 Bumetanide (Bumex Inj) 1 mg BID@,18 IV PUSH Last administered on 06/25/17 18 :35; Start 06/08/17 at 18:00 Dextrose (D50w (Vial) Inj) 50 ml UNSCH PRN IV HYPOGLYCEMIA-SEE COMMENTS; Start 06/08/17 at 13:00 Glucagon (Glucagon Inj) 1 mg UNSCH PRN OTHER HYPOGLYCEMIA-SEE COMMENTS; Start 06/08/17 at 13:00 Insulin Aspart (NovoLOG SUPPLEMENTAL SCALE) 1 ACHS SLIDING SCALE SQ Last administered on 06/17/17 21:22; Start 06/08/17 at 16:00 Heparin Sodium (Porcine) (Heparin Inj) 5,000 units Q12HR SQ Last administered on 06/25/17 22:28; Start 06/08/17 at 21:00 Labetalol HCl (Trandate) 100 mg Q12HR PO Last administered on 06/13/17 07:49; Start 06/08/17 at 21:00; Stop 06/13/17 at 18:27; Status DC Pneumococcal Polyvalent Vaccine 25 mcg 25 mcg ONCE ONCE IM ; Start 06/09/17 at 10:00; Stop 06/09/17 at 10:01; Status DC Ceftriaxone Sodium/Sodium Chloride (Rocephin Inj/NS Inj) 100 ml @ 200 mls/hr Q24H IV Last administered on 06/21/17 12:39; Start 06/10/17 at 10:00; Stop 08/28 at 16:20; Status DC Amlodipine Besylate (Norvasc) 5 mg DAILY PO ; Start 06/10/17 at 10:00; Stop at 10:00; Status DC Atorvastatin Calcium (Lipitor) 20 mg HS PO Last administered on 06/25/17 22:27 ; Start 06/10/17 at 21:00 Atropine Sulfate (Atropine 1% Opth Soln) 1 drop BID EACH EYE ; Start 06/10/17 at 10:00; Status Cancel Metoprolol Tartrate (Lopressor) 25 mg BID PO ; Start 06/10/17 at 09:30; Stop at 09:33; Status DC Prednisolone Acetate (Pred Forte 1% Opth Susp) 1 drop QID LEFT EYE Last administered on 06/25/17 22:29; Start 06/10/17 at 13:00 Sodium Bicarbonate (Sodium Bicarbonate) 650 mg BIDPC PO Last administered on 16:41; Start 06/10/17 at 18:00; Stop 06/18/17 at 18:18; Status DC Atropine Sulfate (Isopto Atropine 1% Opth Soln) 1 drop BID EACH EYE Last administered on 06/25/17 22:28; Start 06/10/17 at 21:00 Albuterol/ Ipratropium (Duoneb Neb) 1 ampule QID NEB NEB Last administered on 06/16/17 11:21; Start 06/12/17 at 12:00; Stop 06/16/17 at 12:00; Status DC Albuterol Sulfate (Albuterol Neb) 2.5 mg Q2HR NEB PRN NEB DYSPNEA; Start at 09:15 Tamsulosin HCl (Flomax) 0.4 mg DAILY PO Last administered on 06/25/17 09:54; Start 06/12/17 at 18:00 Clonidine 0.1 mg 0.1 mg Q6H PRN PO SYS BP GREATER THAN 160 MMHG Last administered on 06/25/17 11:37; Start 06/12/17 at 18:30 Heparin Sodium/ Sodium Chloride (Heparin-NS/Pf Inj) 500 ml @ As Directed STK- MED ONCE .ROUTE ; Start 06/13/17 at 08:40; Stop 06/13/17 at 08:41; Status DC Heparin Sodium (Porcine) (*HEPARIN INJ Periprocedural ONLY) 10,000 units STK- MED ONCE .ROUTE ; Start 06/13/17 at 08:41; Stop 06/13/17 at 08:42; Status DC Sodium Chloride (NS Flush) DAILY IVF Last administered on 06/25/17 09:54; Start 06/14/17 at 09:00 Heparin Sodium (Porcine) (Heparin Central Flush) DAILY IV FLUSH Last administered on 06/25/17 09:53; Start 06/14/17 at 09:00 Sodium Chloride (NS Flush) UNSCH PRN IVF SEE PROTOCOL; Start 06/13/17 at 09:45 Heparin Sodium (Porcine) UNSCH PRN IV FLUSH SEE PROTOCOL; Start 06/13/17 at 09: 45 Sodium Chloride (NS 1000 ml Inj) 1,000 ml @ 0 mls/hr Q0M PRN IV For Prime & Rinse Back Last administered on 06/23/17 11:14; Start 06/13/17 at 10:23 Heparin Sodium (Porcine) 8000 units 8,000 units UNSCH PRN IVF WITH DIALYSIS; Start 06/13/17 at 10:30 Sodium Chloride 1,000 ml @ 200 mls/hr Q5H PRN IV WITH DIALYSIS; Start 06/13/17 at 10:23 Sodium Chloride (NS 1000 ml Inj) 1,000 ml @ 0 mls/hr Q0M PRN IV WITH DIALYSIS; Start 06/13/17 at 10:23 Mannitol (Mannitol Inj) 12.5 gm UNSCH PRN IV WITH DIALYSIS; Start 06/13/17 at 10 :30 Albumin Human (Albumin 25% Inj) 25 gm UNSCH PRN IV WITH DIALYSIS; Start at 10:30 Sodium Chloride (NS Flush) 5 ml UNSCH PRN IV FLUSH WITH DIALYSIS; Start at 10:30 Heparin Sodium (Porcine) (Heparin Inj) UNSCH PRN .XX WITH DIALYSIS Last administered on 06/23/17 10:35; Start 06/13/17 at 10:30 Gentamicin Sulfate (Gentamicin (Dialysis) Inj) 20 mg UNSCH PRN IV WITH DIALYSIS Last administered on 06/23/17 10:35; Start 06/13/17 at 10:30 Ondansetron HCl (Zofran Inj) 4 mg UNSCH PRN IV WITH DIALYSIS; Start 06/13/17 at 10:30 Acetaminophen (Tylenol) 650 mg UNSCH PRN PO for headach, pain, temp > 101F; Start 06/13/17 at 10:30 Diphenhydramine HCl (Benadryl) 25 mg UNSCH PRN PO for hives/itching/anaphylaxis ; Start 06/13/17 at 10:30; Stop 06/24/17 at 10:32; Status DC Nitroglycerin (Nitrostat Sl) 0.4 mg UNSCH PRN SL CHEST PAIN Last administered on 06/25/17 14:07; Start 06/13/17 at 10:30 Clonidine (Catapres) 0.1 mg UNSCH PRN PO for BP > 180/100 X 2 readings Last administered on 06/24/17 17:13; Start 06/13/17 at 10:30 Epoetin Jose Angel (Epogen Inj) 10,000 units UNSCH PRN IV WITH DIALYSIS Last administered on 06/23/17 10:35; Start 06/13/17 at 10:30 Gelatin (Gelfoam 12 Mm/7 Mm Top) 1 foam UNSCH PRN TOP SEE LABEL COMMENTS; Start 06/13/17 at 10:30 Miscellaneous Information Patient in critical care unit? Ass... [id number] .XX ; Start 06/13/17 at 11:00 Chlorhexidine Gluconate (Chlorhexidine 2% Cloth) 3 pack DAILY@04 TOPICAL Last administered on 06/17/17 22:47; Start 06/14/17 at 04:00; Stop 06/18/17 at 04:01; Status DC Chlorhexidine Gluconate (Chlorhexidine 2% Cloth) 3 pack UNSCH PRN TOPICAL HYGIENIC CARE; Start 06/13/17 at 11:00; Stop 06/18/17 at 10:47; Status DC Hydralazine HCl (Apresoline Inj) 10 mg NOW ONCE IV PUSH Last administered on 17:24; Start 06/13/17 at 17:30; Stop 06/13/17 at 17:31; Status DC Labetalol HCl (Trandate) 200 mg Q12HR PO Last administered on 06/22/17 19:55; Start 06/13/17 at 21:00; Stop 06/23/17 at 07:43; Status DC Vitamin B Complex/ Vit C/Folic Acid (Nephrocaps) 1 cap DAILY PO Last administered on 06/25/17 09:54; Start 06/13/17 at 18:30 Lidocaine HCl (Xylocaine 1% Inj) 9 ml STK-MED ONCE SQ Last administered on 09:35; Start 06/19/17 at 09:35; Stop 06/19/17 at 10:02; Status DC Hydralazine HCl (Apresoline Inj) 10 mg Q30M PRN IV PUSH bp>140/90 Last administered on 06/22/17 00:53; Start 06/20/17 at 01:15 Lidocaine HCl 10 ml 10 ml STK-MED ONCE SQ Last administered on 06/20/17 12:25; Start 06/20/17 at 12:25; Stop 06/20/17 at 12:26; Status DC Vancomycin HCl 1000 mg/Sodium Chloride 250 ml @ 250 mls/hr [employer] IV Last administered on 06/20/17 13:49; Start 06/20/17 at 13:15; Stop 06/24/17 at 13:14; Status DC Cefazolin Sodium/ Dextrose (Ancef 2 Gm Premix) 50 ml @ 100 mls/hr [employer] IV Last administered on 06/20/17 15:32; Start 06/20/17 at 13:15; Stop 06/24/17 at 13 :14; Status DC Midazolam HCl (Versed Inj) 4 mg STK-MED ONCE .ROUTE Last administered on 15:15; Start 06/20/17 at 15:15; Stop 06/20/17 at 15:16; Status DC Fentanyl Citrate (fentaNYL INJ) 250 mcg STK-MED ONCE .ROUTE Last administered on 06/20/17 15:15; Start 06/20/17 at 15:15; Stop 06/20/17 at 15:16; Status DC Heparin Sodium (Porcine) (*HEPARIN INJ Periprocedural ONLY) 10,000 units STK- MED ONCE .ROUTE Last administered on 06/20/17 15:38; Start 06/20/17 at 15:38; Stop 06/20/17 at 15:39; Status DC Lidocaine/ Epinephrine (Xylocaine-Epi 1%-1:100,000 Inj) 20 ml STK-MED ONCE .ROUTE Last administered on 06/20/17 15:38; Start 06/20/17 at 15:38; Stop at 15:39; Status DC Sodium Chloride (NS Flush) UNSCH PRN IVF SEE PROTOCOL; Start 06/20/17 at 16:30 Heparin Sodium (Porcine) (Heparin Inj) UNSCH PRN IV FLUSH SEE PROTOCOL; Start 06/20/17 at 16:30 Polyethylene Glycol (Miralax) 17 gm ONCE ONCE PO ; Start 06/21/17 at 16:15; Stop 06/21/17 at 16:18; Status DC Labetalol HCl (Trandate) 200 mg Q8H PO Last administered on 06/26/17 05:38; Start 06/23/17 at 13:00 Calcitriol 0.25 mcg 0.25 mcg DAILY PO Last administered on 06/25/17 09:54; Start 06/23/17 at 12:00 Iron Sucrose/ Sodium Chloride (Venofer Inj/NS Inj) 110 ml @ 110 mls/hr DAILY IV Last administered on 06/25/17 10:28; Start 06/23/17 at 14:00; Stop at 09:59; Status DC Doxazosin Mesylate (Cardura) 4 mg DAILY PO Last administered on 06/25/17 10:29 ; Start 06/23/17 at 18:15 Amlodipine Besylate (Norvasc) 5 mg BID PO Last administered on 06/25/17 22:27 ; Start 06/25/17 at 21:00 Amlodipine Besylate (Norvasc) 5 mg ONCE ONCE PO Last administered on 14:27; Start 06/25/17 at 15:00; Stop 06/25/17 at 15:01; Status DC Hydralazine HCl 25 mg 25 mg Q8HR PO Last administered on 06/26/17 05:38; Start 06/25/17 at 22:00 Dextrose/Sodium Chloride (D5W-1/2 NS 1000 ml Inj) 1,000 ml @ 42 mls/hr [id number] IV Last administered on 06/26/17 08:32; Start 06/26/17 at 08:15 Urinary Catheter: No Vascular Central Line Catheter: Yes Side: Right Location: Internal A/P Problem List: (1) Acute renal failure ICD Code: N17.9 Status: Acute (2) Diabetes mellitus ICD Code: E11.9 Status: Chronic (3) Hyperlipidemia ICD Code: E78.5 Status: Chronic (4) Hypertension ICD Code: I10 Status: Chronic (5) Fluid overload ICD Code: E87.70 Status: Resolved Assessment and Plan ESRD on HD Likely due to uncontrolled diabetes, and now has become chronic per nephrology. Will most likely need permanent dialysis. -06/23 patient had a PermCath placed. 06/24 Evaluated by Vascular surgery for AVF placement. 06-26 FOR GRAFT CREATION TODAY Right pleural effusion/hypoxemia - resolved Due to R pleural effusion sp Thoracentesis US. 2-D echo is unremarkable with EF 55-60%. Pulmonology was consulted, likely due to fluid overload. S/p right and left thoracenteses. Walk test done, the pt will not need home oxygen. - follow up with pulmonology. - oxygen, nebs, IS as needed. - encourage ambulation. Hypertension Difficult to control secondary to renal failure. - clonidine as needed. 06/23 patient with severely uncontrolled blood pressure with systolic blood pressure into the high 90s. I will increase labetalol to 200 mg by mouth every 8 hours. I will also start the patient on doxazosin 4 mg by mouth daily. Diabetes mellitus Glucose very well controlled. - Monitor Accu-Cheks and cover with sliding scale insulin. - check an A1c. Urinary retention The pt required Godwin reinsertion 06/22. Apparently urology never saw the pt, even though they were consulted on 06/12. - continue Flomax. - continue Godwin. - Urology reconsulted. Anemia Normal MCV anemia. Likely secondary to chronic disease. Iron studies show low iron, low percent saturation and normal ferritin. Patient is being administered IV iron as per nephrology recommendations. Continue continue to monitor CBC. Diarrhea Patient complains of abdominal pain and diarrhea. I will check a stool for C. difficile PCR and place on contact isolation until stool C. difficile is ruled out. 06/24 Diarrhea is resolved. No further diarrhea or abdominal pain. PPx: Heparin Discharge Planning Continue to monitor in the medical floor. DC pending AVF placement, CV surgery and nephrology clearance. HAD CHEST PAIN/ANXIETY TROPONINS NEGATIVE- EKG STABLE Problem Qualifiers (1) Diabetes mellitus: Dangelo Torres DO Jun 26, 2017 09:12
[2017-06-26] MEDS: ATROPINE SULFATE 1% OPHT SOLN 5 ML BTL EACH EYE SCH ×2 (09:36→21:27)
[2017-06-26] MEDS: SODIUM CHLORIDE 0.9% FLUSH 10 ML FLUSH IV FLUSH SCH ×2 (09:37→21:00)
[2017-06-26] MEDS: SODIUM CHLORIDE 0.9% FLUSH 10 ML FLUSH IVF SCH (09:37)
[2017-06-26] MEDS: prednisoLONE ACETATE 1% OPHT SUSP 5 ML BTL LEFT EYE SCH ×4 (09:39→21:27)
[2017-06-26] MEDS: BUMETANIDE INJ 1 MG/4 ML VIAL IV PUSH SCH ×2 (09:39→17:40)
[2017-06-26] MEDS: amLODIPine BESYLATE 5 MG TAB PO SCH ×2 (09:39→21:26)
[2017-06-26] MEDS: DOCUSATE SODIUM 50 MG/SENNA 8.6 MG TAB PO SCH ×2 (09:40→21:00)
[2017-06-26] MEDS: CALCITRIOL 0.25 MCG CAP PO SCH (09:40)
[2017-06-26] MEDS: TAMSULOSIN HCL 0.4 MG CAP PO SCH (09:40)
[2017-06-26 10:30] VITALS: PULSE 81
[2017-06-26 11:44] VITALS: BP 142/70; PULSE 75; RESP 20; TEMP 98.1; O2SAT 97
[2017-06-26 11:48] VITALS: O2SAT 97
[2017-06-26] MEDS: EPOETIN ALFA 10,000 UNITS/ML VIAL IV PRN (12:46)
[2017-06-26] MEDS: SODIUM CHLOR 0.9% 1000 ML INJ 1,000 ML IV PRN (12:46)
[2017-06-26] MEDS: HEPARIN SODIUM - IV 10,000 UNITS/10 ML VIAL PRN (12:46)
[2017-06-26] MEDS: GENTAMICIN SULFATE (DIALYSIS USE ONLY) 20 MG/2 ML VIAL IV PRN (12:47)
--- NOTE | 2017-06-26 13:08 | PD.CAR.PN ---
CVT Progress Note Subjective/Hospital Course: Patient seen and evaluated Venous ultrasound and mapping reveals fairly small veins and clearly the wrist AV fistula would be inappropriate however using basilic vein in the upper arm may be an option I won't know this until the actual surgery and exploration the vessels Patient scheduled for AV fistula on Sunday06/25/17 Patient scheduled for AV fistula left arm tomorrow I've explained to patient through the family the ins and outs of the procedure as well as the risks and benefits 06/26/17 Patient was scheduled today for AV fistula however no coordination was made with dialysis preop and patient ended up going to dialysis around noon which with place this case in late afternoon hours. Patient is rescheduled for tomorrow for AV fistula Objective: Vital Signs Date Time Temp Pulse Resp B/P Pulse Ox O2 Delivery O2 Flow Rate FiO2 06/26/17 11:48 97 06/26/17 11:44 98.1 75 20 142/70 97 06/26/17 10:30 81 06/26/17 08:23 98.4 75 20 147/65 100 06/26/17 06:00 98.3 80 20 165/80 97 06/25/17 23:35 98.6 18 18 182/84 95 06/25/17 21:00 75 06/25/17 18:58 97.7 73 17 165/81 94 06/25/17 16:24 97.9 77 20 183/89 97 06/25/17 14:09 79 14 183/89 94 06/25/17 14:05 79 14 208/97 95 Result Diagram: 06/22/17 0552 06/23/17 0721 Olga Lidia Armstrong MD Jun 26, 2017 13:08
--- NOTE | 2017-06-26 17:23 | HHI.NPPN ---
Subjective History of Present Illness 57-year-old female with past medical history of hypertension, diabetes mellitus, chronic kidney disease, ischemic heart disease, congestive heart failure, came to the hospital with complaint of worsening shortness of breath. I was called to see the patient because of elevated BUN and creatinine patient has creatinine of 4.3 on admission and she had reviously creatinine of 3.6 last month the patient has known history of chronic kidney disease and she has been following by her flight line service attendant in [place] and according to daughter she was told that she will need dialysis and also she was told that she possibly will need kidney biopsy. Additional Remarks Patient is alert, no SOB, doing better. Review of Systems General Constitutional: Fatigue Cardiovascular Cardiac: Edema, ISSA Objective Data Data 06/25/17 06/26/17 19:00 07:00 Intake Total 768 ml 100 ml Output Total 500 ml Balance 268 ml 100 ml Intake Oral 660 ml 100 ml IV Total 108 ml Output Urine Total 500 ml # Voids 3 2 # Bowel Movements 0 Vital Signs Date Time Temp Pulse Resp B/P Pulse Ox O2 Delivery O2 Flow Rate FiO2 06/26/17 11:48 97 06/26/17 11:44 98.1 75 20 142/70 97 06/26/17 10:30 81 06/26/17 08:23 98.4 75 20 147/65 100 06/26/17 06:00 98.3 80 20 165/80 97 06/25/17 23:35 98.6 18 18 182/84 95 06/25/17 21:00 75 06/25/17 18:58 97.7 73 17 165/81 94 -: 06/22/17 0552 06/23/17 0721 Physical Exam General Appearance: No Acute Distress, Comfortable Pulmonary Resp Exam: Breath Sounds Equal Cardiology CV Exam: Regular Gastrointestinal/Abdomen GI Exam: Soft, Non-Tender, Bowel Sounds Present Extremeties Extremities Exam: Dependent Edema Neurologic Neuro Exam: Alert, Awake, Oriented Psychiatric Psych Exam: Appropriate Responses Assessment/Plan Problem List: (1) [id number] kidney injury (2) CHF exacerbation Plan: Bumex (3) Diabetes mellitus Plan Dialysis started on 06/13, Patient most likely has End stage renal disease. Has PermCath. Thoracentesis done and 1 liter removed on 06/20. Patient tolerated well. D/W the daughter, she want her HD to set up in [place]. I called Dr. Davis , and left message on his cell phone and answering service on 06/22. Replace iron IV as sat. was low. Calcium low, on Rocaltrol, Po4 was normal. Seen by vascular surgery, for AVF in AM. BP is better, HD done and 2 liters removed. Problem Qualifiers (1) [id number] kidney injury: (2) Diabetes mellitus: José Howell MD Jun 26, 2017 17:23
[2017-06-26 17:34] LABS: AUTOMATED NEUTROPHIL # 5.6 TH/MM3 (1.8-7.7); BASOPHIL % 0.4 % (0.0-2.0); EOSINOPHIL # 0.3 TH/MM3 (0-0.4); EOSINOPHIL % 3.5 % (0.0-4.0); HEMATOCRIT 30.1 % (35.0-46.0); HEMO FLAGS DIFF FINAL; LYMPH % 14.5 % (9.0-44.0); LYMPHOCYTE # 1.1 TH/MM3 (1.0-4.8); MEAN CELL VOLUME 85.9 FL (80.0-100.0); MEAN CORPUSCULAR HEMOGLOBIN 27.5 PG (27.0-34.0); MONO % 6.4 % (0.0-8.0); NEUT % 75.2 % (16.0-70.0); PLATELET COUNT 228 TH/MM3 (150-450); RED CELL DISTRIBUTION WIDTH 15.3 % (11.6-17.2); WHITE BLOOD COUNT 7.5 TH/MM3 (4.0-11.0)
--- NOTE | 2017-06-26 18:03 | HHI.PR ---
Subjective Remarks ALERT NO SOB AT REST O2 SAT 96% on 02 N/C Objective Vital Signs Date Time Temp Pulse Resp B/P Pulse Ox O2 Delivery O2 Flow Rate FiO2 06/26/17 11:48 97 06/26/17 11:44 98.1 75 20 142/70 97 06/26/17 10:30 81 06/26/17 08:23 98.4 75 20 147/65 100 06/26/17 06:00 98.3 80 20 165/80 97 06/25/17 23:35 98.6 18 18 182/84 95 06/25/17 21:00 75 06/25/17 18:58 97.7 73 17 165/81 94 I/O 06/25/17 06/25/17 06/25/17 06/26/17 06/26/17 06/26/17 06:59 14:59 22:59 06:59 14:59 22:59 Intake Total 690 ml 108 ml 660 ml 100 ml 271 ml Output Total 600 ml 500 ml 2000 ml Balance 90 ml 108 ml 160 ml 100 ml -1729 ml Intake Oral 690 ml 660 ml 100 ml 0 ml IV Total 108 ml 271 ml Output Urine Total 600 ml 500 ml Hemodialysis 2000 ml # Voids 3 2 # Bowel Movements 0 0 Result Diagram: 06/26/17 1553 06/23/17 0721 Objective Remarks GENERAL: SKIN: Warm and dry. HEAD: Atraumatic. Normocephalic. EYES: Pupils equal and round. No scleral icterus. No injection or drainage. ENT: No nasal bleeding or discharge. Mucous membranes pink and moist. NECK: Trachea midline. No JVD. CARDIOVASCULAR: Regular rate and rhythm. RESPIRATORY: No accessory muscle use. DECREASE BREATH SOUNDS AT BASIS. GASTROINTESTINAL: Abdomen soft, non-tender, nondistended. Hepatic and splenic margins not palpable. MUSCULOSKELETAL: Extremities without clubbing, cyanosis, or edema. No obvious deformities. NEUROLOGICAL: Awake and alert. No obvious cranial nerve deficits. Motor grossly within normal limits. Five out of 5 muscle strength in the arms and legs. Normal speech. PSYCHIATRIC: Appropriate mood and affect; insight and judgment normal. Assessment and Plan Assessment and Plan ASS: RESPIRATORY FAILURE FLUID OVERLOAD DUE TO RENAL FAILURE BILATERAL EFFUSIONS post bilateral thoracentesis PLAN O2 NEEDED dialysis for A/V fistula placement Indira Jacobson MD Jun 26, 2017 18:02
[2017-06-26 20:00] VITALS: BP 165/75; PULSE 82; RESP 17; TEMP 98.6; O2SAT 97
[2017-06-26] MEDS: ATORVASTATIN 20 MG TAB PO SCH (21:26)
[2017-06-26 23:08] LABS: ALT (GPT) 17 U/L (10-53); ANION GAP 9 MEQ/L (5-15); AST (GOT) 24 U/L (15-37); BICARBONATE 31.2 MEQ/L (21.0-32.0); BLOOD UREA NITROGEN 7 MG/DL (7-18); CHLORIDE 98 MEQ/L (98-107); GLOMERULAR FILTRATION RATE 24 ML/MIN (>89); MAGNESIUM 1.9 MG/DL (1.5-2.5); POTASSIUM 3.1 MEQ/L (3.5-5.1); SODIUM (NA) 138 MEQ/L (136-145)
[2017-06-26 23:26] LABS: ALKALINE PHOSPHATASE 95 U/L (45-117); TOTAL BILIRUBIN ADULT 0.5 MG/DL (0.2-1.0)
[2017-06-27] VITALS (7 sets, daily range): BP systolic 121–142; BP diastolic 56–66; PULSE 71–83; RESP 16–20; TEMP 97.5–99.2; O2SAT 95–97
[2017-06-27] MEDS: hydrALAZINE HCL 25 MG TAB PO SCH ×3 (06:00→20:59)
[2017-06-27] MEDS: LABETALOL HCL 200 MG TAB PO SCH ×3 (06:00→20:58)
[2017-06-27] MEDS: INSULIN ASPART SUPPLEMENTAL SCALE SQ SCH ×4 (07:00→21:00)
[2017-06-27] MEDS: DEXT 5%-NACL 0.45% 1000 ML INJ 1,000 ML IV SCH (08:04)
[2017-06-27 08:32] LABS: AUTOMATED NEUTROPHIL # 4.6 TH/MM3 (1.8-7.7); BASOPHIL % 0.5 % (0.0-2.0); EOSINOPHIL # 0.4 TH/MM3 (0-0.4); EOSINOPHIL % 5.7 % (0.0-4.0); HEMATOCRIT 28.6 % (35.0-46.0); HEMO FLAGS DIFF FINAL; LYMPH % 18.1 % (9.0-44.0); LYMPHOCYTE # 1.2 TH/MM3 (1.0-4.8); MEAN CELL VOLUME 85.7 FL (80.0-100.0); MEAN CORPUSCULAR HGB CONC 32.7 % (32.0-36.0); MONO % 6.7 % (0.0-8.0); PLATELET COUNT 222 TH/MM3 (150-450); RED BLOOD COUNT 3.34 MIL/MM3 (4.00-5.30); RED CELL DISTRIBUTION WIDTH 15.9 % (11.6-17.2); WHITE BLOOD COUNT 6.6 TH/MM3 (4.0-11.0)
[2017-06-27 08:57] LABS: ALT (GPT) 9 U/L (10-53); ANION GAP 7 MEQ/L (5-15); AST (GOT) 23 U/L (15-37); BLOOD UREA NITROGEN 12 MG/DL (7-18); CHLORIDE 97 MEQ/L (98-107); GLOMERULAR FILTRATION RATE 14 ML/MIN (>89); MAGNESIUM 2.1 MG/DL (1.5-2.5); POTASSIUM 3.3 MEQ/L (3.5-5.1); SODIUM (NA) 134 MEQ/L (136-145)
[2017-06-27] MEDS: DOCUSATE SODIUM 50 MG/SENNA 8.6 MG TAB PO SCH ×2 (09:00→20:59)
[2017-06-27] MEDS: ATROPINE SULFATE 1% OPHT SOLN 5 ML BTL EACH EYE SCH ×2 (09:00→21:00)
[2017-06-27] MEDS: SODIUM CHLORIDE 0.9% FLUSH 10 ML FLUSH IV FLUSH SCH ×2 (09:00→21:00)
[2017-06-27] MEDS: prednisoLONE ACETATE 1% OPHT SUSP 5 ML BTL LEFT EYE SCH ×4 (09:00→21:00)
[2017-06-27] MEDS: TAMSULOSIN HCL 0.4 MG CAP PO SCH (09:00)
[2017-06-27] MEDS: BUMETANIDE INJ 1 MG/4 ML VIAL IV PUSH SCH ×2 (09:00→18:11)
[2017-06-27] MEDS: CALCITRIOL 0.25 MCG CAP PO SCH (09:00)
[2017-06-27] MEDS: amLODIPine BESYLATE 5 MG TAB PO SCH ×2 (09:00→20:58)
[2017-06-27] MEDS: VITAMIN B CMPLX/VITC/FOLIC AC CAP PO SCH (09:00)
[2017-06-27] MEDS: DOXAZOSIN MESYLATE 4 MG TAB PO SCH (09:00)
[2017-06-27] MEDS: SODIUM CHLORIDE 0.9% FLUSH 10 ML FLUSH IVF SCH (09:00)
[2017-06-27] MEDS: HEPARIN SODIUM - SQ 10,000 UNITS/ML VIAL SQ SCH ×2 (09:00→20:59)
[2017-06-27 09:06] LABS: ALKALINE PHOSPHATASE 97 U/L (45-117); TOTAL BILIRUBIN ADULT 0.5 MG/DL (0.2-1.0)
--- NOTE | 2017-06-27 09:55 | HHI.PR ---
Subjective Remarks 06-26 DW RN AND PT HAD SOME CHEST PAIN YESTERDAY-NONE NOW MAY HAVE BEEN SOME ANXIETY 06-27 TO HAVE AV FISTULA CREATED TODAY WITH VASCULAR NO OTHER COMPLAINTS Objective Vitals Vital Signs Date Time Temp Pulse Resp B/P Pulse Ox O2 Delivery O2 Flow Rate FiO2 06/27/17 08:12 98.2 75 16 124/56 96 06/27/17 04:30 98.3 79 16 142/66 95 06/27/17 00:00 99.2 83 17 121/62 97 06/26/17 20:00 98.6 82 17 165/75 97 06/26/17 11:48 97 06/26/17 11:44 98.1 75 20 142/70 97 06/26/17 10:30 81 I/O 06/26/17 06/26/17 06/26/17 06/27/17 06/27/17 06/27/17 07:00 15:00 23:00 07:00 15:00 23:00 Intake Total 100 ml 271 ml 240 ml Output Total 2000 ml Balance 100 ml -1729 ml 240 ml Intake Oral 100 ml 0 ml 240 ml IV Total 271 ml Hemodialysis 2000 ml # Voids 2 2 # Bowel Movements 0 1 Result Diagram: 06/27/17 0802 06/27/17 08 Other Results Laboratory Tests Test 06/26/17 06/27/17 15:53 08:02 White Blood Count 7.5 TH/MM3 6.6 TH/MM3 Red Blood Count 3.50 MIL/MM3 3.34 MIL/MM3 Hemoglobin 9.6 GM/DL 9.3 GM/DL Hematocrit 30.1 % 28.6 % Mean Corpuscular Volume 85.9 FL 85.7 FL Mean Corpuscular Hemoglobin 27.5 PG 28.0 PG Mean Corpuscular Hemoglobin 32.0 % 32.7 % Concent Red Cell Distribution Width 15.3 % 15.9 % Platelet Count 228 TH/MM3 222 TH/MM3 Mean Platelet Volume 8.2 FL 8.5 FL Neutrophils (%) (Auto) 75.2 % 69.0 % Lymphocytes (%) (Auto) 14.5 % 18.1 % Monocytes (%) (Auto) 6.4 % 6.7 % Eosinophils (%) (Auto) 3.5 % 5.7 % Basophils (%) (Auto) 0.4 % 0.5 % Neutrophils # (Auto) 5.6 TH/MM3 4.6 TH/MM3 Lymphocytes # (Auto) 1.1 TH/MM3 1.2 TH/MM3 Monocytes # (Auto) 0.5 TH/MM3 0.4 TH/MM3 Eosinophils # (Auto) 0.3 TH/MM3 0.4 TH/MM3 Basophils # (Auto) 0.0 TH/MM3 0.0 TH/MM3 CBC Comment DIFF FINAL DIFF FINAL Differential Comment Sodium Level 138 MEQ/L 134 MEQ/L Potassium Level 3.1 MEQ/L 3.3 MEQ/L Chloride Level 98 MEQ/L 97 MEQ/L Carbon Dioxide Level 31.2 MEQ/L 30.0 MEQ/L Anion Gap 9 MEQ/L 7 MEQ/L Blood Urea Nitrogen 7 MG/DL 12 MG/DL Creatinine 2.11 MG/DL 3.35 MG/DL Estimat Glomerular Filtration 24 ML/MIN 14 ML/MIN Rate Random Glucose 86 MG/DL 114 MG/DL Calcium Level 8.0 MG/DL 7.7 MG/DL Phosphorus Level 2.2 MG/DL 3.1 MG/DL Magnesium Level 1.9 MG/DL 2.1 MG/DL Total Bilirubin 0.5 MG/DL 0.5 MG/DL Aspartate Amino Transf 24 U/L 23 U/L (AST/SGOT) Alanine Aminotransferase 17 U/L 9 U/L (ALT/SGPT) Alkaline Phosphatase 95 U/L 97 U/L Troponin I LESS THAN 0.02 NG/ML Total Protein 6.5 GM/DL 6.3 GM/DL Albumin 2.0 GM/DL 1.9 GM/DL Imaging Last Impressions Chest X-Ray 06/25/17 0000 Signed Impressions: Service Date/Time: Sunday, June 25, 2017 16:57 - CONCLUSION: 1. There is a small right apical pneumothorax. Followup examination in 12 hours to ensure this remains stable would be warranted. Jose F Merida MD Upper Extremity Ultrasound 06/23/17 0000 Signed Impressions: Service Date/Time: Friday, June 23, 2017 17:29 - CONCLUSION: 1. No evidence of upper extremity DVT on the right or left. 2. Superficial vein thrombus of the right cephalic vein in the antecubital fossa region. Guevara Frost MD Thoracentesis Ultrasound 06/20/17 0000 Signed Impressions: Service Date/Time: Tuesday, June 20, 2017 11:07 - CONCLUSION: Uncomplicated ultrasound guided thoracentesis. Dangelo Merida MD FACR Catheter Placement X-Ray 06/20/17 0000 Signed Impressions: Service Date/Time: Tuesday, June 20, 2017 15:18 - CONCLUSION: Successful conversion of the right IJ Vas-Cath to a PermCath catheter as above. Dean Shields MD Renal Ultrasound 06/08/17 0000 Signed Impressions: Service Date/Time: Thursday, June 08, 2017 14:10 - CONCLUSION: Echogenic but normal-size kidneys Bilateral pleural effusions. Dangelo Merida MD FACR Objective Remarks GENERAL: Awake alert SKIN: Warm and dry. HEAD: Atraumatic. Normocephalic. EYES: Pupils equal and round. No scleral icterus. No injection or drainage. ENT: No nasal bleeding or discharge. Mucous membranes pink and moist. Tongue is midline NECK: Trachea midline. No JVD. CARDIOVASCULAR: Regular rate and rhythm. S1-S2 no S3 or S4 no heave or thrill or rub or gallop RESPIRATORY: No accessory muscle use. Clear to auscultation. Breath sounds equal bilaterally. GASTROINTESTINAL: Abdomen soft, non-tender, nondistended. Hepatic and splenic margins not palpable. Obese MUSCULOSKELETAL: Extremities without clubbing, cyanosis, or edema. No obvious deformities. NEUROLOGICAL: Awake and alert. No obvious cranial nerve deficits. Motor grossly within normal limits. Five out of 5 muscle strength in the arms and legs. Normal speech. Visually impaired PSYCHIATRIC: Appropriate mood and affect; insight and judgment normal. Procedures 06/13/17 Vas-Cath placement Medications and IVs Current Medications Sodium Chloride (NS Flush) 2 ml UNSCH PRN IVF FLUSH AFTER USING IV ACCESS Last administered on 06/08/17 10:56; Start 06/08/17 at 10:30; Stop 06/08/17 at 13:16 ; Status DC Furosemide (Lasix Inj) 40 mg ONCE ONCE IVP Last administered on 06/08/17 10: 56; Start 06/08/17 at 10:30; Stop 06/08/17 at 10:31; Status DC Sodium Chloride (NS Flush) 2 ml UNSCH PRN IV FLUSH FLUSH AFTER USING IV ACCESS Last administered on 06/25/17 11:38; Start 06/08/17 at 13:00 Sodium Chloride (NS Flush) 2 ml BID IV FLUSH Last administered on 06/26/17 09: 37; Start 06/08/17 at 21:00 Acetaminophen (Tylenol) 650 mg Q4H PRN PO TEMP > 100.4 Last administered on 06/20 20:47; Start 06/08/17 at 13:00 Ondansetron HCl (Zofran Inj) 4 mg Q6H PRN IVP NAUSEA OR VOMITING; Start at 13:00 Naloxone HCl (Narcan Inj) 0.4 mg UNSCH PRN IV SEE LABEL COMMENTS; Start at 13:00 Senna/Docusate Sodium (Aimee-Colace) 1 tab BID PO Last administered on 09:40; Start 06/08/17 at 21:00 Magnesium Hydroxide (Milk Of Magnesia Liq) 30 ml Q12H PRN PO MILD - MODERATE CONSTIPATION Last administered on 06/22/17 00:52; Start 06/08/17 at 13:00 Sennosides (Senokot) 17.2 mg Q12H PRN PO MODERATE - SEVERE CONSTIPATION Last administered on 06/22/17 09:47; Start 06/08/17 at 13:00 Bisacodyl (Dulcolax Supp) 10 mg DAILY PRN RECTAL SEVERE CONSITIPATION; Start at 13:00 Lactulose (Lactulose Liq) 30 ml DAILY PRN PO SEVERE CONSITIPATION Last administered on 06/22/17 09:47; Start 06/08/17 at 13:00 Bumetanide (Bumex Inj) 1 mg BID@,18 IV PUSH Last administered on 06/26/17 17 :40; Start 06/08/17 at 18:00 Dextrose (D50w (Vial) Inj) 50 ml UNSCH PRN IV HYPOGLYCEMIA-SEE COMMENTS; Start 06/08/17 at 13:00 Glucagon (Glucagon Inj) 1 mg UNSCH PRN OTHER HYPOGLYCEMIA-SEE COMMENTS; Start 06/08/17 at 13:00 Insulin Aspart (NovoLOG SUPPLEMENTAL SCALE) 1 ACHS SLIDING SCALE SQ Last administered on 06/17/17 21:22; Start 06/08/17 at 16:00 Heparin Sodium (Porcine) (Heparin Inj) 5,000 units Q12HR SQ Last administered on 06/25/17 22:28; Start 06/08/17 at 21:00 Labetalol HCl (Trandate) 100 mg Q12HR PO Last administered on 06/13/17 07:49; Start 06/08/17 at 21:00; Stop 06/13/17 at 18:27; Status DC Pneumococcal Polyvalent Vaccine 25 mcg 25 mcg ONCE ONCE IM ; Start 06/09/17 at 10:00; Stop 06/09/17 at 10:01; Status DC Ceftriaxone Sodium/Sodium Chloride (Rocephin Inj/NS Inj) 100 ml @ 200 mls/hr Q24H IV Last administered on 06/21/17 12:39; Start 06/10/17 at 10:00; Stop 08/28 at 16:20; Status DC Amlodipine Besylate (Norvasc) 5 mg DAILY PO ; Start 06/10/17 at 10:00; Stop at 10:00; Status DC Atorvastatin Calcium (Lipitor) 20 mg HS PO Last administered on 06/26/17 21:26 ; Start 06/10/17 at 21:00 Atropine Sulfate (Atropine 1% Opth Soln) 1 drop BID EACH EYE ; Start 06/10/17 at 10:00; Status Cancel Metoprolol Tartrate (Lopressor) 25 mg BID PO ; Start 06/10/17 at 09:30; Stop at 09:33; Status DC Prednisolone Acetate (Pred Forte 1% Opt Susp) 1 drop QID LEFT EYE Last administered on 06/26/17 21:27; Start 06/10/17 at 13:00 Sodium Bicarbonate (Sodium Bicarbonate) 650 mg BIDPC PO Last administered on 16:41; Start 06/10/17 at 18:00; Stop 06/18/17 at 18:18; Status DC Atropine Sulfate (Isopto Atropine 1% Opth Soln) 1 drop BID EACH EYE Last administered on 06/26/17 21:27; Start 06/10/17 at 21:00 Albuterol/ Ipratropium (Duoneb Neb) 1 ampule QID NEB NEB Last administered on 06/16/17 11:21; Start 06/12/17 at 12:00; Stop 06/16/17 at 12:00; Status DC Albuterol Sulfate (Albuterol Neb) 2.5 mg Q2HR NEB PRN NEB DYSPNEA; Start at 09:15 Tamsulosin HCl (Flomax) 0.4 mg DAILY PO Last administered on 06/26/17 09:40; Start 06/12/17 at 18:00 Clonidine 0.1 mg 0.1 mg Q6H PRN PO SYS BP GREATER THAN 160 MMHG Last administered on 06/25/17 11:37; Start 06/12/17 at 18:30 Heparin Sodium/ Sodium Chloride (Heparin-NS/Pf Inj) 500 ml @ As Directed STK- MED ONCE .ROUTE ; Start 06/13/17 at 08:40; Stop 06/13/17 at 08:41; Status DC Heparin Sodium (Porcine) (*HEPARIN INJ Periprocedural ONLY) 10,000 units STK- MED ONCE .ROUTE ; Start 06/13/17 at 08:41; Stop 06/13/17 at 08:42; Status DC Sodium Chloride (NS Flush) DAILY IVF Last administered on 06/26/17 09:37; Start 06/14/17 at 09:00 Heparin Sodium (Porcine) (Heparin Central Flush) DAILY IV FLUSH Last administered on 06/26/17 09:37; Start 06/14/17 at 09:00 Sodium Chloride (NS Flush) UNSCH PRN IVF SEE PROTOCOL; Start 06/13/17 at 09:45 Heparin Sodium (Porcine) UNSCH PRN IV FLUSH SEE PROTOCOL; Start 06/13/17 at 09: 45 Sodium Chloride (NS 1000 ml Inj) 1,000 ml @ 0 mls/hr Q0M PRN IV For Prime & Rinse Back Last administered on 06/26/17 12:46; Start 06/13/17 at 10:23 Heparin Sodium (Porcine) 8000 units 8,000 units UNSCH PRN IVF WITH DIALYSIS; Start 06/13/17 at 10:30 Sodium Chloride 1,000 ml @ 200 mls/hr Q5H PRN IV WITH DIALYSIS; Start 06/13/17 at 10:23 Sodium Chloride (NS 1000 ml Inj) 1,000 ml @ 0 mls/hr Q0M PRN IV WITH DIALYSIS; Start 06/13/17 at 10:23 Mannitol (Mannitol Inj) 12.5 gm UNSCH PRN IV WITH DIALYSIS; Start 06/13/17 at 10 :30 Albumin Human (Albumin 25% Inj) 25 gm UNSCH PRN IV WITH DIALYSIS; Start at 10:30 Sodium Chloride (NS Flush) 5 ml UNSCH PRN IV FLUSH WITH DIALYSIS; Start at 10:30 Heparin Sodium (Porcine) (Heparin Inj) UNSCH PRN .XX WITH DIALYSIS Last administered on 06/26/17 12:46; Start 06/13/17 at 10:30 Gentamicin Sulfate (Gentamicin (Dialysis) Inj) 20 mg UNSCH PRN IV WITH DIALYSIS Last administered on 06/26/17 12:47; Start 06/13/17 at 10:30 Ondansetron HCl (Zofran Inj) 4 mg UNSCH PRN IV WITH DIALYSIS; Start 06/13/17 at 10:30 Acetaminophen (Tylenol) 650 mg UNSCH PRN PO for headach, pain, temp > 101F; Start 06/13/17 at 10:30 Diphenhydramine HCl (Benadryl) 25 mg UNSCH PRN PO for hives/itching/anaphylaxis ; Start 06/13/17 at 10:30; Stop 06/24/17 at 10:32; Status DC Nitroglycerin (Nitrostat Sl) 0.4 mg UNSCH PRN SL CHEST PAIN Last administered on 06/25/17 14:07; Start 06/13/17 at 10:30 Clonidine (Catapres) 0.1 mg UNSCH PRN PO for BP > 180/100 X 2 readings Last administered on 06/24/17 17:13; Start 06/13/17 at 10:30 Epoetin Jose Angel (Epogen Inj) 10,000 units UNSCH PRN IV WITH DIALYSIS Last administered on 06/26/17 12:46; Start 06/13/17 at 10:30 Gelatin (Gelfoam 12 Mm/7 Mm Top) 1 foam UNSCH PRN TOP SEE LABEL COMMENTS; Start 06/13/17 at 10:30 Miscellaneous Information Patient in critical care unit? Ass... [id number] .XX ; Start 06/13/17 at 11:00 Chlorhexidine Gluconate (Chlorhexidine 2% Cloth) 3 pack DAILY@04 TOPICAL Last administered on 06/17/17 22:47; Start 06/14/17 at 04:00; Stop 06/18/17 at 04:01; Status DC Chlorhexidine Gluconate (Chlorhexidine 2% Cloth) 3 pack UNSCH PRN TOPICAL HYGIENIC CARE; Start 06/13/17 at 11:00; Stop 06/18/17 at 10:47; Status DC Hydralazine HCl (Apresoline Inj) 10 mg NOW ONCE IV PUSH Last administered on 17:24; Start 06/13/17 at 17:30; Stop 06/13/17 at 17:31; Status DC Labetalol HCl (Trandate) 200 mg Q12HR PO Last administered on 06/22/17 19:55; Start 06/13/17 at 21:00; Stop 06/23/17 at 07:43; Status DC Vitamin B Complex/ Vit C/Folic Acid (Nephrocaps) 1 cap DAILY PO Last administered on 06/26/17 09:00; Start 06/13/17 at 18:30 Lidocaine HCl (Xylocaine 1% Inj) 9 ml STK-MED ONCE SQ Last administered on 09:35; Start 06/19/17 at 09:35; Stop 06/19/17 at 10:02; Status DC Hydralazine HCl (Apresoline Inj) 10 mg Q30M PRN IV PUSH bp>140/90 Last administered on 06/22/17 00:53; Start 06/20/17 at 01:15 Lidocaine HCl 10 ml 10 ml STK-MED ONCE SQ Last administered on 06/20/17 12:25; Start 06/20/17 at 12:25; Stop 06/20/17 at 12:26; Status DC Vancomycin HCl 1000 mg/Sodium Chloride 250 ml @ 250 mls/hr DOLLY PUSHER IV Last administered on 06/20/17 13:49; Start 06/20/17 at 13:15; Stop 06/24/17 at 13:14; Status DC Cefazolin Sodium/ Dextrose (Ancef 2 Gm Premix) 50 ml @ 100 mls/hr DOLLY PUSHER IV Last administered on 06/20/17 15:32; Start 06/20/17 at 13:15; Stop 06/24/17 at 13 :14; Status DC Midazolam HCl (Versed Inj) 4 mg STK-MED ONCE .ROUTE Last administered on 15:15; Start 06/20/17 at 15:15; Stop 06/20/17 at 15:16; Status DC Fentanyl Citrate (fentaNYL INJ) 250 mcg STK-MED ONCE .ROUTE Last administered on 06/20/17 15:15; Start 06/20/17 at 15:15; Stop 06/20/17 at 15:16; Status DC Heparin Sodium (Porcine) (*HEPARIN INJ Periprocedural ONLY) 10,000 units STK- MED ONCE .ROUTE Last administered on 06/20/17 15:38; Start 06/20/17 at 15:38; Stop 06/20/17 at 15:39; Status DC Lidocaine/ Epinephrine (Xylocaine-Epi 1%-1:100,000 Inj) 20 ml STK-MED ONCE .ROUTE Last administered on 06/20/17 15:38; Start 06/20/17 at 15:38; Stop at 15:39; Status DC Sodium Chloride (NS Flush) UNSCH PRN IVF SEE PROTOCOL; Start 06/20/17 at 16:30 Heparin Sodium (Porcine) (Heparin Inj) UNSCH PRN IV FLUSH SEE PROTOCOL; Start 06/20/17 at 16:30 Polyethylene Glycol (Miralax) 17 gm ONCE ONCE PO ; Start 06/21/17 at 16:15; Stop 06/21/17 at 16:18; Status DC Labetalol HCl (Trandate) 200 mg Q8H PO Last administered on 06/27/17 06:00; Start 06/23/17 at 13:00 Calcitriol 0.25 mcg 0.25 mcg DAILY PO Last administered on 06/26/17 09:40; Start 06/23/17 at 12:00 Iron Sucrose/ Sodium Chloride (Venofer Inj/NS Inj) 110 ml @ 110 mls/hr DAILY IV Last administered on 06/25/17 10:28; Start 06/23/17 at 14:00; Stop at 09:59; Status DC Doxazosin Mesylate (Cardura) 4 mg DAILY PO Last administered on 06/26/17 09:00 ; Start 06/23/17 at 18:15 Amlodipine Besylate (Norvasc) 5 mg BID PO Last administered on 8/15/17at 21:26 ; Start 06/25/17 at 21:00 Amlodipine Besylate (Norvasc) 5 mg ONCE ONCE PO Last administered on 14:27; Start 06/25/17 at 15:00; Stop 06/25/17 at 15:01; Status DC Hydralazine HCl 25 mg 25 mg Q8HR PO Last administered on 06/27/17 06:00; Start 06/25/17 at 22:00 Dextrose/Sodium Chloride (D5W-1/2 NS 1000 ml Inj) 1,000 ml @ 42 mls/hr [id number] IV Last administered on 06/26/17 08:32; Start 06/26/17 at 08:15 Urinary Catheter: No Side: Right Location: Internal A/P Problem List: (1) Acute renal failure ICD Code: N17.9 Status: Acute (2) Diabetes mellitus ICD Code: E11.9 Status: Chronic (3) Hyperlipidemia ICD Code: E78.5 Status: Chronic (4) Hypertension ICD Code: I10 Status: Chronic (5) Fluid overload ICD Code: E87.70 Status: Resolved Assessment and Plan ESRD on HD Likely due to uncontrolled diabetes, and now has become chronic per nephrology. Will most likely need permanent dialysis. -06/23 patient had a PermCath placed. 06/24 Evaluated by Vascular surgery for AVF placement. 06-27 FOR GRAFT CREATION TODAY Right pleural effusion/hypoxemia - resolved Due to R pleural effusion sp Thoracentesis US. 2-D echo is unremarkable with EF 55-60%. Pulmonology was consulted, likely due to fluid overload. S/p right and left thoracenteses. Walk test done, the pt will not need home oxygen. - follow up with pulmonology. - oxygen, nebs, IS as needed. - encourage ambulation. Hypertension Difficult to control secondary to renal failure. - clonidine as needed. 06/23 patient with severely uncontrolled blood pressure with systolic blood pressure into the high 90s. I will increase labetalol to 200 mg by mouth every 8 hours. I will also start the patient on doxazosin 4 mg by mouth daily. Diabetes mellitus Glucose very well controlled. - Monitor Accu-Cheks and cover with sliding scale insulin. - check an A1c. Urinary retention The pt required Godwin reinsertion 06/22. Apparently urology never saw the pt, even though they were consulted on 06/12. - continue Flomax. - continue Godwin. - Urology reconsulted. Anemia Normal MCV anemia. Likely secondary to chronic disease. Iron studies show low iron, low percent saturation and normal ferritin. Patient is being administered IV iron as per nephrology recommendations. Continue continue to monitor CBC. Diarrhea Patient complains of abdominal pain and diarrhea. I will check a stool for C. difficile PCR and place on contact isolation until stool C. difficile is ruled out. 06/24 Diarrhea is resolved. No further diarrhea or abdominal pain. PPx: Heparin Discharge Planning Continue to monitor in the medical floor. DC pending AVF placement, CV surgery and nephrology clearance. HAD CHEST PAIN/ANXIETY TROPONINS NEGATIVE- EKG STABLE Problem Qualifiers (1) Diabetes mellitus: Dangelo Torres DO Jun 27, 2017 09:55
[2017-06-27] MEDS ORDERED: BUPIVACAINE HCL PF 0.5% 30 ML VIAL INFIL ONE (11:18)
[2017-06-27] MEDS ORDERED: HEPARIN SODIUM - IV 10,000 UNITS/10 ML VIAL IV ONE ×2 (11:18→11:31)
[2017-06-27] MEDS ORDERED: VASOPRESSIN 20 UNITS/ML VIAL (IVTITR) ONE (11:18)
[2017-06-27] MEDS ORDERED: HEPARIN SODIUM - IV 10,000 UNITS/10 ML VIAL OTHER ONE (11:18)
[2017-06-27] MEDS ORDERED: ONDANSETRON HCL 4 MG/2 ML VIAL IV PUSH ONE (12:00)
[2017-06-27] MEDS ORDERED: PHENYLEPH/NS 1000 MCG/10 ML SYR IV ONE (12:00)
[2017-06-27] MEDS ORDERED: PROPOFOL 200 MG/20 ML AMP IV ONE (12:00)
[2017-06-27] MEDS ORDERED: ePHEDrine/NS 25 MG/5 ML SYR IV ONE (12:00)
[2017-06-27] MEDS ORDERED: SODIUM CHLORID 0.9% 500 ML INJ 500 ML IV ONE (12:00)
[2017-06-27] MEDS ORDERED: VASOPRESSIN 20 UNITS/ML VIAL (IVTITR) IV ONE (12:00)
[2017-06-27] MEDS ORDERED: DO NOT ADM ANY ANTICOAGULANT DRUGS PRN (12:12)
[2017-06-27] MEDS ORDERED: INFLUENZA VIRUS VACCINE (QUADRIVALENT) 0.5 ML SYR IM ONE ×2 (12:15)
[2017-06-27] MEDS ORDERED: PNEUMOCOCCAL POLYVALENT INJ 25 MCG/0.5 ML SYR IM ONE (15:00)
--- NOTE | 2017-06-27 17:14 | HHI.NPPN ---
Subjective History of Present Illness 57-year-old female with past medical history of hypertension, diabetes mellitus, chronic kidney disease, ischemic heart disease, congestive heart failure, came to the hospital with complaint of worsening shortness of breath. I was called to see the patient because of elevated BUN and creatinine patient has creatinine of 4.3 on admission and she had reviously creatinine of 3.6 last month the patient has known history of chronic kidney disease and she has been following by her order entry technician in [place] and according to daughter she was told that she will need dialysis and also she was told that she possibly will need kidney biopsy. Additional Remarks Patient is alert, now seen after the AVF surgery. Review of Systems General Constitutional: Fatigue Cardiovascular Cardiac: Edema, ISSA Objective Data Data 06/26/17 06/27/17 19:00 07:00 Intake Total 271 ml 240 ml Output Total 2000 ml Balance -1729 ml 240 ml Intake Oral 0 ml 240 ml IV Total 271 ml Hemodialysis 2000 ml # Voids 2 # Bowel Movements 1 Vital Signs Date Time Temp Pulse Resp B/P Pulse Ox O2 Delivery O2 Flow Rate FiO2 06/27/17 15:30 97.5 71 16 132/61 96 06/27/17 13:45 68 18 125/60 100 Nasal Cannula 2 06/27/17 13:30 68 18 122/58 100 Nasal Cannula 2 06/27/17 13:15 68 18 116/57 100 Nasal Cannula 3 06/27/17 13:00 68 18 111/56 100 Nasal Cannula 3 06/27/17 12:45 67 18 101/55 99 Nasal Cannula 3 06/27/17 12:24 98.9 66 18 91/51 100 Simple Mask 6 06/27/17 08:12 98.2 75 16 124/56 96 06/27/17 07:30 75 06/27/17 04:30 98.3 79 16 142/66 95 06/27/17 00:00 99.2 83 17 121/62 97 06/26/17 20:00 98.6 82 17 165/75 97 -: 06/27/17 0802 06/27/17 0802 Physical Exam General Appearance: No Acute Distress, Comfortable Pulmonary Resp Exam: Breath Sounds Equal Cardiology CV Exam: Regular Gastrointestinal/Abdomen GI Exam: Soft, Non-Tender, Bowel Sounds Present Extremeties Extremities Exam: Dependent Edema Neurologic Neuro Exam: Alert, Awake, Oriented Psychiatric Psych Exam: Appropriate Responses Assessment/Plan Problem List: (1) [id number] kidney injury (2) CHF exacerbation Plan: Bumex (3) Diabetes mellitus Plan Dialysis started on 06/13, Patient most likely has End stage renal disease. Has PermCath. Thoracentesis done and 1 liter removed on 06/20. Patient tolerated well. D/W the daughter, she want her HD to set up in [place]. I called Dr. Davis , and left message on his cell phone and answering service on 06/22. Replace iron IV as sat. was low. Calcium low, on Rocaltrol, Po4 was normal. Seen by vascular surgery, AVF done , has good Bruit. HD will be in AM. Film Printer arranging out patient HD at [facility] in [place]. Problem Qualifiers (1) [id number] kidney injury: (2) Diabetes mellitus: José Howell MD Jun 27, 2017 17:14
--- NOTE | 2017-06-27 18:56 | HHI.PR ---
Subjective Remarks ALERT NO SOB AT REST O2 SAT 96% on 02 N/C Objective Vital Signs Date Time Temp Pulse Resp B/P Pulse Ox O2 Delivery O2 Flow Rate FiO2 06/27/17 18:03 96 21 06/27/17 15:30 97.5 71 16 132/61 96 06/27/17 13:45 68 18 125/60 100 Nasal Cannula 2 06/27/17 13:30 68 18 122/58 100 Nasal Cannula 2 06/27/17 13:15 68 18 116/57 100 Nasal Cannula 3 06/27/17 13:00 68 18 111/56 100 Nasal Cannula 3 06/27/17 12:45 67 18 101/55 99 Nasal Cannula 3 06/27/17 12:24 98.9 66 18 91/51 100 Simple Mask 6 06/27/17 08:12 98.2 75 16 124/56 96 06/27/17 07:30 75 06/27/17 04:30 98.3 79 16 142/66 95 06/27/17 00:00 99.2 83 17 121/62 97 06/26/17 20:00 98.6 82 17 165/75 97 I/O 06/26/17 06/26/17 06/26/17 06/27/17 06/27/17 06/27/17 07:00 15:00 23:00 07:00 15:00 23:00 Intake Total 100 ml 271 ml 240 ml 700 ml 240 ml Output Total 2000 ml 10 ml Balance 100 ml -1729 ml 240 ml 690 ml 240 ml Intake Oral 100 ml 0 ml 240 ml 240 ml IV Total 271 ml 300 ml Other 400 ml Output Urine Total 0 ml Hemodialysis 2000 ml Estimated Blood Loss 10 ml # Voids 2 2 # Bowel Movements 0 1 Result Diagram: 06/27/17 0806/[id number]/17801 Objective Remarks GENERAL: SKIN: Warm and dry. HEAD: Atraumatic. Normocephalic. EYES: Pupils equal and round. No scleral icterus. No injection or drainage. ENT: No nasal bleeding or discharge. Mucous membranes pink and moist. NECK: Trachea midline. No JVD. CARDIOVASCULAR: Regular rate and rhythm. RESPIRATORY: No accessory muscle use. DECREASE BREATH SOUNDS AT BASIS. GASTROINTESTINAL: Abdomen soft, non-tender, nondistended. Hepatic and splenic margins not palpable. MUSCULOSKELETAL: Extremities without clubbing, cyanosis, or edema. No obvious deformities. NEUROLOGICAL: Awake and alert. No obvious cranial nerve deficits. Motor grossly within normal limits. Five out of 5 muscle strength in the arms and legs. Normal speech. PSYCHIATRIC: Appropriate mood and affect; insight and judgment normal. Assessment and Plan Assessment and Plan ASS: RESPIRATORY FAILURE FLUID OVERLOAD DUE TO RENAL FAILURE BILATERAL EFFUSIONS post bilateral thoracentesis PLAN O2 NEEDED dialysis for A/V fistula placed Indira Jacobson MD Jun 27, 2017 18:56
[2017-06-27] MEDS: ONDANSETRON HCL 4 MG/2 ML VIAL IV PRN (19:25)
[2017-06-27] MEDS: ATORVASTATIN 20 MG TAB PO SCH (20:59)
[2017-06-28 00:20] VITALS: BP_SYST 126; PULSE 76; RESP 18; TEMP 98.2; O2SAT 99
[2017-06-28 04:55] VITALS: BP 120/64; PULSE 79; RESP 18; TEMP 98.2; O2SAT 96
[2017-06-28] MEDS: LABETALOL HCL 200 MG TAB PO SCH ×3 (05:06→21:30)
[2017-06-28] MEDS: hydrALAZINE HCL 25 MG TAB PO SCH ×3 (05:06→22:17)
[2017-06-28] MEDS: INSULIN ASPART SUPPLEMENTAL SCALE SQ SCH ×4 (06:35→21:00)
[2017-06-28] MEDS: DEXT 5%-NACL 0.45% 1000 ML INJ 1,000 ML IV SCH (06:35)
--- NOTE | 2017-06-28 06:35 | MP ---
cc: OLGA LIDIA MORATAYA MD DATE OF SURGERY 06/27/2017 PREOPERATIVE DIAGNOSIS Chronic renal failure. POSTOPERATIVE DIAGNOSIS Chronic renal failure. OPERATIVE PROCEDURE AV fistula left upper arm. SURGEON Olga Lidia Morataya MD ANESTHESIA General ESTIMATED BLOOD LOSS 15 cc PROCEDURE The patient prepped and draped in the usual fashion. An antecubital incision was made slightly proximal to the antecubital crease transversally. The veins are first explored. The patient has a very poor basilic vein however, cephalic vein appears to be adequate in size about 4 mm. The decision is now made to use cephalic vein as the conduit for the AV fistula. The antecubital artery is explored and isolated proximally and distally. It is fairly small, but will probably do measuring only about 3 mm. The patient was given 5000 units of heparin and then Yasargil clamps applied proximally and distally to the vessel. The vein is isolated a little higher up to allowed it swing medially. Small branches ligated with 3-0 silk and divided. The vein is now transected and swung medially, marked with a marker to prevent kinking. The vein is dilated with serial dilators and then incised inferiorly to spatulate it. Incision is made in the artery with a Johnson scissors measuring about 8 mm in length and then with a 6-0 Prolene the spatulated anastomosis is created in a running fashion. Blood flow reestablished. The patient has excellent distal flow and excellent runoff flow into the vein. The patient tolerated procedure well. The incision closed with 2-0 Vicryl and 4-0 Monocryl. Olga Lidia LUO/SHAYNAL /1:34 PM /6:26 AM
[2017-06-28] MEDS: DOCUSATE SODIUM 50 MG/SENNA 8.6 MG TAB PO SCH ×2 (08:15→21:30)
[2017-06-28] MEDS: CALCITRIOL 0.25 MCG CAP PO SCH (08:15)
[2017-06-28] MEDS: VITAMIN B CMPLX/VITC/FOLIC AC CAP PO SCH (08:15)
[2017-06-28] MEDS: amLODIPine BESYLATE 5 MG TAB PO SCH ×2 (08:16→21:30)
[2017-06-28] MEDS: DOXAZOSIN MESYLATE 4 MG TAB PO SCH (08:16)
[2017-06-28] MEDS: TAMSULOSIN HCL 0.4 MG CAP PO SCH (08:16)
[2017-06-28] MEDS: BUMETANIDE INJ 1 MG/4 ML VIAL IV PUSH SCH ×2 (08:20→17:14)
[2017-06-28] MEDS: ATROPINE SULFATE 1% OPHT SOLN 5 ML BTL EACH EYE SCH ×2 (08:27→21:31)
[2017-06-28] MEDS: SODIUM CHLORIDE 0.9% FLUSH 10 ML FLUSH IV FLUSH SCH ×2 (09:00→21:30)
[2017-06-28] MEDS: HEPARIN SODIUM - SQ 10,000 UNITS/ML VIAL SQ SCH ×2 (09:00→21:30)
[2017-06-28] MEDS ORDERED: TUBERCULIN, PPD 5 UNITS/0.1 ML SYRINGE I-DERMAL ONE (09:00)
[2017-06-28] MEDS: SODIUM CHLORIDE 0.9% FLUSH 10 ML FLUSH IVF SCH (09:00)
[2017-06-28 09:10] LABS: AUTOMATED NEUTROPHIL # 5.6 TH/MM3 (1.8-7.7); BASOPHIL % 0.5 % (0.0-2.0); EOSINOPHIL # 0.5 TH/MM3 (0-0.4); EOSINOPHIL % 6.3 % (0.0-4.0); HEMATOCRIT 28.6 % (35.0-46.0); HEMO FLAGS DIFF FINAL; LYMPHOCYTE # 1.2 TH/MM3 (1.0-4.8); MEAN CELL VOLUME 87.1 FL (80.0-100.0); MEAN CORPUSCULAR HEMOGLOBIN 28.1 PG (27.0-34.0); MEAN CORPUSCULAR HGB CONC 32.2 % (32.0-36.0); MONO % 5.4 % (0.0-8.0); NEUT % 72.8 % (16.0-70.0); PLATELET COUNT 214 TH/MM3 (150-450); RED BLOOD COUNT 3.29 MIL/MM3 (4.00-5.30); WHITE BLOOD COUNT 7.7 TH/MM3 (4.0-11.0)
[2017-06-28] MEDS: ONDANSETRON HCL 4 MG/2 ML VIAL IV PRN (09:26)
[2017-06-28] MEDS: prednisoLONE ACETATE 1% OPHT SUSP 5 ML BTL LEFT EYE SCH ×4 (09:28→21:31)
[2017-06-28 09:44] LABS: ANION GAP 8 MEQ/L (5-15); AST (GOT) 22 U/L (15-37); BICARBONATE 27.5 MEQ/L (21.0-32.0); BLOOD UREA NITROGEN 15 MG/DL (7-18); CHLORIDE 97 MEQ/L (98-107); GLOMERULAR FILTRATION RATE 11 ML/MIN (>89); POTASSIUM 3.6 MEQ/L (3.5-5.1); SODIUM (NA) 132 MEQ/L (136-145)
[2017-06-28 09:50] LABS: ALKALINE PHOSPHATASE 90 U/L (45-117); ALT (GPT) 10 U/L (10-53); TOTAL BILIRUBIN ADULT 0.4 MG/DL (0.2-1.0)
[2017-06-28] MEDS ORDERED: PROCHLORPERAZINE 25 MG SUPP RECTAL PRN (10:00)
--- NOTE | 2017-06-28 10:01 | HHI.PR ---
Subjective Remarks 8-15 DW RN AND PT HAD SOME CHEST PAIN YESTERDAY-NONE NOW MAY HAVE BEEN SOME ANXIETY 8-16 TO HAVE AV FISTULA CREATED TODAY WITH VASCULAR NO OTHER COMPLAINTS 8-17 had left upper extremity AV fistula created yesterday. Assessment hepatitis panel done awaiting PPD QuantiFERON GOLD results Discussed with patient and RN Having some nausea today No relief with Zofran will make sure she has some Compazine Objective Vitals Vital Signs Date Time Temp Pulse Resp B/P Pulse Ox O2 Delivery O2 Flow Rate FiO2 06/28/17 04:55 98.2 79 18 120/64 96 06/28/17 00:20 98.2 76 18 126/ 99 06/27/17 20:33 98.0 77 20 141/65 97 06/27/17 18:03 96 21 06/27/17 15:30 97.5 71 16 132/61 96 06/27/17 13:45 68 18 125/60 100 Nasal Cannula 2 06/27/17 13:30 68 18 122/58 100 Nasal Cannula 2 06/27/17 13:15 68 18 116/57 100 Nasal Cannula 3 06/27/17 13:00 68 18 111/56 100 Nasal Cannula 3 06/27/17 12:45 67 18 101/55 99 Nasal Cannula 3 06/27/17 12:24 98.9 66 18 91/51 100 Simple Mask 6 I/O 06/27/17 06/27/17 06/27/17 06/28/17 06/28/17 06/28/17 07:00 15:00 23:00 07:00 15:00 23:00 Intake Total 240 ml 700 ml 240 ml Output Total 10 ml Balance 240 ml 690 ml 240 ml Intake Oral 240 ml 240 ml IV Total 300 ml Other 400 ml Output Urine Total 0 ml Estimated Blood Loss 10 ml # Voids 2 1 # Bowel Movements 1 0 Result Diagram: 06/28/17 0844 06/28/17 0844 Other Results Laboratory Tests Test 06/28/17 08:44 White Blood Count 7.7 TH/MM3 Red Blood Count 3.29 MIL/MM3 Hemoglobin 9.2 GM/DL Hematocrit 28.6 % Mean Corpuscular Volume 87.1 FL Mean Corpuscular Hemoglobin 28.1 PG Mean Corpuscular Hemoglobin 32.2 % Concent Red Cell Distribution Width 16.0 % Platelet Count 214 TH/MM3 Mean Platelet Volume 8.8 FL Neutrophils (%) (Auto) 72.8 % Lymphocytes (%) (Auto) 15.0 % Monocytes (%) (Auto) 5.4 % Eosinophils (%) (Auto) 6.3 % Basophils (%) (Auto) 0.5 % Neutrophils # (Auto) 5.6 TH/MM3 Lymphocytes # (Auto) 1.2 TH/MM3 Monocytes # (Auto) 0.4 TH/MM3 Eosinophils # (Auto) 0.5 TH/MM3 Basophils # (Auto) 0.0 TH/MM3 CBC Comment DIFF FINAL Differential Comment Sodium Level 132 MEQ/L Potassium Level 3.6 MEQ/L Chloride Level 97 MEQ/L Carbon Dioxide Level 27.5 MEQ/L Anion Gap 8 MEQ/L Blood Urea Nitrogen 15 MG/DL Creatinine 4.11 MG/DL Estimat Glomerular Filtration 11 ML/MIN Rate Random Glucose 134 MG/DL Calcium Level 7.8 MG/DL Phosphorus Level 3.7 MG/DL Magnesium Level 2.0 MG/DL Total Bilirubin 0.4 MG/DL Aspartate Amino Transf 22 U/L (AST/SGOT) Alanine Aminotransferase 10 U/L (ALT/SGPT) Alkaline Phosphatase 90 U/L Total Protein 6.3 GM/DL Albumin 1.9 GM/DL Imaging Last Impressions Chest X-Ray 06/25/17 0000 Signed Impressions: Service Date/Time: Sunday, June 25, 2017 16:57 - CONCLUSION: 1. There is a small right apical pneumothorax. Followup examination in 12 hours to ensure this remains stable would be warranted. Jose F Merida MD Upper Extremity Ultrasound 06/23/17 0000 Signed Impressions: Service Date/Time: Friday, June 23, 2017 17:29 - CONCLUSION: 1. No evidence of upper extremity DVT on the right or left. 2. Superficial vein thrombus of the right cephalic vein in the antecubital fossa region. Guevara Frost MD Thoracentesis Ultrasound 06/20/17 0000 Signed Impressions: Service Date/Time: Tuesday, June 20, 2017 11:07 - CONCLUSION: Uncomplicated ultrasound guided thoracentesis. Dangelo Merida MD FACR Catheter Placement X-Ray 06/20/17 0000 Signed Impressions: Service Date/Time: Tuesday, June 20, 2017 15:18 - CONCLUSION: Successful conversion of the right IJ Vas-Cath to a PermCath catheter as above. Dean Shields MD Renal Ultrasound 06/08/17 0000 Signed Impressions: Service Date/Time: Thursday, June 08, 2017 14:10 - CONCLUSION: Echogenic but normal-size kidneys Bilateral pleural effusions. Dangelo Merida MD FACR Objective Remarks GENERAL: Awake alert SKIN: Warm and dry. HEAD: Atraumatic. Normocephalic. EYES: Pupils equal and round. No scleral icterus. No injection or drainage. ENT: No nasal bleeding or discharge. Mucous membranes pink and moist. Tongue is midline NECK: Trachea midline. No JVD. CARDIOVASCULAR: Regular rate and rhythm. S1-S2 no S3 or S4 no heave or thrill or rub or gallop RESPIRATORY: No accessory muscle use. Clear to auscultation. Breath sounds equal bilaterally. GASTROINTESTINAL: Abdomen soft, non-tender, nondistended. Hepatic and splenic margins not palpable. Obese MUSCULOSKELETAL: Extremities without clubbing, cyanosis, or edema. No obvious deformities. Left upper extremity AV fistula dressed good thrill and bruit NEUROLOGICAL: Awake and alert. No obvious cranial nerve deficits. Motor grossly within normal limits. Five out of 5 muscle strength in the arms and legs. Normal speech. Visually impaired PSYCHIATRIC: Appropriate mood and affect; insight and judgment normal. Procedures 06/13/17 Vas-Cath placement Medications and IVs Current Medications Sodium Chloride (NS Flush) 2 ml UNSCH PRN IVF FLUSH AFTER USING IV ACCESS Last administered on 06/08/17 10:56; Start 06/08/17 at 10:30; Stop 06/08/17 at 13:16 ; Status DC Furosemide (Lasix Inj) 40 mg ONCE ONCE IVP Last administered on 06/08/17 10: 56; Start 06/08/17 at 10:30; Stop 06/08/17 at 10:31; Status DC Sodium Chloride (NS Flush) 2 ml UNSCH PRN IV FLUSH FLUSH AFTER USING IV ACCESS Last administered on 06/25/17 11:38; Start 06/08/17 at 13:00 Sodium Chloride (NS Flush) 2 ml BID IV FLUSH Last administered on 06/26/17 09: 37; Start 06/08/17 at 21:00 Acetaminophen (Tylenol) 650 mg Q4H PRN PO TEMP > 100.4 Last administered on 06/20 20:47; Start 06/08/17 at 13:00 Ondansetron HCl (Zofran Inj) 4 mg Q6H PRN IVP NAUSEA OR VOMITING; Start at 13:00 Naloxone HCl (Narcan Inj) 0.4 mg UNSCH PRN IV SEE LABEL COMMENTS; Start at 13:00 Senna/Docusate Sodium (Aimee-Colace) 1 tab BID PO Last administered on 08:15; Start 06/08/17 at 21:00 Magnesium Hydroxide (Milk Of Magnesia Liq) 30 ml Q12H PRN PO MILD - MODERATE CONSTIPATION Last administered on 06/22/17 00:52; Start 06/08/17 at 13:00 Sennosides (Senokot) 17.2 mg Q12H PRN PO MODERATE - SEVERE CONSTIPATION Last administered on 06/22/17 09:47; Start 06/08/17 at 13:00 Bisacodyl (Dulcolax Supp) 10 mg DAILY PRN RECTAL SEVERE CONSITIPATION; Start at 13:00 Lactulose (Lactulose Liq) 30 ml DAILY PRN PO SEVERE CONSITIPATION Last administered on 06/22/17 09:47; Start 06/08/17 at 13:00 Bumetanide (Bumex Inj) 1 mg BID@,18 IV PUSH Last administered on 06/28/17 08 :20; Start 06/08/17 at 18:00 Dextrose (D50w (Vial) Inj) 50 ml UNSCH PRN IV HYPOGLYCEMIA-SEE COMMENTS; Start 06/08/17 at 13:00 Glucagon (Glucagon Inj) 1 mg UNSCH PRN OTHER HYPOGLYCEMIA-SEE COMMENTS; Start 06/08/17 at 13:00 Insulin Aspart (NovoLOG SUPPLEMENTAL SCALE) 1 ACHS SLIDING SCALE SQ Last administered on 06/17/17 21:22; Start 06/08/17 at 16:00 Heparin Sodium (Porcine) (Heparin Inj) 5,000 units Q12HR SQ Last administered on 06/28/17 09:00; Start 06/08/17 at 21:00 Labetalol HCl (Trandate) 100 mg Q12HR PO Last administered on 06/13/17 07:49; Start 06/08/17 at 21:00; Stop 06/13/17 at 18:27; Status DC Pneumococcal Polyvalent Vaccine 25 mcg 25 mcg ONCE ONCE IM ; Start 06/09/17 at 10:00; Stop 06/09/17 at 10:01; Status DC Ceftriaxone Sodium/Sodium Chloride (Rocephin Inj/NS Inj) 100 ml @ 200 mls/hr Q24H IV Last administered on 06/21/17 12:39; Start 06/10/17 at 10:00; Stop 08/28 at 16:20; Status DC Amlodipine Besylate (Norvasc) 5 mg DAILY PO ; Start 06/10/17 at 10:00; Stop at 10:00; Status DC Atorvastatin Calcium (Lipitor) 20 mg HS PO Last administered on 06/27/17 20:59 ; Start 06/10/17 at 21:00 Atropine Sulfate (Atropine 1% Opth Soln) 1 drop BID EACH EYE ; Start 06/10/17 at 10:00; Status Cancel Metoprolol Tartrate (Lopressor) 25 mg BID PO ; Start 06/10/17 at 09:30; Stop at 09:33; Status DC Prednisolone Acetate (Pred Forte 1% Opth Susp) 1 drop QID LEFT EYE Last administered on 06/28/17 09:28; Start 06/10/17 at 13:00 Sodium Bicarbonate (Sodium Bicarbonate) 650 mg BIDPC PO Last administered on 16:41; Start 06/10/17 at 18:00; Stop 06/18/17 at 18:18; Status DC Atropine Sulfate (Isopto Atropine 1% Opth Soln) 1 drop BID EACH EYE Last administered on 06/28/17 08:27; Start 06/10/17 at 21:00 Albuterol/ Ipratropium (Duoneb Neb) 1 ampule QID NEB NEB Last administered on 06/16/17 11:21; Start 06/12/17 at 12:00; Stop 06/16/17 at 12:00; Status DC Albuterol Sulfate (Albuterol Neb) 2.5 mg Q2HR NEB PRN NEB DYSPNEA; Start at 09:15 Tamsulosin HCl (Flomax) 0.4 mg DAILY PO Last administered on 06/28/17 08:16; Start 06/12/17 at 18:00 Clonidine 0.1 mg 0.1 mg Q6H PRN PO SYS BP GREATER THAN 160 MMHG Last administered on 06/25/17 11:37; Start 06/12/17 at 18:30 Heparin Sodium/ Sodium Chloride (Heparin-NS/Pf Inj) 500 ml @ As Directed STK- MED ONCE .ROUTE ; Start 06/13/17 at 08:40; Stop 06/13/17 at 08:41; Status DC Heparin Sodium (Porcine) (*HEPARIN INJ Periprocedural ONLY) 10,000 units STK- MED ONCE .ROUTE ; Start 06/13/17 at 08:41; Stop 06/13/17 at 08:42; Status DC Sodium Chloride (NS Flush) DAILY IVF Last administered on 06/26/17 09:37; Start 06/14/17 at 09:00 Heparin Sodium (Porcine) (Heparin Central Flush) DAILY IV FLUSH Last administered on 06/26/17 09:37; Start 06/14/17 at 09:00 Sodium Chloride (NS Flush) UNSCH PRN IVF SEE PROTOCOL; Start 06/13/17 at 09:45 Heparin Sodium (Porcine) UNSCH PRN IV FLUSH SEE PROTOCOL; Start 06/13/17 at 09: 45 Sodium Chloride (NS 1000 ml Inj) 1,000 ml @ 0 mls/hr Q0M PRN IV For Prime & Rinse Back Last administered on 06/26/17 12:46; Start 06/13/17 at 10:23 Heparin Sodium (Porcine) 8000 units 8,000 units UNSCH PRN IVF WITH DIALYSIS; Start 06/13/17 at 10:30 Sodium Chloride 1,000 ml @ 200 mls/hr Q5H PRN IV WITH DIALYSIS; Start 06/13/17 at 10:23 Sodium Chloride (NS 1000 ml Inj) 1,000 ml @ 0 mls/hr Q0M PRN IV WITH DIALYSIS; Start 06/13/17 at 10:23 Mannitol (Mannitol Inj) 12.5 gm UNSCH PRN IV WITH DIALYSIS; Start 06/13/17 at 10 :30 Albumin Human (Albumin 25% Inj) 25 gm UNSCH PRN IV WITH DIALYSIS; Start at 10:30 Sodium Chloride (NS Flush) 5 ml UNSCH PRN IV FLUSH WITH DIALYSIS; Start at 10:30 Heparin Sodium (Porcine) (Heparin Inj) UNSCH PRN .XX WITH DIALYSIS Last administered on 06/26/17 12:46; Start 06/13/17 at 10:30 Gentamicin Sulfate (Gentamicin (Dialysis) Inj) 20 mg UNSCH PRN IV WITH DIALYSIS Last administered on 06/26/17 12:47; Start 06/13/17 at 10:30 Ondansetron HCl (Zofran Inj) 4 mg UNSCH PRN IV WITH DIALYSIS Last administered on 06/28/17 09:26; Start 06/13/17 at 10:30 Acetaminophen (Tylenol) 650 mg UNSCH PRN PO for headach, pain, temp > 101F; Start 06/13/17 at 10:30 Diphenhydramine HCl (Benadryl) 25 mg UNSCH PRN PO for hives/itching/anaphylaxis ; Start 06/13/17 at 10:30; Stop 06/24/17 at 10:32; Status DC Nitroglycerin (Nitrostat Sl) 0.4 mg UNSCH PRN SL CHEST PAIN Last administered on 06/25/17 14:07; Start 06/13/17 at 10:30 Clonidine (Catapres) 0.1 mg UNSCH PRN PO for BP > 180/100 X 2 readings Last administered on 06/24/17 17:13; Start 06/13/17 at 10:30 Epoetin Jose Angel (Epogen Inj) 10,000 units UNSCH PRN IV WITH DIALYSIS Last administered on 06/26/17 12:46; Start 06/13/17 at 10:30 Gelatin (Gelfoam 12 Mm/7 Mm Top) 1 foam UNSCH PRN TOP SEE LABEL COMMENTS; Start 06/13/17 at 10:30 Miscellaneous Information Patient in critical care unit? Ass... [id number] .XX ; Start 06/13/17 at 11:00 Chlorhexidine Gluconate (Chlorhexidine 2% Cloth) 3 pack DAILY@04 TOPICAL Last administered on 06/17/17 22:47; Start 06/14/17 at 04:00; Stop 06/18/17 at 04:01; Status DC Chlorhexidine Gluconate (Chlorhexidine 2% Cloth) 3 pack UNSCH PRN TOPICAL HYGIENIC CARE; Start 06/13/17 at 11:00; Stop 06/18/17 at 10:47; Status DC Hydralazine HCl (Apresoline Inj) 10 mg NOW ONCE IV PUSH Last administered on 17:24; Start 06/13/17 at 17:30; Stop 06/13/17 at 17:31; Status DC Labetalol HCl (Trandate) 200 mg Q12HR PO Last administered on 06/22/17 19:55; Start 06/13/17 at 21:00; Stop 06/23/17 at 07:43; Status DC Vitamin B Complex/ Vit C/Folic Acid (Nephrocaps) 1 cap DAILY PO Last administered on 06/28/17 08:15; Start 06/13/17 at 18:30 Lidocaine HCl (Xylocaine 1% Inj) 9 ml STK-MED ONCE SQ Last administered on 09:35; Start 06/19/17 at 09:35; Stop 06/19/17 at 10:02; Status DC Hydralazine HCl (Apresoline Inj) 10 mg Q30M PRN IV PUSH bp>140/90 Last administered on 06/22/17 00:53; Start 06/20/17 at 01:15 Lidocaine HCl 10 ml 10 ml STK-MED ONCE SQ Last administered on 06/20/17 12:25; Start 06/20/17 at 12:25; Stop 06/20/17 at 12:26; Status DC Vancomycin HCl 1000 mg/Sodium Chloride 250 ml @ 250 mls/hr ASSISTANT AT SURGERY IV Last administered on 06/20/17 13:49; Start 06/20/17 at 13:15; Stop 06/24/17 at 13:14; Status DC Cefazolin Sodium/ Dextrose (Ancef 2 Gm Premix) 50 ml @ 100 mls/hr ASSISTANT AT SURGERY IV Last administered on 06/20/17 15:32; Start 06/20/17 at 13:15; Stop 06/24/17 at 13 :14; Status DC Midazolam HCl (Versed Inj) 4 mg STK-MED ONCE .ROUTE Last administered on 15:15; Start 06/20/17 at 15:15; Stop 06/20/17 at 15:16; Status DC Fentanyl Citrate (fentaNYL INJ) 250 mcg STK-MED ONCE .ROUTE Last administered on 06/20/17 15:15; Start 06/20/17 at 15:15; Stop 06/20/17 at 15:16; Status DC Heparin Sodium (Porcine) (*HEPARIN INJ Periprocedural ONLY) 10,000 units STK- MED ONCE .ROUTE Last administered on 06/20/17 15:38; Start 06/20/17 at 15:38; Stop 06/20/17 at 15:39; Status DC Lidocaine/ Epinephrine (Xylocaine-Epi 1%-1:100,000 Inj) 20 ml STK-MED ONCE .ROUTE Last administered on 06/20/17 15:38; Start 06/20/17 at 15:38; Stop at 15:39; Status DC Sodium Chloride (NS Flush) UNSCH PRN IVF SEE PROTOCOL; Start 06/20/17 at 16:30 Heparin Sodium (Porcine) (Heparin Inj) UNSCH PRN IV FLUSH SEE PROTOCOL; Start 06/20/17 at 16:30 Polyethylene Glycol (Miralax) 17 gm ONCE ONCE PO ; Start 06/21/17 at 16:15; Stop 06/21/17 at 16:18; Status DC Labetalol HCl (Trandate) 200 mg Q8H PO Last administered on 06/28/17 05:06; Start 06/23/17 at 13:00 Calcitriol 0.25 mcg 0.25 mcg DAILY PO Last administered on 06/28/17 08:15; Start 06/23/17 at 12:00 Iron Sucrose/ Sodium Chloride (Venofer Inj/NS Inj) 110 ml @ 110 mls/hr DAILY IV Last administered on 06/25/17 10:28; Start 06/23/17 at 14:00; Stop at 09:59; Status DC Doxazosin Mesylate (Cardura) 4 mg DAILY PO Last administered on 06/28/17 08:16 ; Start 06/23/17 at 18:15 Amlodipine Besylate (Norvasc) 5 mg BID PO Last administered on 06/28/17 08:16 ; Start 06/25/17 at 21:00 Amlodipine Besylate (Norvasc) 5 mg ONCE ONCE PO Last administered on 14:27; Start 06/25/17 at 15:00; Stop 06/25/17 at 15:01; Status DC Hydralazine HCl 25 mg 25 mg Q8HR PO Last administered on 06/28/17 05:06; Start 06/25/17 at 22:00 Dextrose/Sodium Chloride (D5W-1/2 NS 1000 ml Inj) 1,000 ml @ 42 mls/hr [id number] IV Last administered on 06/28/17 06:35; Start 06/26/17 at 08:15 Vasopressin (Pitressin Inj) 20 units STK-MED ONCE .ROUTE ; Start 06/27/17 at 11: 18; Stop 06/27/17 at 11:19; Status DC Heparin Sodium (Porcine) (Heparin Inj) 10,000 units STK-MED ONCE IV ; Start at 11:31; Stop 06/27/17 at 11:32; Status Cancel Heparin Sodium (Porcine) (Heparin Inj) 10,000 units STK-MED ONCE IV Last administered on 06/27/17 11:18; Start 06/27/17 at 11:18; Stop 06/27/17 at 11:54 ; Status DC Bupivacaine HCl (Marcaine Pf 0.5% Inj) 30 ml STK-MED ONCE INFIL ; Start at 11:18; Stop 06/27/17 at 11:19; Status Cancel Heparin Sodium (Porcine) (Heparin Inj) 10,000 units STK-MED ONCE OTHER Last administered on 06/27/17 11:18; Start 06/27/17 at 11:18; Stop 06/27/17 at 11:54 ; Status DC Influenza Virus Vaccine (Flu (Quadrivalent) Vaccine Inj) 0.5 ml ONCE ONCE IM ; Start 06/27/17 at 12:15; Stop 06/27/17 at 12:16; Status UNV Influenza Virus Vaccine (Flu (Quadrivalent) Vaccine Inj) 0.5 ml ONCE ONCE IM ; Start 06/27/17 at 12:15; Stop 06/27/17 at 12:16; Status UNV Pneumococcal Polyvalent Vaccine (Pneumovax-23 Inj) 25 mcg ONCE ONCE IM Last administered on 06/27/17 18:23; Start 06/27/17 at 15:00; Stop 06/27/17 at 15:01 ; Status DC Fentanyl Citrate (fentaNYL INJ) 200 mcg STK-MED ONCE .ROUTE ; Start 06/27/17 at 13:00; Stop 06/27/17 at 13:01; Status DC Miscellaneous Information ALL NURSING DEPARTME... UNSCH PRN .XX SEE LABEL COMMENTS; Start 06/27/17 at 12:12; Stop 06/28/17 at 12:11 Tuberculin PPD (Ppd Inj) 5 units ONCE ONCE I-DERMAL ; Start 06/28/17 at 09:00; Stop 06/28/17 at 09:01; Status DC Urinary Catheter: No Side: Right Location: Internal A/P Problem List: (1) Acute renal failure ICD Code: N17.9 Status: Acute (2) Diabetes mellitus ICD Code: E11.9 Status: Chronic (3) Hyperlipidemia ICD Code: E78.5 Status: Chronic (4) Hypertension ICD Code: I10 Status: Chronic (5) Fluid overload ICD Code: E87.70 Status: Resolved Assessment and Plan ESRD on HD Likely due to uncontrolled diabetes, and now has become chronic per nephrology. Will most likely need permanent dialysis. -06/23 patient had a PermCath placed. 06/24 Evaluated by Vascular surgery for AVF placement. 06-27 FOR GRAFT CREATION TODAY IN left upper extremity Right pleural effusion/hypoxemia - resolved Due to R pleural effusion sp Thoracentesis US. 2-D echo is unremarkable with EF 55-60%. Pulmonology was consulted, likely due to fluid overload. S/p right and left thoracenteses. Walk test done, the pt will not need home oxygen. - follow up with pulmonology. - oxygen, nebs, IS as needed. - encourage ambulation. Hypertension Difficult to control secondary to renal failure. - clonidine as needed. 06/23 patient with severely uncontrolled blood pressure with systolic blood pressure into the high 90s. I will increase labetalol to 200 mg by mouth every 8 hours. I will also start the patient on doxazosin 4 mg by mouth daily. Diabetes mellitus Glucose very well controlled. - Monitor Accu-Cheks and cover with sliding scale insulin. - check an A1c. Urinary retention The pt required Godwin reinsertion 06/22. Apparently urology never saw the pt, even though they were consulted on 06/12. - continue Flomax. - continue Godwin. - Urology reconsulted. Anemia Normal MCV anemia. Likely secondary to chronic disease. Iron studies show low iron, low percent saturation and normal ferritin. Patient is being administered IV iron as per nephrology recommendations. Continue continue to monitor CBC. Diarrhea Patient complains of abdominal pain and diarrhea. I will check a stool for C. difficile PCR and place on contact isolation until stool C. difficile is ruled out. 06/24 Diarrhea is resolved. No further diarrhea or abdominal pain. PPx: Heparin Discharge Planning Continue to monitor in the medical floor. DC pending AVF placement, CV surgery and nephrology clearance. HAD CHEST PAIN/ANXIETY TROPONINS NEGATIVE- EKG STABLE Needs placement for outpatient hemodialysis am labs Discharge Planning Needs outpatient hemodialysis set up And acceptance at a hemodialysis center r Problem Qualifiers (1) Diabetes mellitus: Dangelo Torres DO Jun 28, 2017 10:01
--- NOTE | 2017-06-28 10:45 | HHI.NPPN ---
Subjective History of Present Illness 57-year-old female with past medical history of hypertension, diabetes mellitus, chronic kidney disease, ischemic heart disease, congestive heart failure, came to the hospital with complaint of worsening shortness of breath. 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 Additional Remarks Patient is alert, has nausea, no vomiting, no Abd. pain. Review of Systems General Constitutional: Fatigue Cardiovascular Cardiac: Edema, ISSA Objective Data Data 06/27/17 06/28/17 18:59 06:59 Intake Total 940 ml Output Total 10 ml Balance 930 ml Intake Oral 240 ml IV Total 300 ml Other 400 ml Output Urine Total 0 ml Estimated Blood Loss 10 ml # Voids 1 # Bowel Movements 0 Vital Signs Date Time Temp Pulse Resp B/P Pulse Ox O2 Delivery O2 Flow Rate FiO2 06/28/17 04:55 98.2 79 18 120/64 96 06/28/17 00:20 98.2 76 18 126/ 99 06/27/17 20:33 98.0 77 20 141/65 97 06/27/17 18:03 96 21 06/27/17 15:30 97.5 71 16 132/61 96 06/27/17 13:45 68 18 125/60 100 Nasal Cannula 2 06/27/17 13:30 68 18 122/58 100 Nasal Cannula 2 06/27/17 13:15 68 18 116/57 100 Nasal Cannula 3 06/27/17 13:00 68 18 111/56 100 Nasal Cannula 3 06/27/17 12:45 67 18 101/55 99 Nasal Cannula 3 06/27/17 12:24 98.9 66 18 91/51 100 Simple Mask 6 -: 06/28/17 0844 06/28/17 0844 Physical Exam General Appearance: No Acute Distress, Comfortable Pulmonary Resp Exam: Breath Sounds Equal Cardiology CV Exam: Regular Gastrointestinal/Abdomen GI Exam: Soft, Non-Tender, Bowel Sounds Present Extremeties Extremities Exam: Dependent Edema Neurologic Neuro Exam: Alert, Awake, Oriented Psychiatric Psych Exam: Appropriate Responses Assessment/Plan Problem List: (1) [id number] kidney injury (2) CHF exacerbation Plan: Bumex (3) Diabetes mellitus Plan Dialysis started on 06/13, Patient most likely has End stage renal disease. Has PermCath. Thoracentesis done and 1 liter removed on 06/20. Patient tolerated well. D/W the daughter, she want her HD to set up in [place]. I called Dr. Davis , and left message on his cell phone and answering service on 06/22. Replace iron IV as sat. was low. Calcium low, on Rocaltrol, Po4 was normal. Seen by vascular surgery, AVF done , has good Bruit. Hardware Installer arranging out patient HD at [facility] in [place]. HD will be done later today. Compazine started for nausea. Problem Qualifiers (1) [id number] kidney injury: (2) Diabetes mellitus: José Howell MD Jun 28, 2017 10:45
[2017-06-28 11:00] VITALS: BP 113/56; PULSE 76; RESP 16; TEMP 98.2; O2SAT 96
[2017-06-28 13:14] VITALS: PULSE 75
[2017-06-28 13:55] VITALS: O2SAT 98
--- NOTE | 2017-06-28 16:06 | PD.CAR.PN ---
CVT Progress Note Subjective/Hospital Course: Patient seen and evaluated Venous ultrasound and mapping reveals fairly small veins and clearly the wrist AV fistula would be inappropriate however using basilic vein in the upper arm may be an option I won't know this until the actual surgery and exploration the vessels Patient scheduled for AV fistula on Sunday06/25/17 Patient scheduled for AV fistula left arm tomorrow I've explained to patient through the family the ins and outs of the procedure as well as the risks and benefits 06/26/17 Patient was scheduled today for AV fistula however no coordination was made with dialysis preop and patient ended up going to dialysis around noon which with place this case in late afternoon hours. Patient is rescheduled for tomorrow for AV fistula 06/28/17 Status post AV fistula left upper arm Excellent bruit and thrill in the cephalic vein Will keep the dressing on for another day and after that incision can be open to air It'll take about 2 months probably to mature this vein for it was not the best of all veins Incision clean and dry Distal perfusion of the hand intact with palpable radial and ulnar pulse Objective: Vital Signs Date Time Temp Pulse Resp B/P Pulse Ox O2 Delivery O2 Flow Rate FiO2 06/28/17 13:55 98 Nasal Cannula 3.00 06/28/17 13:14 75 06/28/17 11:00 98.2 76 16 113/56 96 06/28/17 04:55 98.2 79 18 120/64 96 06/28/17 00:20 98.2 76 18 126/ 99 06/27/17 20:33 98.0 77 20 141/65 97 06/27/17 18:03 96 21 Labs: Laboratory Tests Test 06/28/17 08:44 White Blood Count 7.7 TH/MM3 (4.0-11.0) Red Blood Count 3.29 MIL/MM3 (4.00-5.30) Hemoglobin 9.2 GM/DL (11.6-15.3) Hematocrit 28.6 % (35.0-46.0) Mean Corpuscular Volume 87.1 FL (80.0-100.0) Mean Corpuscular Hemoglobin 28.1 PG (27.0-34.0) Mean Corpuscular Hemoglobin 32.2 % Concent (32.0-36.0) Red Cell Distribution Width 16.0 % (11.6-17.2) Platelet Count 214 TH/MM3 (150-450) Mean Platelet Volume 8.8 FL (7.0-11.0) Neutrophils (%) (Auto) 72.8 % (16.0-70.0) Lymphocytes (%) (Auto) 15.0 % (9.0-44.0) Monocytes (%) (Auto) 5.4 % (0.0-8.0) Eosinophils (%) (Auto) 6.3 % (0.0-4.0) Basophils (%) (Auto) 0.5 % (0.0-2.0) Neutrophils # (Auto) 5.6 TH/MM3 (1.8-7.7) Lymphocytes # (Auto) 1.2 TH/MM3 (1.0-4.8) Monocytes # (Auto) 0.4 TH/MM3 (0-0.9) Eosinophils # (Auto) 0.5 TH/MM3 (0-0.4) Basophils # (Auto) 0.0 TH/MM3 (0-0.2) CBC Comment DIFF FINAL Differential Comment Sodium Level 132 MEQ/L (136-145) Potassium Level 3.6 MEQ/L (3.5-5.1) Chloride Level 97 MEQ/L (98-107) Carbon Dioxide Level 27.5 MEQ/L (21.0-32.0) Anion Gap 8 MEQ/L (5-15) Blood Urea Nitrogen 15 MG/DL (7-18) Creatinine 4.11 MG/DL (0.50-1.00) Estimat Glomerular Filtration 11 ML/MIN (>89) Rate Random Glucose 134 MG/DL (74-106) Calcium Level 7.8 MG/DL (8.5-10.1) Phosphorus Level 3.7 MG/DL (2.5-4.9) Magnesium Level 2.0 MG/DL (1.5-2.5) Total Bilirubin 0.4 MG/DL (0.2-1.0) Aspartate Amino Transf 22 U/L (15-37) (AST/SGOT) Alanine Aminotransferase 10 U/L (10-53) (ALT/SGPT) Alkaline Phosphatase 90 U/L (45-117) Total Protein 6.3 GM/DL (6.4-8.2) Albumin 1.9 GM/DL (3.4-5.0) Result Diagram: 06/28/17 0844 06/28/17 0844 Olga Lidia Armstrong MD Jun 28, 2017 16:06
[2017-06-28 16:19] LABS: MITOGEN MINUS NIL RESULT >10.00 IU/mL (()); NIL RESULT 0.04 IU/mL (()); QUANTIFERON TB GOLD RESULT Positive (Negative)
[2017-06-28] MEDS: HEPARIN SODIUM - IV 10,000 UNITS/10 ML VIAL PRN (17:26)
[2017-06-28] MEDS: GENTAMICIN SULFATE (DIALYSIS USE ONLY) 20 MG/2 ML VIAL IV PRN (17:27)
[2017-06-28] MEDS: SODIUM CHLOR 0.9% 1000 ML INJ 1,000 ML IV PRN (17:27)
[2017-06-28] MEDS: EPOETIN ALFA 10,000 UNITS/ML VIAL IV PRN (17:27)
[2017-06-28 20:00] VITALS: BP 143/63; PULSE 92; RESP 20; TEMP 98; O2SAT 95
[2017-06-28] MEDS: ATORVASTATIN 20 MG TAB PO SCH (21:30)
--- NOTE | 2017-06-28 22:41 | HHI.PR ---
Subjective Remarks ALERT NO SOB AT REST O2 SAT 96% on 02 N/C Objective Vital Signs Date Time Temp Pulse Resp B/P Pulse Ox O2 Delivery O2 Flow Rate FiO2 06/28/17 20:00 98.0 92 20 143/63 95 06/28/17 13:55 98 Nasal Cannula 3.00 06/28/17 13:14 75 06/28/17 11:00 98.2 76 16 113/56 96 06/28/17 04:55 98.2 79 18 120/64 96 06/28/17 00:20 98.2 76 18 126/ 99 I/O 06/27/17 06/27/17 06/27/17 06/28/17 06/28/17 06/28/17 07:00 15:00 23:00 07:00 15:00 23:00 Intake Total 240 ml 700 ml 240 ml Output Total 10 ml 1700 ml Balance 240 ml 690 ml 240 ml -1700 ml Intake Oral 240 ml 240 ml IV Total 300 ml Other 400 ml Output Urine Total 0 ml Hemodialysis 1700 ml Estimated Blood Loss 10 ml # Voids 2 1 # Bowel Movements 1 0 Result Diagram: 06/28/17 0844 06/28/17 0844 Objective Remarks GENERAL: SKIN: Warm and dry. HEAD: Atraumatic. Normocephalic. EYES: Pupils equal and round. No scleral icterus. No injection or drainage. ENT: No nasal bleeding or discharge. Mucous membranes pink and moist. NECK: Trachea midline. No JVD. CARDIOVASCULAR: Regular rate and rhythm. RESPIRATORY: No accessory muscle use. DECREASE BREATH SOUNDS AT BASIS. GASTROINTESTINAL: Abdomen soft, non-tender, nondistended. Hepatic and splenic margins not palpable. MUSCULOSKELETAL: Extremities without clubbing, cyanosis, or edema. No obvious deformities. NEUROLOGICAL: Awake and alert. No obvious cranial nerve deficits. Motor grossly within normal limits. Five out of 5 muscle strength in the arms and legs. Normal speech. PSYCHIATRIC: Appropriate mood and affect; insight and judgment normal. Assessment and Plan Assessment and Plan ASS: RESPIRATORY FAILURE FLUID OVERLOAD DUE TO RENAL FAILURE BILATERAL EFFUSIONS post bilateral thoracentesis PLAN O2 NEEDED dialysis A/V fistula placed Indira Jacobson MD Jun 28, 2017 22:41
[2017-06-29] VITALS (8 sets, daily range): BP systolic 99–137; BP diastolic 50–65; PULSE 73–87; RESP 18–20; TEMP 97.3–98.6; O2SAT 92–100
[2017-06-29] MEDS: LABETALOL HCL 200 MG TAB PO SCH ×3 (04:25→23:25)
[2017-06-29] MEDS: INSULIN ASPART SUPPLEMENTAL SCALE SQ SCH ×4 (05:17→21:00)
[2017-06-29] MEDS: hydrALAZINE HCL 25 MG TAB PO SCH ×3 (06:03→23:25)
--- NOTE | 2017-06-29 07:41 | RADRPT ---
EXAM DATE/TIME: 06/29/2017 06:52 [facility] COMPARISON: CHEST SINGLE AP, June 17, 2017, 3:32. INDICATIONS : Short of breath, evaluate effusion MEDICAL HISTORY : Diabetes mellitus type II. Hypertension blind SURGICAL HISTORY : None. ENCOUNTER: Subsequent ACUITY: 2 weeks PAIN SCORE: 0/10 LOCATION: Bilateral FINDINGS: There is a double-lumen central line in place from the right internal jugular approach with the tip o verlying the left atrium. The heart size is borderline enlarged. There is hazy density seen throughou t the right chest likely related to effusion. There is silhouetting of the hemidiaphragms bilaterally . There is underlying interstitial prominence. CONCLUSION: Diffuse interstitial prominence likely related to diffuse processes such as edema. There is also hazy density seen on the right. Bilateral pleural effusions being worse on the right needs to be consider ed. Silvio Ferguson MD on June 29, 2017 at 7:38 Board Certified Radiologist. This report was verified electronically.
--- NOTE | 2017-06-29 08:42 | HHI.PR ---
Subjective Remarks 8-15 DW RN AND PT HAD SOME CHEST PAIN YESTERDAY-NONE NOW MAY HAVE BEEN SOME ANXIETY 8-16 TO HAVE AV FISTULA CREATED TODAY WITH VASCULAR NO OTHER COMPLAINTS -17 had left upper extremity AV fistula created yesterday. Assessment hepatitis panel done awaiting PPD QuantiFERON GOLD results Discussed with patient and RN Having some nausea today No relief with Zofran will make sure she has some Compazine 18 AWAIT PLACEMENT FOR HD DW RN AND PT NEEDS THAT SET UP BEFORE DISCHARGE EITHER HHC OR SNF Objective Vitals Vital Signs Date Time Temp Pulse Resp B/P Pulse Ox O2 Delivery O2 Flow Rate FiO2 06/29/17 04:00 98.1 75 20 118/57 98 06/29/17 00:00 97.6 82 18 137/64 95 06/28/17 20:00 98.0 92 20 143/63 95 06/28/17 13:55 98 Nasal Cannula 3.00 06/28/17 13:14 75 06/28/17 11:00 98.2 76 16 113/56 96 I/O 06/28/17 06/28/17 06/28/17 06/29/17 06/29/17 06/29/17 06:59 14:59 22:59 06:59 14:59 22:59 Output Total 1700 ml Balance -1700 ml Hemodialysis 1700 ml # Voids 1 0 # Bowel Movements 0 Result Diagram: 06/28/17 0844 06/28/17 0844 Other Results Laboratory Tests Test 06/26/17 06/26/17 06/27/17 06/28/17 15:53 18:49 08:02 08:44 White Blood Count 7.5 TH/MM3 6.6 TH/MM3 7.7 TH/MM3 Red Blood Count 3.50 MIL/MM3 3.34 MIL/MM3 3.29 MIL/MM3 Hemoglobin 9.6 GM/DL 9.3 GM/DL 9.2 GM/DL Hematocrit 30.1 % 28.6 % 28.6 % Mean Corpuscular Volume 85.9 FL 85.7 FL 87.1 FL Mean Corpuscular Hemoglobin 27.5 PG 28.0 PG 28.1 PG Mean Corpuscular Hemoglobin 32.0 % 32.7 % 32.2 % Concent Red Cell Distribution Width 15.3 % 15.9 % 16.0 % Platelet Count 228 TH/MM3 222 TH/MM3 214 TH/MM3 Mean Platelet Volume 8.2 FL 8.5 FL 8.8 FL Neutrophils (%) (Auto) 75.2 % 69.0 % 72.8 % Lymphocytes (%) (Auto) 14.5 % 18.1 % 15.0 % Monocytes (%) (Auto) 6.4 % 6.7 % 5.4 % Eosinophils (%) (Auto) 3.5 % 5.7 % 6.3 % Basophils (%) (Auto) 0.4 % 0.5 % 0.5 % Neutrophils # (Auto) 5.6 TH/MM3 4.6 TH/MM3 5.6 TH/MM3 Lymphocytes # (Auto) 1.1 TH/MM3 1.2 TH/MM3 1.2 TH/MM3 Monocytes # (Auto) 0.5 TH/MM3 0.4 TH/MM3 0.4 TH/MM3 Eosinophils # (Auto) 0.3 TH/MM3 0.4 TH/MM3 0.5 TH/MM3 Basophils # (Auto) 0.0 TH/MM3 0.0 TH/MM3 0.0 TH/MM3 CBC Comment DIFF FINAL DIFF FINAL DIFF FINAL Differential Comment Sodium Level 138 MEQ/L 134 MEQ/L 132 MEQ/L Potassium Level 3.1 MEQ/L 3.3 MEQ/L 3.6 MEQ/L Chloride Level 98 MEQ/L 97 MEQ/L 97 MEQ/L Carbon Dioxide Level 31.2 MEQ/L 30.0 MEQ/L 27.5 MEQ/L Anion Gap 9 MEQ/L 7 MEQ/L 8 MEQ/L Blood Urea Nitrogen 7 MG/DL 12 MG/DL 15 MG/DL Creatinine 2.11 MG/DL 3.35 MG/DL 4.11 MG/DL Estimat Glomerular Filtration 24 ML/MIN 14 ML/MIN 11 ML/MIN Rate Random Glucose 86 MG/DL 114 MG/DL 134 MG/DL Calcium Level 8.0 MG/DL 7.7 MG/DL 7.8 MG/DL Phosphorus Level 2.2 MG/DL 3.1 MG/DL 3.7 MG/DL Magnesium Level 1.9 MG/DL 2.1 MG/DL 2.0 MG/DL Total Bilirubin 0.5 MG/DL 0.5 MG/DL 0.4 MG/DL Aspartate Amino Transf 24 U/L 23 U/L 22 U/L (AST/SGOT) Alanine Aminotransferase 17 U/L 9 U/L 10 U/L (ALT/SGPT) Alkaline Phosphatase 95 U/L 97 U/L 90 U/L Troponin I LESS THAN 0.02 NG/ML Total Protein 6.5 GM/DL 6.3 GM/DL 6.3 GM/DL Albumin 2.0 GM/DL 1.9 GM/DL 1.9 GM/DL TB Test (QFT) Gold In Tube Positive TB Test (QFT) Nil 0.04 IU/mL TB Test (QFT) Mitogen Minus >10.00 IU/mL Nil TB Test (QFT) Antigen Minus 6.69 IU/mL Nil Imaging Last Impressions Chest X-Ray 06/29/17 0000 Signed Impressions: Service Date/Time: Thursday, June 29, 2017 06:52 - CONCLUSION: Diffuse interstitial prominence likely related to diffuse processes such as edema. There is also hazy density seen on the right. Bilateral pleural effusions being worse on the right needs to be considered. Silvio Ferguson MD Upper Extremity Ultrasound 06/23/17 0000 Signed Impressions: Service Date/Time: Friday, June 23, 2017 17:29 - CONCLUSION: 1. No evidence of upper extremity DVT on the right or left. 2. Superficial vein thrombus of the right cephalic vein in the antecubital fossa region. Guevara Frost MD Thoracentesis Ultrasound 06/20/17 0000 Signed Impressions: Service Date/Time: Tuesday, June 20, 2017 11:07 - CONCLUSION: Uncomplicated ultrasound guided thoracentesis. Dangelo Merida MD FACR Catheter Placement X-Ray 06/20/17 0000 Signed Impressions: Service Date/Time: Tuesday, June 20, 2017 15:18 - CONCLUSION: Successful conversion of the right IJ Vas-Cath to a PermCath catheter as above. Dean Shields MD Renal Ultrasound 06/08/17 0000 Signed Impressions: Service Date/Time: Thursday, June 08, 2017 14:10 - CONCLUSION: Echogenic but normal-size kidneys Bilateral pleural effusions. Dangelo Merida MD FACR Objective Remarks GENERAL: Awake alert SKIN: Warm and dry. HEAD: Atraumatic. Normocephalic. EYES: Pupils equal and round. No scleral icterus. No injection or drainage. ENT: No nasal bleeding or discharge. Mucous membranes pink and moist. Tongue is midline NECK: Trachea midline. No JVD. CARDIOVASCULAR: Regular rate and rhythm. S1-S2 no S3 or S4 no heave or thrill or rub or gallop RESPIRATORY: No accessory muscle use. Clear to auscultation. Breath sounds equal bilaterally. GASTROINTESTINAL: Abdomen soft, non-tender, nondistended. Hepatic and splenic margins not palpable. Obese MUSCULOSKELETAL: Extremities without clubbing, cyanosis, or edema. No obvious deformities. Left upper extremity AV fistula dressed good thrill and bruit NEUROLOGICAL: Awake and alert. No obvious cranial nerve deficits. Motor grossly within normal limits. Five out of 5 muscle strength in the arms and legs. Normal speech. Visually impaired PSYCHIATRIC: Appropriate mood and affect; insight and judgment normal. Procedures 06/13/17 Vas-Cath placement Medications and IVs Laboratory Tests Test 06/26/17 06/26/17 06/27/17 06/28/17 15:53 18:49 08:02 08:44 White Blood Count 7.5 TH/MM3 6.6 TH/MM3 7.7 TH/MM3 Red Blood Count 3.50 MIL/MM3 3.34 MIL/MM3 3.29 MIL/MM3 Hemoglobin 9.6 GM/DL 9.3 GM/DL 9.2 GM/DL Hematocrit 30.1 % 28.6 % 28.6 % Mean Corpuscular Volume 85.9 FL 85.7 FL 87.1 FL Mean Corpuscular Hemoglobin 27.5 PG 28.0 PG 28.1 PG Mean Corpuscular Hemoglobin 32.0 % 32.7 % 32.2 % Concent Red Cell Distribution Width 15.3 % 15.9 % 16.0 % Platelet Count 228 TH/MM3 222 TH/MM3 214 TH/MM3 Mean Platelet Volume 8.2 FL 8.5 FL 8.8 FL Neutrophils (%) (Auto) 75.2 % 69.0 % 72.8 % Lymphocytes (%) (Auto) 14.5 % 18.1 % 15.0 % Monocytes (%) (Auto) 6.4 % 6.7 % 5.4 % Eosinophils (%) (Auto) 3.5 % 5.7 % 6.3 % Basophils (%) (Auto) 0.4 % 0.5 % 0.5 % Neutrophils # (Auto) 5.6 TH/MM3 4.6 TH/MM3 5.6 TH/MM3 Lymphocytes # (Auto) 1.1 TH/MM3 1.2 TH/MM3 1.2 TH/MM3 Monocytes # (Auto) 0.5 TH/MM3 0.4 TH/MM3 0.4 TH/MM3 Eosinophils # (Auto) 0.3 TH/MM3 0.4 TH/MM3 0.5 TH/MM3 Basophils # (Auto) 0.0 TH/MM3 0.0 TH/MM3 0.0 TH/MM3 CBC Comment DIFF FINAL DIFF FINAL DIFF FINAL Differential Comment Sodium Level 138 MEQ/L 134 MEQ/L 132 MEQ/L Potassium Level 3.1 MEQ/L 3.3 MEQ/L 3.6 MEQ/L Chloride Level 98 MEQ/L 97 MEQ/L 97 MEQ/L Carbon Dioxide Level 31.2 MEQ/L 30.0 MEQ/L 27.5 MEQ/L Anion Gap 9 MEQ/L 7 MEQ/L 8 MEQ/L Blood Urea Nitrogen 7 MG/DL 12 MG/DL 15 MG/DL Creatinine 2.11 MG/DL 3.35 MG/DL 4.11 MG/DL Estimat Glomerular Filtration 24 ML/MIN 14 ML/MIN 11 ML/MIN Rate Random Glucose 86 MG/DL 114 MG/DL 134 MG/DL Calcium Level 8.0 MG/DL 7.7 MG/DL 7.8 MG/DL Phosphorus Level 2.2 MG/DL 3.1 MG/DL 3.7 MG/DL Magnesium Level 1.9 MG/DL 2.1 MG/DL 2.0 MG/DL Total Bilirubin 0.5 MG/DL 0.5 MG/DL 0.4 MG/DL Aspartate Amino Transf 24 U/L 23 U/L 22 U/L (AST/SGOT) Alanine Aminotransferase 17 U/L 9 U/L 10 U/L (ALT/SGPT) Alkaline Phosphatase 95 U/L 97 U/L 90 U/L Troponin I LESS THAN 0.02 NG/ML Total Protein 6.5 GM/DL 6.3 GM/DL 6.3 GM/DL Albumin 2.0 GM/DL 1.9 GM/DL 1.9 GM/DL TB Test (QFT) Gold In Tube Positive TB Test (QFT) Nil 0.04 IU/mL TB Test (QFT) Mitogen Minus >10.00 IU/mL Nil TB Test (QFT) Antigen Minus 6.69 IU/mL Nil Side: Right Location: Internal A/P Problem List: (1) Acute renal failure ICD Code: N17.9 Status: Acute (2) Diabetes mellitus ICD Code: E11.9 Status: Chronic (3) Hyperlipidemia ICD Code: E78.5 Status: Chronic (4) Hypertension ICD Code: I10 Status: Chronic (5) Fluid overload ICD Code: E87.70 Status: Resolved Assessment and Plan ESRD on HD Likely due to uncontrolled diabetes, and now has become chronic per nephrology. Will most likely need permanent dialysis. -06/23 patient had a PermCath placed. 06/24 Evaluated by Vascular surgery for AVF placement. 06-27 FOR GRAFT CREATION TODAY IN left upper extremity Right pleural effusion/hypoxemia - resolved Due to R pleural effusion sp Thoracentesis US. 2-D echo is unremarkable with EF 55-60%. Pulmonology was consulted, likely due to fluid overload. S/p right and left thoracenteses. Walk test done, the pt will not need home oxygen. - follow up with pulmonology. - oxygen, nebs, IS as needed. - encourage ambulation. Hypertension Difficult to control secondary to renal failure. - clonidine as needed. 06/23 patient with severely uncontrolled blood pressure with systolic blood pressure into the high 90s. I will increase labetalol to 200 mg by mouth every 8 hours. I will also start the patient on doxazosin 4 mg by mouth daily. Diabetes mellitus Glucose very well controlled. - Monitor Accu-Cheks and cover with sliding scale insulin. - check an A1c. Urinary retention The pt required Godwin reinsertion 06/22. Apparently urology never saw the pt, even though they were consulted on 06/12. - continue Flomax. - continue Godwin. - Urology reconsulted. Anemia Normal MCV anemia. Likely secondary to chronic disease. Iron studies show low iron, low percent saturation and normal ferritin. Patient is being administered IV iron as per nephrology recommendations. Continue continue to monitor CBC. Diarrhea Patient complains of abdominal pain and diarrhea. I will check a stool for C. difficile PCR and place on contact isolation until stool C. difficile is ruled out. 06/24 Diarrhea is resolved. No further diarrhea or abdominal pain. PPx: Heparin Discharge Planning Continue to monitor in the medical floor. DC pending AVF placement, CV surgery and nephrology clearance. HAD CHEST PAIN/ANXIETY TROPONINS NEGATIVE- EKG STABLE Needs placement for outpatient hemodialysis - AWAIT ACCEPTANCE am labs Discharge Planning Needs outpatient hemodialysis set up And acceptance at a hemodialysis center r Problem Qualifiers (1) Diabetes mellitus: Dangelo Torres DO Jun 29, 2017 08:42
[2017-06-29] MEDS: prednisoLONE ACETATE 1% OPHT SUSP 5 ML BTL LEFT EYE SCH ×4 (09:00→23:27)
[2017-06-29] MEDS: SODIUM CHLORIDE 0.9% FLUSH 10 ML FLUSH IVF SCH (09:00)
--- NOTE | 2017-06-29 10:00 | HHI.PR ---
Subjective Remarks ALERT NO SOB AT REST O2 SAT 96% on 02 N/C Objective Vital Signs Date Time Temp Pulse Resp B/P Pulse Ox O2 Delivery O2 Flow Rate FiO2 06/29/17 08:00 98.1 73 18 101/57 96 06/29/17 04:00 98.1 75 20 118/57 98 06/29/17 00:00 97.6 82 18 137/64 95 06/28/17 20:00 98.0 92 20 143/63 95 06/28/17 13:55 98 Nasal Cannula 3.00 06/28/17 13:14 75 06/28/17 11:00 98.2 76 16 113/56 96 I/O 06/28/17 06/28/17 06/28/17 06/29/17 06/29/17 06/29/17 07:00 15:00 23:00 07:00 15:00 23:00 Output Total 1700 ml Balance -1700 ml Hemodialysis 1700 ml # Voids 1 0 # Bowel Movements 0 Result Diagram: 06/28/1744 06/28/17843 Objective Remarks GENERAL: SKIN: Warm and dry. HEAD: Atraumatic. Normocephalic. EYES: Pupils equal and round. No scleral icterus. No injection or drainage. ENT: No nasal bleeding or discharge. Mucous membranes pink and moist. NECK: Trachea midline. No JVD. CARDIOVASCULAR: Regular rate and rhythm. RESPIRATORY: No accessory muscle use. DECREASE BREATH SOUNDS AT BASIS. GASTROINTESTINAL: Abdomen soft, non-tender, nondistended. Hepatic and splenic margins not palpable. MUSCULOSKELETAL: Extremities without clubbing, cyanosis, or edema. No obvious deformities. NEUROLOGICAL: Awake and alert. No obvious cranial nerve deficits. Motor grossly within normal limits. Five out of 5 muscle strength in the arms and legs. Normal speech. PSYCHIATRIC: Appropriate mood and affect; insight and judgment normal. Assessment and Plan Assessment and Plan ASS: RESPIRATORY FAILURE FLUID OVERLOAD DUE TO RENAL FAILURE BILATERAL EFFUSIONS post bilateral thoracentesis PLAN O2 NEEDED dialysis increase acivity Indira Jacobson MD Jun 29, 2017 10:00
[2017-06-29] MEDS: VITAMIN B CMPLX/VITC/FOLIC AC CAP PO SCH (10:06)
[2017-06-29] MEDS: DOXAZOSIN MESYLATE 4 MG TAB PO SCH (10:06)
[2017-06-29] MEDS: CALCITRIOL 0.25 MCG CAP PO SCH (10:06)
[2017-06-29] MEDS: TAMSULOSIN HCL 0.4 MG CAP PO SCH (10:06)
[2017-06-29] MEDS: amLODIPine BESYLATE 5 MG TAB PO SCH ×2 (10:06→23:25)
[2017-06-29] MEDS: DOCUSATE SODIUM 50 MG/SENNA 8.6 MG TAB PO SCH ×2 (10:06→21:00)
[2017-06-29] MEDS: SODIUM CHLORIDE 0.9% FLUSH 10 ML FLUSH IV FLUSH SCH ×2 (10:10→21:00)
[2017-06-29] MEDS: ATROPINE SULFATE 1% OPHT SOLN 5 ML BTL EACH EYE SCH ×2 (10:10→23:27)
[2017-06-29] MEDS: BUMETANIDE INJ 1 MG/4 ML VIAL IV PUSH SCH ×2 (10:12→18:05)
[2017-06-29] MEDS: HEPARIN SODIUM - SQ 10,000 UNITS/ML VIAL SQ SCH ×2 (10:19→23:26)
[2017-06-29] MEDS: DEXT 5%-NACL 0.45% 1000 ML INJ 1,000 ML IV SCH (10:23)
[2017-06-29 13:54] LABS: AUTOMATED NEUTROPHIL # 6.6 TH/MM3 (1.8-7.7); BASOPHIL % 0.5 % (0.0-2.0); EOSINOPHIL # 0.3 TH/MM3 (0-0.4); EOSINOPHIL % 3.8 % (0.0-4.0); HEMATOCRIT 29.4 % (35.0-46.0); HEMO FLAGS DIFF FINAL; LYMPH % 10.9 % (9.0-44.0); LYMPHOCYTE # 0.9 TH/MM3 (1.0-4.8); MEAN CORPUSCULAR HGB CONC 32.1 % (32.0-36.0); MONO % 4.3 % (0.0-8.0); NEUT % 80.5 % (16.0-70.0); PLATELET COUNT 205 TH/MM3 (150-450); RED BLOOD COUNT 3.37 MIL/MM3 (4.00-5.30); RED CELL DISTRIBUTION WIDTH 16.7 % (11.6-17.2); WHITE BLOOD COUNT 8.3 TH/MM3 (4.0-11.0)
[2017-06-29 14:21] LABS: ANION GAP 7 MEQ/L (5-15); AST (GOT) 20 U/L (15-37); BICARBONATE 31.4 MEQ/L (21.0-32.0); BLOOD UREA NITROGEN 10 MG/DL (7-18); CHLORIDE 97 MEQ/L (98-107); GLOMERULAR FILTRATION RATE 14 ML/MIN (>89); POTASSIUM 3.5 MEQ/L (3.5-5.1); SODIUM (NA) 135 MEQ/L (136-145)
[2017-06-29 14:23] LABS: ALT (GPT) 10 U/L (10-53)
[2017-06-29 14:25] LABS: ALKALINE PHOSPHATASE 85 U/L (45-117); TOTAL BILIRUBIN ADULT 0.4 MG/DL (0.2-1.0)
--- NOTE | 2017-06-29 15:20 | HHI.NPPN ---
Subjective History of Present Illness 57-year-old female with past medical history of hypertension, diabetes mellitus, chronic kidney disease, ischemic heart disease, congestive heart failure, came to the hospital with complaint of worsening shortness of breath. I was called to see the patient because of elevated BUN and creatinine patient has creatinine of 4.3 on admission and she had reviously creatinine of 3.6 last month the patient has known history of chronic kidney disease and she has been following by her pepper picker in [place] and according to daughter she was told that she will need dialysis and also she was told that she possibly will need kidney biopsy. Additional Remarks Patient is alert, now getting the PT. Review of Systems General Constitutional: Fatigue Cardiovascular Cardiac: Edema, ISSA Objective Data Data 06/28/17 06/29/17 18:59 06:59 Output Total 1700 ml Balance -1700 ml Hemodialysis 1700 ml Vital Signs Date Time Temp Pulse Resp B/P Pulse Ox O2 Delivery O2 Flow Rate FiO2 06/29/17 12:00 97.3 77 18 99/50 92 06/29/17 11:57 94 06/29/17 08:00 98.1 73 18 101/57 96 06/29/17 04:00 98.1 75 20 118/57 98 06/29/17 00:00 97.6 82 18 137/64 95 06/28/17 20:00 98.0 92 20 143/63 95 -: 06/29/17 1332 06/29/17 1332 Physical Exam General Appearance: No Acute Distress, Comfortable Pulmonary Resp Exam: Breath Sounds Equal Cardiology CV Exam: Regular Gastrointestinal/Abdomen GI Exam: Soft, Non-Tender, Bowel Sounds Present Extremeties Extremities Exam: Dependent Edema Neurologic Neuro Exam: Alert, Awake, Oriented Psychiatric Psych Exam: Appropriate Responses Assessment/Plan Problem List: (1) [id number] kidney injury (2) CHF exacerbation Plan: Bumex (3) Diabetes mellitus Plan Dialysis started on 06/13, Patient most likely has End stage renal disease. Has PermCath. Thoracentesis done and 1 liter removed on 06/20. Patient tolerated well. D/W the daughter, she want her HD to set up in [place]. I called Dr. Davis , and left message on his cell phone and answering service on 06/22. Replace iron IV as sat. was low. Calcium low, on Rocaltrol, Po4 was normal. Seen by vascular surgery, AVF done , has good Bruit. Strip Picker arranging out patient HD at [facility] in [place]. HD done yesterday. Problem Qualifiers (1) [id number] kidney injury: (2) Diabetes mellitus: José Howell MD Jun 29, 2017 15:20
[2017-06-29] MEDS: ATORVASTATIN 20 MG TAB PO SCH (23:25)
[2017-06-30 04:55] VITALS: BP 138/65; PULSE 87; RESP 18; TEMP 98.8; O2SAT 100
[2017-06-30] MEDS: LABETALOL HCL 200 MG TAB PO SCH ×3 (05:53→20:37)
[2017-06-30] MEDS: hydrALAZINE HCL 25 MG TAB PO SCH ×3 (05:53→23:24)
[2017-06-30] MEDS: INSULIN ASPART SUPPLEMENTAL SCALE SQ SCH ×4 (05:56→20:48)
[2017-06-30 08:00] VITALS: BP 110/55; PULSE 75; PULSE 79; RESP 16; TEMP 99; O2SAT 92
[2017-06-30] MEDS: DOXAZOSIN MESYLATE 4 MG TAB PO SCH (08:33)
[2017-06-30] MEDS: amLODIPine BESYLATE 5 MG TAB PO SCH ×2 (08:33→20:58)
[2017-06-30] MEDS: BUMETANIDE INJ 1 MG/4 ML VIAL IV PUSH SCH ×2 (08:34→17:51)
[2017-06-30] MEDS: TAMSULOSIN HCL 0.4 MG CAP PO SCH (08:34)
[2017-06-30] MEDS: CALCITRIOL 0.25 MCG CAP PO SCH (08:35)
[2017-06-30] MEDS: DOCUSATE SODIUM 50 MG/SENNA 8.6 MG TAB PO SCH ×2 (08:35→20:47)
[2017-06-30] MEDS: SODIUM CHLORIDE 0.9% FLUSH 10 ML FLUSH IV FLUSH SCH ×2 (08:41→20:47)
[2017-06-30] MEDS: prednisoLONE ACETATE 1% OPHT SUSP 5 ML BTL LEFT EYE SCH ×4 (08:42→20:48)
[2017-06-30] MEDS: ATROPINE SULFATE 1% OPHT SOLN 5 ML BTL EACH EYE SCH ×2 (08:42→20:47)
[2017-06-30] MEDS: DEXT 5%-NACL 0.45% 1000 ML INJ 1,000 ML IV SCH (08:43)
[2017-06-30] MEDS: HEPARIN SODIUM - SQ 10,000 UNITS/ML VIAL SQ SCH ×2 (08:44→20:38)
[2017-06-30] MEDS: VITAMIN B CMPLX/VITC/FOLIC AC CAP PO SCH (08:46)
[2017-06-30] MEDS: SODIUM CHLORIDE 0.9% FLUSH 10 ML FLUSH IVF SCH (08:47)
--- NOTE | 2017-06-30 10:41 | HHI.PR ---
Subjective Remarks 8-15 DW RN AND PT HAD SOME CHEST PAIN YESTERDAY-NONE NOW MAY HAVE BEEN SOME ANXIETY 8-16 TO HAVE AV FISTULA CREATED TODAY WITH VASCULAR NO OTHER COMPLAINTS - had left upper extremity AV fistula created yesterday. Assessment hepatitis panel done awaiting PPD QuantiFERON GOLD results Discussed with patient and RN Having some nausea today No relief with Zofran will make sure she has some Compazine 18 AWAIT PLACEMENT FOR HD DW RN AND PT NEEDS THAT SET UP BEFORE DISCHARGE [facility]ITHER [facility] OR SNF 06-30 SEEN IN HD NO NEW COMPLAINTS Objective Vitals Vital Signs Date Time Temp Pulse Resp B/P Pulse Ox O2 Delivery O2 Flow Rate FiO2 06/30/17 08:00 99.0 75 16 110/55 92 06/30/17 04:55 98.8 87 18 138/65 100 06/29/17 20:31 97.7 84 18 137/65 100 06/29/17 17:53 97 06/29/17 16:36 98.0 80 18 102/53 94 06/29/17 12:00 97.3 77 18 99/50 92 06/29/17 11:57 94 I/O 06/29/17 06/29/17 06/29/17 06/30/17 06/30/17 06/30/17 06:59 14:59 22:59 06:59 14:59 22:59 Intake Total 120 ml Output Total 1 ml Balance 120 ml -1 ml Intake Oral 120 ml Stool Total 1 ml # Voids 1 # Bowel Movements 3 Result Diagram: 06/29/17 1332 06/29/17 1332 Other Results Laboratory Tests Test 06/28/17 06/29/17 08:44 13:32 White Blood Count 7.7 TH/MM3 8.3 TH/MM3 Red Blood Count 3.29 MIL/MM3 3.37 MIL/MM3 Hemoglobin 9.2 GM/DL 9.4 GM/DL Hematocrit 28.6 % 29.4 % Mean Corpuscular Volume 87.1 FL 87.0 FL Mean Corpuscular Hemoglobin 28.1 PG 28.0 PG Mean Corpuscular Hemoglobin 32.2 % 32.1 % Concent Red Cell Distribution Width 16.0 % 16.7 % Platelet Count 214 TH/MM3 205 TH/MM3 Mean Platelet Volume 8.8 FL 8.7 FL Neutrophils (%) (Auto) 72.8 % 80.5 % Lymphocytes (%) (Auto) 15.0 % 10.9 % Monocytes (%) (Auto) 5.4 % 4.3 % Eosinophils (%) (Auto) 6.3 % 3.8 % Basophils (%) (Auto) 0.5 % 0.5 % Neutrophils # (Auto) 5.6 TH/MM3 6.6 TH/MM3 Lymphocytes # (Auto) 1.2 TH/MM3 0.9 TH/MM3 Monocytes # (Auto) 0.4 TH/MM3 0.4 TH/MM3 Eosinophils # (Auto) 0.5 TH/MM3 0.3 TH/MM3 Basophils # (Auto) 0.0 TH/MM3 0.0 TH/MM3 CBC Comment DIFF FINAL DIFF FINAL Differential Comment Sodium Level 132 MEQ/L 135 MEQ/L Potassium Level 3.6 MEQ/L 3.5 MEQ/L Chloride Level 97 MEQ/L 97 MEQ/L Carbon Dioxide Level 27.5 MEQ/L 31.4 MEQ/L Anion Gap 8 MEQ/L 7 MEQ/L Blood Urea Nitrogen 15 MG/DL 10 MG/DL Creatinine 4.11 MG/DL 3.47 MG/DL Estimat Glomerular Filtration 11 ML/MIN 14 ML/MIN Rate Random Glucose 134 MG/DL 179 MG/DL Calcium Level 7.8 MG/DL 7.7 MG/DL Phosphorus Level 3.7 MG/DL 3.7 MG/DL Magnesium Level 2.0 MG/DL 2.0 MG/DL Total Bilirubin 0.4 MG/DL 0.4 MG/DL Aspartate Amino Transf 22 U/L 20 U/L (AST/SGOT) Alanine Aminotransferase 10 U/L 10 U/L (ALT/SGPT) Alkaline Phosphatase 90 U/L 85 U/L Total Protein 6.3 GM/DL 6.3 GM/DL Albumin 1.9 GM/DL 2.0 GM/DL Imaging Last Impressions Chest X-Ray 06/29/17 0000 Signed Impressions: Service Date/Time: Thursday, June 29, 2017 06:52 - CONCLUSION: Diffuse interstitial prominence likely related to diffuse processes such as edema. There is also hazy density seen on the right. Bilateral pleural effusions being worse on the right needs to be considered. Silvio Ferguson MD Upper Extremity Ultrasound 06/23/17 0000 Signed Impressions: Service Date/Time: Friday, June 23, 2017 17:29 - CONCLUSION: 1. No evidence of upper extremity DVT on the right or left. 2. Superficial vein thrombus of the right cephalic vein in the antecubital fossa region. Guevara Frost MD Thoracentesis Ultrasound 06/20/17 0000 Signed Impressions: Service Date/Time: Tuesday, June 20, 2017 11:07 - CONCLUSION: Uncomplicated ultrasound guided thoracentesis. Dangelo Merida MD FACR Catheter Placement X-Ray 06/20/17 0000 Signed Impressions: Service Date/Time: Tuesday, June 20, 2017 15:18 - CONCLUSION: Successful conversion of the right IJ Vas-Cath to a PermCath catheter as above. Dean Shields MD Renal Ultrasound 06/08/17 0000 Signed Impressions: Service Date/Time: Thursday, June 08, 2017 14:10 - CONCLUSION: Echogenic but normal-size kidneys Bilateral pleural effusions. Dangelo Merida MD FACR Objective Remarks GENERAL: Awake alert SKIN: Warm and dry. HEAD: Atraumatic. Normocephalic. EYES: Pupils equal and round. No scleral icterus. No injection or drainage. ENT: No nasal bleeding or discharge. Mucous membranes pink and moist. Tongue is midline NECK: Trachea midline. No JVD. CARDIOVASCULAR: Regular rate and rhythm. S1-S2 no S3 or S4 no heave or thrill or rub or gallop RESPIRATORY: No accessory muscle use. Clear to auscultation. Breath sounds equal bilaterally. GASTROINTESTINAL: Abdomen soft, non-tender, nondistended. Hepatic and splenic margins not palpable. Obese MUSCULOSKELETAL: Extremities without clubbing, cyanosis, or edema. No obvious deformities. Left upper extremity AV fistula dressed good thrill and bruit NEUROLOGICAL: Awake and alert. No obvious cranial nerve deficits. Motor grossly within normal limits. Five out of 5 muscle strength in the arms and legs. Normal speech. Visually impaired PSYCHIATRIC: Appropriate mood and affect; insight and judgment normal. Procedures 06/13/17 Vas-Cath placement 06/27 HAD AVF CREATED LEFT UPPER EXTREMITY Medications and IVs Current Medications Sodium Chloride (NS Flush) 2 ml UNSCH PRN IVF FLUSH AFTER USING IV ACCESS Last administered on 06/08/17t 10:56; Start 06/08/17 at 10:30; Stop 06/08/17 at 13:16 ; Status DC Furosemide (Lasix Inj) 40 mg ONCE ONCE IVP Last administered on 06/08/17 10: 56; Start 06/08/17 at 10:30; Stop 06/08/17 at 10:31; Status DC Sodium Chloride (NS Flush) 2 ml UNSCH PRN IV FLUSH FLUSH AFTER USING IV ACCESS Last administered on 06/25/17 11:38; Start 06/08/17 at 13:00 Sodium Chloride (NS Flush) 2 ml BID IV FLUSH Last administered on 06/30/17 08: 41; Start 06/08/17 at 21:00 Acetaminophen (Tylenol) 650 mg Q4H PRN PO TEMP > 100.4 Last administered on 06/20 20:47; Start 06/08/17 at 13:00 Ondansetron HCl (Zofran Inj) 4 mg Q6H PRN IVP NAUSEA OR VOMITING; Start at 13:00 Naloxone HCl (Narcan Inj) 0.4 mg UNSCH PRN IV SEE LABEL COMMENTS; Start at 13:00 Senna/Docusate Sodium (Aimee-Colace) 1 tab BID PO Last administered on 08:35; Start 06/08/17 at 21:00 Magnesium Hydroxide (Milk Of Magnesia Liq) 30 ml Q12H PRN PO MILD - MODERATE CONSTIPATION Last administered on 06/22/17 00:52; Start 06/08/17 at 13:00 Sennosides (Senokot) 17.2 mg Q12H PRN PO MODERATE - SEVERE CONSTIPATION Last administered on 06/22/17 09:47; Start 06/08/17 at 13:00 Bisacodyl (Dulcolax Supp) 10 mg DAILY PRN RECTAL SEVERE CONSITIPATION; Start at 13:00 Lactulose (Lactulose Liq) 30 ml DAILY PRN PO SEVERE CONSITIPATION Last administered on 06/22/17 09:47; Start 06/08/17 at 13:00 Bumetanide (Bumex Inj) 1 mg BID@,18 IV PUSH Last administered on 06/29/17 18 :05; Start 06/08/17 at 18:00 Dextrose (D50w (Vial) Inj) 50 ml UNSCH PRN IV HYPOGLYCEMIA-SEE COMMENTS; Start 06/08/17 at 13:00 Glucagon (Glucagon Inj) 1 mg UNSCH PRN OTHER HYPOGLYCEMIA-SEE COMMENTS; Start 06/08/17 at 13:00 Insulin Aspart (NovoLOG SUPPLEMENTAL SCALE) 1 ACHS SLIDING SCALE SQ Last administered on 06/17/17 21:22; Start 06/08/17 at 16:00 Heparin Sodium (Porcine) (Heparin Inj) 5,000 units Q12HR SQ Last administered on 06/30/17 08:44; Start 06/08/17 at 21:00 Labetalol HCl (Trandate) 100 mg Q12HR PO Last administered on 06/13/17 07:49; Start 06/08/17 at 21:00; Stop 06/13/17 at 18:27; Status DC Pneumococcal Polyvalent Vaccine 25 mcg 25 mcg ONCE ONCE IM ; Start 06/09/17 at 10:00; Stop 06/09/17 at 10:01; Status DC Ceftriaxone Sodium/Sodium Chloride (Rocephin Inj/NS Inj) 100 ml @ 200 mls/hr Q24H IV Last administered on 06/21/17 12:39; Start 06/10/17 at 10:00; Stop 08/28 at 16:20; Status DC Amlodipine Besylate (Norvasc) 5 mg DAILY PO ; Start 06/10/17 at 10:00; Stop at 10:00; Status DC Atorvastatin Calcium (Lipitor) 20 mg HS PO Last administered on 06/29/17 23:25 ; Start 06/10/17 at 21:00 Atropine Sulfate (Atropine 1% Opth Soln) 1 drop BID EACH EYE ; Start 06/10/17 at 10:00; Status Cancel Metoprolol Tartrate (Lopressor) 25 mg BID PO ; Start 06/10/17 at 09:30; Stop at 09:33; Status DC Prednisolone Acetate (Pred Forte 1% Opth Susp) 1 drop QID LEFT EYE Last administered on 06/30/17 08:42; Start 06/10/17 at 13:00 Sodium Bicarbonate (Sodium Bicarbonate) 650 mg BIDPC PO Last administered on 16:41; Start 06/10/17 at 18:00; Stop 06/18/17 at 18:18; Status DC Atropine Sulfate (Isopto Atropine 1% Opth Soln) 1 drop BID EACH EYE Last administered on 06/30/17 08:42; Start 06/10/17 at 21:00 Albuterol/ Ipratropium (Duoneb Neb) 1 ampule QID NEB NEB Last administered on 06/16/17 11:21; Start 06/12/17 at 12:00; Stop 06/16/17 at 12:00; Status DC Albuterol Sulfate (Albuterol Neb) 2.5 mg Q2HR NEB PRN NEB DYSPNEA; Start at 09:15 Tamsulosin HCl (Flomax) 0.4 mg DAILY PO Last administered on 06/29/17 10:06; Start 06/12/17 at 18:00 Clonidine 0.1 mg 0.1 mg Q6H PRN PO SYS BP GREATER THAN 160 MMHG Last administered on 06/25/17 11:37; Start 06/12/17 at 18:30 Heparin Sodium/ Sodium Chloride (Heparin-NS/Pf Inj) 500 ml @ As Directed STK- MED ONCE .ROUTE ; Start 06/13/17 at 08:40; Stop 06/13/17 at 08:41; Status DC Heparin Sodium (Porcine) (*HEPARIN INJ Periprocedural ONLY) 10,000 units STK- MED ONCE .ROUTE ; Start 06/13/17 at 08:41; Stop 06/13/17 at 08:42; Status DC Sodium Chloride (NS Flush) DAILY IVF Last administered on 06/30/17 08:47; Start 06/14/17 at 09:00 Heparin Sodium (Porcine) (Heparin Central Flush) DAILY IV FLUSH Last administered on 06/30/17 08:38; Start 06/14/17 at 09:00 Sodium Chloride (NS Flush) UNSCH PRN IVF SEE PROTOCOL; Start 06/13/17 at 09:45 Heparin Sodium (Porcine) UNSCH PRN IV FLUSH SEE PROTOCOL; Start 06/13/17 at 09: 45 Sodium Chloride (NS 1000 ml Inj) 1,000 ml @ 0 mls/hr Q0M PRN IV For Prime & Rinse Back Last administered on 06/28/17 17:27; Start 06/13/17 at 10:23 Heparin Sodium (Porcine) 8000 units 8,000 units UNSCH PRN IVF WITH DIALYSIS; Start 06/13/17 at 10:30 Sodium Chloride 1,000 ml @ 200 mls/hr Q5H PRN IV WITH DIALYSIS; Start 06/13/17 at 10:23 Sodium Chloride (NS 1000 ml Inj) 1,000 ml @ 0 mls/hr Q0M PRN IV WITH DIALYSIS; Start 06/13/17 at 10:23 Mannitol (Mannitol Inj) 12.5 gm UNSCH PRN IV WITH DIALYSIS; Start 06/13/17 at 10 :30 Albumin Human (Albumin 25% Inj) 25 gm UNSCH PRN IV WITH DIALYSIS; Start at 10:30 Sodium Chloride (NS Flush) 5 ml UNSCH PRN IV FLUSH WITH DIALYSIS; Start at 10:30 Heparin Sodium (Porcine) (Heparin Inj) UNSCH PRN .XX WITH DIALYSIS Last administered on 06/28/17 17:26; Start 06/13/17 at 10:30 Gentamicin Sulfate (Gentamicin (Dialysis) Inj) 20 mg UNSCH PRN IV WITH DIALYSIS Last administered on 06/28/17 17:27; Start 06/13/17 at 10:30 Ondansetron HCl (Zofran Inj) 4 mg UNSCH PRN IV WITH DIALYSIS Last administered on 06/28/17 09:26; Start 06/13/17 at 10:30 Acetaminophen (Tylenol) 650 mg UNSCH PRN PO for headach, pain, temp > 101F; Start 06/13/17 at 10:30 Diphenhydramine HCl (Benadryl) 25 mg UNSCH PRN PO for hives/itching/anaphylaxis ; Start 06/13/17 at 10:30; Stop 06/24/17 at 10:32; Status DC Nitroglycerin (Nitrostat Sl) 0.4 mg UNSCH PRN SL CHEST PAIN Last administered on 06/25/17 14:07; Start 06/13/17 at 10:30 Clonidine (Catapres) 0.1 mg UNSCH PRN PO for BP > 180/100 X 2 readings Last administered on 06/24/17 17:13; Start 06/13/17 at 10:30 Epoetin Jose Angel (Epogen Inj) 10,000 units UNSCH PRN IV WITH DIALYSIS Last administered on 06/28/17 17:27; Start 06/13/17 at 10:30 Gelatin (Gelfoam 12 Mm/7 Mm Top) 1 foam UNSCH PRN TOP SEE LABEL COMMENTS; Start 06/13/17 at 10:30 Miscellaneous Information Patient in critical care unit? Ass... [id number] .XX ; Start 06/13/17 at 11:00 Chlorhexidine Gluconate (Chlorhexidine 2% Cloth) 3 pack DAILY@04 TOPICAL Last administered on 06/17/17 22:47; Start 06/14/17 at 04:00; Stop 06/18/17 at 04:01; Status DC Chlorhexidine Gluconate (Chlorhexidine 2% Cloth) 3 pack UNSCH PRN TOPICAL HYGIENIC CARE; Start 06/13/17 at 11:00; Stop 06/18/17 at 10:47; Status DC Hydralazine HCl (Apresoline Inj) 10 mg NOW ONCE IV PUSH Last administered on 17:24; Start 06/13/17 at 17:30; Stop 06/13/17 at 17:31; Status DC Labetalol HCl (Trandate) 200 mg Q12HR PO Last administered on 06/22/17 19:55; Start 06/13/17 at 21:00; Stop 06/23/17 at 07:43; Status DC Vitamin B Complex/ Vit C/Folic Acid (Nephrocaps) 1 cap DAILY PO Last administered on 06/30/17 08:46; Start 06/13/17 at 18:30 Lidocaine HCl (Xylocaine 1% Inj) 9 ml STK-MED ONCE SQ Last administered on 09:35; Start 06/19/17 at 09:35; Stop 06/19/17 at 10:02; Status DC Hydralazine HCl (Apresoline Inj) 10 mg Q30M PRN IV PUSH bp>140/90 Last administered on 06/22/17 00:53; Start 06/20/17 at 01:15 Lidocaine HCl 10 ml 10 ml STK-MED ONCE SQ Last administered on 06/20/17 12:25; Start 06/20/17 at 12:25; Stop 06/20/17 at 12:26; Status DC Vancomycin HCl 1000 mg/Sodium Chloride 250 ml @ 250 mls/hr AT HOME INDEPENDENT [employer] [facility] AGENT IV Last administered on 8/9/17at 13:49; Start 06/20/17 at 13:15; Stop 06/24/17 at 13:14; Status DC Cefazolin Sodium/ Dextrose (Ancef 2 Gm Premix) 50 ml @ 100 mls/hr AT HOME INDEPEND[facility] [employer] [facility] AGENT IV Last administered on 06/20/17 15:32; Start 06/20/17 at 13:15; Stop 06/24/17 at 13 :14; Status DC Midazolam HCl (Versed Inj) 4 mg STK-MED ONCE .ROUTE Last administered on 15:15; Start 06/20/17 at 15:15; Stop 06/20/17 at 15:16; Status DC Fentanyl Citrate (fentaNYL INJ) 250 mcg STK-MED ONCE .ROUTE Last administered on 06/20/17 15:15; Start 06/20/17 at 15:15; Stop 06/20/17 at 15:16; Status DC Heparin Sodium (Porcine) (*HEPARIN INJ Periprocedural ONLY) 10,000 units STK- MED ONCE .ROUTE Last administered on 06/20/17 15:38; Start 06/20/17 at 15:38; Stop 06/20/17 at 15:39; Status DC Lidocaine/ Epinephrine (Xylocaine-Epi 1%-1:100,000 Inj) 20 ml STK-MED ONCE .ROUTE Last administered on 06/20/17 15:38; Start 06/20/17 at 15:38; Stop at 15:39; Status DC Sodium Chloride (NS Flush) UNSCH PRN IVF SEE PROTOCOL; Start 06/20/17 at 16:30 Heparin Sodium (Porcine) (Heparin Inj) UNSCH PRN IV FLUSH SEE PROTOCOL; Start 06/20/17 at 16:30 Polyethylene Glycol (Miralax) 17 gm ONCE ONCE PO ; Start 06/21/17 at 16:15; Stop 06/21/17 at 16:18; Status DC Labetalol HCl (Trandate) 200 mg Q8H PO Last administered on 06/30/17 05:53; Start 06/23/17 at 13:00 Calcitriol 0.25 mcg 0.25 mcg DAILY PO Last administered on 06/30/17 08:35; Start 06/23/17 at 12:00 Iron Sucrose/ Sodium Chloride (Venofer Inj/NS Inj) 110 ml @ 110 mls/hr DAILY IV Last administered on 06/25/17 10:28; Start 06/23/17 at 14:00; Stop at 09:59; Status DC Doxazosin Mesylate (Cardura) 4 mg DAILY PO Last administered on 06/29/17 10:06 ; Start 06/23/17 at 18:15 Amlodipine Besylate (Norvasc) 5 mg BID PO Last administered on 06/29/17 23:25 ; Start 06/25/17 at 21:00 Amlodipine Besylate (Norvasc) 5 mg ONCE ONCE PO Last administered on 14:27; Start 06/25/17 at 15:00; Stop 06/25/17 at 15:01; Status DC Hydralazine HCl 25 mg 25 mg Q8HR PO Last administered on 06/30/17 05:53; Start 06/25/17 at 22:00 Dextrose/Sodium Chloride (D5W-1/2 NS 1000 ml Inj) 1,000 ml @ 42 mls/hr [id number] IV Last administered on 06/30/17 08:43; Start 06/26/17 at 08:15 Vasopressin (Pitressin Inj) 20 units STK-MED ONCE .ROUTE ; Start 06/27/17 at 11: 18; Stop 06/27/17 at 11:19; Status DC Heparin Sodium (Porcine) (Heparin Inj) 10,000 units STK-MED ONCE IV ; Start at 11:31; Stop 06/27/17 at 11:32; Status Cancel Heparin Sodium (Porcine) (Heparin Inj) 10,000 units STK-MED ONCE IV Last administered on 06/27/17 11:18; Start 06/27/17 at 11:18; Stop 06/27/17 at 11:54 ; Status DC Bupivacaine HCl (Marcaine Pf 0.5% Inj) 30 ml STK-MED ONCE INFIL ; Start at 11:18; Stop 06/27/17 at 11:19; Status Cancel Heparin Sodium (Porcine) (Heparin Inj) 10,000 units STK-MED ONCE OTHER Last administered on 06/27/17 11:18; Start 06/27/17 at 11:18; Stop 06/27/17 at 11:54 ; Status DC Influenza Virus Vaccine (Flu (Quadrivalent) Vaccine Inj) 0.5 ml ONCE ONCE IM ; Start 06/27/17 at 12:15; Stop 06/27/17 at 12:16; Status UNV Influenza Virus Vaccine (Flu (Quadrivalent) Vaccine Inj) 0.5 ml ONCE ONCE IM ; Start 06/27/17 at 12:15; Stop 06/27/17 at 12:16; Status UNV Pneumococcal Polyvalent Vaccine (Pneumovax-23 Inj) 25 mcg ONCE ONCE IM Last administered on 06/27/17t 18:23; Start 06/27/17 at 15:00; Stop 06/27/17 at 15:01 ; Status DC Fentanyl Citrate (fentaNYL INJ) 200 mcg STK-MED ONCE .ROUTE ; Start 06/27/17 at 13:00; Stop 06/27/17 at 13:01; Status DC Miscellaneous Information ALL NURSING DEPARTME... UNSCH PRN .XX SEE LABEL COMMENTS; Start 06/27/17 at 12:12; Stop 06/28/17 at 12:11; Status DC Tuberculin PPD (Ppd Inj) 5 units ONCE ONCE I-DERMAL Last administered on t 10:36; Start 06/28/17 at 09:00; Stop 06/28/17 at 09:01; Status DC Prochlorperazine (Compazine Supp) 25 mg Q6H PRN RECTAL NAUSEA OR VOMITING; Start 06/28/17 at 10:00 Side: Right Location: Internal A/P Problem List: (1) Acute renal failure ICD Code: N17.9 Status: Acute (2) Diabetes mellitus ICD Code: E11.9 Status: Chronic (3) Hyperlipidemia ICD Code: E78.5 Status: Chronic (4) Hypertension ICD Code: I10 Status: Chronic (5) Fluid overload ICD Code: E87.70 Status: Resolved Assessment and Plan ESRD on HD Likely due to uncontrolled diabetes, and now has become chronic per nephrology. Will most likely need permanent dialysis. -06/23 patient had a PermCath placed. 06/24 Evaluated by Vascular surgery for AVF placement. 06-27 HAD GRAFT CREATION IN left upper extremity Right pleural effusion/hypoxemia - resolved Due to R pleural effusion sp Thoracentesis US. 2-D echo is unremarkable with EF 55-60%. Pulmonology was consulted, likely due to fluid overload. S/p right and left thoracenteses. Walk test done, the pt will not need home oxygen. - follow up with pulmonology. - oxygen, nebs, IS as needed. - encourage ambulation. Hypertension Difficult to control secondary to renal failure. - clonidine as needed. 06/23 patient with severely uncontrolled blood pressure with systolic blood pressure into the high 90s. I will increase labetalol to 200 mg by mouth every 8 hours. I will also start the patient on doxazosin 4 mg by mouth daily. Diabetes mellitus Glucose very well controlled. - Monitor Accu-Cheks and cover with sliding scale insulin. - check an A1c. Urinary retention The pt required Godwin reinsertion 06/22. Apparently urology never saw the pt, even though they were consulted on 06/12. - continue Flomax. - continue Godwin. - Urology reconsulted. Anemia Normal MCV anemia. Likely secondary to chronic disease. Iron studies show low iron, low percent saturation and normal ferritin. Patient is being administered IV iron as per nephrology recommendations. Continue continue to monitor CBC. Diarrhea Patient complains of abdominal pain and diarrhea. I will check a stool for C. difficile PCR and place on contact isolation until stool C. difficile is ruled out. 06/24 Diarrhea is resolved. No further diarrhea or abdominal pain. PPx: Heparin Discharge Planning Continue to monitor in the medical floor. DC pending AVF placement, CV surgery and nephrology clearance. HAD CHEST PAIN/ANXIETY TROPONINS NEGATIVE- EKG STABLE Needs placement for outpatient hemodialysis - AWAIT ACCEPTANCE am labs NEEDS HD SET UP FOR OUTPATIENT BEFORE DC Discharge Planning Needs outpatient hemodialysis set up And acceptance at a hemodialysis center r Problem Qualifiers (1) Diabetes mellitus: Dangelo Torres DO Jun 30, 2017 10:41
--- NOTE | 2017-06-30 10:42 | HHI.NPPN ---
Subjective History of Present Illness 57-year-old female with past medical history of hypertension, diabetes mellitus, chronic kidney disease, ischemic heart disease, congestive heart failure, came to the hospital with complaint of worsening shortness of breath. I was called to see the patient because of elevated BUN and creatinine patient has creatinine of 4.3 on admission and she had reviously creatinine of 3.6 last month the patient has known history of chronic kidney disease and she has been following by her field hand in [place] and according to daughter she was told that she will need dialysis and also she was told that she possibly will need kidney biopsy. Additional Remarks No acute complaints. Seen on HD and tolerating HD well Review of Systems General Constitutional: Fatigue Cardiovascular Cardiac: Edema, ISSA Objective Data Data 06/29/17 06/30/17 19:00 07:00 Intake Total 120 ml Output Total 1 ml Balance 119 ml Intake Oral 120 ml Stool Total 1 ml # Voids 1 # Bowel Movements 3 Vital Signs Date Time Temp Pulse Resp B/P Pulse Ox O2 Delivery O2 Flow Rate FiO2 06/30/17 08:00 99.0 75 16 110/55 92 06/30/17 04:55 98.8 87 18 138/65 100 06/29/17 20:31 97.7 84 18 137/65 100 06/29/17 17:53 97 06/29/17 16:36 98.0 80 18 102/53 94 06/29/17 12:00 97.3 77 18 99/50 92 06/29/17 11:57 94 -: 06/29/17 1332 06/29/17 1332 Physical Exam General Appearance: No Acute Distress, Comfortable Pulmonary Resp Exam: Breath Sounds Equal Cardiology CV Exam: Regular Gastrointestinal/Abdomen GI Exam: Soft, Non-Tender, Bowel Sounds Present Extremeties Extremities Exam: Dependent Edema Neurologic Neuro Exam: Alert, Awake, Oriented Psychiatric Psych Exam: Appropriate Responses Assessment/Plan Problem List: (1) [id number] kidney injury (2) CHF exacerbation Plan: Bumex (3) Diabetes mellitus Plan Dialysis started on 06/13, ESRD now, has tunneled catheter. Seen on HD today, tolerating HD well. Continue TTS HD. S/P left brachiocephalic AVF yesterday (Dr. Rolle). Should develop over the next 3-4 months. May follow with me or Dr. Rolle outpatient for maturation. Thoracentesis done and 1 liter removed on 06/20. Patient tolerated well. Stable for d/c from renal standpoint once HD arrangements setup in [facility]. (Dr. Howell left message for Dr. Leach). Given IV iron. On epogen Calcium low, on Rocaltrol, Po4 was normal. Problem Qualifiers (1) [id number] kidney injury: (2) Diabetes mellitus: Jose F Abreu MD Jun 30, 2017 10:42
[2017-06-30] MEDS: EPOETIN ALFA 10,000 UNITS/ML VIAL IV PRN (11:43)
[2017-06-30] MEDS: HEPARIN SODIUM - IV 10,000 UNITS/10 ML VIAL PRN (11:43)
[2017-06-30] MEDS: GENTAMICIN SULFATE (DIALYSIS USE ONLY) 20 MG/2 ML VIAL IV PRN (11:44)
[2017-06-30] MEDS: SODIUM CHLOR 0.9% 1000 ML INJ 1,000 ML IV PRN (11:44)
[2017-06-30 13:15] VITALS: BP 146/67; PULSE 85; RESP 20; TEMP 98.4; O2SAT 95
[2017-06-30 16:00] VITALS: BP 133/63; PULSE 84; RESP 16; TEMP 98.9; O2SAT 99
[2017-06-30] MEDS: ATORVASTATIN 20 MG TAB PO SCH (20:37)
[2017-06-30 21:19] VITALS: BP 143/78; PULSE 84; RESP 18; TEMP 98.4; O2SAT 100
[2017-07-01] VITALS (8 sets, daily range): BP systolic 100–159; BP diastolic 51–73; PULSE 71–82; RESP 20; TEMP 98.2–98.6; O2SAT 93–97
[2017-07-01 04:57] LABS: AUTOMATED NEUTROPHIL # 3.5 TH/MM3 (1.8-7.7); BASOPHIL # 0.2 TH/MM3 (0-0.2); BASOPHIL % 2.7 % (0.0-2.0); EOSINOPHIL # 0.4 TH/MM3 (0-0.4); EOSINOPHIL % 6.6 % (0.0-4.0); HEMO FLAGS DIFF FINAL; LYMPH % 29.2 % (9.0-44.0); LYMPHOCYTE # 1.8 TH/MM3 (1.0-4.8); MEAN CELL VOLUME 87.3 FL (80.0-100.0); MEAN CORPUSCULAR HEMOGLOBIN 27.6 PG (27.0-34.0); MEAN CORPUSCULAR HGB CONC 31.6 % (32.0-36.0); MONO % 6.3 % (0.0-8.0); NEUT % 55.2 % (16.0-70.0); PLATELET COUNT 215 TH/MM3 (150-450); RED BLOOD COUNT 3.32 MIL/MM3 (4.00-5.30); RED CELL DISTRIBUTION WIDTH 16.8 % (11.6-17.2); WHITE BLOOD COUNT 6.3 TH/MM3 (4.0-11.0)
[2017-07-01] MEDS: LABETALOL HCL 200 MG TAB PO SCH ×3 (04:59→22:10)
[2017-07-01 05:22] LABS: ANION GAP 9 MEQ/L (5-15); AST (GOT) 18 U/L (15-37); BICARBONATE 29.2 MEQ/L (21.0-32.0); BLOOD UREA NITROGEN 5 MG/DL (7-18); CHLORIDE 100 MEQ/L (98-107); GLOMERULAR FILTRATION RATE 18 ML/MIN (>89); POTASSIUM 3.3 MEQ/L (3.5-5.1); SODIUM (NA) 138 MEQ/L (136-145)
[2017-07-01 05:26] LABS: ALKALINE PHOSPHATASE 76 U/L (45-117); ALT (GPT) 10 U/L (10-53); TOTAL BILIRUBIN ADULT 0.3 MG/DL (0.2-1.0)
[2017-07-01] MEDS: hydrALAZINE HCL 25 MG TAB PO SCH ×3 (05:52→22:10)
[2017-07-01] MEDS: INSULIN ASPART SUPPLEMENTAL SCALE SQ SCH ×4 (05:57→21:00)
[2017-07-01] MEDS: DEXT 5%-NACL 0.45% 1000 ML INJ 1,000 ML IV SCH (07:20)
[2017-07-01] MEDS: DOXAZOSIN MESYLATE 4 MG TAB PO SCH (09:00)
[2017-07-01] MEDS: BUMETANIDE INJ 1 MG/4 ML VIAL IV PUSH SCH ×2 (09:00→17:56)
[2017-07-01] MEDS: ATROPINE SULFATE 1% OPHT SOLN 5 ML BTL EACH EYE SCH ×2 (09:00→21:00)
[2017-07-01] MEDS: VITAMIN B CMPLX/VITC/FOLIC AC CAP PO SCH (09:00)
[2017-07-01] MEDS: SODIUM CHLORIDE 0.9% FLUSH 10 ML FLUSH IV FLUSH SCH ×2 (09:00→22:14)
[2017-07-01] MEDS: prednisoLONE ACETATE 1% OPHT SUSP 5 ML BTL LEFT EYE SCH ×4 (09:00→21:00)
[2017-07-01] MEDS: HEPARIN SODIUM - SQ 10,000 UNITS/ML VIAL SQ SCH ×2 (09:00→22:10)
[2017-07-01] MEDS: CALCITRIOL 0.25 MCG CAP PO SCH (09:00)
[2017-07-01] MEDS: amLODIPine BESYLATE 5 MG TAB PO SCH ×2 (09:00→22:11)
[2017-07-01] MEDS: DOCUSATE SODIUM 50 MG/SENNA 8.6 MG TAB PO SCH ×2 (09:00→21:00)
[2017-07-01] MEDS: SODIUM CHLORIDE 0.9% FLUSH 10 ML FLUSH IVF SCH (09:00)
[2017-07-01] MEDS: TAMSULOSIN HCL 0.4 MG CAP PO SCH (09:00)
--- NOTE | 2017-07-01 16:17 | HHI.PR ---
Subjective Remarks 8-15 DW RN AND PT HAD SOME CHEST PAIN YESTERDAY-NONE NOW MAY HAVE BEEN SOME ANXIETY 8-16 TO HAVE AV FISTULA CREATED TODAY WITH VASCULAR NO OTHER COMPLAINTS 8-17 had left upper extremity AV fistula created yesterday. Assessment hepatitis panel done awaiting PPD QuantiFERON GOLD results Discussed with patient and RN Having some nausea today No relief with Zofran will make sure she has some Compazine -18 AWAIT PLACEMENT FOR HD DW RN AND PT NEEDS THAT SET UP BEFORE DISCHARGE [facility]ITHER [facility] OR SNF 06-30 SEEN IN HD NO NEW COMPLAINTS 07-01 no new complaints We await placement for hemodialysis Objective Vitals Vital Signs Date Time Temp Pulse Resp B/P (MAP) Pulse Ox O2 Delivery O2 Flow Rate FiO2 07/01/17 14:57 80 07/01/17 12:00 98.3 71 20 107/51 (69) 94 07/01/17 07:57 98.6 78 20 118/58 (78) 95 07/01/17 05:56 136/62 (86) 07/01/17 04:00 98.4 82 20 100/54 (69) 93 07/01/17 00:00 98.2 80 20 136/63 (87) 97 06/30/17 21:19 98.4 84 18 143/78 (99) 100 06/30/17 20:09 Nasal Cannula 3.00 I/O 06/30/17 06/30/17 06/30/17 07/01/17 07/01/17 07/01/17 06:59 14:59 22:59 06:59 14:59 22:59 Intake Total 600 ml 567 ml 960 ml Output Total 2000 ml 150 ml Balance -1400 ml 417 ml 960 ml Intake Oral 600 ml 120 ml 960 ml IV Total 447 ml Output Urine Total 150 ml Hemodialysis 2000 ml # Voids 0 2 # Bowel Movements 1 0 1 Result Diagram: 07/01/17 0424 07/01/17 0424 Other Results Laboratory Tests Test 06/29/17 13:32 07/01/17 04:24 White Blood Count 8.3 TH/MM3 6.3 TH/MM3 Red Blood Count 3.37 MIL/MM3 3.32 MIL/MM3 Hemoglobin 9.4 GM/DL 9.2 GM/DL Hematocrit 29.4 % 29.0 % Mean Corpuscular Volume 87.0 FL 87.3 FL Mean Corpuscular Hemoglobin 28.0 PG 27.6 PG Mean Corpuscular Hemoglobin Concent 32.1 % 31.6 % Red Cell Distribution Width 16.7 % 16.8 % Platelet Count 205 TH/MM3 215 TH/MM3 Mean Platelet Volume 8.7 FL 8.7 FL Neutrophils (%) (Auto) 80.5 % 55.2 % Lymphocytes (%) (Auto) 10.9 % 29.2 % Monocytes (%) (Auto) 4.3 % 6.3 % Eosinophils (%) (Auto) 3.8 % 6.6 % Basophils (%) (Auto) 0.5 % 2.7 % Neutrophils # (Auto) 6.6 TH/MM3 3.5 TH/MM3 Lymphocytes # (Auto) 0.9 TH/MM3 1.8 TH/MM3 Monocytes # (Auto) 0.4 TH/MM3 0.4 TH/MM3 Eosinophils # (Auto) 0.3 TH/MM3 0.4 TH/MM3 Basophils # (Auto) 0.0 TH/MM3 0.2 TH/MM3 CBC Comment DIFF FINAL DIFF FINAL Differential Comment Blood Urea Nitrogen 10 MG/DL 5 MG/DL Creatinine 3.47 MG/DL 2.77 MG/DL Random Glucose 179 MG/DL 113 MG/DL Total Protein 6.3 GM/DL 5.8 GM/DL Albumin 2.0 GM/DL 1.8 GM/DL Calcium Level 7.7 MG/DL 8.3 MG/DL Phosphorus Level 3.7 MG/DL 2.7 MG/DL Magnesium Level 2.0 MG/DL 2.0 MG/DL Alkaline Phosphatase 85 U/L 76 U/L Aspartate Amino Transf (AST/SGOT) 20 U/L 18 U/L Alanine Aminotransferase (ALT/SGPT) 10 U/L 10 U/L Total Bilirubin 0.4 MG/DL 0.3 MG/DL Sodium Level 135 MEQ/L 138 MEQ/L Potassium Level 3.5 MEQ/L 3.3 MEQ/L Chloride Level 97 MEQ/L 100 MEQ/L Carbon Dioxide Level 31.4 MEQ/L 29.2 MEQ/L Anion Gap 7 MEQ/L 9 MEQ/L Estimat Glomerular Filtration Rate 14 ML/MIN 18 ML/MIN Imaging Last Impressions Chest X-Ray 06/29/17 0000 Signed Impressions: Service Date/Time: Thursday, June 29, 2017 06:52 - CONCLUSION: Diffuse interstitial prominence likely related to diffuse processes such as edema. There is also hazy density seen on the right. Bilateral pleural effusions being worse on the right needs to be considered. Silvio Ferguson MD Upper Extremity Ultrasound 06/23/17 0000 Signed Impressions: Service Date/Time: Friday, June 23, 2017 17:29 - CONCLUSION: 1. No evidence of upper extremity DVT on the right or left. 2. Superficial vein thrombus of the right cephalic vein in the antecubital fossa region. Guevara Frost MD Thoracentesis Ultrasound 06/20/17 0000 Signed Impressions: Service Date/Time: Tuesday, June 20, 2017 11:07 - CONCLUSION: Uncomplicated ultrasound guided thoracentesis. Dangelo Merida MD FACR Catheter Placement X-Ray 06/20/17 0000 Signed Impressions: Service Date/Time: Tuesday, June 20, 2017 15:18 - CONCLUSION: Successful conversion of the right IJ Vas-Cath to a PermCath catheter as above. Dean Shields MD Renal Ultrasound 06/08/17 0000 Signed Impressions: Service Date/Time: Thursday, June 08, 2017 14:10 - CONCLUSION: Echogenic but normal-size kidneys Bilateral pleural effusions. Dangelo Merida MD FACR Objective Remarks GENERAL: Awake alert SKIN: Warm and dry. HEAD: Atraumatic. Normocephalic. EYES: Pupils equal and round. No scleral icterus. No injection or drainage. ENT: No nasal bleeding or discharge. Mucous membranes pink and moist. Tongue is midline NECK: Trachea midline. No JVD. CARDIOVASCULAR: Regular rate and rhythm. S1-S2 no S3 or S4 no heave or thrill or rub or gallop RESPIRATORY: No accessory muscle use. Clear to auscultation. Breath sounds equal bilaterally. GASTROINTESTINAL: Abdomen soft, non-tender, nondistended. Hepatic and splenic margins not palpable. Obese MUSCULOSKELETAL: Extremities without clubbing, cyanosis, or edema. No obvious deformities. Left upper extremity AV fistula dressed good thrill and bruit NEUROLOGICAL: Awake and alert. No obvious cranial nerve deficits. Motor grossly within normal limits. Five out of 5 muscle strength in the arms and legs. Normal speech. Visually impaired PSYCHIATRIC: Appropriate mood and affect; insight and judgment normal. Procedures 06/13/17 Vas-Cath placement 06/27 HAD AVF CREATED LEFT UPPER EXTREMITY Medications and IVs Current Medications Sodium Chloride (NS Flush) 2 ml UNSCH PRN IVF FLUSH AFTER USING IV ACCESS Last administered on 06/08/17 10:56; Start 06/08/17 at 10:30; Stop 06/08/17 at 13:16 ; Status DC Furosemide (Lasix Inj) 40 mg ONCE ONCE IVP Last administered on 06/08/17 10: 56; Start 06/08/17 at 10:30; Stop 06/08/17 at 10:31; Status DC Sodium Chloride (NS Flush) 2 ml UNSCH PRN IV FLUSH FLUSH AFTER USING IV ACCESS Last administered on 06/25/17 11:38; Start 06/08/17 at 13:00 Sodium Chloride (NS Flush) 2 ml BID IV FLUSH Last administered on 07/01/17 09: 00; Start 06/08/17 at 21:00 Acetaminophen (Tylenol) 650 mg Q4H PRN PO TEMP > 100.4 Last administered on 06/20 20:47; Start 06/08/17 at 13:00 Ondansetron HCl (Zofran Inj) 4 mg Q6H PRN IVP NAUSEA OR VOMITING; Start at 13:00 Naloxone HCl (Narcan Inj) 0.4 mg UNSCH PRN IV SEE LABEL COMMENTS; Start at 13:00 Senna/Docusate Sodium (Aimee-Colace) 1 tab BID PO Last administered on 09:00; Start 06/08/17 at 21:00 Magnesium Hydroxide (Milk Of Magnesia Liq) 30 ml Q12H PRN PO MILD - MODERATE CONSTIPATION Last administered on 06/22/17 00:52; Start 06/08/17 at 13:00 Sennosides (Senokot) 17.2 mg Q12H PRN PO MODERATE - SEVERE CONSTIPATION Last administered on 06/22/17 09:47; Start 06/08/17 at 13:00 Bisacodyl (Dulcolax Supp) 10 mg DAILY PRN RECTAL SEVERE CONSITIPATION; Start at 13:00 Lactulose (Lactulose Liq) 30 ml DAILY PRN PO SEVERE CONSITIPATION Last administered on 06/22/17 09:47; Start 06/08/17 at 13:00 Bumetanide (Bumex Inj) 1 mg BID@09,18 IV PUSH Last administered on 06/29/17 18 :05; Start 06/08/17 at 18:00 Dextrose (D50w (Vial) Inj) 50 ml UNSCH PRN IV HYPOGLYCEMIA-SEE COMMENTS; Start 06/08/17 at 13:00 Glucagon (Glucagon Inj) 1 mg UNSCH PRN OTHER HYPOGLYCEMIA-SEE COMMENTS; Start 06/08/17 at 13:00 Insulin Aspart (NovoLOG SUPPLEMENTAL SCALE) 1 ACHS SLIDING SCALE SQ Last administered on 06/17/17 21:22; Start 06/08/17 at 16:00 Heparin Sodium (Porcine) (Heparin Inj) 5,000 units Q12HR SQ Last administered on 07/01/17 09:00; Start 06/08/17 at 21:00 Labetalol HCl (Trandate) 100 mg Q12HR PO Last administered on 06/13/17 07:49; Start 06/08/17 at 21:00; Stop 06/13/17 at 18:27; Status DC Pneumococcal Polyvalent Vaccine (Pneumovax-23 Inj) 25 mcg ONCE ONCE IM ; Start 06/09/17 at 10:00; Stop 06/09/17 at 10:01; Status DC Ceftriaxone Sodium 1000 mg/ Sodium Chloride 100 ml @ 200 mls/hr Q24H IV Last administered on 06/21/17 12:39; Start 06/10/17 at 10:00; Stop 06/21/17 at 16:20 ; Status DC Amlodipine Besylate (Norvasc) 5 mg DAILY PO ; Start 06/10/17 at 10:00; Stop at 10:00; Status DC Atorvastatin Calcium (Lipitor) 20 mg HS PO Last administered on 06/30/17 20:37 ; Start 06/10/17 at 21:00 Atropine Sulfate (Atropine 1% Opt Soln) 1 drop BID EACH EYE ; Start 06/10/17 at 10:00; Status Cancel Metoprolol Tartrate (Lopressor) 25 mg BID PO ; Start 06/10/17 at 09:30; Stop at 09:33; Status DC Prednisolone Acetate (Pred Forte 1% Opt Susp) 1 drop QID LEFT EYE Last administered on 06/30/17 08:42; Start 06/10/17 at 13:00 Sodium Bicarbonate (Sodium Bicarbonate) 650 mg BIDPC PO Last administered on 16:41; Start 06/10/17 at 18:00; Stop 06/18/17 at 18:18; Status DC Atropine Sulfate (Isopto Atropine 1% Opth Soln) 1 drop BID EACH EYE Last administered on 06/30/17 08:42; Start 06/10/17 at 21:00 Albuterol/ Ipratropium (Duoneb Neb) 1 ampule QID NEB NEB Last administered on 06/16/17 11:21; Start 06/12/17 at 12:00; Stop 06/16/17 at 12:00; Status DC Albuterol Sulfate (Albuterol Neb) 2.5 mg Q2HR NEB PRN NEB DYSPNEA; Start at 09:15 Tamsulosin HCl (Flomax) 0.4 mg DAILY PO Last administered on 06/29/17 10:06; Start 06/12/17 at 18:00 Clonidine (Catapres) 0.1 mg Q6H PRN PO SYS BP GREATER THAN 160 MMHG Last administered on 06/25/17 11:37; Start 06/12/17 at 18:30 Heparin Sodium/ Sodium Chloride 500 ml @ As Directed STK-MED ONCE .ROUTE ; Start 06/13/17 at 08:40; Stop 06/13/17 at 08:41; Status DC Heparin Sodium (Porcine) (*HEPARIN INJ Periprocedural ONLY) 10,000 units STK- MED ONCE .ROUTE ; Start 06/13/17 at 08:41; Stop 06/13/17 at 08:42; Status DC Sodium Chloride (NS Flush) DAILY IVF Last administered on 07/01/17 09:00; Start 06/14/17 at 09:00 Heparin Sodium (Porcine) (Heparin Central Flush) DAILY IV FLUSH Last administered on 07/01/17 09:00; Start 06/14/17 at 09:00 Sodium Chloride (NS Flush) UNSCH PRN IVF SEE PROTOCOL; Start 06/13/17 at 09:45 Heparin Sodium (Porcine) (Heparin Central Flush) UNSCH PRN IV FLUSH SEE PROTOCOL; Start 06/13/17 at 09:45 Sodium Chloride 1,000 ml @ 0 mls/hr Q0M PRN IV For Prime & Rinse Back Last administered on 06/30/17 11:44; Start 06/13/17 at 10:23 Heparin Sodium (Porcine) (Heparin Inj) 8,000 units UNSCH PRN IVF WITH DIALYSIS ; Start 06/13/17 at 10:30 Sodium Chloride 1,000 ml @ 200 mls/hr Q5H PRN IV WITH DIALYSIS; Start 06/13/17 at 10:23 Sodium Chloride 1,000 ml @ 0 mls/hr Q0M PRN IV WITH DIALYSIS Last administered on 06/30/17 11:44; Start 06/13/17 at 10:23 Mannitol (Mannitol Inj) 12.5 gm UNSCH PRN IV WITH DIALYSIS; Start 06/13/17 at 10 :30 Albumin Human (Albumin 25% Inj) 25 gm UNSCH PRN IV WITH DIALYSIS; Start at 10:30 Sodium Chloride (NS Flush) 5 ml UNSCH PRN IV FLUSH WITH DIALYSIS; Start at 10:30 Heparin Sodium (Porcine) (Heparin Inj) UNSCH PRN .XX WITH DIALYSIS Last administered on 06/30/17 11:43; Start 06/13/17 at 10:30 Gentamicin Sulfate (Gentamicin (Dialysis) Inj) 20 mg UNSCH PRN IV WITH DIALYSIS Last administered on 06/30/17 11:44; Start 06/13/17 at 10:30 Ondansetron HCl (Zofran Inj) 4 mg UNSCH PRN IV WITH DIALYSIS Last administered on 06/28/17 09:26; Start 06/13/17 at 10:30 Acetaminophen (Tylenol) 650 mg UNSCH PRN PO for headach, pain, temp > 101F; Start 06/13/17 at 10:30 Diphenhydramine HCl (Benadryl) 25 mg UNSCH PRN PO for hives/itching/anaphylaxis ; Start 06/13/17 at 10:30; Stop 06/24/17 at 10:32; Status DC Nitroglycerin (Nitrostat Sl) 0.4 mg UNSCH PRN SL CHEST PAIN Last administered on 06/25/17 14:07; Start 06/13/17 at 10:30 Clonidine (Catapres) 0.1 mg UNSCH PRN PO for BP > 180/100 X 2 readings Last administered on 06/24/17 17:13; Start 06/13/17 at 10:30 Epoetin Jose Angel (Epogen Inj) 10,000 units UNSCH PRN IV WITH DIALYSIS Last administered on 06/30/17 11:43; Start 06/13/17 at 10:30 Gelatin (Gelfoam 12 Mm/7 Mm Top) 1 foam UNSCH PRN TOP SEE LABEL COMMENTS; Start 06/13/17 at 10:30 Miscellaneous Information Patient in critical care unit? Ass... [id number] .XX ; Start 06/13/17 at 11:00 Chlorhexidine Gluconate (Chlorhexidine 2% Cloth) 3 pack DAILY@04 TOPICAL Last administered on 06/17/17 22:47; Start 06/14/17 at 04:00; Stop 06/18/17 at 04:01; Status DC Chlorhexidine Gluconate (Chlorhexidine 2% Cloth) 3 pack UNSCH PRN TOPICAL HYGIENIC CARE; Start 06/13/17 at 11:00; Stop 06/18/17 at 10:47; Status DC Hydralazine HCl (Apresoline Inj) 10 mg NOW ONCE IV PUSH Last administered on 17:24; Start 06/13/17 at 17:30; Stop 06/13/17 at 17:31; Status DC Labetalol HCl (Trandate) 200 mg Q12HR PO Last administered on 06/22/17 19:55; Start 06/13/17 at 21:00; Stop 06/23/17 at 07:43; Status DC Vitamin B Complex/ Vit C/Folic Acid (Nephrocaps) 1 cap DAILY PO Last administered on 07/01/17 09:00; Start 06/13/17 at 18:30 Lidocaine HCl (Xylocaine 1% Inj) 9 ml STK-MED ONCE SQ Last administered on 09:35; Start 06/19/17 at 09:35; Stop 06/19/17 at 10:02; Status DC Hydralazine HCl (Apresoline Inj) 10 mg Q30M PRN IV PUSH bp>140/90 Last administered on 06/22/17 00:53; Start 06/20/17 at 01:15 Lidocaine HCl (Xylocaine 1% Inj) 10 ml STK-MED ONCE SQ Last administered on 06/20 12:25; Start 06/20/17 at 12:25; Stop 06/20/17 at 12:26; Status DC Vancomycin HCl 1000 mg/Sodium Chloride 250 ml @ 250 mls/hr FREIGHT BREAKER IV Last administered on 06/20/17 13:49; Start 06/20/17 at 13:15; Stop 06/24/17 at 13:14; Status DC Cefazolin Sodium/ Dextrose 50 ml @ 100 mls/hr FREIGHT BREAKER IV Last administered on 06/20/17 15:32; Start 06/20/17 at 13:15; Stop 06/24/17 at 13:14; Status DC Midazolam HCl (Versed Inj) 4 mg STK-MED ONCE .ROUTE Last administered on 15:15; Start 06/20/17 at 15:15; Stop 06/20/17 at 15:16; Status DC Fentanyl Citrate (fentaNYL INJ) 250 mcg STK-MED ONCE .ROUTE Last administered on 06/20/17 15:15; Start 06/20/17 at 15:15; Stop 06/20/17 at 15:16; Status DC Heparin Sodium (Porcine) (*HEPARIN INJ Periprocedural ONLY) 10,000 units STK- MED ONCE .ROUTE Last administered on 06/20/17 15:38; Start 06/20/17 at 15:38; Stop 06/20/17 at 15:39; Status DC Lidocaine/ Epinephrine (Xylocaine-Epi 1%-1:100,000 Inj) 20 ml STK-MED ONCE .ROUTE Last administered on 06/20/17 15:38; Start 06/20/17 at 15:38; Stop at 15:39; Status DC Sodium Chloride (NS Flush) UNSCH PRN IVF SEE PROTOCOL; Start 06/20/17 at 16:30 Heparin Sodium (Porcine) (Heparin Inj) UNSCH PRN IV FLUSH SEE PROTOCOL; Start 06/20/17 at 16:30 Polyethylene Glycol (Miralax) 17 gm ONCE ONCE PO ; Start 06/21/17 at 16:15; Stop 06/21/17 at 16:18; Status DC Labetalol HCl (Trandate) 200 mg Q8H PO Last administered on 07/01/17 04:59; Start 06/23/17 at 13:00 Calcitriol (Rocaltrol) 0.25 mcg DAILY PO Last administered on 07/01/17 09:00; Start 06/23/17 at 12:00 Iron Sucrose 200 mg/Sodium Chloride 110 ml @ 110 mls/hr DAILY IV Last administered on 06/25/17 10:28; Start 06/23/17 at 14:00; Stop 06/25/17 at 09:59 ; Status DC Doxazosin Mesylate (Cardura) 4 mg DAILY PO Last administered on 07/01/17 09:00 ; Start 06/23/17 at 18:15 Amlodipine Besylate (Norvasc) 5 mg BID PO Last administered on 06/30/17 20:58 ; Start 06/25/17 at 21:00 Amlodipine Besylate (Norvasc) 5 mg ONCE ONCE PO Last administered on 14:27; Start 06/25/17 at 15:00; Stop 06/25/17 at 15:01; Status DC Hydralazine HCl (Apresoline) 25 mg Q8HR PO Last administered on 07/01/17 05:52 ; Start 06/25/17 at 22:00 Dextrose/Sodium Chloride 1,000 ml @ 42 mls/hr [id number] IV Last administered on 07/01/17 07:20; Start 06/26/17 at 08:15 Vasopressin (Pitressin Inj) 20 units STK-MED ONCE .ROUTE ; Start 06/27/17 at 11: 18; Stop 06/27/17 at 11:19; Status DC Heparin Sodium (Porcine) (Heparin Inj) 10,000 units STK-MED ONCE IV ; Start at 11:31; Stop 06/27/17 at 11:32; Status Cancel Heparin Sodium (Porcine) (Heparin Inj) 10,000 units STK-MED ONCE IV Last administered on 06/27/17 11:18; Start 06/27/17 at 11:18; Stop 06/27/17 at 11:54 ; Status DC Bupivacaine HCl (Marcaine Pf 0.5% Inj) 30 ml STK-MED ONCE INFIL ; Start at 11:18; Stop 06/27/17 at 11:19; Status Cancel Heparin Sodium (Porcine) (Heparin Inj) 10,000 units STK-MED ONCE OTHER Last administered on 06/27/17 11:18; Start 06/27/17 at 11:18; Stop 06/27/17 at 11:54 ; Status DC Influenza Virus Vaccine (Flu (Quadrivalent) Vaccine Inj) 0.5 ml ONCE ONCE IM ; Start 06/27/17 at 12:15; Stop 06/27/17 at 12:16; Status UNV Influenza Virus Vaccine (Flu (Quadrivalent) Vaccine Inj) 0.5 ml ONCE ONCE IM ; Start 06/27/17 at 12:15; Stop 06/27/17 at 12:16; Status UNV Pneumococcal Polyvalent Vaccine (Pneumovax-23 Inj) 25 mcg ONCE ONCE IM Last administered on 06/27/17 18:23; Start 06/27/17 at 15:00; Stop 06/27/17 at 15:01 ; Status DC Fentanyl Citrate (fentaNYL INJ) 200 mcg STK-MED ONCE .ROUTE ; Start 06/27/17 at 13:00; Stop 06/27/17 at 13:01; Status DC Miscellaneous Information ALL NURSING DEPARTME... UNSCH PRN .XX SEE LABEL COMMENTS; Start 06/27/17 at 12:12; Stop 06/28/17 at 12:11; Status DC Tuberculin PPD (Ppd Inj) 5 units ONCE ONCE I-DERMAL Last administered on 10:36; Start 06/28/17 at 09:00; Stop 06/28/17 at 09:01; Status DC Prochlorperazine (Compazine Supp) 25 mg Q6H PRN RECTAL NAUSEA OR VOMITING; Start 06/28/17 at 10:00 Side: Right Location: Internal A/P Problem List: (1) Acute renal failure ICD Code: N17.9 - Acute kidney failure, unspecified Status: Acute (2) Diabetes mellitus ICD Code: E11.9 - Type 2 diabetes mellitus without complications Status: Chronic (3) Hyperlipidemia ICD Code: E78.5 - Hyperlipidemia, unspecified Status: Chronic (4) Hypertension ICD Code: I10 - Essential (primary) hypertension Status: Chronic (5) Fluid overload ICD Code: E87.70 - Fluid overload, unspecified Status: Resolved Assessment and Plan ESRD on HD Likely due to uncontrolled diabetes, and now has become chronic per nephrology. Will most likely need permanent dialysis. -06/23 patient had a PermCath placed. 06/24 Evaluated by Vascular surgery for AVF placement. 06-27 HAD GRAFT CREATION IN left upper extremity Right pleural effusion/hypoxemia - resolved Due to R pleural effusion sp Thoracentesis US. 2-D echo is unremarkable with EF 55-60%. Pulmonology was consulted, likely due to fluid overload. S/p right and left thoracenteses. Walk test done, the pt will not need home oxygen. - follow up with pulmonology. - oxygen, nebs, IS as needed. - encourage ambulation. Hypertension Difficult to control secondary to renal failure. - clonidine as needed. 06/23 patient with severely uncontrolled blood pressure with systolic blood pressure into the high 90s. I will increase labetalol to 200 mg by mouth every 8 hours. I will also start the patient on doxazosin 4 mg by mouth daily. Diabetes mellitus Glucose very well controlled. - Monitor Accu-Cheks and cover with sliding scale insulin. - check an A1c. Urinary retention The pt required Godwin reinsertion 06/22. Apparently urology never saw the pt, even though they were consulted on 06/12. - continue Flomax. - continue Godwin. - Urology reconsulted. Anemia Normal MCV anemia. Likely secondary to chronic disease. Iron studies show low iron, low percent saturation and normal ferritin. Patient is being administered IV iron as per nephrology recommendations. Continue continue to monitor CBC. Diarrhea Patient complains of abdominal pain and diarrhea. I will check a stool for C. difficile PCR and place on contact isolation until stool C. difficile is ruled out. 06/24 Diarrhea is resolved. No further diarrhea or abdominal pain. PPx: Heparin Discharge Planning Continue to monitor in the medical floor. DC pending AVF placement, CV surgery and nephrology clearance. HAD CHEST PAIN/ANXIETY TROPONINS NEGATIVE- EKG STABLE Needs placement for outpatient hemodialysis - AWAIT ACCEPTANCE am labs NEEDS HD SET UP FOR OUTPATIENT BEFORE DC Discharge Planning Needs outpatient hemodialysis set up And acceptance at a hemodialysis center r Problem Qualifiers (1) Diabetes mellitus: Dangelo Torres DO Jul 01, 2017 16:17
--- NOTE | 2017-07-01 18:14 | HHI.NPPN ---
Subjective History of Present Illness 57-year-old female with past medical history of hypertension, diabetes mellitus, chronic kidney disease, ischemic heart disease, congestive heart failure, came to the hospital with complaint of worsening shortness of breath. I was called to see the patient because of elevated BUN and creatinine patient has creatinine of 4.3 on admission and she had reviously creatinine of 3.6 last month the patient has known history of chronic kidney disease and she has been following by her campus interviews intern in [place] and according to daughter she was told that she will need dialysis and also she was told that she possibly will need kidney biopsy. Additional Remarks No acute complaints. Tolerated HD yesterday Review of Systems General Constitutional: Fatigue Cardiovascular Cardiac: Edema, ISSA Objective Data Data 07/01/17 07/02/17 19:00 07:00 Intake Total 960 ml Balance 960 ml Intake Oral 960 ml # Voids 2 # Bowel Movements 1 Vital Signs Date Time Temp Pulse Resp B/P (MAP) Pulse Ox O2 Delivery O2 Flow Rate FiO2 07/01/17 16:00 98.3 78 20 130/60 (83) 96 07/01/17 14:57 80 07/01/17 12:00 98.3 71 20 107/51 (69) 94 07/01/17 07:57 98.6 78 20 118/58 (78) 95 07/01/17 05:56 136/62 (86) 07/01/17 04:00 98.4 82 20 100/54 (69) 93 07/01/17 00:00 98.2 80 20 136/63 (87) 97 06/30/17 21:19 98.4 84 18 143/78 (99) 100 06/30/17 20:09 Nasal Cannula 3.00 -: 07/01/17 0424 07/01/17 0424 Physical Exam General Appearance: No Acute Distress, Comfortable Pulmonary Resp Exam: Breath Sounds Equal Cardiology CV Exam: Regular Gastrointestinal/Abdomen GI Exam: Soft, Non-Tender, Bowel Sounds Present Extremeties Extremities Exam: Dependent Edema Neurologic Neuro Exam: Alert, Awake, Oriented Psychiatric Psych Exam: Appropriate Responses Assessment/Plan Problem List: (1) Xffyu-dx-biyqngh kidney injury ICD Codes: N17.9 - Acute kidney failure, unspecified; N18.9 - Chronic kidney disease, unspecified Status: Acute (2) CHF exacerbation ICD Codes: I50.9 - Heart failure, unspecified Status: Acute Plan: Bumex (3) Diabetes mellitus ICD Codes: E11.9 - Type 2 diabetes mellitus without complications Status: Chronic Plan Dialysis started on 06/13, ESRD now, has tunneled catheter. Tolerated HD yesterday. Continue TTS HD. S/P left brachiocephalic AVF yesterday (Dr. Rlole). Should develop over the next 3-4 months. May follow with me or Dr. Rolle outpatient for maturation. Thoracentesis done and 1 liter removed on 06/20. Patient tolerated well. Stable for d/c from renal standpoint once HD arrangements setup in [place]/ [place]. (Dr. Howell left message for Dr. Leach). Given IV iron. On epogen Calcium low, on Rocaltrol, Po4 was normal. Problem Qualifiers (1) Epszc-cn-pwsikac kidney injury: (2) Diabetes mellitus: Jose F Abreu MD Jul 01, 2017 18:14
--- NOTE | 2017-07-01 20:55 | RADRPT ---
EXAM DATE/TIME: 07/01/2017 20:13 [facility] COMPARISON: No previous studies available for comparison. INDICATIONS : Bilateral lower abdominal pain. ORAL CONTRAST: No oral contrast ingested. RADIATION DOSE: 13.47 CTDIvol (mGy) MEDICAL HISTORY : Cardiovascular disease. Diabetes mellitus type 2. Hypertension. SURGICAL HISTORY : None. ENCOUNTER: Initial ACUITY: 1 day PAIN SCALE: 3/10 LOCATION: Bilateral lower quadrant TECHNIQUE: Volumetric scanning of the abdomen and pelvis was performed. Using automated exposure control and ad justment of the mA and/or kV according to patient size, radiation dose was kept as low as reasonably achievable to obtain optimal diagnostic quality images. DICOM format image data is available electro nically for review and comparison. FINDINGS: CT Abdomen: The liver, spleen, pancreas, kidneys, adrenals are unremarkable. There is no evidence for any appreciable pathological adenopathy, free fluid, or bowel obstruction. Moderate bilateral pleur al effusions worse on the right and bibasilar consolidation is seen. The gallbladder demonstrates mul tiple stones without gallbladder wall thickening, or pericholecystic fluid. There are ovoid shaped st ructures 2 separate areas in the abdominal wall subcutaneous tissue the largest measures 1.9 cm in si ze may be tortuous varices. CT pelvis: There is no evidence for mass, abscess formation, or any significant adenopathy within the pelvis. There are scattered diverticuli mainly in the sigmoid colon without definite signs of divert iculitis. CONCLUSION: 1. Bilateral pleural effusions and bibasilar consolidations. 2. Cholelithiasis. Juan Zuniga MD on July 01, 2017 at 20:50 Board Certified Radiologist. This report was verified electronically.
[2017-07-01] MEDS: ATORVASTATIN 20 MG TAB PO SCH (22:10)
[2017-07-02 00:58] VITALS: BP 110/54; PULSE 79; RESP 19; TEMP 98.4; O2SAT 99
[2017-07-02] MEDS: ACETAMINOPHEN 325 MG TAB PO PRN (02:20)
[2017-07-02 06:05] VITALS: BP 138/62; PULSE 82; RESP 20; TEMP 98.1; O2SAT 96
[2017-07-02] MEDS: LABETALOL HCL 200 MG TAB PO SCH (06:09)
[2017-07-02] MEDS: hydrALAZINE HCL 25 MG TAB PO SCH (06:09)
[2017-07-02] MEDS: INSULIN ASPART SUPPLEMENTAL SCALE SQ SCH (07:00)
[2017-07-02 08:00] VITALS: BP 105/51; PULSE 76; RESP 18; TEMP 98.6; O2SAT 95
[2017-07-02] MEDS: DOCUSATE SODIUM 50 MG/SENNA 8.6 MG TAB PO SCH (09:00)
[2017-07-02] MEDS: TAMSULOSIN HCL 0.4 MG CAP PO SCH (10:51)
[2017-07-02] MEDS: ATROPINE SULFATE 1% OPHT SOLN 5 ML BTL EACH EYE SCH (10:51)
[2017-07-02] MEDS: CALCITRIOL 0.25 MCG CAP PO SCH (10:52)
[2017-07-02] MEDS: prednisoLONE ACETATE 1% OPHT SUSP 5 ML BTL LEFT EYE SCH (10:52)
[2017-07-02] MEDS: VITAMIN B CMPLX/VITC/FOLIC AC CAP PO SCH (10:52)
[2017-07-02 12:00] VITALS: BP 135/61; PULSE 78; RESP 18; TEMP 97.8; O2SAT 100
[2017-07-02] MEDS: HEPARIN SODIUM - SQ 10,000 UNITS/ML VIAL SQ SCH (13:19)
[2017-07-02 14:20] VITALS: O2SAT 95
--- NOTE | 2017-07-02 15:05 | HHI.PR ---
Subjective Remarks 8-15 DW RN AND PT HAD SOME CHEST PAIN YESTERDAY-NONE NOW MAY HAVE BEEN SOME ANXIETY 8-16 TO HAVE AV FISTULA CREATED TODAY WITH VASCULAR NO OTHER COMPLAINTS 8-17 had left upper extremity AV fistula created yesterday. Assessment hepatitis panel done awaiting PPD QuantiFERON GOLD results Discussed with patient and RN Having some nausea today No relief with Zofran will make sure she has some Compazine 8-18 AWAIT PLACEMENT FOR HD DW RN AND PT NEEDS THAT SET UP BEFORE DISCHARGE [facility]ER [facility] OR SNF 06-30 SEEN IN HD NO NEW COMPLAINTS 07-01 no new complaints We await placement for hemodialysis 07-02 PATIENT HAS BEEN ACCEPTED FOR HD CAN DC TO HOME TODAY Pt has a chair time of 1:15pm M-W- at [facility] for her dialysis. Pt will need to be at [facility] at 12:15 on Sunday for the first time. Objective Vitals Vital Signs Date Time Temp Pulse Resp B/P (MAP) Pulse Ox O2 Delivery O2 Flow Rate FiO2 07/02/17 14:20 95 Nasal Cannula 3.00 07/02/17 08:00 98.6 76 18 105/51 (69) 95 07/02/17 06:05 98.1 82 20 138/62 (87) 96 07/02/17 00:58 98.4 79 19 110/54 (72) 99 07/01/17 22:05 159/73 (101) 07/01/17 16:00 98.3 78 20 130/60 (83) 96 I/O 07/01/17 07/01/17 07/01/17 07/02/17 07/02/17 07/02/17 06:59 14:59 22:59 06:59 14:59 22:59 Intake Total 567 ml 960 ml Output Total 150 ml Balance 417 ml 960 ml Intake Oral 120 ml 960 ml IV Total 447 ml Output Urine Total 150 ml # Voids 2 1 # Bowel Movements 0 1 Result Diagram: 07/01/17 0424 07/01/17 0424 Imaging Last Impressions Chest X-Ray 06/29/17 0000 Signed Impressions: Service Date/Time: Thursday, June 29, 2017 06:52 - CONCLUSION: Diffuse interstitial prominence likely related to diffuse processes such as edema. There is also hazy density seen on the right. Bilateral pleural effusions being worse on the right needs to be considered. Silvio Ferguson MD Upper Extremity Ultrasound 06/23/17 0000 Signed Impressions: Service Date/Time: Friday, June 23, 2017 17:29 - CONCLUSION: 1. No evidence of upper extremity DVT on the right or left. 2. Superficial vein thrombus of the right cephalic vein in the antecubital fossa region. Guevara Frost MD Thoracentesis Ultrasound 06/20/17 0000 Signed Impressions: Service Date/Time: Tuesday, June 20, 2017 11:07 - CONCLUSION: Uncomplicated ultrasound guided thoracentesis. Dangelo Merida MD FACR Catheter Placement X-Ray 06/20/17 0000 Signed Impressions: Service Date/Time: Tuesday, June 20, 2017 15:18 - CONCLUSION: Successful conversion of the right IJ Vas-Cath to a PermCath catheter as above. Dean Shields MD Renal Ultrasound 06/08/17 0000 Signed Impressions: Service Date/Time: Thursday, June 08, 2017 14:10 - CONCLUSION: Echogenic but normal-size kidneys Bilateral pleural effusions. Dangelo Merida MD FACR Objective Remarks GENERAL: Awake alert SKIN: Warm and dry. HEAD: Atraumatic. Normocephalic. EYES: Pupils equal and round. No scleral icterus. No injection or drainage. ENT: No nasal bleeding or discharge. Mucous membranes pink and moist. Tongue is midline NECK: Trachea midline. No JVD. CARDIOVASCULAR: Regular rate and rhythm. S1-S2 no S3 or S4 no heave or thrill or rub or gallop RESPIRATORY: No accessory muscle use. Clear to auscultation. Breath sounds equal bilaterally. GASTROINTESTINAL: Abdomen soft, non-tender, nondistended. Hepatic and splenic margins not palpable. Obese MUSCULOSKELETAL: Extremities without clubbing, cyanosis, or edema. No obvious deformities. Left upper extremity AV fistula dressed good thrill and bruit NEUROLOGICAL: Awake and alert. No obvious cranial nerve deficits. Motor grossly within normal limits. Five out of 5 muscle strength in the arms and legs. Normal speech. Visually impaired PSYCHIATRIC: Appropriate mood and affect; insight and judgment normal. Procedures 06/13/17 Vas-Cath placement 06/27 HAD AVF CREATED LEFT UPPER EXTREMITY Medications and IVs Current Medications Sodium Chloride (NS Flush) 2 ml UNSCH PRN IVF FLUSH AFTER USING IV ACCESS Last administered on 06/08/17 10:56; Start 06/08/17 at 10:30; Stop 06/08/17 at 13:16 ; Status DC Furosemide (Lasix Inj) 40 mg ONCE ONCE IVP Last administered on 06/08/17 10: 56; Start 06/08/17 at 10:30; Stop 06/08/17 at 10:31; Status DC Sodium Chloride (NS Flush) 2 ml UNSCH PRN IV FLUSH FLUSH AFTER USING IV ACCESS Last administered on 06/25/17 11:38; Start 06/08/17 at 13:00 Sodium Chloride (NS Flush) 2 ml BID IV FLUSH Last administered on 07/01/17 22: 14; Start 06/08/17 at 21:00 Acetaminophen (Tylenol) 650 mg Q4H PRN PO TEMP > 100.4 Last administered on 02:20; Start 06/08/17 at 13:00 Ondansetron HCl (Zofran Inj) 4 mg Q6H PRN IVP NAUSEA OR VOMITING Last administered on 07/02/17 02:20; Start 06/08/17 at 13:00 Naloxone HCl (Narcan Inj) 0.4 mg UNSCH PRN IV SEE LABEL COMMENTS; Start at 13:00 Senna/Docusate Sodium (Aimee-Colace) 1 tab BID PO Last administered on 09:00; Start 06/08/17 at 21:00 Magnesium Hydroxide (Milk Of Magnesia Liq) 30 ml Q12H PRN PO MILD - MODERATE CONSTIPATION Last administered on 06/22/17 00:52; Start 06/08/17 at 13:00 Sennosides (Senokot) 17.2 mg Q12H PRN PO MODERATE - SEVERE CONSTIPATION Last administered on 06/22/17 09:47; Start 06/08/17 at 13:00 Bisacodyl (Dulcolax Supp) 10 mg DAILY PRN RECTAL SEVERE CONSITIPATION; Start at 13:00 Lactulose (Lactulose Liq) 30 ml DAILY PRN PO SEVERE CONSITIPATION Last administered on 06/22/17 09:47; Start 06/08/17 at 13:00 Bumetanide (Bumex Inj) 1 mg BID@09,18 IV PUSH Last administered on 06/29/17 18 :05; Start 06/08/17 at 18:00 Dextrose (D50w (Vial) Inj) 50 ml UNSCH PRN IV HYPOGLYCEMIA-SEE COMMENTS; Start 06/08/17 at 13:00 Glucagon (Glucagon Inj) 1 mg UNSCH PRN OTHER HYPOGLYCEMIA-SEE COMMENTS; Start 06/08/17 at 13:00 Insulin Aspart (NovoLOG SUPPLEMENTAL SCALE) 1 ACHS SLIDING SCALE SQ Last administered on 06/17/17 21:22; Start 06/08/17 at 16:00 Heparin Sodium (Porcine) (Heparin Inj) 5,000 units Q12HR SQ Last administered on 07/02/17 13:19; Start 06/08/17 at 21:00 Labetalol HCl (Trandate) 100 mg Q12HR PO Last administered on 06/13/17 07:49; Start 06/08/17 at 21:00; Stop 06/13/17 at 18:27; Status DC Pneumococcal Polyvalent Vaccine (Pneumovax-23 Inj) 25 mcg ONCE ONCE IM ; Start 06/09/17 at 10:00; Stop 06/09/17 at 10:01; Status DC Ceftriaxone Sodium 1000 mg/ Sodium Chloride 100 ml @ 200 mls/hr Q24H IV Last administered on 06/21/17 12:39; Start 06/10/17 at 10:00; Stop 06/21/17 at 16:20 ; Status DC Amlodipine Besylate (Norvasc) 5 mg DAILY PO ; Start 06/10/17 at 10:00; Stop at 10:00; Status DC Atorvastatin Calcium (Lipitor) 20 mg HS PO Last administered on 07/01/17 22:10 ; Start 06/10/17 at 21:00 Atropine Sulfate (Atropine 1% Opth Soln) 1 drop BID EACH EYE ; Start 06/10/17 at 10:00; Status Cancel Metoprolol Tartrate (Lopressor) 25 mg BID PO ; Start 06/10/17 at 09:30; Stop at 09:33; Status DC Prednisolone Acetate (Pred Forte 1% Opth Susp) 1 drop QID LEFT EYE Last administered on 07/02/17 10:52; Start 06/10/17 at 13:00 Sodium Bicarbonate (Sodium Bicarbonate) 650 mg BIDPC PO Last administered on 16:41; Start 06/10/17 at 18:00; Stop 06/18/17 at 18:18; Status DC Atropine Sulfate (Isopto Atropine 1% Opth Soln) 1 drop BID EACH EYE Last administered on 07/02/17 10:51; Start 06/10/17 at 21:00 Albuterol/ Ipratropium (Duoneb Neb) 1 ampule QID NEB NEB Last administered on 06/16/17 11:21; Start 06/12/17 at 12:00; Stop 06/16/17 at 12:00; Status DC Albuterol Sulfate (Albuterol Neb) 2.5 mg Q2HR NEB PRN NEB DYSPNEA; Start at 09:15 Tamsulosin HCl (Flomax) 0.4 mg DAILY PO Last administered on 07/02/17 10:51; Start 06/12/17 at 18:00 Clonidine (Catapres) 0.1 mg Q6H PRN PO SYS BP GREATER THAN 160 MMHG Last administered on 06/25/17 11:37; Start 06/12/17 at 18:30 Heparin Sodium/ Sodium Chloride 500 ml @ As Directed STK-MED ONCE .ROUTE ; Start 06/13/17 at 08:40; Stop 06/13/17 at 08:41; Status DC Heparin Sodium (Porcine) (*HEPARIN INJ Periprocedural ONLY) 10,000 units STK- MED ONCE .ROUTE ; Start 06/13/17 at 08:41; Stop 06/13/17 at 08:42; Status DC Sodium Chloride (NS Flush) DAILY IVF Last administered on 07/01/17 09:00; Start 06/14/17 at 09:00 Heparin Sodium (Porcine) (Heparin Central Flush) DAILY IV FLUSH Last administered on 07/01/17 09:00; Start 06/14/17 at 09:00 Sodium Chloride (NS Flush) UNSCH PRN IVF SEE PROTOCOL; Start 06/13/17 at 09:45 Heparin Sodium (Porcine) (Heparin Central Flush) UNSCH PRN IV FLUSH SEE PROTOCOL; Start 06/13/17 at 09:45 Sodium Chloride 1,000 ml @ 0 mls/hr Q0M PRN IV For Prime & Rinse Back Last administered on 06/30/17 11:44; Start 06/13/17 at 10:23 Heparin Sodium (Porcine) (Heparin Inj) 8,000 units UNSCH PRN IVF WITH DIALYSIS ; Start 06/13/17 at 10:30 Sodium Chloride 1,000 ml @ 200 mls/hr Q5H PRN IV WITH DIALYSIS; Start 06/13/17 at 10:23 Sodium Chloride 1,000 ml @ 0 mls/hr Q0M PRN IV WITH DIALYSIS Last administered on 06/30/17 11:44; Start 06/13/17 at 10:23 Mannitol (Mannitol Inj) 12.5 gm UNSCH PRN IV WITH DIALYSIS; Start 06/13/17 at 10 :30 Albumin Human (Albumin 25% Inj) 25 gm UNSCH PRN IV WITH DIALYSIS; Start at 10:30 Sodium Chloride (NS Flush) 5 ml UNSCH PRN IV FLUSH WITH DIALYSIS; Start at 10:30 Heparin Sodium (Porcine) (Heparin Inj) UNSCH PRN .XX WITH DIALYSIS Last administered on 06/30/17 11:43; Start 06/13/17 at 10:30 Gentamicin Sulfate (Gentamicin (Dialysis) Inj) 20 mg UNSCH PRN IV WITH DIALYSIS Last administered on 06/30/17 11:44; Start 06/13/17 at 10:30 Ondansetron HCl (Zofran Inj) 4 mg UNSCH PRN IV WITH DIALYSIS Last administered on 06/28/17 09:26; Start 06/13/17 at 10:30 Acetaminophen (Tylenol) 650 mg UNSCH PRN PO for headach, pain, temp > 101F; Start 06/13/17 at 10:30 Diphenhydramine HCl (Benadryl) 25 mg UNSCH PRN PO for hives/itching/anaphylaxis ; Start 06/13/17 at 10:30; Stop 06/24/17 at 10:32; Status DC Nitroglycerin (Nitrostat Sl) 0.4 mg UNSCH PRN SL CHEST PAIN Last administered on 06/25/17 14:07; Start 06/13/17 at 10:30 Clonidine (Catapres) 0.1 mg UNSCH PRN PO for BP > 180/100 X 2 readings Last administered on 06/24/17 17:13; Start 06/13/17 at 10:30 Epoetin Jose Angel (Epogen Inj) 10,000 units UNSCH PRN IV WITH DIALYSIS Last administered on 06/30/17 11:43; Start 06/13/17 at 10:30 Gelatin (Gelfoam 12 Mm/7 Mm Top) 1 foam UNSCH PRN TOP SEE LABEL COMMENTS; Start 06/13/17 at 10:30 Miscellaneous Information Patient in critical care unit? Ass... [id number] .XX ; Start 06/13/17 at 11:00 Chlorhexidine Gluconate (Chlorhexidine 2% Cloth) 3 pack DAILY@04 TOPICAL Last administered on 06/17/17 22:47; Start 06/14/17 at 04:00; Stop 06/18/17 at 04:01; Status DC Chlorhexidine Gluconate (Chlorhexidine 2% Cloth) 3 pack UNSCH PRN TOPICAL HYGIENIC CARE; Start 06/13/17 at 11:00; Stop 06/18/17 at 10:47; Status DC Hydralazine HCl (Apresoline Inj) 10 mg NOW ONCE IV PUSH Last administered on 17:24; Start 06/13/17 at 17:30; Stop 06/13/17 at 17:31; Status DC Labetalol HCl (Trandate) 200 mg Q12HR PO Last administered on 06/22/17 19:55; Start 06/13/17 at 21:00; Stop 06/23/17 at 07:43; Status DC Vitamin B Complex/ Vit C/Folic Acid (Nephrocaps) 1 cap DAILY PO Last administered on 07/02/17 10:52; Start 06/13/17 at 18:30 Lidocaine HCl (Xylocaine 1% Inj) 9 ml STK-MED ONCE SQ Last administered on 09:35; Start 06/19/17 at 09:35; Stop 06/19/17 at 10:02; Status DC Hydralazine HCl (Apresoline Inj) 10 mg Q30M PRN IV PUSH bp>140/90 Last administered on 06/22/17 00:53; Start 06/20/17 at 01:15 Lidocaine HCl (Xylocaine 1% Inj) 10 ml STK-MED ONCE SQ Last administered on 06/20 12:25; Start 06/20/17 at 12:25; Stop 06/20/17 at 12:26; Status DC Vancomycin HCl 1000 mg/Sodium Chloride 250 ml @ 250 mls/hr SCRAP SEPARATOR IV Last administered on 06/20/17 13:49; Start 06/20/17 at 13:15; Stop 06/24/17 at 13:14; Status DC Cefazolin Sodium/ Dextrose 50 ml @ 100 mls/hr SCRAP SEPARATOR IV Last administered on 06/20/17 15:32; Start 06/20/17 at 13:15; Stop 06/24/17 at 13:14; Status DC Midazolam HCl (Versed Inj) 4 mg STK-MED ONCE .ROUTE Last administered on 15:15; Start 06/20/17 at 15:15; Stop 06/20/17 at 15:16; Status DC Fentanyl Citrate (fentaNYL INJ) 250 mcg STK-MED ONCE .ROUTE Last administered on 06/20/17 15:15; Start 06/20/17 at 15:15; Stop 06/20/17 at 15:16; Status DC Heparin Sodium (Porcine) (*HEPARIN INJ Periprocedural ONLY) 10,000 units STK- MED ONCE .ROUTE Last administered on 06/20/17 15:38; Start 06/20/17 at 15:38; Stop 06/20/17 at 15:39; Status DC Lidocaine/ Epinephrine (Xylocaine-Epi 1%-1:100,000 Inj) 20 ml STK-MED ONCE .ROUTE Last administered on 06/20/17 15:38; Start 06/20/17 at 15:38; Stop at 15:39; Status DC Sodium Chloride (NS Flush) UNSCH PRN IVF SEE PROTOCOL; Start 06/20/17 at 16:30 Heparin Sodium (Porcine) (Heparin Inj) UNSCH PRN IV FLUSH SEE PROTOCOL; Start 06/20/17 at 16:30 Polyethylene Glycol (Miralax) 17 gm ONCE ONCE PO ; Start 06/21/17 at 16:15; Stop 06/21/17 at 16:18; Status DC Labetalol HCl (Trandate) 200 mg Q8H PO Last administered on 07/02/17 06:09; Start 06/23/17 at 13:00 Calcitriol (Rocaltrol) 0.25 mcg DAILY PO Last administered on 07/02/17 10:52; Start 06/23/17 at 12:00 Iron Sucrose 200 mg/Sodium Chloride 110 ml @ 110 mls/hr DAILY IV Last administered on 06/25/17 10:28; Start 06/23/17 at 14:00; Stop 06/25/17 at 09:59 ; Status DC Doxazosin Mesylate (Cardura) 4 mg DAILY PO Last administered on 07/01/17 09:00 ; Start 06/23/17 at 18:15 Amlodipine Besylate (Norvasc) 5 mg BID PO Last administered on 07/01/17 22:11 ; Start 06/25/17 at 21:00 Amlodipine Besylate (Norvasc) 5 mg ONCE ONCE PO Last administered on 14:27; Start 06/25/17 at 15:00; Stop 06/25/17 at 15:01; Status DC Hydralazine HCl (Apresoline) 25 mg Q8HR PO Last administered on 07/02/17 06:09 ; Start 06/25/17 at 22:00 Dextrose/Sodium Chloride 1,000 ml @ 42 mls/hr [id number] IV Last administered on 07/01/17 07:20; Start 06/26/17 at 08:15 Vasopressin (Pitressin Inj) 20 units STK-MED ONCE .ROUTE ; Start 06/27/17 at 11: 18; Stop 06/27/17 at 11:19; Status DC Heparin Sodium (Porcine) (Heparin Inj) 10,000 units STK-MED ONCE IV ; Start at 11:31; Stop 06/27/17 at 11:32; Status Cancel Heparin Sodium (Porcine) (Heparin Inj) 10,000 units STK-MED ONCE IV Last administered on 06/27/17 11:18; Start 06/27/17 at 11:18; Stop 06/27/17 at 11:54 ; Status DC Bupivacaine HCl (Marcaine Pf 0.5% Inj) 30 ml STK-MED ONCE INFIL ; Start at 11:18; Stop 06/27/17 at 11:19; Status Cancel Heparin Sodium (Porcine) (Heparin Inj) 10,000 units STK-MED ONCE OTHER Last administered on 06/27/17 11:18; Start 06/27/17 at 11:18; Stop 06/27/17 at 11:54 ; Status DC Influenza Virus Vaccine (Flu (Quadrivalent) Vaccine Inj) 0.5 ml ONCE ONCE IM ; Start 06/27/17 at 12:15; Stop 06/27/17 at 12:16; Status UNV Influenza Virus Vaccine (Flu (Quadrivalent) Vaccine Inj) 0.5 ml ONCE ONCE IM ; Start 06/27/17 at 12:15; Stop 06/27/17 at 12:16; Status UNV Pneumococcal Polyvalent Vaccine (Pneumovax-23 Inj) 25 mcg ONCE ONCE IM Last administered on 06/27/17 18:23; Start 06/27/17 at 15:00; Stop 06/27/17 at 15:01 ; Status DC Fentanyl Citrate (fentaNYL INJ) 200 mcg STK-MED ONCE .ROUTE ; Start 06/27/17 at 13:00; Stop 06/27/17 at 13:01; Status DC Miscellaneous Information ALL NURSING DEPARTME... UNSCH PRN .XX SEE LABEL COMMENTS; Start 06/27/17 at 12:12; Stop 06/28/17 at 12:11; Status DC Tuberculin PPD (Ppd Inj) 5 units ONCE ONCE I-DERMAL Last administered on 10:36; Start 06/28/17 at 09:00; Stop 06/28/17 at 09:01; Status DC Prochlorperazine (Compazine Supp) 25 mg Q6H PRN RECTAL NAUSEA OR VOMITING; Start 06/28/17 at 10:00 Urinary Catheter: No Vascular Central Line Catheter: Yes Assessment to: Continue Side: Right Location: Internal A/P Problem List: (1) Acute renal failure ICD Code: N17.9 - Acute kidney failure, unspecified Status: Acute (2) Diabetes mellitus ICD Code: E11.9 - Type 2 diabetes mellitus without complications Status: Chronic (3) Hyperlipidemia ICD Code: E78.5 - Hyperlipidemia, unspecified Status: Chronic (4) Hypertension ICD Code: I10 - Essential (primary) hypertension Status: Chronic (5) Fluid overload ICD Code: E87.70 - Fluid overload, unspecified Status: Resolved Assessment and Plan ESRD on HD Likely due to uncontrolled diabetes, and now has become chronic per nephrology. Will most likely need permanent dialysis. -06/23 patient had a PermCath placed. 06/24 Evaluated by Vascular surgery for AVF placement. 06-27 HAD GRAFT CREATION IN left upper extremity Right pleural effusion/hypoxemia - resolved Due to R pleural effusion sp Thoracentesis US. 2-D echo is unremarkable with EF 55-60%. Pulmonology was consulted, likely due to fluid overload. S/p right and left thoracenteses. Walk test done, the pt will not need home oxygen. - follow up with pulmonology. - oxygen, nebs, IS as needed. - encourage ambulation. Hypertension Difficult to control secondary to renal failure. - clonidine as needed. 06/23 patient with severely uncontrolled blood pressure with systolic blood pressure into the high 90s. I will increase labetalol to 200 mg by mouth every 8 hours. I will also start the patient on doxazosin 4 mg by mouth daily. Diabetes mellitus Glucose very well controlled. - Monitor Accu-Cheks and cover with sliding scale insulin. - check an A1c. Urinary retention The pt required Godwin reinsertion 06/22. Apparently urology never saw the pt, even though they were consulted on 06/12. - continue Flomax. - continue Godwin. - Urology reconsulted. Anemia Normal MCV anemia. Likely secondary to chronic disease. Iron studies show low iron, low percent saturation and normal ferritin. Patient is being administered IV iron as per nephrology recommendations. Continue continue to monitor CBC. Diarrhea Patient complains of abdominal pain and diarrhea. I will check a stool for C. difficile PCR and place on contact isolation until stool C. difficile is ruled out. 06/24 Diarrhea is resolved. No further diarrhea or abdominal pain. PPx: Heparin Discharge Planning Continue to monitor in the medical floor. DC pending AVF placement, CV surgery and nephrology clearance. HAD CHEST PAIN/ANXIETY TROPONINS NEGATIVE- EKG STABLE Needs placement for outpatient hemodialysis - AWAIT ACCEPTANCE HAS HD SET UP AN OUTPT NOW Discharge Planning Needs outpatient hemodialysis set up And acceptance at a hemodialysis center Pt has a chair time of 1:15pm M-W-F at [facility] for her dialysis. Pt will need to be at [facility] at 12:15 on Sunday for the first time. Problem Qualifiers (1) Diabetes mellitus: Dangelo Torres DO Jul 02, 2017 15:05
[2017-07-02] MEDS ORDERED: ATRO1SOL11 EACH EYE (15:22)
[2017-07-02] MEDS ORDERED: HYDR-3799 PO (15:22)
[2017-07-02] MEDS ORDERED: NEPHRO PO (15:22)
[2017-07-02] MEDS ORDERED: ALBU0.08 NEB (15:22)
[2017-07-02] MEDS ORDERED: PRED1SUS LEFT EYE (15:22)
[2017-07-02] MEDS ORDERED: FURO20TA PO (15:22)
[2017-07-02] MEDS ORDERED: TAMS5CAP PO (15:22)
[2017-07-02] MEDS ORDERED: CALC.25 PO (15:22)
[2017-07-02] MEDS ORDERED: AMLO5 PO (15:22)
[2017-07-02] MEDS ORDERED: LABE200T2 PO (15:22)
[2017-07-02] MEDS ORDERED: SODI650T PO (15:22)
[2017-07-02] MEDS ORDERED: ATOR20TA15 PO (15:22)
[2017-07-02] MEDS ORDERED: CARD4TAB2 PO (15:22)
--- NOTE | 2017-07-02 15:25 | HHI.DCPOC ---
Discharge Care Plan Diagnosis: (1) Eye disease (2) Hypertension (3) Hyperlipidemia (4) Pleural effusion (5) Acute renal failure (6) Fluid overload (7) Diabetes mellitus (8) [id number] kidney injury (9) CHF exacerbation (10) Hypoglycemia Your Health Problems Are: Fluctuating Blood Sugars Fluid/Lung Overload Shortness of Breath Goals to Promote Your Health * To prevent worsening of your condition and complications * To maintain your health at the optimal level Directions to Meet Your Goals Take your medications as prescribed Follow your dietary instruction Follow activity as directed Keep your appointments as scheduled Take your immunizations and boosters as scheduled If your symptoms worsen call your PCP, if no PCP go to Urgent Care Center or Emergency Room Smoking is Dangerous to Your Health. Avoid second hand smoke Call the 24-hour hour crisis hotline for domestic abuse at Dangelo Torres DO Jul 02, 2017 15:25
--- NOTE | 2017-07-02 15:27 | HHI.FF ---
Face to Face Verification Diagnosis: (1) Hypertension (2) Pleural effusion (3) Hypoglycemia (4) Eye disease (5) Hyperlipidemia (6) Fluid overload (7) Acute renal failure (8) Diabetes mellitus (9) [id number] kidney injury (10) CHF exacerbation Physical Therapy Order: Evaluate and Treat, Improve ambulation, Strength and gait training Occupational Therapy Order: Evaluate and Treat, Improve ADL, Gross motor coordination, Fine motor coordination Home Health Nursing Order: Medical education Diabetic education CHF education Wound care and dressing changes Nursing assessment with vital signs Home Health Aide Order: To Assist In: Bathing and personal care, 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 My clinical findings support the need for the requested home health care services because: Patient has SOB Deconditioned w/ increased weakness Limited ability to care for self Impaired cognition/judgement I certify that my clinical findings support that this patient is homebound because: Impaired cognitive ability/safety Unsteady gait/balance Dangelo Torres DO Jul 02, 2017 15:27
--- NOTE | 2017-07-02 15:29 | HHI.DS ---
Discharge Summary Admission Date Jun 08, 2017 at 13:02 Discharge Date: Jul 02, 2017 Admitting Diagnosis chf exacerbation, acute on chronic kidney injury, DM, HTN, (1) Acute renal failure ICD Code: N17.9 - Acute kidney failure, unspecified Diagnosis: Principal Status: Acute (2) Diabetes mellitus ICD Code: E11.9 - Type 2 diabetes mellitus without complications Diagnosis: Principal Status: Chronic (3) Hyperlipidemia ICD Code: E78.5 - Hyperlipidemia, unspecified Status: Chronic (4) Hypertension ICD Code: I10 - Essential (primary) hypertension Diagnosis: Principal Status: Chronic (5) Fluid overload ICD Code: E87.70 - Fluid overload, unspecified Diagnosis: Principal Status: Resolved Procedures 06/13/17 Vas-Cath placement 06/27 HAD AVF CREATED LEFT UPPER EXTREMITY Brief History - From Admission The patient is a 57-year-old Yi-speaking female who presented to the emergency department with complaint of shortness of breath. She was offered a administrative support manager, but requested that her daughter translate for her. She had an episode of chest pain coupled days ago, but none currently. Shortness of breath has been progressively worsening over the past week. She has had increasing lower extremity edema as well. She has been producing urine, but less than normal. She has been seeing a diffuser operator in [place], and reportedly is being scheduled for a renal biopsy. CBC/BMP: 07/01/17 0424 07/01/17 0424 Significant Findings Laboratory Tests Test 07/01/17 04:24 Red Blood Count 3.32 MIL/MM3 (4.00-5.30) Hemoglobin 9.2 GM/DL (11.6-15.3) Hematocrit 29.0 % (35.0-46.0) Mean Corpuscular Hemoglobin Concent 31.6 % (32.0-36.0) Eosinophils (%) (Auto) 6.6 % (0.0-4.0) Basophils (%) (Auto) 2.7 % (0.0-2.0) Blood Urea Nitrogen 5 MG/DL (7-18) Creatinine 2.77 MG/DL (0.50-1.00) Random Glucose 113 MG/DL (74-106) Total Protein 5.8 GM/DL (6.4-8.2) Albumin 1.8 GM/DL (3.4-5.0) Calcium Level 8.3 MG/DL (8.5-10.1) Potassium Level 3.3 MEQ/L (3.5-5.1) Estimat Glomerular Filtration Rate 18 ML/MIN (>89) Imaging Last Impressions Chest X-Ray 06/29/17 0000 Signed Impressions: Service Date/Time: Thursday, June 29, 2017 06:52 - CONCLUSION: Diffuse interstitial prominence likely related to diffuse processes such as edema. There is also hazy density seen on the right. Bilateral pleural effusions being worse on the right needs to be considered. Silvio Ferguson MD Upper Extremity Ultrasound 06/23/17 0000 Signed Impressions: Service Date/Time: Friday, June 23, 2017 17:29 - CONCLUSION: 1. No evidence of upper extremity DVT on the right or left. 2. Superficial vein thrombus of the right cephalic vein in the antecubital fossa region. Guevara Frost MD Thoracentesis Ultrasound 06/20/17 0000 Signed Impressions: Service Date/Time: Tuesday, June 20, 2017 11:07 - CONCLUSION: Uncomplicated ultrasound guided thoracentesis. Dangelo Merida MD FACR Catheter Placement X-Ray 06/20/17 0000 Signed Impressions: Service Date/Time: Tuesday, June 20, 2017 15:18 - CONCLUSION: Successful conversion of the right IJ Vas-Cath to a PermCath catheter as above. Dean Shields MD Renal Ultrasound 06/08/17 0000 Signed Impressions: Service Date/Time: Thursday, June 08, 2017 14:10 - CONCLUSION: Echogenic but normal-size kidneys Bilateral pleural effusions. Dangelo Merida MD FACR PE at Discharge GENERAL: Awake alert SKIN: Warm and dry. HEAD: Atraumatic. Normocephalic. EYES: Pupils equal and round. No scleral icterus. No injection or drainage. ENT: No nasal bleeding or discharge. Mucous membranes pink and moist. Tongue is midline NECK: Trachea midline. No JVD. CARDIOVASCULAR: Regular rate and rhythm. S1-S2 no S3 or S4 no heave or thrill or rub or gallop RESPIRATORY: No accessory muscle use. Clear to auscultation. Breath sounds equal bilaterally. GASTROINTESTINAL: Abdomen soft, non-tender, nondistended. Hepatic and splenic margins not palpable. Obese MUSCULOSKELETAL: Extremities without clubbing, cyanosis, or edema. No obvious deformities. Left upper extremity AV fistula dressed good thrill and bruit NEUROLOGICAL: Awake and alert. No obvious cranial nerve deficits. Motor grossly within normal limits. Five out of 5 muscle strength in the arms and legs. Normal speech. Visually impaired PSYCHIATRIC: Appropriate mood and affect; insight and judgment normal. Hospital Course 8-15 DW RN AND PT HAD SOME CHEST PAIN YESTERDAY-NONE NOW MAY HAVE BEEN SOME ANXIETY 8-16 TO HAVE AV FISTULA CREATED TODAY WITH VASCULAR NO OTHER COMPLAINTS 8-17 had left upper extremity AV fistula created yesterday. Assessment hepatitis panel done awaiting PPD QuantiFERON GOLD results Discussed with patient and RN Having some nausea today No relief with Zofran will make sure she has some Compazine 8-18 AWAIT PLACEMENT FOR HD DW RN AND PT NEEDS THAT SET UP BEFORE DISCHARGE [facility]ER [facility] OR SNF 8-19 SEEN IN HD NO NEW COMPLAINTS 8-20 no new complaints We await placement for hemodialysis 8-21 PATIENT HAS BEEN ACCEPTED FOR HD CAN DC TO HOME TODAY Pt has a chair time of 1:15pm M-W-F at [facility] for her dialysis. Pt will need to be at [facility] at 12:15 on Sunday for the first time. Pt has a chair time of 1:15pm M-W-F at [facility] for her dialysis. Pt will need to be at [facility] at 12:15 on Sunday for the first time. Pt Condition on Discharge: Fair Discharge Disposition: Disch w/ Home Health Serv Discharge Time: > 30 minutes Discharge Instructions DIET: Follow Instructions for: Heart Healthy Diet, Diabetic Diet, Renal Failure Diet Speech Therapy-Diet Recommends: Regular Additional Diet Instructions: RENAL FAILURE DIET DIABETIC CARDIAC DIET Activities you can perform: Regular-No Restrictions Follow up Referrals: Internal Medicine Nephrology - 1 Week with José Howell MD PCP Follow-up - 3-5 Days Pulmonology - 1 Week with Inidra Jacobson MD Surgical - 2 Weeks with Olga Lidia Armstrong MD New Medications: Albuterol Neb (Albuterol Neb) 2.5 Mg/3 Ml Neb 2.5 MG NEB Q2HR NEB PRN for DYSPNEA, #180 NEBULE Amlodipine (Norvasc) 5 Mg Tab 5 MG PO BID for Blood Pressure Management, #60 TAB Calcitriol (Rocaltrol) 0.25 Mcg Cap 0.25 MCG PO DAILY for Nutritional Supplement, #30 CAP Doxazosin (Cardura) 4 Mg Tab 4 MG PO DAILY for Blood Pressure Management, #30 TAB Hydralazine HCl (Hydralazine HCl) 25 Mg Tablet 25 MG PO Q8HR for Blood Pressure Management, #90 TAB Labetalol (Labetalol) 200 Mg Tab 200 MG PO Q8H for Blood Pressure Management, #90 TAB Tamsulosin (Flomax) 0.4 Mg Cap 0.4 MG PO DAILY for URINARY RETENTION, #30 CAP Vitamin B Cmplx/Vit C/Folic AC (Nephro-Mariano Rx) 1 Tab 1 CAP PO DAILY for Nutritional Supplement, #30 TAB Continued Medications: Atorvastatin (Atorvastatin) 20 Mg Tab 20 MG PO HS for Cholesterol Management, #30 TAB 0 Refills (This prescription has been renewed) Atropine Opth Drops (Atropine Opth Drops) 1% Soln 1 DROP EACH EYE BID for Dry Eye, #10 ML 0 Refills (This prescription has been renewed) Furosemide (Furosemide) 20 Mg Tab 20 MG PO DAILY for Blood Pressure Management, #30 TAB 0 Refills (This prescription has been renewed) Prednisolone Acetate Opth 1% (Pred Forte Opth 1%) 1% Susp 1 DROP LEFT EYE QID for Inflammation, #1 BOTTLE 0 Refills (This prescription has been renewed) Sodium Bicarbonate (Sodium Bicarbonate) 650 Mg Tab 650 MG PO BIDPC for Nutritional Supplement, #60 TAB 0 Refills (This prescription has been renewed) Discontinued Medications: Amlodipine (Amlodipine) 5 Mg Tab 5 MG PO DAILY for Blood Pressure Management, TAB 0 Refills Metoprolol Tartrate (Metoprolol Tartrate) 25 Mg Tab 25 MG PO BID, TAB 0 Refills Dangelo Torres DO Jul 02, 2017 15:29
--- NOTE | 2017-07-02 15:32 | HHI.PR ---
Subjective Remarks ALERT NO SOB AT REST O2 SAT 96% on 02 N/C Objective Vital Signs Date Time Temp Pulse Resp B/P (MAP) Pulse Ox O2 Delivery O2 Flow Rate FiO2 07/02/17 14:20 95 Nasal Cannula 3.00 07/02/17 08:00 98.6 76 18 105/51 (69) 95 07/02/17 06:05 98.1 82 20 138/62 (87) 96 07/02/17 00:58 98.4 79 19 110/54 (72) 99 07/01/17 22:05 159/73 (101) 07/01/17 16:00 98.3 78 20 130/60 (83) 96 I/O 07/01/17 07/01/17 07/01/17 07/02/17 07/02/17 07/02/17 07:00 15:00 23:00 07:00 15:00 23:00 Intake Total 567 ml 960 ml Output Total 150 ml Balance 417 ml 960 ml Intake Oral 120 ml 960 ml IV Total 447 ml Output Urine Total 150 ml # Voids 2 1 # Bowel Movements 0 1 Result Diagram: 07/01/174 07/01/17423 Objective Remarks GENERAL: SKIN: Warm and dry. HEAD: Atraumatic. Normocephalic. EYES: Pupils equal and round. No scleral icterus. No injection or drainage. ENT: No nasal bleeding or discharge. Mucous membranes pink and moist. NECK: Trachea midline. No JVD. CARDIOVASCULAR: Regular rate and rhythm. RESPIRATORY: No accessory muscle use. DECREASE BREATH SOUNDS AT BASIS. GASTROINTESTINAL: Abdomen soft, non-tender, nondistended. Hepatic and splenic margins not palpable. MUSCULOSKELETAL: Extremities without clubbing, cyanosis, or edema. No obvious deformities. NEUROLOGICAL: Awake and alert. No obvious cranial nerve deficits. Motor grossly within normal limits. Five out of 5 muscle strength in the arms and legs. Normal speech. PSYCHIATRIC: Appropriate mood and affect; insight and judgment normal. Assessment and Plan Assessment and Plan ASS: RESPIRATORY FAILURE FLUID OVERLOAD DUE TO RENAL FAILURE BILATERAL EFFUSIONS post bilateral thoracentesis PLAN O2 NEEDED dialysis increase acivity Indira Jacobson MD Jul 02, 2017 15:31
[2017-07-02 16:00] VITALS: BP 139/65; PULSE 80; RESP 18; TEMP 97.9; O2SAT 96
--- NOTE | 2017-07-02 16:25 | RADRPT ---
EXAM DATE/TIME: 07/02/2017 16:06 [facility] COMPARISON: CHEST PA & LAT, June 25, 2017, 16:57. INDICATIONS : Congestion. MEDICAL HISTORY : Cardiovascular disease. Diabetes mellitus type II. Hypertension. SURGICAL HISTORY : None. ENCOUNTER: Initial ACUITY: 4 - 6 days PAIN SCORE: 0/10 LOCATION: Bilateral chest FINDINGS: PA and lateral views of the chest demonstrate haziness of interstitial markings suggesting some degre e of congestion or volume overload. Bilateral pleural effusions, right greater than left. Right IJ di alysis type catheter with the tip projecting over the central venous system. Previously seen right-si ded pneumothorax has resolved. Heart size is borderline prominent. CONCLUSION: 1. Interstitial haziness with bilateral pleural effusions, right greater than left characteristic of volume overload/vascular congestion. 2. Stable position of right IJ dialysis type catheter. Tip projects over the central venous system. 3. Interval resolution of the small right apical pneumothorax identified 06-25-2017. Dean Shields MD on July 02, 2017 at 16:20 Board Certified Radiologist. This report was verified electronically.
--- NOTE | 2017-07-02 16:56 | HHI.NPPN ---
Subjective History of Present Illness 57-year-old female with past medical history of hypertension, diabetes mellitus, chronic kidney disease, ischemic heart disease, congestive heart failure, came to the hospital with complaint of worsening shortness of breath. 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 Additional Remarks Patient is alert, no SOB, with nasal cannula. Review of Systems General Constitutional: Fatigue Cardiovascular Cardiac: Edema, ISSA Objective Data Data Vital Signs Date Time Temp Pulse Resp B/P (MAP) Pulse Ox O2 Delivery O2 Flow Rate FiO2 07/02/17 14:20 95 Nasal Cannula 3.00 07/02/17 12:00 97.8 78 18 135/61 (85) 100 07/02/17 08:00 98.6 76 18 105/51 (69) 95 07/02/17 06:05 98.1 82 20 138/62 (87) 96 07/02/17 00:58 98.4 79 19 110/54 (72) 99 07/01/17 22:05 159/73 (101) -: 07/01/17 0424 07/01/17 042 Physical Exam General Appearance: No Acute Distress, Comfortable Pulmonary Resp Exam: Breath Sounds Equal Cardiology CV Exam: Regular Gastrointestinal/Abdomen GI Exam: Soft, Non-Tender, Bowel Sounds Present Extremeties Extremities Exam: Dependent Edema Neurologic Neuro Exam: Alert, Awake, Oriented Psychiatric Psych Exam: Appropriate Responses Assessment/Plan Problem List: (1) Qfjzw-pj-eambefy kidney injury ICD Codes: N17.9 - Acute kidney failure, unspecified; N18.9 - Chronic kidney disease, unspecified Status: Acute (2) CHF exacerbation ICD Codes: I50.9 - Heart failure, unspecified Status: Acute Plan: [place] (3) Diabetes mellitus ICD Codes: E11.9 - Type 2 diabetes mellitus without complications Status: Chronic Plan Dialysis started on 06/13, ESRD now, has tunneled catheter. Tolerated HD yesterday. Continue TTS HD. S/P left brachiocephalic AVF yesterday (Dr. Rolle). Should develop over the next 3-4 months. May follow with me or Dr. Rolle outpatient for maturation. Thoracentesis done and 1 liter removed on 06/20. Patient tolerated well. Given IV iron. On epogen Calcium low, on Rocaltrol, Po4 was normal. HD last was done on 06/30. Now for D/C and she will be on HD MWF at [facility]. I spoke to daughter on the phone and told her to restrict salt and fluid intake. Also told her to take to ED if develop worsening SOB. HD to start there from Sun. OK to D/C from Nephrology. Problem Qualifiers (1) Oebob-sv-yjhqwaw kidney injury: (2) Diabetes mellitus: José Howell MD Jul 02, 2017 16:56
--- NOTE | 2017-07-30 13:06 | PQ ---
Physician Query Response Document PATIENT: PABLO MCNAIR : 1960 ADMIT DATE: 06/08/2017 1:02 PM DISCH DATE: 07/02/2017 8:08 PM RESPONDING PROVIDER #: DARIA QUERY TEXT: Conflicting Documentation Clarification Was patient's fluid overload : 1)unknown etiology 2)acute renal failure/ESRD 3)CHF IF DUE TO CHF-please answer second CHF query 4)both 2 AND 3 5)other(please specify) The patient's Clinical Indicators include: Dr. TORRES, there is documentation that needs clarification. Patient was admitted with fluid overload. There is confusion documentation as to wheather is is due to renal disease or CHF Exacerbation or both. ER documents that patient does not have a history of CHF/echo on admit was 55-60%. Admission BNP = 43 7 Please review the question below and answer to the best of your ability Query created by: Michael Newsome on 07/03/2017 9:21 AM RESPONSE TEXT: NONCOMPLIANT WITH DIALYSIS WELL FLUID OVERLOAD. hAS CONGESTIVE HEART FAILURE DUE TO NONCOMPLIAN CE WITH THE RENAL FAILURE Was patient's fluid overload : 1)unknown etiology 2)acute renal failure/ESRD 3)CHF IF DUE TO CHF-please answer second CHF query 4)both 2 AND 3 5)other(please specify) The patient's Clinical Indicators include: Dr. TORRES, there is documentation that needs clarification. Patient was admitted with fluid overload. There is confusion documentation as to wheather is is due t o renal disease or CHF Exacerbation or both. ER documents that patient does not have a history of CHF/echo on admit was 55-60%. Admission BNP = 43 7 Please review the question below and answer to the best of your ability BOTH DUE TO CONGESTIVE HEART FAILURE AND END-STAGE RENAL DISEASE WITH RENAL FAILURE Electronically signed by: Dangelo Torres 07/30/2017 1:02 PM
== END 2017-07-02 20:08 | disposition home or self-care (01) | DRG 673 ==
LOC: NEPC 10:11 → NEDA 13:02 → HOCB 15:31 → HIMW 06-12 17:10 → N05A 06-22 17:07
PROVIDERS: ADMIT Family Medicine; ATTEND Family Medicine
PROC: 0T9B70Z Drainage of Bladder with Drainage Device, Via Natural or Artificial Opening (ICD-10-PCS; principal; 2017-06-08)
PROC: 5A1D60Z (ICD-10-PCS; 2017-06-13)
PROC: 05HM33Z Insertion of Infusion Device into Right Internal Jugular Vein, Percutaneous Approach (ICD-10-PCS; 2017-06-13)
PROC: 0W993ZZ Drainage of Right Pleural Cavity, Percutaneous Approach (ICD-10-PCS; 2017-06-19)
PROC: 0W9B3ZZ Drainage of Left Pleural Cavity, Percutaneous Approach (ICD-10-PCS; 2017-06-20)
PROC: 05HM33Z Insertion of Infusion Device into Right Internal Jugular Vein, Percutaneous Approach (ICD-10-PCS; 2017-06-20)
PROC: 03180ZF Bypass Left Brachial Artery to Lower Arm Vein, Open Approach (ICD-10-PCS; 2017-06-26)
DX: N17.9 Acute kidney failure, unspecified (principal); J96.01 Acute respiratory failure with hypoxia; I13.2 Hypertensive heart and chronic kidney disease with heart failure and with stage 5 chronic kidney disease, or end stage renal disease; E87.70 Fluid overload, unspecified; E11.21 Type 2 diabetes mellitus with diabetic nephropathy; E11.65 Type 2 diabetes mellitus with hyperglycemia; N18.6 End stage renal disease; E78.5 Hyperlipidemia, unspecified; I50.9 Heart failure, unspecified; E11.22 Type 2 diabetes mellitus with diabetic chronic kidney disease; H54.8 Legal blindness, as defined in USA; I25.10 Atherosclerotic heart disease of native coronary artery without angina pectoris; E78.00 Pure hypercholesterolemia, unspecified; Z82.49 Family history of ischemic heart disease and other diseases of the circulatory system; E11.319 Type 2 diabetes mellitus with unspecified diabetic retinopathy without macular edema; R19.7 Diarrhea, unspecified; D63.8 Anemia in other chronic diseases classified elsewhere; Z99.2 Dependence on renal dialysis; Z23 Encounter for immunization
CPT/HCPCS: 32555; 36556; 36558; 36600; 71010; 71020; 74176; 76775; 76937; 77001; 80048; 80053; 80069; 80074; 81001; 82550; 82552; 82728; 82805; 82948; 83036; 83540; 83550; 83735; 83880; 84100; 84443; 84484; 85025; 85027; 85610; 85730; 86480; 87086; 87641; 90732; 90935; 93005; 93306; 93970; 93998; 94150; 94620; 94640; 94664; 96374; 96375; 99152; C1729; C1750; C1752; C1769; J0360; J0690; J0696; J1580; J1642; J1644; J1756; J1815; J1940; J2250; J2370; J2405; J3010; J3370; J7030; J7040; J7050; Q4081

== ENCOUNTER → 2017-08-23 | Outpatient (CLI) | payer OTHER ==
[~2017-08-23] MED LIST changes: +ALBU0.08 NEB; +AMLO5 PO; -AMLO5TAB2 PO; -BRIM0.2S4 EACH EYE; +CALC.25 PO; +CARD4TAB2 PO; +FURO20TA PO; -GLYB2.5T3 PO; +HYDR-3799 PO; +LABE200T2 PO; -METO25TA3 PO; +NEPHRO PO; +TAMS5CAP PO
--- NOTE | 2017-08-23 15:56 | RADRPT ---
EXAM DATE/TIME: 08/23/2017 15:10 [facility] COMPARISON: No previous studies available for comparison. INDICATIONS : Left arm arteriovenous fistula patency. MEDICAL HISTORY : Hypercholesterolemia. Hypertension. Renal calculi. Blind. Syncope. Chest pain. Dyspnea. UTI. Diabetes . Autoimmune disease. Stage III renal disease. SURGICAL HISTORY : Left foot surgery. Left arm AV fistula. Dialysis. ENCOUNTER: Initial ACUITY: 1 week PAIN SCORE: 0/10 LOCATION: Left arm. AREA EVALUATED: Left antecubital fossa. FINDINGS: The fistula is patent without stenosis. No pseudoaneurysm is identified. The anastomotic sites appear normal. CONCLUSION: 1. Patent fistula. Ge Munoz MD on August 23, 2017 at 15:54 Board Certified Radiologist. This report was verified electronically.
--- NOTE | 2017-08-23 16:11 | RADRPT ---
EXAM DATE/TIME: 08/23/2017 15:44 [facility] COMPARISON: CHEST PA & LAT, July 02, 2017, 16:06. INDICATIONS : Shortness of breath. MEDICAL HISTORY : Hypercholesterolemia. Hypertension. Renal calculi. Blind. Syncope. Chest pain. Dyspnea. UTI. Diabetes . Autoimmune disease. Stage III renal disease. SURGICAL HISTORY : Left foot surgery. Left arm AV fistula. Dialysis. ENCOUNTER: Initial ACUITY: 1 day PAIN SCORE: 0/10 LOCATION: Bilateral chest FINDINGS: PA and lateral views the chest show a normal cardiac silhouette. Pulmonary vessels are distinct. A ti ny left effusion. Interstitial prominence within the bases. No intra-alveolar infiltrates. Dialysis c atheter overlies the right chest. CONCLUSION: Bibasilar interstitial prominence with tiny left effusion suggesting fluid overload. Edgardo Elizabeth Jr., MD on August 23, 2017 at 16:09 Board Certified Radiologist. This report was verified electronically.
== END ==
LOC: HRAD 14:04
PROVIDERS: ATTEND Surgery
DX: R06.09 Other forms of dyspnea (principal)
CPT/HCPCS: 71020; 93990

== ENCOUNTER 2017-09-03 18:28 | Inpatient (IN) | payer OTHER ==
[~2017-09-03] VITALS: Ht 154.9 cm; Wt 62.8 kg
[2017-09-03 18:31] VITALS: BP 204/81; PULSE 76; RESP 15; TEMP 97.9; O2SAT 94
--- NOTE | 2017-09-03 19:33 | PD ---
HPI Chief Complaint: Fever Time Seen by Provider: 19:31 Travel History International Travel<30 days: No Contact w/Intl Traveler<30days: No Traveled to known affect area: No History of Present Illness HPI The patient is a 57 year old female who presents to the [facility] emergency department with a history of subjective fever, shortness of breath, body aches, cough that began 2 weeks ago. The patient was treated with a course of azithromycin which the patient completed 2 days ago. The patient reports that the symptoms have not recurred improved. She reports that the shortness of breath occurs with exertion. The patient has had congestive heart failure in the past thought to be related to fluid overload from renal failure. The patient has been on dialysis for the last month. The patient is on dialysis on Sunday, Sunday, and Sunday. She did have her usual dialysis done today. The patient's cough has been dry in character. She reports that she did receive her influenza and pneumonia vaccination. She denies having any chest pain or chest pressure. On review of systems otherwise, the patient denies having any neck pain, abdominal pain, vomiting, diarrhea, new urinary symptoms, or neurologic symptoms. [facility] Past Medical History Narrative Medical The patient's past medical history is significant for diabetes mellitus, hypertension, chronic kidney disease that is progressive chronic renal failure on hemodialysis on Sunday, Sunday, Sunday, history of congestive heart failure with diffuse wall thickening and an ejection fraction of 55-60% on her recent 2-D echo, hyperlipidemia. Asthma: No Autoimmune Disease: Yes (possible Lupus ) Cancer: No Cardiovascular Problems: Yes (HYPERTENSION) High Cholesterol: Yes Chest Pain: Yes Congestive Heart Failure: No Cerebrovascular Accident: No Diabetes: Yes Diminished Hearing: No Hypertension: Yes Kidney Stones: Yes Musculoskeletal: No Neurologic: No Psychiatric: No Reproductive: No Respiratory: Yes Migraines: No Seizures: No Sleep Apnea: No Menopausal: Yes : 6 Para: 6 Past Surgical History Narrative Surgical The patient's past surgical history is negative for eye surgery, left foot surgery. The patient has recently had a Vas-Cath placed in the right side of her chest and AV fistula placed in the left arm she is not using yet. Eye Surgery: Yes Other Surgery: Yes (LEFT FOOT SURGERY) Social History Alcohol Use: No Tobacco Use: No Substance Use: No Allergies-Medications (Allergen,Severity, Reaction): Coded Allergies: No Known Allergies (Unverified , 09/03/17) Reported Meds & Prescriptions Reported Meds & Active Scripts Active Labetalol (Labetalol HCl) 200 Mg Tab 200 Mg PO Q8H Rocaltrol (Calcitriol) 0.25 Mcg Cap 0.25 Mcg PO DAILY Nephro-Mariano Rx (Vitamin B Cmplx/Vit C/Folic AC) 1 Tab 1 Cap PO DAILY Norvasc (Amlodipine Besylate) 5 Mg Tab 5 Mg PO BID Cardura (Doxazosin Mesylate) 4 Mg Tab 4 Mg PO DAILY Hydralazine HCl 25 Mg Tablet 25 Mg PO Q8HR Flomax (Tamsulosin HCl) 0.4 Mg Cap 0.4 Mg PO DAILY Albuterol Neb (Albuterol Sulfate) 2.5 Mg/3 Ml Neb 2.5 Mg NEB Q2HR NEB PRN Furosemide 20 Mg Tab 20 Mg PO DAILY Pred Forte Opth 1% (Prednisolone Acetate Opth 1%) 1% Susp 1 Drop LEFT EYE QID Sodium Bicarbonate 650 Mg Tab 650 Mg PO BIDPC Atorvastatin (Atorvastatin Calcium) 20 Mg Tab 20 Mg PO HS Atropine Opth Drops 1% Soln 1 Drop EACH EYE BID Review of Systems Except as stated in HPI: all other systems reviewed are Neg General / Constitutional: No: Fever Eyes: No: Visual changes HENT: No: Headaches, Rhinorrhea, Congestion Cardiovascular: Positive: Dyspnea on exertion, No: Chest Pain or Discomfort Respiratory: Positive: Cough, Shortness of Breath Gastrointestinal: Positive: Indigestion, No: Nausea, Vomiting, Diarrhea, Abdominal Pain, Loss of Appetite Genitourinary: No: Dysuria Musculoskeletal: No: Pain Skin: No Rash Neurologic: No: Weakness, Focal Abnormalities, Change in Mentation, Slurred Speech, Sensory Disturbance Psychiatric: No: Depression Endocrine: No: Polydipsia Hematologic/Lymphatic: No: Easy Bruising Physical Exam Narrative General: The patient is a well-developed well-nourished female in no acute distress. O2 saturations on room air are 96% Head and Neck exam: Head is normocephalic atraumatic. Eyes: EOMI, pupils are equal round and reactive to light. Nose: Midline septum with pink mucous membranes Mouth: Dentition unremarkable. Moist mucus membranes. Posterior oropharynx is not erythematous. No tonsillar hypertrophy. Uvula midline. Airway patent. Neck: No palpable lymphadenopathy. No nuchal rigidity. No thyromegaly. Cardiovascular: Regular rate and rhythm without murmurs, gallops, or rubs. No pulse deficit to the extremities and simultaneous auscultation and palpation of her radial artery. Lungs: Crackles are audible in the right mid lung field. No wheezes, rhonchi, or respiratory distress is noted. No accessory muscle use. No paroxysmal abdominal breathing or tripoding. Abdomen: Soft, without tenderness to palpation in all 4 quadrants of the abdomen. No guarding, rebound, or rigidity. Normal bowel sounds are audible. No tenderness on palpation of McBurney's point. Extremities: No clubbing, cyanosis, or edema. 2+ pulses in all 4 extremities. No calf tenderness on palpation. Back: No spinous process tenderness to palpation. No costovertebral angle tenderness to palpation. Neurologic Exam: Grossly nonfocal. Skin Exam: No rash noted. Intact skin that is warm and dry. Data Data Last Documented VS Vital Signs Date Time Temp Pulse Resp B/P (MAP) Pulse Ox O2 Delivery O2 Flow Rate FiO2 09/03/17 19:34 18 94 Room Air 09/03/17 19:30 79 09/03/17 18:31 97.9 Orders Orders Electrocardiogram (09/03/17 19:31) Complete Blood Count With Diff (09/03/17 19:31) Comprehensive Metabolic Panel (09/03/17 19:31) Troponin I (09/03/17 19:31) B-Type Natriuretic Peptide (09/03/17 19:31) Prothrombin Time / Inr (Pt) (09/03/17 19:31) Act Partial Throm Time (Ptt) (09/03/17 19:31) Blood Culture (09/03/17 19:31) C-Reactive Protein (Crp) (09/03/17 19:31) Lipase (09/03/17 19:31) Magnesium (Mg) (09/03/17 19:31) Influenzae A/B Antigen (09/03/17 19:31) Chest, Single Ap (09/03/17 19:31) Iv Access Insert/Monitor (09/03/17 19:31) Ecg Monitoring (09/03/17 19:31) Oximetry (09/03/17 19:31) Ct Thorax/ Chest Wo Iv Contras (09/03/17 20:44) Ventilation & Perfusion Scan (09/03/17 ) Admit Order (Ed Use Only) (09/03/17 21:19) Aspirin Chew (Aspirin Chew) (09/03/17 21:30) Nitroglycerin 2% Oint (Nitroglycerin 2% (09/03/17 21:30) Labs Laboratory Tests Test 09/03/17 19:35 White Blood Count 5.7 TH/MM3 Red Blood Count 4.25 MIL/MM3 Hemoglobin 11.3 GM/DL Hematocrit 35.7 % Mean Corpuscular Volume 83.8 FL Mean Corpuscular Hemoglobin 26.6 PG Mean Corpuscular Hemoglobin Concent 31.7 % Red Cell Distribution Width 19.3 % Platelet Count 175 TH/MM3 Mean Platelet Volume 8.5 FL Neutrophils (%) (Auto) 71.0 % Lymphocytes (%) (Auto) 19.3 % Monocytes (%) (Auto) 5.3 % Eosinophils (%) (Auto) 3.6 % Basophils (%) (Auto) 0.8 % Neutrophils # (Auto) 4.1 TH/MM3 Lymphocytes # (Auto) 1.1 TH/MM3 Monocytes # (Auto) 0.3 TH/MM3 Eosinophils # (Auto) 0.2 TH/MM3 Basophils # (Auto) 0.0 TH/MM3 CBC Comment DIFF FINAL Differential Comment Prothrombin Time 10.6 SEC Prothromb Time International Ratio 1.0 RATIO Activated Partial Thromboplast Time 28.5 SEC Blood Urea Nitrogen 13 MG/DL Creatinine 3.01 MG/DL Random Glucose 124 MG/DL Total Protein 7.9 GM/DL Albumin 3.0 GM/DL Calcium Level 8.7 MG/DL Magnesium Level 2.0 MG/DL Alkaline Phosphatase 97 U/L Aspartate Amino Transf (AST/SGOT) 20 U/L Alanine Aminotransferase (ALT/SGPT) 19 U/L Total Bilirubin 0.7 MG/DL Sodium Level 138 MEQ/L Potassium Level 4.5 MEQ/L Chloride Level 105 MEQ/L Carbon Dioxide Level 25.3 MEQ/L Anion Gap 8 MEQ/L Estimat Glomerular Filtration Rate 16 ML/MIN Troponin I LESS THAN 0.02 NG/ML C-Reactive Protein 1.00 MG/DL B-Type Natriuretic Peptide 683 PG/ML Lipase 204 U/L MDM Medical Decision Making Medical Screen Exam Complete: Yes Emergency Medical Condition: Yes Medical Record Reviewed: Yes Interpretation(s) Last Impressions Chest X-Ray 09/03/171930 Signed Impressions: Service Date/Time: Sunday, September 03, 2017 19:54 - CONCLUSION: Prominent fluid overload Silvio Dove MD Differential Diagnosis Pneumonia, versus influenza, versus sepsis of undetermined origin, versus congestive heart failure exacerbation, versus COPD exacerbation Narrative Course During the course of the patients emergency department visit, the patients history, examination, and differential diagnosis were reviewed with the patient. The patient was placed on a quality assurance monitor body with oximetry and frequent blood pressure monitoring. The patient had IV access obtained and blood work sent for analysis. The patient had an ECG done on arrival. The patient's ECG reveals a sinus rhythm heart rate of 80, no acute ST segment elevation or depression. The patients laboratory studies were reviewed and remarkable for white count of 5.7, hemoglobin 11.3, platelets 175, neutrophils 71, CMP is remarkable for creatinine of 3.01, glucose 124, troponin I less than 0.02, C-reactive protein 1 , albumin 3, lipase 204, BNP is 683, increased compared to previously, PT 10.6, PTT 28.5 per Radiology studies were reviewed and remarkable for a chest x-ray that shows prominent fluid overload. The patient was given aspirin 162 mg by mouth 1, nitroglycerin 1 inch the chest wall, Lasix 40 mg IV. The patient's electronic medical record was reviewed. I do not see any prior evidence of evaluation for possible underlying PE. VQ scan will be ordered. Additionally, the patient did have a pleural effusion in the past that was drained. Some of the increased haziness in the bases could be related to a recurrent pleural effusion , therefore a CT scan of the thorax has been ordered. The patients results were discussed with the patient, including the plan of care. I explained that further testing and/ or monitoring is indicated based on the patients history, examination, and/ or laboratory findings. Therefore, I recommended admission for additional evaluation. The patient expressed understanding and was agreeable with this plan. The patient was admitted to the hospital in guarded condition and [facility] Physician Communication Physician Communication The patient's case was discussed with Dr. Spain who did agree to admit the patient for further evaluation and treatment at this time. Diagnosis Primary Impression: CHF exacerbation Qualified Codes: I50.9 - Heart failure, unspecified Admitting Information Admitting Physician Requests: Admit Vangie Arreola MD Sep 03, 2017 19:33
[2017-09-03 19:34] VITALS: RESP 18; O2SAT 94
[2017-09-03 19:55] LABS: AUTOMATED NEUTROPHIL # 4.1 TH/MM3 (1.8-7.7); BASOPHIL % 0.8 % (0.0-2.0); EOSINOPHIL # 0.2 TH/MM3 (0-0.4); EOSINOPHIL % 3.6 % (0.0-4.0); HEMATOCRIT 35.7 % (35.0-46.0); HEMO FLAGS DIFF FINAL; LYMPH % 19.3 % (9.0-44.0); LYMPHOCYTE # 1.1 TH/MM3 (1.0-4.8); MEAN CELL VOLUME 83.8 FL (80.0-100.0); MEAN CORPUSCULAR HEMOGLOBIN 26.6 PG (27.0-34.0); MEAN CORPUSCULAR HGB CONC 31.7 % (32.0-36.0); MONO % 5.3 % (0.0-8.0); PLATELET COUNT 175 TH/MM3 (150-450); RED BLOOD COUNT 4.25 MIL/MM3 (4.00-5.30); RED CELL DISTRIBUTION WIDTH 19.3 % (11.6-17.2); WHITE BLOOD COUNT 5.7 TH/MM3 (4.0-11.0)
[2017-09-03 20:00] VITALS: BP 157/65; PULSE 76; RESP 19; O2SAT 93
[2017-09-03 20:06] LABS: APTT (PATIENT) 28.5 SEC (24.3-30.1); PROTHROMBIN TIME - PATIENT 10.6 SEC (9.8-11.6)
--- NOTE | 2017-09-03 20:14 | RADRPT ---
EXAM DATE/TIME: 09/03/2017 19:54 [facility] COMPARISON: CHEST PA & LAT, August 23, 2017, 15:44. INDICATIONS : Cough. MEDICAL HISTORY : Renal failure, chronic. Hypertension SURGICAL HISTORY : Left arm AV fistula. Dialysis. ENCOUNTER: Initial ACUITY: 1 day PAIN SCORE: 0/10 LOCATION: Bilateral chest FINDINGS: Dialysis permacath is present on the right. There is perihilar and basilar alveolar opacity consisten t with parenchymal edema and likely moderate bilateral effusions. Cardiac contours are largely obscur ed. CONCLUSION: Prominent fluid overload Silvio Dove MD on September 03, 2017 at 20:11 Board Certified Radiologist. This report was verified electronically.
[2017-09-03 20:18] LABS: ALT (GPT) 19 U/L (10-53); ANION GAP 8 MEQ/L (5-15); AST (GOT) 20 U/L (15-37); BICARBONATE 25.3 MEQ/L (21.0-32.0); BLOOD UREA NITROGEN 13 MG/DL (7-18); CHLORIDE 105 MEQ/L (98-107); GLOMERULAR FILTRATION RATE 16 ML/MIN (>89); POTASSIUM 4.5 MEQ/L (3.5-5.1); SODIUM (NA) 138 MEQ/L (136-145)
[2017-09-03 20:21] LABS: ALKALINE PHOSPHATASE 97 U/L (45-117); TOTAL BILIRUBIN ADULT 0.7 MG/DL (0.2-1.0)
[2017-09-03] MEDS ORDERED: ASPIRIN 81 MG CHEW TAB CHEW ONE (21:30)
[2017-09-03] MEDS ORDERED: NITROGLYCERIN 2% OINT 1 GM PACKET TOPICAL ONE (21:30)
[2017-09-03] MEDS ORDERED: NALOXONE HCL 0.4 MG/ML AMP IV PUSH PRN (21:30)
[2017-09-03] MEDS ORDERED: SODIUM CHLORIDE 0.9% FLUSH 10 ML FLUSH IV FLUSH PRN (21:30)
[2017-09-03] MEDS ORDERED: FUROSEMIDE 40 MG/4 ML VIAL IV PUSH ONE (21:30)
--- NOTE | 2017-09-03 21:43 | RADRPT ---
EXAM DATE/TIME: 09/03/2017 21:06 [facility] COMPARISON: CHEST SINGLE AP, September 03, 2017, 19:54. INDICATIONS : Abnormal chest x-ray. Dyspnea x2 days. RADIATION DOSE: 4.34 CTDIvol (mGy) MEDICAL HISTORY : Hypertension. Renal calculi. diabetes, renal failure. dialysis. SURGICAL HISTORY : None. ENCOUNTER: Initial ACUITY: 1 day PAIN SCALE: 0/10 LOCATION: Bilateral chest TECHNIQUE: Volumetric scanning of the chest was performed. Using automated exposure control and adjustment of t he mA and/or kV according to patient size, radiation dose was kept as low as reasonably achievable to obtain optimal diagnostic quality images. DICOM format image data is available electronically for r eview and comparison. Follow-up recommendations for detected pulmonary nodules are based at a minimum on nodule size and pa tient risk factors according to Fleischner Society Guidelines. FINDINGS: LUNGS: There is perihilar and basilar alveolar disease. PLEURAE: Moderately large bilateral pleural effusions MEDIASTINUM: The heart and great vessels demonstrate no acute abnormality. There is no mediastinal or hilar lymph adenopathy. AXILLAE: Within normal limits. No lymphadenopathy. MUSCULOSKELETAL: Within normal limits for patient age. MISCELLANEOUS: Gallstones. Dialysis catheter in good position. CONCLUSION: Perihilar and basilar parenchymal edema, atelectasis and moderately large bilateral effusions. Silvio Dove MD on September 03, 2017 at 21:39 Board Certified Radiologist. This report was verified electronically.
--- NOTE | 2017-09-03 22:31 | RADRPT ---
EXAM DATE/TIME: 09/03/2017 21:56 [facility] COMPARISON: CHEST SINGLE AP, September 03, 2017, 19:54. INDICATIONS : Shortness of breath for two weeks. DOSE: 8.7 mCi Tc99m MAA IV 0.60 mCi Tc99m DTPA aerosol MEDICAL HISTORY : Diabetes mellitus type 2. Renal failure, chronic. Congestive heart failure. SURGICAL HISTORY : Left foot. ENCOUNTER: Initial ACUITY: 2 weeks PAIN SCALE: 0/10 LOCATION: chest TECHNIQUE: Following five minutes of tidal breathing of DTPA aerosol, planar images of the lungs were performed in eight projections. The patient was then injected with MAA, and eight-view perfusion scan was perf ormed. FINDINGS: There is a homogeneous pattern of aerosol delivery to the periphery of both lungs. No focal ventilat ory defects are seen. The perfusion lung scan demonstrates a homogenous pattern of uptake in both lungs. No segmental or s ubsegmental defects are seen. CONCLUSION: Low probability scan for pulmonary embolism Silvio Dove MD on September 03, 2017 at 22:29 Board Certified Radiologist. This report was verified electronically.
[2017-09-03 22:46] VITALS: BP 197/94; PULSE 76; RESP 18; TEMP 97.7; O2SAT 96
[2017-09-03 23:19] VITALS: PULSE 76
[2017-09-03] MEDS ORDERED: GLUCAGON 1 MG/ML VIAL OTHER PRN (23:30)
[2017-09-03] MEDS ORDERED: DEXTROSE 50% IN WATER 50 ML VIAL(D50) IV PUSH PRN (23:30)
[2017-09-03] MEDS ORDERED: LABETALOL HCL 100 MG TAB PO ONE (23:30)
[2017-09-04] VITALS (9 sets, daily range): BP systolic 128–185; BP diastolic 66–87; PULSE 69–110; RESP 16–18; TEMP 96.7–99.4; O2SAT 92–98
--- NOTE | 2017-09-04 01:39 | HHI.HP ---
HPI Service [facility] Primary Care Physician Bryce Morris MD Admission Diagnosis CHF exacerbation, shortness of breath Diagnoses: Chief Complaint: sob Travel History International Travel<30 Days: No Contact w/Intl Traveler <30 Da: No Traveled to Known Affected Are: No History of Present Illness Written by JAZZMINE Crawley acting as scribe for [Grabiel] on 09/04/17 at 01: 35. 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 Patient is Cameroonian speaking only and only wants daughter to translate for her. She complains of having a warm forehead on and off for 5-6 days, unable to take temperature, and shortness of breath that is worse at night. She complains of cough with no sputum production. She was seen by her pcp and was given a z pack that she finished 2 days ago. She was also given omeprazole for stomach pain and it went away in a few days. She denies any abdominal pain, nausea, vomiting or diarrhea. She was admitted in June 2017 for similar symptoms and underwent a CT guided thoracentesis. Review of Systems Except as stated in HPI: all other systems reviewed are Neg Past Family Social History Past Medical History ESRD on dialysis MWF DM HLD HTN Past Surgical History Eye surgery Left foot surgery Permacath CHICO fistula Reported Medications Reported Meds & Active Scripts Active Labetalol (Labetalol HCl) 200 Mg Tab 200 Mg PO Q8H Rocaltrol (Calcitriol) 0.25 Mcg Cap 0.25 Mcg PO DAILY Nephro-Mariano Rx (Vitamin B Cmplx/Vit C/Folic AC) 1 Tab 1 Cap PO DAILY Norvasc (Amlodipine Besylate) 5 Mg Tab 5 Mg PO BID Cardura (Doxazosin Mesylate) 4 Mg Tab 4 Mg PO DAILY Hydralazine HCl 25 Mg Tablet 25 Mg PO Q8HR Flomax (Tamsulosin HCl) 0.4 Mg Cap 0.4 Mg PO DAILY Albuterol Neb (Albuterol Sulfate) 2.5 Mg/3 Ml Neb 2.5 Mg NEB Q2HR NEB PRN Furosemide 20 Mg Tab 20 Mg PO DAILY Pred Forte Opth 1% (Prednisolone Acetate Opth 1%) 1% Susp 1 Drop LEFT EYE QID Sodium Bicarbonate 650 Mg Tab 650 Mg PO BIDPC Atorvastatin (Atorvastatin Calcium) 20 Mg Tab 20 Mg PO HS Atropine Opth Drops 1% Soln 1 Drop EACH EYE BID Allergies: Coded Allergies: No Known Allergies (Unverified , 09/03/17) Active Ordered Medications Current Medications Medications (Trade) Dose Ordered Sig/Deena Route Start Time Stop Time Status Last Admin (NS Flush) 2 ml UNSCH PRN IV FLUSH 09/03/17 21:30 (NS Flush) 2 ml BID IV FLUSH 09/04/17 09:00 (Narcan Inj) 0.4 mg UNSCH PRN IV PUSH 09/03/17 21:30 (D50w (Vial) Inj) 50 ml UNSCH PRN IV PUSH 09/03/17 23:30 (Glucagon Inj) 1 mg UNSCH PRN OTHER 09/03/17 23:30 (NovoLOG SUPPLEMENTAL SCALE) 1 ACHS SLIDING SCALE SQ 09/04/17 08:00 (Lasix Inj) 40 mg BID@09,18 IV PUSH 09/04/17 09:00 Family History Brother: DM Social History Patient denies any alcohol, tobacco or illicit drug use Physical Exam Vital Signs Vital Signs Date Time Temp Pulse Resp B/P (MAP) Pulse Ox O2 Delivery O2 Flow Rate FiO2 09/04/17 01:30 97.8 80 17 179/84 (115) 94 09/03/17 23:19 76 09/03/17 22:46 97.7 76 18 197/94 (128) 96 09/03/17 22:45 09/03/17 20:00 76 19 157/65 (95) 93 Room Air 09/03/17 19:34 18 94 Room Air 09/03/17 19:30 79 20 95 Room Air 09/03/17 18:31 97.9 76 15 204/81 (122) 94 Physical Exam GENERAL: This is a well-nourished, Cameroonian speaking only patient in no apparent distress. SKIN: No rashes, ecchymoses or lesions. Cool and dry. HEAD: Atraumatic. Normocephalic. EYES: Pupils equal round and reactive. ENT: Nose without bleeding, purulent drainage or septal hematoma. Airway patent. NECK: Trachea midline. No JVD CARDIOVASCULAR: Regular rate and rhythm without murmurs, gallops, or rubs. RESPIRATORY: Clear to auscultation. Breath sounds equal bilaterally. No wheezes , rales, or rhonchi. GASTROINTESTINAL: Abdomen soft, non-tender, nondistended. No hepato-splenomegaly , or palpable masses. No guarding. MUSCULOSKELETAL: Extremities without clubbing, cyanosis, or edema.No calf tenderness. NEUROLOGICAL: Awake and alert. Motor and sensory grossly within normal limits. Normal speech. Laboratory Laboratory Tests Test 09/03/17 19:35 White Blood Count 5.7 Red Blood Count 4.25 Hemoglobin 11.3 Hematocrit 35.7 Mean Corpuscular Volume 83.8 Mean Corpuscular Hemoglobin 26.6 Mean Corpuscular Hemoglobin Concent 31.7 Red Cell Distribution Width 19.3 Platelet Count 175 Mean Platelet Volume 8.5 Neutrophils (%) (Auto) 71.0 Lymphocytes (%) (Auto) 19.3 Monocytes (%) (Auto) 5.3 Eosinophils (%) (Auto) 3.6 Basophils (%) (Auto) 0.8 Neutrophils # (Auto) 4.1 Lymphocytes # (Auto) 1.1 Monocytes # (Auto) 0.3 Eosinophils # (Auto) 0.2 Basophils # (Auto) 0.0 CBC Comment DIFF FINAL Differential Comment Prothrombin Time 10.6 Prothromb Time International Ratio 1.0 Activated Partial Thromboplast Time 28.5 Blood Urea Nitrogen 13 Creatinine 3.01 Random Glucose 124 Total Protein 7.9 Albumin 3.0 Calcium Level 8.7 Magnesium Level 2.0 Alkaline Phosphatase 97 Aspartate Amino Transf (AST/SGOT) 20 Alanine Aminotransferase (ALT/SGPT) 19 Total Bilirubin 0.7 Sodium Level 138 Potassium Level 4.5 Chloride Level 105 Carbon Dioxide Level 25.3 Anion Gap 8 Estimat Glomerular Filtration Rate 16 Troponin I LESS THAN 0.02 C-Reactive Protein 1.00 B-Type Natriuretic Peptide 683 Lipase 204 Date/Time Source Procedure Growth Status 09/03/17 19:40 Blood Peripheral Aerobic Blood Culture Pending Received 09/03/17 19:40 Blood Peripheral Anaerobic Blood Culture Pending Received 09/03/17 19:45 Nasal Aspirate Influenza Types A,B Antigen (JORDANA) - Final NEGATIVE FOR FLU A AND B ANTIGEN.... Complete Result Diagram: 09/03/17193409/03/171934 Imaging Last Impressions Chest CT 09/03/172043 Signed Impressions: Service Date/Time: Sunday, September 03, 2017 21:06 - CONCLUSION: Perihilar and basilar parenchymal edema, atelectasis and moderately large bilateral effusions. Silvio Dove MD Chest X-Ray 09/03/171930 Signed Impressions: Service Date/Time: Sunday, September 03, 2017 19:54 - CONCLUSION: Prominent fluid overload Silvio Dove MD Lung Scan-VQ Nuclear Medicine 09/03/17 0000 Signed Impressions: Service Date/Time: Sunday, September 03, 2017 21:56 - CONCLUSION: Low probability scan for pulmonary embolism MD Clarke Canales VTE Risk Assessment Clarke VTE Risk Assessment: Mod/High Risk (score >= 2) Caprini Risk Assessment Model Point Value = 1 Point Value = 2 Point Value = 3 Point Value = 5 Age 41-60 Minor surgery BMI > 25 kg/m2 Swollen legs Varicose veins or History of unexplained or recurrent spontaneous Oral contraceptives or hormone replacement Sepsis (< 1 month) Serious lung disease, including pneumonia (< 1 month) Abnormal pulmonary function Acute myocardial infarction Congestive heart failure (< 1 month) History of inflammatory bowel disease Medical patient at bed rest Age 61-74 Arthroscopic surgery Major open surgery (> 45 min) Laparoscopic surgery (> 45 min) Malignancy Confined to bed (> 72 hours) Immobilizing plaster cast Central venous access Age >= 75 History of VTE Family history of VTE Factor V Leiden Prothrombin [id number] Lupus anticoagulant Anticardiolipin antibodies Elevated serum homocysteine Heparin-induced thrombocytopenia Other congenital or acquired thrombophilia Stroke (< 1 month) Elective arthroplasty Hip, pelvis, or leg fracture Acute spinal cord injury (< 1 month) Prophylaxis Regimen Total Risk Factor Score Risk Level Prophylaxis Regimen 0-1 Low Early ambulation 2 Moderate Order ONE of the following: *Sequential Compression Device (SCD) *Heparin 5000 units SQ BID 3-4 Higher Order ONE of the following medications: *Heparin 5000 units SQ TID *Enoxaparin/Lovenox 40 mg SQ daily (WT < 150 kg, CrCl > 30 mL/min) *Enoxaparin/Lovenox 30 mg SQ daily (WT < 150 kg, CrCl > 10-29 mL/min) *Enoxaparin/Lovenox 30 mg SQ BID (WT < 150 kg, CrCl > 30 mL/min) AND/OR *Sequential Compression Device (SCD) 5 or more Highest Order ONE of the following medications: *Heparin 5000 units SQ TID (Preferred with Epidurals) *Enoxaparin/Lovenox 40 mg SQ daily (WT < 150 kg, CrCl > 30 mL/min) *Enoxaparin/Lovenox 30 mg SQ daily (WT < 150 kg, CrCl > 10-29 mL/min) *Enoxaparin/Lovenox 30 mg SQ BID (WT < 150 kg, CrCl > 30 mL/min) AND *Sequential Compression Device (SCD) Assessment and Plan Problem List: (1) ESRD (end stage renal disease) ICD Code: N18.6 - End stage renal disease (2) Pleural effusion ICD Code: J90 - Pleural effusion, not elsewhere classified Status: Acute (3) Fluid overload ICD Code: E87.70 - Fluid overload, unspecified Status: Resolved Assessment and Plan 57 y/o female with a history of ESRD on dialysis, HLD, HTN, partially blind ( unsure if glaucoma), and DM presented to the ED with complaints of fevers and shortness of breath. Pleural effusion/ fluid overload due to history of ESRD Chest CT reviewed and shows Perihilar and basilar parenchymal edema, atelectasis and moderately large bilateral effusions. Chest x ray reviewed and shows fluid overload BNP 683 -Lasix given in ED, cont IV BID -Patient may need thoracentesis if no improvement ESRD on dialysis, chronic, creatine 3.0 around baseline -Consult nephrology, Dr. Howell for possible daily dialysis -Avoid nephrotoxins Hypertension, chronic, currently uncontrolled -Resume home medications, monitor vitals, prn's as needed DM, chronic -Accu checks AC/HS with SSI DVT prophylaxis: Heparin Discussed Condition With Patient and patient's daughter Physician Certification 2 Midnight Certification Type: Admission for Inpatient Services Order for Inpatient Services The services are ordered in accordance with Medicare regulations or non- Medicare payer requirements, as applicable. In the case of services not specified as inpatient-only, they are appropriately provided as inpatient services in accordance with the 2-midnight benchmark. Estimated LOS (days): 4 days is the estimated time the patient will need to remain in the hospital, assuming treatment plan goals are met and no additional complications. Post-Hospital Plan: Mely Little Sep 04, 2017 01:39
[2017-09-04] MEDS ORDERED: RESP: ALBUTEROL 2.5 MG/3 ML NEB (PRN) NEB (02:45)
[2017-09-04] MEDS: LABETALOL HCL 200 MG TAB PO SCH ×3 (03:22→17:51)
[2017-09-04 04:25] LABS: AUTOMATED NEUTROPHIL # 3.2 TH/MM3 (1.8-7.7); BASOPHIL # 0.1 TH/MM3 (0-0.2); BASOPHIL % 1.4 % (0.0-2.0); EOSINOPHIL # 0.2 TH/MM3 (0-0.4); EOSINOPHIL % 4.4 % (0.0-4.0); HEMATOCRIT 34.6 % (35.0-46.0); HEMO FLAGS DIFF FINAL; LYMPH % 28.9 % (9.0-44.0); LYMPHOCYTE # 1.6 TH/MM3 (1.0-4.8); MEAN CELL VOLUME 84.3 FL (80.0-100.0); MONO % 5.3 % (0.0-8.0); PLATELET COUNT 181 TH/MM3 (150-450); RED BLOOD COUNT 4.11 MIL/MM3 (4.00-5.30); RED CELL DISTRIBUTION WIDTH 18.9 % (11.6-17.2); WHITE BLOOD COUNT 5.4 TH/MM3 (4.0-11.0)
[2017-09-04 04:46] LABS: POTASSIUM 4.9 MEQ/L (3.5-5.1)
[2017-09-04 05:04] LABS: CREATINE KINASE 33 U/L (26-192)
[2017-09-04] MEDS: hydrALAZINE HCL 25 MG TAB PO SCH ×3 (05:22→22:46)
[2017-09-04] MEDS: HEPARIN SODIUM - SQ 10,000 UNITS/ML VIAL SQ SCH ×3 (05:22→22:46)
[2017-09-04] MEDS: INSULIN ASPART SUPPLEMENTAL SCALE SQ SCH ×4 (08:00→21:31)
[2017-09-04] MEDS: VITAMIN B CMPLX/VITC/FOLIC AC CAP PO SCH (09:24)
[2017-09-04] MEDS: DOXAZOSIN MESYLATE 4 MG TAB PO SCH (09:24)
[2017-09-04] MEDS: amLODIPine BESYLATE 5 MG TAB PO SCH ×2 (09:24→21:28)
[2017-09-04] MEDS: SODIUM BICARBONATE 650 MG TAB PO SCH ×2 (09:24→17:51)
[2017-09-04] MEDS: FUROSEMIDE 40 MG/4 ML VIAL IV PUSH SCH ×2 (09:24→17:51)
[2017-09-04] MEDS: CALCITRIOL 0.25 MCG CAP PO SCH (09:24)
[2017-09-04] MEDS: TAMSULOSIN HCL 0.4 MG CAP PO SCH (09:24)
[2017-09-04] MEDS: SODIUM CHLORIDE 0.9% FLUSH 10 ML FLUSH IV FLUSH SCH ×2 (09:26→21:28)
[2017-09-04] MEDS ORDERED: SODIUM CHLOR 0.9% 1000 ML INJ 1,000 ML IV PRN (09:54)
[2017-09-04] MEDS ORDERED: SODIUM CHLOR 0.9% 1000 ML INJ 1,000 ML OTHER PRN ×2 (09:54)
[2017-09-04] MEDS ORDERED: SODIUM CHLORIDE 0.9% FLUSH 10 ML FLUSH IV FLUSH PRN (10:00)
[2017-09-04] MEDS ORDERED: MANNITOL 12.5 GM/50 ML VIAL IV PRN (10:00)
[2017-09-04] MEDS ORDERED: cloNIDine HCL 0.1 MG TAB PO PRN (10:00)
[2017-09-04] MEDS ORDERED: ACETAMINOPHEN 325 MG TAB PO PRN (10:00)
[2017-09-04] MEDS ORDERED: ALBUMIN 25% INJ 100 ML IV PRN (10:00)
[2017-09-04] MEDS ORDERED: GELATIN 12 MM/7 MM FOAM TOP PRN (10:00)
[2017-09-04] MEDS ORDERED: NITROGLYCERIN 0.4 MG SL 25 TABS/BTL SL PRN (10:00)
[2017-09-04] MEDS ORDERED: diphenhydrAMINE HCL 25 MG CAP PO PRN (10:00)
[2017-09-04] MEDS ORDERED: HEPARIN SODIUM - IV 10,000 UNITS/10 ML VIAL IV FLUSH PRN (10:00)
[2017-09-04] MEDS ORDERED: HEPARIN SODIUM - IV 10,000 UNITS/10 ML VIAL PRN (10:00)
[2017-09-04] MEDS ORDERED: EPOETIN ALFA 10,000 UNITS/ML VIAL IV PUSH PRN (10:00)
[2017-09-04] MEDS ORDERED: GENTAMICIN SULFATE (DIALYSIS USE ONLY) 20 MG/2 ML VIAL OTHER PRN (10:00)
[2017-09-04] MEDS ORDERED: ONDANSETRON HCL 4 MG/2 ML VIAL IV PUSH PRN (10:00)
[2017-09-04 11:30] LABS: CREATINE KINASE 31 U/L (26-192)
--- NOTE | 2017-09-04 16:04 | EKG ---
Date Performed: 09/03/2017 Time Performed: 19:28:14 PTAGE: 57 years EKG: Sinus rhythm NORMAL ECG Compared to prior tracing no significant change PREVIOUS TRACING : 06/25/2017 14.16 DOCTOR: Josh Espinal Interpretating Date/Time 09/04/2017 16:02:57
--- NOTE | 2017-09-04 16:05 | EKG ---
Date Performed: 09/04/2017 Time Performed: 07:38:45 PTAGE: 57 years EKG: Sinus rhythm NORMAL ECG Compared to prior tracing no significant change PREVIOUS TRACING : 09/03/2017 19.28 DOCTOR: Josh Espinal Interpretating Date/Time 09/04/2017 16:03:06
--- NOTE | 2017-09-04 20:47 | MB ---
cc: ABRIL WATSON MD DATE OF CONSULTATION 09/04/17 REASON FOR CONSULTATION End-stage renal disease on hemodialysis for management. HISTORY OF PRESENT ILLNESS This is a 57-year-old female known to me from her last previous admission with past medical history of hypertension, ischemic heart disease, congestive heart failure, diabetes mellitus, end-stage renal disease on hemodialysis three times per week who presented to the hospital with complaint of worsening shortness of breath. I was called to see the patient because of management of dialysis. The patient has been on hemodialysis Sunday, Sunday, Sunday and she has been getting dialysis on the west side in [place] and she has been following with Dr. Huffman. The last time she was here, she was started on dialysis and she also has a left arm AV fistula which is not matured. She is getting dialysis through the [facility]. The patient only speaks Green[place]ic and not able to give much history and also the history was taken from patient's chart, according to which she came with worsening shortness of breath. She still has a cough and there is no sputum. She was seen by her primary care and she was given erythromycin and she finished today. There was not much improvement. There is no chest pain. There is no history of fever. PAST MEDICAL HISTORY 1. Hypertension, 2. Ischemic heart disease, 3. Congestive heart failure, 4. Diabetes mellitus, 5. End-stage renal disease on hemodialysis three times per week, 6. History of legal blindness 7. Chronic anemia. PAST SURGICAL HISTORY 1. Left arm AV fistula surgery 2. History of Perma-Cath placement 3. left foot surgery 4. Eye surgery. REVIEW OF SYSTEMS The patient has generalized weakness, feeling tired, has worsening shortness of breath, cough with sputum. There is no chest pain. No nausea, vomiting. No abdominal pain. No history of diarrhea. SOCIAL HISTORY No history of smoking or alcoholism FAMILY HISTORY Noncontributory. ALLERGIES No known drug allergies. MEDICATIONS Currently 1. Amlodipine 5 mg b.i.d. 2. Lasix 40 mg b.i.d. 3. Sodium bicarbonate 650 mg b.i.d. 4. Cardura 4 mg once a day. 5. Flomax 0.4 mg daily. 6. Calcitriol 0.25 mcg daily 7. Nephro cap one capsule daily 8. Lipitor 20 mg q.h.s. 9. Labetalol 200 mg q.8 h. 10. Hydralazine 25 mg q. 8-hour. 11. Heparin 5000 units subcu q.8 h. 12. Insulin sliding scale PHYSICAL EXAMINATION GENERAL: The patient is awake, alert. She is not in acute distress. VITAL SIGNS: Last blood pressure 134/68, temperature 98, oxygen saturation 90-98%. HEENT: Pupils are mid constricted. Nonicteric sclerae, conjunctivae pale. NECK: Supple. JVD is not elevated. LUNGS: The patient has bilateral decreased air entry with basilar rales and scattered wheezing. HEART: S1, S2, regular rhythm. ABDOMEN: Soft, lax. There is no tenderness. Bowel sounds positive. EXTREMITIES: She has mild edema. Left arm has AV fistula and has good bruit LABORATORY DATA WBC count 5.4, hemoglobin 11.1, platelet count of 181. Sodium 139. Potassium 4.9, chloride 107, bicarb 27, BUN 17, creatinine 3.3. Trop I is less than 0.02. Albumin is 3.0, total protein 7.9, TSH is 5.2 but this was done during last admission, INR 1.0. IMAGING STUDIES The patient has VQ scan of the lungs done which shows no probability for pulmonary embolism. Chest x-ray was done which shows some prominence of the blood vessels. CT scan of the chest was done without IV contrast and it shows perihilar and basilar parenchymal edema and atelectasis with moderate to large bilateral pleural effusion. CARDIOLOGY STUDIES The patient had echocardiogram done in May of this year and it shows that her ejection section was 55-60%. ASSESSMENT/PLAN 1. Shortness of breath and bilateral pleural effusion. 2. History of ischemic heart disease and congestive heart failure 3. Hypertension 4. Diabetes mellitus 5. Legal blindness. 6. End-stage renal disease on hemodialysis. The patient had hemodialysis done yesterday and she will need to have more fluid removed with the dialysis. Continue the Lasix at present. She had bilateral pleural effusion. If there is no improvement, she may need thoracentesis. At present, we will continue the diuresis and removal of more fluid with the dialysis. Hemodialysis will be done tomorrow since the patient has been on room air saturating normal. I will DC the sodium bicarbonate since this has caused more fluid and sodium retention. Her bicarb has been normal. Thank you for the consultation and I will follow the patient while she is in the hospital. MD LONNY Aguillon/ /6:57 PM /8:26 PM
[2017-09-04] MEDS: ATORVASTATIN 20 MG TAB PO SCH (21:28)
[2017-09-05] VITALS (10 sets, daily range): BP systolic 129–154; BP diastolic 62–72; PULSE 69–78; RESP 16–20; TEMP 96.1–98.2; O2SAT 93–96
[2017-09-05] MEDS: LABETALOL HCL 200 MG TAB PO SCH ×3 (03:00→17:50)
[2017-09-05] MEDS: hydrALAZINE HCL 25 MG TAB PO SCH ×3 (05:28→22:03)
[2017-09-05] MEDS: HEPARIN SODIUM - SQ 10,000 UNITS/ML VIAL SQ SCH ×3 (05:29→22:04)
[2017-09-05] MEDS: INSULIN ASPART SUPPLEMENTAL SCALE SQ SCH ×4 (08:00→21:00)
[2017-09-05] MEDS: VITAMIN B CMPLX/VITC/FOLIC AC CAP PO SCH (09:18)
[2017-09-05] MEDS: DOXAZOSIN MESYLATE 4 MG TAB PO SCH (09:18)
[2017-09-05] MEDS: CALCITRIOL 0.25 MCG CAP PO SCH (09:18)
[2017-09-05] MEDS: amLODIPine BESYLATE 5 MG TAB PO SCH ×2 (09:18→22:03)
[2017-09-05] MEDS: TAMSULOSIN HCL 0.4 MG CAP PO SCH (09:18)
[2017-09-05] MEDS: FUROSEMIDE 40 MG/4 ML VIAL IV PUSH SCH ×2 (09:18→17:49)
[2017-09-05] MEDS: SODIUM CHLORIDE 0.9% FLUSH 10 ML FLUSH IV FLUSH SCH ×2 (09:19→22:03)
--- NOTE | 2017-09-05 17:03 | HHI.NPPN ---
Subjective History of Present Illness 57-year-old female known to me from her last previous admission with past medical history of hypertension, ischemic heart disease, congestive heart failure, diabetes mellitus, end-stage renal disease on hemodialysis three times per week who presented to the hospital with complaint of worsening shortness of breath. I was called to see the patient because of management of dialysis. The patient has been on hemodialysis Sunday, Sunday, Sunday and she has been getting dialysis on the west side in [place] and she has been following with Dr. Huffman. Additional Remarks Patient seen in AM, feeling better, breathing is better, with nasal cannula. Objective Data Data Vital Signs Date Time Temp Pulse Resp B/P (MAP) Pulse Ox O2 Delivery O2 Flow Rate FiO2 09/05/17 16:25 97.3 75 20 129/63 (85) 96 09/05/17 09:06 95 21 09/05/17 08:00 98.0 78 18 145/67 (93) 96 09/05/17 04:57 98.0 77 17 145/71 (95) 95 09/05/17 00:48 71 09/05/17 00:30 98.2 76 17 132/62 (85) 93 09/04/17 20:58 96.7 73 18 146/72 (96) 95 09/04/17 19:05 99.4 110 16 128/79 (95) 98 09/04/17 19:00 97.7 69 16 153/73 (99) 97 09/04/17 17:26 92 21 -: 09/04/17 0338 09/04/17 0338 Physical Exam General Appearance: No Acute Distress, Comfortable Eyes Eye Exam: Pupils Equal Ears & Nose Ears & Nose Exam: Nasal Mucosa [place] Throat Throat Exam: Oral Mucosa [place] & Moist Pulmonary Resp Exam: Breath Sounds Equal, No Distress, Rhonchi, Decreased Bases, Diminished Breath Sounds Cardiology CV Exam: Regular, Normal Sinus Rhythm Gastrointestinal/Abdomen GI Exam: Soft, Non-Tender, Bowel Sounds Present Extremeties Extremities Exam: Trace Edema Neurologic Neuro Exam: Alert, Awake, Oriented Psychiatric Psych Exam: Appropriate Responses Assessment/Plan Assessment Summary: Anemia of CKD, Fluid/Volume Overload, CHF, Hypertension, End Stage Renal Disease Problem List: (1) Hypertension ICD Codes: I10 - Essential (primary) hypertension Status: Chronic (2) CHF exacerbation ICD Codes: I50.9 - Heart failure, unspecified Status: Acute (3) Fluid overload ICD Codes: E87.70 - Fluid overload, unspecified Status: Resolved (4) Pleural effusion ICD Codes: J90 - Pleural effusion, not elsewhere classified Status: Acute (5) Diabetes mellitus ICD Codes: E11.9 - Type 2 diabetes mellitus without complications Status: Chronic (6) ESRD (end stage renal disease) ICD Codes: N18.6 - End stage renal disease Plan Patient is newly started on HD. Has still some residual renal function. Responded to Lasix, HD today, remove fluid as tolerated. D/W the daughter at bed side, to restrict salt and fluid intake. Will need to continue Lasix on non HD days. If stable, can be discharged from Nephrology. Problem Qualifiers (1) CHF exacerbation: Qualified Codes: I50.9 - Heart failure, unspecified José Howell MD Sep 05, 2017 17:03
--- NOTE | 2017-09-05 17:16 | RADRPT ---
EXAM DATE/TIME: 09/05/2017 17:29 [place] COMPARISON: CT THORAX W/O CONTRAST, September 03, 2017, 21:06. LUNG VENTILATION & PERFUSION SCAN, September 03, 2017 , 21:56. CHEST SINGLE AP, September 03, 2017, 19:54. INDICATIONS : Follow up for pleural effusion. MEDICAL HISTORY : Renal failure, chronic. Hypertension SURGICAL HISTORY : Left arm AV fistula. Dialysis. ENCOUNTER: Subsequent ACUITY: 2 weeks PAIN SCORE: Non-responsive. LOCATION: chest FINDINGS: Persistent hazy density in the lower lungs bilaterally with meniscal interface on both sides and loss of delineation of both hemidiaphragms. Overall appearance is similar to prior examination. There is also infiltrate in the lower lungs causing obscuration of portions of the heart borders. Double lum en central line tip projects in the right atrium. CONCLUSION: Stable appearance to bilateral lower lung infiltrates and pleural effusions. Edgardo Nguyen MD on September 05, 2017 at 17:13 Board Certified Radiologist. This report was verified electronically.
--- NOTE | 2017-09-05 19:51 | HHI.PR ---
Subjective Remarks positive cough and sob no fevert Objective Vitals Vital Signs Date Time Temp Pulse Resp B/P (MAP) Pulse Ox O2 Delivery O2 Flow Rate FiO2 09/05/17 16:25 97.3 75 20 129/63 (85) 96 09/05/17 12:00 96.1 69 18 154/72 (99) 95 09/05/17 09:06 95 21 09/05/17 08:00 98.0 78 18 145/67 (93) 96 09/05/17 04:57 98.0 77 17 145/71 (95) 95 09/05/17 00:48 71 09/05/17 00:30 98.2 76 17 132/62 (85) 93 09/04/17 20:58 96.7 73 18 146/72 (96) 95 I/O 09/04/17 09/04/17 09/04/17 09/05/17 09/05/17 09/05/17 07:00 15:00 23:00 07:00 15:00 23:00 Intake Total 120 ml 100 ml 120 ml 120 ml 600 ml Balance 120 ml 100 ml 120 ml 120 ml 600 ml Intake Oral 120 ml 100 ml 120 ml 120 ml 600 ml # Voids 0 2 1 2 3 # Bowel Movements 0 0 0 0 1 Result Diagram: 09/04/1733709/04/17337 A/P Problem List: (1) ESRD (end stage renal disease) ICD Code: N18.6 - End stage renal disease (2) Pleural effusion ICD Code: J90 - Pleural effusion, not elsewhere classified Status: Acute (3) Fluid overload ICD Code: E87.70 - Fluid overload, unspecified Status: Resolved Assessment and Plan 57 y/o female with a history of ESRD on dialysis, HLD, HTN, partially blind ( unsure if glaucoma), and DM presented to the ED with complaints of fevers and shortness of breath. Pleural effusion/ fluid overload due to history of ESRD Chest CT reviewed and shows Perihilar and basilar parenchymal edema, atelectasis and moderately large bilateral effusions. Chest x ray reviewed and shows fluid overload BNP 683 -Lasix given in ED, cont IV BID, on non hd days -Patient may need thoracentesis if no improvement ESRD on dialysis, chronic, creatine 3.0 around baseline -Consult nephrology, Dr. Jumani for possible daily dialysis -Avoid nephrotoxins Hypertension, chronic, currently uncontrolled -Resume home medications, monitor vitals, prn's as needed DM, chronic -Accu checks AC/HS with SSI DVT prophylaxis: Heparin Lisa Damon MD Sep 05, 2017 19:51
[2017-09-05] MEDS: ATORVASTATIN 20 MG TAB PO SCH (22:03)
[2017-09-06 04:26] VITALS: BP 150/67; PULSE 75; RESP 16; TEMP 97.1; O2SAT 94
[2017-09-06] MEDS: LABETALOL HCL 200 MG TAB PO SCH ×2 (04:29→12:03)
[2017-09-06] MEDS: hydrALAZINE HCL 25 MG TAB PO SCH (05:56)
[2017-09-06] MEDS: HEPARIN SODIUM - SQ 10,000 UNITS/ML VIAL SQ SCH (05:56)
[2017-09-06 08:00] VITALS: BP 151/71; PULSE 79; RESP 16; TEMP 99.4; O2SAT 93
[2017-09-06] MEDS: INSULIN ASPART SUPPLEMENTAL SCALE SQ SCH ×2 (08:00→12:00)
[2017-09-06] MEDS: DOXAZOSIN MESYLATE 4 MG TAB PO SCH (08:30)
[2017-09-06] MEDS: CALCITRIOL 0.25 MCG CAP PO SCH (08:30)
[2017-09-06] MEDS: VITAMIN B CMPLX/VITC/FOLIC AC CAP PO SCH (08:30)
[2017-09-06] MEDS: amLODIPine BESYLATE 5 MG TAB PO SCH (08:30)
[2017-09-06] MEDS: TAMSULOSIN HCL 0.4 MG CAP PO SCH (08:30)
[2017-09-06] MEDS: FUROSEMIDE 40 MG/4 ML VIAL IV PUSH SCH (08:31)
[2017-09-06] MEDS: SODIUM CHLORIDE 0.9% FLUSH 10 ML FLUSH IV FLUSH SCH (08:31)
[2017-09-06 08:40] VITALS: PULSE 74
--- NOTE | 2017-09-06 09:47 | HHI.NPPN ---
Subjective History of Present Illness 57-year-old female known to me from her last previous admission with past medical history of hypertension, ischemic heart disease, congestive heart failure, diabetes mellitus, end-stage renal disease on hemodialysis three times per week who presented to the hospital with complaint of worsening shortness of breath. I was called to see the patient because of management of dialysis. The patient has been on hemodialysis Sunday, Sunday, Sunday and she has been getting dialysis on the west side in [place] and she has been following with Dr. Huffman. Additional Remarks Patient is alert, breathing is better, off O2, mild cough. Objective Data Data Vital Signs Date Time Temp Pulse Resp B/P (MAP) Pulse Ox O2 Delivery O2 Flow Rate FiO2 09/06/17 08:40 74 09/06/17 08:00 99.4 79 16 151/71 (97) 93 09/06/17 04:26 97.1 75 16 150/67 (94) 94 09/05/17 23:30 71 09/05/17 22:45 73 09/05/17 21:55 96.9 71 16 144/66 (92) 94 09/05/17 16:25 97.3 75 20 129/63 (85) 96 09/05/17 12:00 96.1 69 18 154/72 (99) 95 -: 09/04/17 0338 09/04/17 0338 Physical Exam General Appearance: No Acute Distress, Comfortable Eyes Eye Exam: Pupils Equal Ears & Nose Ears & Nose Exam: Nasal Mucosa [place] Throat Throat Exam: Oral Mucosa [place] & Moist Pulmonary Resp Exam: Breath Sounds Equal, No Distress, Rhonchi, Decreased Bases, Diminished Breath Sounds Cardiology CV Exam: Regular, Normal Sinus Rhythm Gastrointestinal/Abdomen GI Exam: Soft, Non-Tender, Bowel Sounds Present Extremeties Extremities Exam: Trace Edema Neurologic Neuro Exam: Alert, Awake, Oriented Psychiatric Psych Exam: Appropriate Responses Assessment/Plan Assessment Summary: Anemia of CKD, Fluid/Volume Overload, CHF, Hypertension, End Stage Renal Disease Problem List: (1) Hypertension ICD Codes: I10 - Essential (primary) hypertension Status: Chronic (2) CHF exacerbation ICD Codes: I50.9 - Heart failure, unspecified Status: Acute (3) Fluid overload ICD Codes: E87.70 - Fluid overload, unspecified Status: Resolved (4) Pleural effusion ICD Codes: J90 - Pleural effusion, not elsewhere classified Status: Acute (5) Diabetes mellitus ICD Codes: E11.9 - Type 2 diabetes mellitus without complications Status: Chronic (6) ESRD (end stage renal disease) ICD Codes: N18.6 - End stage renal disease Plan Patient is newly started on HD. Has still some residual renal function. Responded to Lasix, D/W the daughter at bed side, to restrict salt and fluid intake. Will need to continue Lasix on non HD days. Can be discharged from Nephrology. HD is due in AM. Problem Qualifiers (1) CHF exacerbation: Qualified Codes: I50.9 - Heart failure, unspecified José Howell MD Sep 06, 2017 09:47
[2017-09-06 10:07] LABS: BICARBONATE 28.1 MEQ/L (21.0-32.0); MAGNESIUM 2.3 MG/DL (1.5-2.5); POTASSIUM 4.7 MEQ/L (3.5-5.1)
[2017-09-06 12:00] VITALS: BP 143/70; PULSE 74; RESP 16; TEMP 97.7; O2SAT 95
--- NOTE | 2017-09-07 09:47 | HHI.DS ---
Discharge Summary Admission Date Sep 03, 2017 at 21:24 Discharge Date: Sep 06, 2017 Admitting Diagnosis CHF exacerbation, shortness of breath (1) ESRD (end stage renal disease) ICD Code: N18.6 - End stage renal disease (2) Pleural effusion ICD Code: J90 - Pleural effusion, not elsewhere classified Status: Acute (3) Fluid overload ICD Code: E87.70 - Fluid overload, unspecified Status: Resolved Procedures See below Brief History - From Admission Written by JAZZMINE Carwley acting as scribe for [Grabiel] on 09/04/17 at 01: 35. 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 Patient is [place]ic speaking only and only wants daughter to translate for her. She complains of having a warm forehead on and off for 5-6 days, unable to take temperature, and shortness of breath that is worse at night. She complains of cough with no sputum production. She was seen by her pcp and was given a z pack that she finished 2 days ago. She was also given omeprazole for stomach pain and it went away in a few days. She denies any abdominal pain, nausea, vomiting or diarrhea. She was admitted in June 2017 for similar symptoms and underwent a CT guided thoracentesis. CBC/BMP: 09/04/17 0338 09/06/17 0856 Significant Findings Laboratory Tests Test 09/06/17 08:56 Blood Urea Nitrogen 20 MG/DL (7-18) Creatinine 3.87 MG/DL (0.50-1.00) Random Glucose 127 MG/DL (74-106) Estimat Glomerular Filtration Rate 12 ML/MIN (>89) B-Type Natriuretic Peptide 410 PG/ML (0-100) Hospital Course 57 y/o female with a history of ESRD on dialysis, HLD, HTN, partially blind ( unsure if glaucoma), and DM presented to the ED with complaints of fevers and shortness of breath. Pleural effusion/ fluid overload due to history of ESRD Chest CT reviewed and shows Perihilar and basilar parenchymal edema, atelectasis and moderately large bilateral effusions. Chest x ray reviewed and shows fluid overload Lasix iv given since there still some residue in renal function, monitor BMP, nephrology consulted, continue ESRD per nephrology, cleared later on for discharge to follow up as an outpatient Pt Condition on Discharge: Fair Discharge Disposition: Discharge Home Discharge Time: > 30 minutes Discharge Instructions DIET: Follow Instructions for: Heart Healthy Diet, Diabetic Diet, Renal Failure Diet Activities you can perform: Weight Bearing as Carly Follow up Referrals: PCP Follow-up Continued Medications: Albuterol Neb (Albuterol Neb) 2.5 Mg/3 Ml Neb 2.5 MG NEB Q2HR NEB PRN for DYSPNEA, #180 NEBULE Amlodipine (Norvasc) 5 Mg Tab 5 MG PO BID for Blood Pressure Management, #60 TAB Atorvastatin (Atorvastatin) 20 Mg Tab 20 MG PO HS for Cholesterol Management, #30 TAB 0 Refills Atropine Opth Drops (Atropine Opth Drops) 1% Soln 1 DROP EACH EYE BID for Dry Eye, #10 ML 0 Refills Calcitriol (Rocaltrol) 0.25 Mcg Cap 0.25 MCG PO DAILY for Nutritional Supplement, #30 CAP Doxazosin (Cardura) 4 Mg Tab 4 MG PO DAILY for Blood Pressure Management, #30 TAB Furosemide (Furosemide) 20 Mg Tab 20 MG PO DAILY for Blood Pressure Management, #30 TAB 0 Refills Hydralazine HCl (Hydralazine HCl) 25 Mg Tablet 25 MG PO Q8HR for Blood Pressure Management, #90 TAB Labetalol (Labetalol) 200 Mg Tab 200 MG PO Q8H for Blood Pressure Management, #90 TAB Prednisolone Acetate Opth 1% (Pred Forte Opth 1%) 1% Susp 1 DROP LEFT EYE QID for Inflammation, #1 BOTTLE 0 Refills Sodium Bicarbonate (Sodium Bicarbonate) 650 Mg Tab 650 MG PO BIDPC for Nutritional Supplement, #60 TAB 0 Refills Tamsulosin (Flomax) 0.4 Mg Cap 0.4 MG PO DAILY for URINARY RETENTION, #30 CAP Vitamin B Cmplx/Vit C/Folic AC (Nephro-[facility] Rx) 1 Tab 1 CAP PO DAILY for Nutritional Supplement, #30 TAB Lisa Damon MD Sep 07, 2017 09:47
== END 2017-09-06 16:41 | disposition home or self-care (01) | DRG 291 ==
LOC: NEPE 18:28 → NEDA 21:24 → N06A 22:47
PROVIDERS: ADMIT Hospitalist; ATTEND Hospitalist
PROC: 5A1D70Z Performance of Urinary Filtration, Intermittent, Less than 6 Hours Per Day (ICD-10-PCS; principal; 2017-09-04)
DX: I13.2 Hypertensive heart and chronic kidney disease with heart failure and with stage 5 chronic kidney disease, or end stage renal disease (principal); N18.6 End stage renal disease; E11.22 Type 2 diabetes mellitus with diabetic chronic kidney disease; I50.9 Heart failure, unspecified; E78.5 Hyperlipidemia, unspecified; I25.9 Chronic ischemic heart disease, unspecified; H54.8 Legal blindness, as defined in USA; D63.1 Anemia in chronic kidney disease; Z99.2 Dependence on renal dialysis
CPT/HCPCS: 71010; 71250; 78582; 80048; 80053; 82550; 82948; 83690; 83735; 83880; 84100; 84484; 85025; 85610; 85730; 86140; 87040; 87804; 93005; A9540; A9567; J1644; J1940